=== PATIENT | female | born 1980 | race Caucasian/White ===

== ENCOUNTER 2019-02-21 16:33 | Observation (INO) ==
[2019-02-21 17:19] LABS: Microscopic, Urine URINE MICROSCOPIC (MICROSCOPIC)
[2019-02-21 17:28] LABS: Basophils # 0.1 K/mm3 (0-0.2); Basophils % 1.2 % (0.1-2.0); Eosinophils # 0.2 K/mm3 (0.0-0.4); Eosinophils % 2.1 % (0.1-12.0); Hematocrit 44.2 % (37.0-47.0); Hemoglobin 14.4 g/dL (12.2-16.2); Lymphocytes # 1.4 K/mm3 (0.7-4.5); Lymphocytes % 20.5 % (10-50); Mean Corpuscular HGB Conc 32.7 g/dL (31.8-35.4); Mean Corpuscular Volume 85.7 fl (81-99); Mean Platelet Volume 7.8 fl (7.4-10.4); Monocytes # 0.6 K/mm3 (0.1-1.0); Monocytes % 9.4 % (1.7-9.3); Neutrophils # 4.6 K/mm3 (1.8-7.8); Neutrophils % 66.8 % (37.0-80.0); Platelet Count 282 K/mm3 (142-424); Red Blood Count 5.16 M/mm3 (4.20-5.40); Red Cell Distribution Width 14.1 % (11.5-17.5); White Blood Count 6.8 K/mm3 (4.8-10.8)
[2019-02-21 17:38] LABS: Appearance,Urine CLEAR (Clear); Bilirubin,Urine Negative (Negative); Blood, Urine Negative (Negative); Color,Urine YELLOW (Yellow); Glucose,Urine (UA) Negative (Negative); Ketones,Urine Negative (Negative); Leukocyte Esterase,Urine Negative (Negative); Protein,Urine Negative (Negative); Urobilinogen,Urine 0.2 EU/dl (0.2)
[2019-02-21 17:46] LABS: Bacteria,Urine 1+ /lpf
[2019-02-21 17:52] LABS: Albumin Level 3.8 gm/dL (3.4-5.0); Albumin/Globulin Ratio 0.9 (1.1-1.8); Bilirubin,Total 0.8 mg/dL (0.2-1.0); Calcium 8.8 mg/dL (8.5-10.1); Globulin 4.4 gm/dl (1.3-3.2); Total Protein,Serum 8.2 gm/dL (6.4-8.2)
--- NOTE | 2019-02-21 18:42 | Emergency Department Note ---
ED Disposition Clinical Impression: Hypokalemia Disposition: Admitted as Observation Condition on Discharge: Good - Critical Care Critical Care Time: No Attestation: On 02/21/19, the high probability of a clinically significant, sudden or life threatening deterioration of the following system(s) required my full and direct attention, intervention and personal management. The time I documented below is in addition to time spent performing reported procedures but includes the following listed in this critical care notation. Medical Decision Making - Alexander Inquiry Pt receiving controlled substance: No Vital Signs: 02/21/19 17:05 02/21/19 17:26 Temperature 98.3 F Temperature Source Oral Pulse Rate [Right Radial] 101 H 99 H Respiratory Rate 18 18 Blood Pressure [Right Arm] 135/88 104/45 L Blood Pressure Mean [Right Arm] 103 64 Blood Pressure Source [Right Arm] Automatic Cuff Automatic Cuff Blood Pressure Position [Right Arm] Sitting Supine 02 Sat by Pulse Oximetry 95 98 Oxygen Delivery Method Room Air Room Air - Lab Data Lab Results 02/21/19 16:45: Urine Color Yellow, Urine Appearance Clear, Urine pH 6.0, Ur Specific [place] 1.010, Urine Protein Negative, Urine Glucose (UA) Negative, Urine Ketones Negative, Urine Blood Negative, Urine Nitrate Negative, Urine Bilirubin Negative, Urine Urobilinogen 0.2, Ur Leukocyte Esterase Negative, Ur Squamous Epith Cells 3-5, Urine Bacteria 1+ 02/21/19 16:45: WBC 6.8, RBC 5.16, Hgb 14.4, Hct 44.2, MCV 85.7, MCH 28.0, MCHC 32.7, RDW 14.1, Plt Count 282, MPV 7.8, Neut % (Auto) 66.8, Lymph % (Auto) 20.5, [place] % (Auto) 9.4 H, Eos % (Auto) 2.1, Baso % (Auto) 1.2, Neut # (Auto) 4.6, Lymph # (Auto) 1.4, [place] # (Auto) 0.6, Eos # (Auto) 0.2, Baso # (Auto) 0.1 02/21/19 16:45: Sodium 139, Potassium 2.0 L*, Chloride 97 L, Carbon Dioxide 32, Anion Gap 12.0, BUN 15, Creatinine 1.00, Estimated Creat Clear 76, Estimated GFR 62, Est GFR ( Amer) 75, Glucose 79, Calcium 8.8, Total Bilirubin 0.8, AST 90 H, ALT 54, Alkaline Phosphatase 161 H, Total Protein 8.2, Albumin 3.8, Globulin 4.4 H, Albumin/Globulin Ratio 0.9 L 02/21/19 16:58: Magnesium 1.2 L, TSH 2.26 Result diagrams: 02/21/19 16:45 02/21/19 16:45 Orders (Tests/Meds): ED MEDICATIONS Generic Name Dose Route Start Last Admin Trade Name Freq PRN Reason Stop Dose Admin Furosemide 40 mg 02/22/19 09:00 Lasix 40mg Tablet PO 03/24/19 08:59 DAILY PARRIS Potassium Chloride/Water 100 mls @ 50 mls/hr 02/21/19 19:20 02/21/19 19:51 Potassium Chloride 20meq/100ml Ivpb IV 02/21/19 21:19 50 mls/hr ONCE ONE Administration Levothyroxine Sodium 25 mcg 02/22/19 09:00 Synthroid 25mcg (0.025mg) Tablet PO 03/24/19 08:59 DAILY PARRIS Nitrofurantoin Macrocrystals 100 mg 02/21/19 21:00 Macrodantin 100mg Capsule PO 03/07/19 20:59 QID PARRIS Non-Formulary Medication 20 mg 02/22/19 09:00 Omeprazole [Omeprazole 20mg Capsule] PO 03/24/19 08:59 DAILY PARRIS Potassium Chloride 40 meq 02/21/19 21:00 Klor-Con 20meq Tablet PO 03/23/19 20:59 TID PARRIS Spironolactone 25 mg 02/21/19 21:00 Aldactone 25mg Tablet PO 03/23/19 20:59 BID PARRIS Discontinued Medications Generic Name Dose Route Start Last Admin Trade Name Freq PRN Reason Stop Dose Admin Sodium Chloride 500 mls @ 999 mls/hr 02/21/19 19:30 02/21/19 19:56 Sod Chlor 0.9% 1000ml Bag IV 02/21/19 20:00 Not Given .Q31M PARRIS Magnesium Sulfate 2 gm/ Sodium 104 mls @ 100 mls/hr 02/21/19 19:25 Chloride IV 02/21/19 20:27 ONCE ONE Potassium Chloride 60 meq 02/21/19 18:56 02/21/19 19:51 Klor-Con 20meq Tablet PO 02/21/19 18:57 60 meq ONCE ONE Administration Potassium Chloride/Water 20 meq 02/21/19 18:56 Potassium Chloride 20meq/100ml Ivpb IV 02/21/19 18:57 ONCE ONE Sodium Chloride 250 ml 02/21/19 19:55 02/21/19 19:56 Sod Chlor 0.9% 250ml Bag IV 02/21/19 19:56 250 ml ONCE ONE Administration - ECG Data Tracing #1 EKG interpreted by Toni Bowers MD: Rhythm: sinus Rate: [place]: normal Ectopy: none Conduction: normal ST Segment Changes: Nonspecific T Wave Changes: none Q Waves: none No evidence of acute ischemia or injury Voltage criteria for LVH - Physician Consults Physician Consulted: Roberto Time: 19:52 Reason -: Admission Comment/Response: Potassium 40 mEq orally 3 times a day. Spironolactone 25 mg twice a day. equipment monitor phototypesetting. Accurate daily weights. Medical Decision Narrative: patient states she needs to stay on her lasix daily General Adult HPI - General Chief complaint: Recheck/Abnormal Lab/Rx Stated complaint: pot levels are very low UTI and micro blood in uri Time Seen by Provider: 02/21/19 18:41 Mode of Arrival: Ambulatory Limitations: No Limitations Description of Symptoms (Recalled from ER Triage Doc. by RN): PT STATES THAT SHE WAS NOTIFIED FROM HER PHYSICIAN THAT HER LABS FROM YESTERDAY RESULTED A LOW POTASSIUM AND WAS INSTRUCTED TO COME TO THE ED. - History of Present Illness HPI narrative: Patient complains of a "critical low potassium" and a "severe urinary tract infection". She says she is beginning to have muscle cramps in her legs. She says that she has been having problems with a low potassium for 2 to 3 months. She initially was started on potassium 20 mEq 3 times a day and for the past couple of weeks has increased to 40 mEq twice a day. She also eats foods that are rich in potassium. Despite this, her potassium continues to be low. Yesterday it was checked and it was 2.5. She was called today by her doctor and told to come to the emergency room and to get intravenous potassium. It was 2.9 prior to that when she last had it checked. She is on Lasix on a daily basis because of lymphedema secondary to surgery for uterine cancer. She says she began having bladder spasms and dysuria couple of days ago. Diagnosed with microhematuria and urinary tract infection yesterday and started on Macrobid. She has had a couple of doses. No vomiting. No fever. - Related Data Home Medications Medication Instructions Recorded Confirmed Levothyroxine Sodium [Synthroid 25 mcg PO DAILY 09/03/17 02/21/19 25mcg (0.025mg) tablet] Omeprazole [Omeprazole 20mg 20 mg PO DAILY 09/03/17 02/21/19 Capsule] furosemide 40 mg tablet 40 mg PO DAILY 07/13/18 02/21/19 Allergies Allergy/AdvReac Type Severity Reaction Status Date / Time hydromorphone [From DILAUDID] Allergy Unknown "MAKES Verified 09/03/17 15:51 CRAZY" N/V Sulfa (Sulfonamide Allergy Unknown I-RASH Verified 09/03/17 15:51 Antibiotics) [SULFA (SULFONAMIDE ANTIBIOTICS)] [facility] History - Hepatitis A Screen Drug use history?: No High risk sexual behaviors?: No History of sexually transmitted infection?: No Currently employed?: No Childcare worker?: No Do you have indoor plumbing?: Yes Do you have electricity?: Yes Attestation statement:: This patient has been screened for Hepatitis A risk factors. I have reviewed the patient's past medical history: Yes Medical History: Reports:: Cancer (UTERINE) Denies:: Diabetes Mellitus Type 1, Diabetes Mellitus Type 2, MRSA Laterality Cases: Bilateral: Myringotomy (Ear Tubes), Tonsillectomy Amputation: No Fractures: No - Social History Smoking Status: Never smoker Alcohol Intake: never Substance Use Type: denies use Occupational Status: employed ROS Obtained: Yes All systems reviewed & no additional complaints - Constitutional Constitutional: Denies fever(s) - Cardiovascular Cardiovascular: Denies chest pain - Respiratory Respiratory: No dyspnea - Gastrointestinal Gastrointestingal: Reports: abdominal pain (bladder cramps). Denies: vomiting - Genitourinary Female Genitourinary: Reports as per HPI - Musculoskeletal Musculoskeletal: Reports muscle cramps Physical Exam - General General appearance: alert, in no apparent distress - Head Head exam: atraumatic, normocephalic - Eye Eye exam: Present: normal appearance, EOMI - ENT ENT exam: Present: mucous membranes moist - Neck Neck exam: Present: normal inspection, trachea midline - Chest Chest inspection: Present: normal inspection, symmetric chest wall rise - Respiratory Respiratory exam: Present: normal lung sounds bilaterally. Absent: respiratory distress - Cardiovascular Cardiovascular exam: Present: regular rate, normal rhythm, normal heart sounds - Abdominal Exam Abdominal exam: Present: soft, normal bowel sounds. Absent: distention, tenderness - Extremities Exam Extremities exam: Present: normal inspection, full ROM. Absent: tenderness - Neurological Exam Neurological exam: Present: alert, oriented X3, CN II-XII intact. Absent: motor sensory deficit - Psychiatric Psychiatric exam: Present: normal affect, normal mood - Skin Skin exam: Present: warm, dry
[2019-02-21 19:17] LABS: Thyroid Stimulating Hormone 2.26 uIU/ml (0.358-3.740)
[2019-02-22 07:08] LABS: Anion Gap 10.1 mEq/L (5-15); Calcium 8.6 mg/dL (8.5-10.1)
--- NOTE | 2019-02-22 07:56 | Pharmacy Consult Notes ---
[facility] Pharmacy VTE Monitoring - Patient Demographics Admission date: 02/21/19 Report Date: 02/22/19 Time: 07:56 Allergies/Adverse Reactions: Patient Allergies hydromorphone [From DILAUDID] Allergy (Unknown, Verified 09/03/17 15:51) "MAKES CRAZY" N/V Sulfa (Sulfonamide Antibiotics) [SULFA (SULFONAMIDE ANTIBIOTICS)] Allergy (Unknown, Verified 09/03/17 15:51) I-RASH Height: 1.61 m Weight: 66.48 kg Patient Problems: Current Active Problems Hypokalemia (Acute) - VTE Risk Labs: VTE Related Lab Results Hgb 14.4 g/dL (12.2-16.2) 02/21/19 16:45 Hct 44.2 % (37.0-47.0) 02/21/19 16:45 Plt Count 282 K/mm3 (142-424) 02/21/19 16:45 BUN 14 mg/dL (7-18) 02/22/19 06:34 Creatinine 0.83 mg/dL (0.55-1.02) 02/22/19 06:34 Estimated Creat Clear 97 mL/min (50-200) 02/22/19 06:34 Was VTE Risk Assessment Performed: Yes VTE Score: 1 VTE Risk Level: Low Risk Clinical Trial Participant: No - Prophylaxis VTE Prophylaxis Ordered?: Yes Types of VTE Prophylaxis: TEDS Knee High
--- NOTE | 2019-02-22 09:06 | History & Physical Report ---
*Admission Date: 02/21/19 *Chief complaint: low potassium *History of present illness: Ms. العراقي is a 38-year-old female with a history of uterine cancer and resulting lymphedema in the legs from chemo and radiation. She states over the past few months she has been very sluggish and had no energy. She had some blood work done at her primary care physician and her potassium was low. She was therefore started on potassium supplementation. Of note she does take Lasix 20 mg daily for her lymphedema. She states her potassium got as low as 2.9 at her primary care physician's office and her dose of potassium was increased to 20 milliequivalents 3 times a day. She had her potassium rechecked on Tuesday and it was 2.5. Her primary care office told her to report to the emergency room. In the ER, her potassium was 2. She was admitted due to her critical potassium for potassium replacement. Of note, in her medical history, she also had her gallbladder removed as well as her bile duct. She states there was damage to her liver and she may need a liver transplant at some point in her life. She has also been recently treated for a urinary tract infection but is unsure with what medication. [facility] History I have reviewed the patient's past medical history: Yes Medical History: Reports:: Cancer (UTERINE), Heart Murmur, Urinary Tract Infection Denies:: Diabetes Mellitus Type 1, Diabetes Mellitus Type 2, MRSA *Have you ever received a pneumonia vaccine?: No *Have you received a flu vaccine this season?: No Other Medical History: Reports: Chemotherapy, Hypothyroidism, Radiation Therapy, Other (lymphedema legs, liver damage from cholecystectomy) Laterality Cases: Bilateral: Myringotomy (Ear Tubes), Tonsillectomy Other Surgeries: Yes: Cholecystectomy, Hysterectomy-TotalComment Only: Other (BILIARY TUBES) Amputation: No Fractures: No - *Social History Educational Level: Attended College Smoking Status: Never smoker Alcohol Intake: never Substance Use Type: denies use *Occupational Status:: employed Housing: house Household Members: none, other *Travel in the last 8 weeks: None Family Hx:: Cancer, Coronary Artery Disease Review of Systems - Constitutional Reports body ache(s), Reports fever(s), Reports weakness - Eyes Denies blurry vision, Denies double vision - ENT Reports nasal congestion, Denies sore throat - *Cardiovascular Denies chest pain, Denies shortness of breath, Denies rapid, pounding, or irregular heartbeat - *Respiratory Denies cough, Denies shortness of breath - *Gastrointestinal Reports abdominal pain (diffuse), Reports loose stools, Reports nausea, Denies vomiting - *Genitourinary Reports other (Hematuria), Denies difficulty urinating, Denies painful urination - *Musculoskeletal Reports body aches, Denies joint pain - *Neurologic Reports weakness, Denies headache(s), Denies dizziness Meds Home Medications Medication Instructions Recorded Confirmed Type Levothyroxine Sodium [Synthroid 25 mcg PO DAILY 09/03/17 02/21/19 History 25mcg (0.025mg) tablet] Omeprazole [Omeprazole 20mg 20 mg PO DAILY 09/03/17 02/21/19 History Capsule] furosemide 40 mg tablet 40 mg PO DAILY 07/13/18 02/21/19 History L.acidoph,Paracasei, B.lactis 1 each PO DAILY 02/21/19 02/21/19 History [Probiotic] Potassium Chloride 20 meq PO TID 02/21/19 02/21/19 History Allergies Allergy/AdvReac Type Severity Reaction Status Date / Time hydromorphone [From DILAUDID] Allergy Unknown "MAKES Verified 09/03/17 15:51 CRAZY" N/V Sulfa (Sulfonamide Allergy Unknown I-RASH Verified 09/03/17 15:51 Antibiotics) [SULFA (SULFONAMIDE ANTIBIOTICS)] Exam Vital signs and Labs for Last 24 Hours: Temp Pulse Resp BP Pulse Ox 98.1 F 90 16 111/67 97 02/22/19 08:00 02/22/19 08:00 02/22/19 08:00 02/22/19 08:00 02/22/19 08:00 Laboratory Results - last 24 hr 02/21/19 16:45: Urine Color Yellow, Urine Appearance Clear, Urine pH 6.0, Ur Specific [place] 1.010, Urine Protein Negative, Urine Glucose (UA) Negative, Urine Ketones Negative, Urine Blood Negative, Urine Nitrate Negative, Urine Bilirubin Negative, Urine Urobilinogen 0.2, Ur Leukocyte Esterase Negative, Ur Squamous Epith Cells 3-5, Urine Bacteria 1+ 02/21/19 16:45: WBC 6.8, RBC 5.16, Hgb 14.4, Hct 44.2, MCV 85.7, MCH 28.0, MCHC 32.7, RDW 14.1, Plt Count 282, MPV 7.8, Neut % (Auto) 66.8, Lymph % (Auto) 20.5, [place] % (Auto) 9.4 H, Eos % (Auto) 2.1, Baso % (Auto) 1.2, Neut # (Auto) 4.6, Lymph # (Auto) 1.4, [place] # (Auto) 0.6, Eos # (Auto) 0.2, Baso # (Auto) 0.1 02/21/19 16:45: Sodium 139, Potassium 2.0 L*, Chloride 97 L, Carbon Dioxide 32, Anion Gap 12.0, BUN 15, Creatinine 1.00, Estimated Creat Clear 76, Estimated GFR 62, Est GFR ( Amer) 75, Glucose 79, Calcium 8.8, Total Bilirubin 0.8, AST 90 H, ALT 54, Alkaline Phosphatase 161 H, Total Protein 8.2, Albumin 3.8, Globulin 4.4 H, Albumin/Globulin Ratio 0.9 L 02/21/19 16:58: Magnesium 1.2 L, TSH 2.26 02/22/19 06:34: Sodium 140, Potassium 3.1 L D, Chloride 105, Carbon Dioxide 28, Anion Gap 10.1, BUN 14, Creatinine 0.83, Estimated Creat Clear 97, Estimated GFR 77, Est GFR ( Amer) 94 D, Glucose 95 D, Calcium 8.6 02/22/19 06:34: Magnesium 2.1 D I & O for Last 24 hours: Intake & Output 02/19/19 02/20/19 02/21/19 02/22/19 11:59 11:59 11:59 11:59 Weight 146 lb 9 oz - Constitutional no acute distress - *Routine HEENT Exam Head: Present: normocephalic Eye: Present: EOMI, PERRL ENT: Present: mucous membranes dry - *Routine Neck Exam Present: supple. Absent: lymphadenopathy - *Routine Respiratory Exam Present: CTA bilaterally - *Routine Cardiovascular Exam Present: RRR - *Routine Abdominal Exam Present: soft, normoactive bowel sounds, tenderness (diffuse) - *Routine Extremities Exam Absent: cyanosis, clubbing, edema - *Routine Skin Exam Present: warm. Absent: rash - *Routine Neurological Exam Present: alert, oriented X3 Assessment and Plan (1) Hypokalemia Current visit: Yes Status: Acute Category: Medical Code(s): E87.6 - Hypokalemia (2) History of uterine cancer Current visit: Yes Status: Chronic Category: Medical Code(s): Z85.42 - Personal history of malignant neoplasm of other parts of uterus (3) Acquired lymphedema of lower extremity Current visit: Yes Status: Chronic Category: Medical Code(s): I89.0 - Lymphedema, not elsewhere classified - Assessment and plan all Dx Assessment and Plan for all problems:: Patient's potassium is improving. Will continue supplementation. She will likely need to be discharged on spironolactone rather than Lasix.
[2019-02-22 14:50] LABS: Anion Gap 11.3 mEq/L (5-15); Calcium 8.6 mg/dL (8.5-10.1)
--- NOTE | 2019-02-22 16:05 | Discharge Summary ---
General - General Admission date:: 02/21/19 Discharge date: 02/22/19 HPI HPI: Ms. العراقي is a 38-year-old female with a history of uterine cancer and resulting lymphedema in the legs from chemo and radiation. She states over the past few months she has been very sluggish and had no energy. She had some blood work done at her primary care physician and her potassium was low. She was therefore started on potassium supplementation. Of note she does take Lasix 20 mg daily for her lymphedema. She states her potassium got as low as 2.9 at her primary care physician's office and her dose of potassium was increased to 20 milliequivalents 3 times a day. She had her potassium rechecked on Tuesday and it was 2.5. Her primary care office told her to report to the emergency room. In the ER, her potassium was 2. She was admitted due to her critical potassium for potassium replacement. Of note, in her medical history, she also had her gallbladder removed as well as her bile duct. She states there was damage to her liver and she may need a li ginny transplant at some point in her life. She has also been recently treated for a urinary tract infection but is unsure with what medication. Hospital Course Hospital Course: The patient was given IV potassium and started on oral potassium as well as Spironolactone. Her Lasix was held. Her potassium did improve to 3.3. It was felt she was stable for discharge on 40 mEq of potassium twice daily as well as 25 mg of spironolactone twice daily. She will need a follow-up BMP tomorrow and will need to follow-up with Dr. Hsu next week. Objective Vital signs: Temp Pulse Resp BP Pulse Ox 98.0 F 104 H 18 112/80 100 02/22/19 12:00 02/22/19 12:00 02/22/19 12:00 02/22/19 12:00 02/22/19 12:00 Narrative: - Constitutional no acute distress - *Routine HEENT Exam Head: Present: normocephalic Eye: Present: EOMI, PERRL ENT: Present: mucous membranes dry - *Routine Neck Exam Present: supple. Absent: lymphadenopathy - *Routine Respiratory Exam Present: CTA bilaterally - *Routine Cardiovascular Exam Present: RRR - *Routine Abdominal Exam Present: soft, normoactive bowel sounds, tenderness (diffuse) - *Routine Extremities Exam Absent: cyanosis, clubbing, edema - *Routine Skin Exam Present: warm. Absent: rash - *Routine Neurological Exam Present: alert, oriented X3 Results Labs on day of discharge: Labs from last 24 hours 02/22/19 02/22/19 02/22/19 14:31 06:34 06:34 WBC RBC Hgb Hct MCV MCH MCHC RDW Plt Count MPV Neut % (Auto) Lymph % (Auto) [place] % (Auto) Eos % (Auto) Baso % (Auto) Neut # (Auto) Lymph # (Auto) [place] # (Auto) Eos # (Auto) Baso # (Auto) Sodium 139 140 Potassium 3.3 L 3.1 L D Chloride 103 105 Carbon Dioxide 28 28 Anion Gap 11.3 10.1 BUN 16 14 Creatinine 0.83 0.83 Estimated Creat Clear 97 97 Estimated GFR 77 77 Est GFR ( Amer) 94 94 D Glucose 80 95 D Calcium 8.6 8.6 Magnesium 2.1 D Total Bilirubin AST ALT Alkaline Phosphatase Total Protein Albumin Globulin Albumin/Globulin Ratio TSH Urine Color Urine Appearance Urine pH Ur Specific [place] Urine Protein Urine Glucose (UA) Urine Ketones Urine Blood Urine Nitrate Urine Bilirubin Urine Urobilinogen Ur Leukocyte Esterase Ur Squamous Epith Cells Urine Bacteria 02/21/19 02/21/19 02/21/19 16:58 16:45 16:45 WBC 6.8 RBC 5.16 Hgb 14.4 Hct 44.2 MCV 85.7 MCH 28.0 MCHC 32.7 RDW 14.1 Plt Count 282 MPV 7.8 Neut % (Auto) 66.8 Lymph % (Auto) 20.5 [place] % (Auto) 9.4 H Eos % (Auto) 2.1 Baso % (Auto) 1.2 Neut # (Auto) 4.6 Lymph # (Auto) 1.4 [place] # (Auto) 0.6 Eos # (Auto) 0.2 Baso # (Auto) 0.1 Sodium 139 Potassium 2.0 L* Chloride 97 L Carbon Dioxide 32 Anion Gap 12.0 BUN 15 Creatinine 1.00 Estimated Creat Clear 76 Estimated GFR 62 Est GFR ( Amer) 75 Glucose 79 Calcium 8.8 Magnesium 1.2 L Total Bilirubin 0.8 AST 90 H ALT 54 Alkaline Phosphatase 161 H Total Protein 8.2 Albumin 3.8 Globulin 4.4 H Albumin/Globulin Ratio 0.9 L TSH 2.26 Urine Color Urine Appearance Urine pH Ur Specific [place] Urine Protein Urine Glucose (UA) Urine Ketones Urine Blood Urine Nitrate Urine Bilirubin Urine Urobilinogen Ur Leukocyte Esterase Ur Squamous Epith Cells Urine Bacteria 02/21/19 16:45 WBC RBC Hgb Hct MCV MCH MCHC RDW Plt Count MPV Neut % (Auto) Lymph % (Auto) [place] % (Auto) Eos % (Auto) Baso % (Auto) Neut # (Auto) Lymph # (Auto) [place] # (Auto) Eos # (Auto) Baso # (Auto) Sodium Potassium Chloride Carbon Dioxide Anion Gap BUN Creatinine Estimated Creat Clear Estimated GFR Est GFR ( Amer) Glucose Calcium Magnesium Total Bilirubin AST ALT Alkaline Phosphatase Total Protein Albumin Globulin Albumin/Globulin Ratio TSH Urine Color Yellow Urine Appearance Clear Urine pH 6.0 Ur Specific [place] 1.010 Urine Protein Negative Urine Glucose (UA) Negative Urine Ketones Negative Urine Blood Negative Urine Nitrate Negative Urine Bilirubin Negative Urine Urobilinogen 0.2 Ur Leukocyte Esterase Negative Ur Squamous Epith Cells 3-5 Urine Bacteria 1+ DS: Diagnosis - Discharge Diagnosis (1) Hypokalemia Status: Acute (2) History of uterine cancer Status: Chronic (3) Acquired lymphedema of lower extremity Status: Chronic Discharge Plan - Patient Discharge Instructions ACTIVITY: Continue current activity DIET: continue same diet Patient Instructions: Potassium, DI for Hypokalemia, High-Potassium Diet, Hypokalemia - Follow up Plan Follow up with: Rosario Hsu MD [Primary Care Provider] - 02/26/19 Disposition: Home, Self-Fdc Medications: Home Medications Medication Instructions Recorded Confirmed Type Levothyroxine Sodium [Synthroid 25 mcg PO DAILY 09/03/17 02/21/19 History 25mcg (0.025mg) tablet] Omeprazole [Omeprazole 20mg 20 mg PO DAILY 09/03/17 02/21/19 History Capsule] L.acidoph,Paracasei, B.lactis 1 each PO DAILY 02/21/19 02/21/19 History [Probiotic] Potassium Chloride [Micro-K 10mEq 40 meq PO BID 30 Days #240 cap 02/22/19 Rx cap] Spironolactone [Spironolactone 25 mg PO BID 30 Days #60 tab 02/22/19 Rx 25mg Tablet] Prescriptions/Medication Reconciliation: New Potassium Chloride [Micro-K 10mEq cap] 40 meq PO BID 30 Days #240 cap Spironolactone [Spironolactone 25mg Tablet] 25 mg PO BID 30 Days #60 tab Continued Omeprazole [Omeprazole 20mg Capsule] 20 mg PO DAILY L.acidoph,Paracasei, B.lactis [Probiotic] 1 each PO DAILY Levothyroxine Sodium [Synthroid 25mcg (0.025mg) tablet] 25 mcg PO DAILY Discontinued furosemide 40 mg tablet 40 mg PO DAILY Potassium Chloride 20 meq PO TID Other Amb Orders: Basic Metabolic Panel Time Frame: 02/23/19, Facility: [facility], Location: Laboratory - Problem Reconciliation Problems Reviewed?: Yes
--- NOTE | 2019-02-23 12:14 | Electrocardiograph Report ---
APPROVED REPORT Exam: Resting ECG HR:84 bpm ECG Measurements Heart Rate [address] 136 P 55 QRSd 86 QRS 6 QT 394 T33 QTc 465 <Conclusion> Normal sinus rhythm Possible Left atrial enlargement Left ventricular hypertrophy ST abnormality, possible digitalis effect Abnormal ECG Electronically signed by : Ivan Chappell, 02/23/2019 12:13:52
== END 2019-02-22 16:06 | disposition home or self-care (01) ==
LOC: ER 16:33 → 2ND 16:33
PROVIDERS: ADMIT Family Medicine; ATTEND Family Medicine
CPT/HCPCS: 36415; 80048; 80053; 81001; 83735; 84443; 85025; 93005; 96365; 99284; G0378

== ENCOUNTER → 2019-02-23 11:50 | Outpatient (CLI) | payer BC, SELFPAY ==
[2019-02-23 13:17] LABS: Anion Gap 15.1 mEq/L (5-15); Blood Urea Nitrogen 19 mg/dL (7-18); Carbon Dioxide 26 mmol/L (21.0-32.0); Chloride 105 mmol/L (98-107); Creatinine,Serum 0.84 mg/dL (0.55-1.02); Estimated Glomerular Filt Rate 76 ml/min (>60); GFR (African American) 92 ML/MIN (>60); Glucose 80 mg/dL (74-106); Potassium 4.1 mmoL/L (3.5-5.1); Sodium 142 mmol/L (136-145)
[2019-02-23 13:26] LABS: Calcium 9.6 mg/dL (8.5-10.1)
== END ==
PROVIDERS: Visit Provider Physician Assistant
DX: E87.6 Hypokalemia (principal)
CPT/HCPCS: 36415; 80048

== ENCOUNTER 2019-02-28 18:55 | Observation (INO) ==
[2019-02-28 20:01] LABS: Basophils # 0.1 K/mm3 (0-0.2); Basophils % 0.6 % (0.1-2.0); Eosinophils # 0.2 K/mm3 (0.0-0.4); Hematocrit 43.3 % (37.0-47.0); Hemoglobin 14.2 g/dL (12.2-16.2); Lymphocytes # 2.2 K/mm3 (0.7-4.5); Lymphocytes % 27.4 % (10-50); Mean Corpuscular HGB Conc 32.9 g/dL (31.8-35.4); Mean Corpuscular Volume 87.4 fl (81-99); Mean Platelet Volume 7.7 fl (7.4-10.4); Monocytes # 0.6 K/mm3 (0.1-1.0); Monocytes % 6.8 % (1.7-9.3); Neutrophils # 5.1 K/mm3 (1.8-7.8); Neutrophils % 63.1 % (37.0-80.0); Platelet Count 341 K/mm3 (142-424); Red Blood Count 4.95 M/mm3 (4.20-5.40); Red Cell Distribution Width 14.5 % (11.5-17.5); White Blood Count 8.1 K/mm3 (4.8-10.8)
[2019-02-28 20:33] LABS: Anion Gap 15.4 mEq/L (5-15); Bilirubin,Total 0.6 mg/dL (0.2-1.0); Calcium 7.9 mg/dL (8.5-10.1); Globulin 4.2 gm/dl (1.3-3.2); Total Protein,Serum 8.2 gm/dL (6.4-8.2)
--- NOTE | 2019-02-28 20:40 | Emergency Department Note ---
ED Disposition Clinical Impression: Hypokalemia, Acquired lymphedema of lower extremity Disposition: Admitted as Observation Condition on Discharge: Good Referrals: Rosario Hsu MD [Primary Care Provider] - - Critical Care Critical Care Time: No Attestation: On 02/28/19, the high probability of a clinically significant, sudden or life threatening deterioration of the following system(s) required my full and direct attention, intervention and personal management. The time I documented below is in addition to time spent performing reported procedures but includes the following listed in this critical care notation. Medical Decision Making - Medical Records Medical records reviewed: Yes: I reviewed the patient's medical records. - Alexander Inquiry Pt receiving controlled substance: No Vital Signs: 02/28/19 18:58 02/28/19 19:30 02/28/19 21:00 Temperature 98.0 F Temperature Source Oral Pulse Rate [Left Radial] 99 H 90 94 H Respiratory Rate 16 16 16 Blood Pressure [Right Arm] 121/77 117/69 123/81 Blood Pressure Mean [Right Arm] 91 85 95 Blood Pressure Source [Right Arm] Automatic Cuff Automatic Cuff Automatic Cuff 02 Sat by Pulse Oximetry 98 98 98 Oxygen Delivery Method Room Air Room Air Room Air 02/28/19 21:30 Temperature Temperature Source Pulse Rate [Left Radial] 82 Respiratory Rate 16 Blood Pressure [Right Arm] 112/73 Blood Pressure Mean [Right Arm] 86 Blood Pressure Source [Right Arm] Automatic Cuff 02 Sat by Pulse Oximetry 98 Oxygen Delivery Method Room Air - Lab Data Lab results reviewed: Yes: I reviewed the patient's lab results. Lab Results 02/28/19 19:15: WBC 8.1, RBC 4.95, Hgb 14.2, Hct 43.3, MCV 87.4, MCH 28.7, MCHC 32.9, RDW 14.5, Plt Count 341, MPV 7.7, Neut % (Auto) 63.1, Lymph % (Auto) 27.4, [place] % (Auto) 6.8, Eos % (Auto) 2.0, Baso % (Auto) 0.6, Neut # (Auto) 5.1, Lymph # (Auto) 2.2, [place] # (Auto) 0.6, Eos # (Auto) 0.2, Baso # (Auto) 0.1 02/28/19 19:15: Sodium 141, Potassium 2.4 L*, Chloride 101, Carbon Dioxide 27, Anion Gap 15.4 H, BUN 20 H, Creatinine 1.08 H, Estimated Creat Clear 69, Estimated GFR 57 L, Est GFR ( Amer) 69, Glucose 90, Calcium 7.9 L, Total Bilirubin 0.6, AST 54 H, ALT 62, Alkaline Phosphatase 149 H, Total Protein 8.2, Albumin 4.0, Globulin 4.2 H, Albumin/Globulin Ratio 1.0 L 02/28/19 19:15: Magnesium 1.4, TSH 2.76, Thyroxine (T4) 11.1 02/28/19 23:45: Potassium 2.4 L* Result diagrams: 02/28/19 19:15 02/28/19 23:45 Orders (Tests/Meds): ED MEDICATIONS Generic Name Dose Route Start Last Admin Trade Name Freq PRN Reason Stop Dose Admin Sodium Chloride 1,000 mls @ 999 mls/hr 02/28/19 21:00 02/28/19 20:47 Sod Chlor 0.9% 1000ml Bag IV 02/28/19 22:00 999 mls/hr .[id number] PARRIS Administration Discontinued Medications Generic Name Dose Route Start Last Admin Trade Name Freq PRN Reason Stop Dose Admin Potassium Chloride/Water 100 mls @ 50 mls/hr 02/28/19 20:38 02/28/19 20:47 Potassium Chloride 20meq/100ml Ivpb IV 02/28/19 22:37 50 mls/hr ONCE ONE Administration Potassium Chloride 40 meq 02/28/19 22:48 02/28/19 23:07 Klor-Con 20meq Tablet PO 02/28/19 22:49 40 meq ONCE ONE Administration Recheck HPI - General Chief Complaint: Recheck/Abnormal Lab/Rx Stated Complaint: Low levels in potassium Time Seen by Provider: 02/28/19 20:35 Mode of Arrival: Ambulatory Limitations: No Limitations Description of Symptoms (Recalled from ER Triage Doc. by RN): pt stated she had labs drawn on tuesday and they told her that her potassium was 3.0. pt came to ER becasue she stated she "felt like her potassium has dropped even more". pt was dischared from hospital after being admitted with low potassium. - History of Present Illness HPI narrative: pt with low k over the last few weeks with assoc weakness and mm spasm - was recently admitted for same - MD complaint: abnormal lab Initial visit (ago): day(s) Returns today for: called because of abnormal lab/test Symptoms since prior visit: no new symptoms Context: called for abnormal lab result Associated symptoms: none - Related Data Home Medications Medication Instructions Recorded Confirmed Levothyroxine Sodium [Synthroid 25 mcg PO DAILY 09/03/17 02/28/19 25mcg (0.025mg) tablet] Omeprazole [Omeprazole 20mg 20 mg PO DAILY 09/03/17 02/28/19 Capsule] L.acidoph,Paracasei, B.lactis 1 each PO DAILY 02/21/19 02/28/19 [Probiotic] Linaclotide [Linzess] 290 mcg PO DAILY 02/28/19 02/28/19 Potassium Chloride [Micro-K 10mEq 40 meq PO BID 02/28/19 02/28/19 cap] Spironolactone [Spironolactone 25 mg PO BID 02/28/19 02/28/19 25mg Tablet] Allergies Allergy/AdvReac Type Severity Reaction Status Date / Time hydromorphone [From DILAUDID] Allergy Unknown "MAKES Verified 09/03/17 15:51 CRAZY" N/V Sulfa (Sulfonamide Allergy Unknown I-RASH Verified 09/03/17 15:51 Antibiotics) [SULFA (SULFONAMIDE ANTIBIOTICS)] [facility] History - Hepatitis A Screen Drug use history?: No High risk sexual behaviors?: No History of sexually transmitted infection?: No Currently employed?: No Childcare worker?: No Do you have indoor plumbing?: Yes Do you have electricity?: Yes Attestation statement:: This patient has been screened for Hepatitis A risk factors. I have reviewed the patient's past medical history: Yes Medical History: Reports:: Cancer (UTERINE), Heart Murmur, Urinary Tract Infection Denies:: Diabetes Mellitus Type 1, Diabetes Mellitus Type 2, MRSA Other Medical History: Reports: Chemotherapy, Hypothyroidism, Radiation Therapy, Other (lymphedema legs, liver damage from cholecystectomy) Laterality Cases: Bilateral: Myringotomy (Ear Tubes), Tonsillectomy Other Surgeries: Yes: Cholecystectomy, Hysterectomy-TotalComment Only: Other (BILIARY TUBES) Amputation: No Fractures: No - Social History Smoking Status: Never smoker Alcohol Intake: never Substance Use Type: denies use Occupational Status: employed Housing: house Household Members: none, other Family Hx:: Cancer, Coronary Artery Disease ROS Obtained: Yes All systems reviewed & no additional complaints - Constitutional Constitutional: Denies fever(s), Reports weakness - Eyes Eyes: Denies change in vision - ENT Ears, Nose, Mouth, and Throat: Denies sore throat - Cardiovascular Cardiovascular: Denies chest pain - Respiratory Respiratory: No cough - Gastrointestinal Gastrointestingal: Denies: abdominal pain - Genitourinary Female Genitourinary: Denies hematuria - Musculoskeletal Musculoskeletal: Denies joint pain - Integumentary/Breasts Skin/Breast: Denies rash - Neurologic Neurologic: Reports focal weakness, Denies seizure-like activity Physical Exam - General General appearance: alert - Head Head exam: normocephalic - Eye Eye exam: Present: PERRL, EOMI. Absent: nystagmus - ENT ENT exam: Present: mucous membranes dry - Neck Neck exam: Present: trachea midline - Respiratory Respiratory exam: Absent: respiratory distress - Cardiovascular Cardiovascular exam: Present: regular rate - Abdominal Exam Abdominal exam: Present: soft - Extremities Exam Extremities exam: Present: full ROM - Neurological Exam Neurological exam: Present: oriented X3, CN II-XII intact - Psychiatric Psychiatric exam: Present: normal affect - Skin Skin exam: Absent: rash
[2019-02-28 21:48] LABS: Thyroid Stimulating Hormone 2.76 uIU/ml (0.358-3.740)
[2019-03-01 06:27] LABS: Anion Gap 11.3 mEq/L (5-15); Calcium 8.3 mg/dL (8.5-10.1)
--- NOTE | 2019-03-01 07:46 | Pharmacy Consult Notes ---
[facility] Pharmacy VTE Monitoring - Patient Demographics Admission date: 02/28/19 Report Date: 03/01/19 Time: 07:46 Allergies/Adverse Reactions: Patient Allergies hydromorphone [From DILAUDID] Allergy (Unknown, Verified 09/03/17 15:51) "MAKES CRAZY" N/V Sulfa (Sulfonamide Antibiotics) [SULFA (SULFONAMIDE ANTIBIOTICS)] Allergy (Unknown, Verified 09/03/17 15:51) I-RASH Height: 1.6 m Weight: 63.644 kg Patient Problems: Current Active Problems Hypokalemia (Acute) Acquired lymphedema of lower extremity (Chronic) - VTE Risk Labs: VTE Related Lab Results Hgb 14.2 g/dL (12.2-16.2) 02/28/19 19:15 Hct 43.3 % (37.0-47.0) 02/28/19 19:15 Plt Count 341 K/mm3 (142-424) 02/28/19 19:15 BUN 20 mg/dL (7-18) H 03/01/19 05:28 Creatinine 0.78 mg/dL (0.55-1.02) D 03/01/19 05:28 Estimated Creat Clear 99 mL/min (50-200) 03/01/19 05:28 VTE Score: 4 VTE Risk Level: Low Risk - Prophylaxis VTE Prophylaxis Ordered?: Yes Types of VTE Prophylaxis: TEDS Knee High Location of Applied Device: Bilateral Lower Extremeties - VTE Diagnosis Confirmed Treatment or plan recommended: Continue Current Treatment
[2019-03-01 08:09] VITALS: BP 91/50
--- NOTE | 2019-03-01 09:09 | H&P/Discharge Summary ---
General - General Admission date:: 02/28/19 Discharge date: 03/01/19 *Admission Date: 02/28/19 *Chief complaint: Weakness and muscle spasms *History of present illness: 38-year-old female patient reports she had labs drawn on tuesday and they told her that her potassium was 3.0. pt came to ER becasue she stated she "felt like her potassium has dropped even more". pt was dischared from hospital after being admitted with low potassium. She has had low k over the last few weeks with assoc weakness and spasm - was recently admitted for same. Potassium was 2.4 in the ER. She has received 40 potassium p.o. and 3 rounds of K IV, this morning her potassium is 3.3. She reports she is feeling better we discussed discharge and he initiated is agreeable to being discharged this morning [facility] History Medical History: Reports:: Cancer (UTERINE), Heart Murmur, Urinary Tract Infection Denies:: Diabetes Mellitus Type 1, Diabetes Mellitus Type 2, MRSA *Have you ever received a pneumonia vaccine?: No *Have you received a flu vaccine this season?: No Other Medical History: Reports: Chemotherapy (LAST RECEIVED 2014), Hypothyroidism, Radiation Therapy, Other (lymphedema legs, liver damage from cholecystectomy) Laterality Cases: Bilateral: Myringotomy (Ear Tubes), Tonsillectomy Other Surgeries: Yes: Cholecystectomy, Hysterectomy-TotalComment Only: Other (BILIARY TUBES) Amputation: No Fractures: No - *Social History Educational Level: Attended College Smoking Status: Never smoker Alcohol Intake: never Substance Use Type: denies use *Occupational Status:: employed Housing: house Household Members: none, other *Travel in the last 8 weeks: None Family Hx:: Cancer, Coronary Artery Disease, Diabetes, Hypertension, Alcoholism Review of Systems - Review of Systems Review of systems:: pertinent systems reviewed and negative unless documented below - Constitutional Reports fatigue, Reports weakness - Eyes Denies blurry vision, Denies change in vision - ENT Denies nasal congestion, Denies nasal discharge - *Cardiovascular Denies chest pain - *Respiratory Denies chest congestion, Denies shortness of breath - *Gastrointestinal Denies abdominal pain, Denies incontinent of stools - *Musculoskeletal Reports muscle cramps, Reports muscle weakness - Integumentary/Breasts Denies yellowing of the skin, Denies non-healing lesions, Denies wounds - *Neurologic Reports localized weakness, Reports weakness, Denies seizure-like activity - Psychiatric Denies thoughts of hurting/killing others, Denies thoughts of hurting/killing yourself - Endocrine Denies rapid, pounding, or irregular heartbeat - Hematologic/Lymphatic Denies easy bleeding, Denies easy bruising - Allergic/Immunologic Denies lip swelling, Denies throat swelling Exam Vital signs and Labs for Last 24 Hours: Temp Pulse Resp BP Pulse Ox 98.2 F 79 17 91/50 L 98 03/01/19 08:00 03/01/19 08:00 03/01/19 08:00 03/01/19 08:00 03/01/19 08:00 Laboratory Results - last 24 hr 02/28/19 19:15: WBC 8.1, RBC 4.95, Hgb 14.2, Hct 43.3, MCV 87.4, MCH 28.7, MCHC 32.9, RDW 14.5, Plt Count 341, MPV 7.7, Neut % (Auto) 63.1, Lymph % (Auto) 27.4, [place] % (Auto) 6.8, Eos % (Auto) 2.0, Baso % (Auto) 0.6, Neut # (Auto) 5.1, Lymph # (Auto) 2.2, [place] # (Auto) 0.6, Eos # (Auto) 0.2, Baso # (Auto) 0.1 02/28/19 19:15: Sodium 141, Potassium 2.4 L*, Chloride 101, Carbon Dioxide 27, Anion Gap 15.4 H, BUN 20 H, Creatinine 1.08 H, Estimated Creat Clear 69, Estimated GFR 57 L, Est GFR ( Amer) 69, Glucose 90, Calcium 7.9 L, Total Bilirubin 0.6, AST 54 H, ALT 62, Alkaline Phosphatase 149 H, Total Protein 8.2, Albumin 4.0, Globulin 4.2 H, Albumin/Globulin Ratio 1.0 L 02/28/19 19:15: Magnesium 1.4, TSH 2.76, Thyroxine (T4) 11.1 02/28/19 23:45: Potassium 2.4 L* 03/01/19 05:28: Sodium 141, Potassium 3.3 L D, Chloride 106, Carbon Dioxide 27, Anion Gap 11.3, BUN 20 H, Creatinine 0.78 D, Estimated Creat Clear 99, Estimated GFR 83, Est GFR ( Amer) 101 D, Glucose 105, Calcium 8.3 L, Magnesium 1.4 I & O for Last 24 hours: Intake & Output 02/26/19 02/27/19 02/28/19 03/01/19 23:59 23:59 23:59 23:59 Intake Total 1420 / 1420 Balance 1420 / 1420 Weight 135 lb 140 lb 4.99 oz - Constitutional no acute distress - *Routine HEENT Exam Head: Present: normocephalic. Absent: scalp tenderness Eye: Present: EOMI, PERRL, normal accommodation. Absent: periorbital swelling, periorbital tenderness ENT: Present: mucous membranes moist - *Routine Neck Exam Present: supple, full ROM. Absent: tenderness, tracheal deviation - *Routine Respiratory Exam Present: CTA bilaterally. Absent: accessory muscle use - *Routine Cardiovascular Exam Present: RRR. Absent: irregular rhythm - *Routine Abdominal Exam Present: soft, normoactive bowel sounds. Absent: tenderness, firm - *Routine Extremities Exam Present: full ROM, pulses intact. Absent: cyanosis - Routine Back/Spine/Pelvis Exam Back/Spine: Present: full ROM. Absent: CVA tenderness - *Routine Skin Exam Present: intact, warm - *Routine Neurological Exam Present: alert, oriented X3, CN II-XII intact - Routine Psychiatric Exam Present: normal affect, normal thought process. Absent: suicidal ideation, homicidal ideation Hospital Course Hospital Course: 38-year-old female patient reports she had labs drawn on tuesday and they told her that her potassium was 3.0. pt came to ER sy[place]via[place] she stated she "felt like her potassium has dropped even more". pt was dischared from hospital after being admitted with low potassium. She has had low k over the last few weeks with assoc weakness and spasm - was recently admitted for same. Potassium was 2.4 in the ER. She has received 40 potassium p.o. and 3 rounds of K IV, and IVF, this morning her potassium is 3.3. She reports she is feeling better we discussed discharge and he initiated is agreeable to being discharged this morning. Results Labs on day of discharge: Labs from last 24 hours 03/01/19 02/28/19 02/28/19 05:28 23:45 19:15 WBC RBC Hgb Hct MCV MCH MCHC RDW Plt Count MPV Neut % (Auto) Lymph % (Auto) [place] % (Auto) Eos % (Auto) Baso % (Auto) Neut # (Auto) Lymph # (Auto) [place] # (Auto) Eos # (Auto) Baso # (Auto) Sodium 141 Potassium 3.3 L D 2.4 L* Chloride 106 Carbon Dioxide 27 Anion Gap 11.3 BUN 20 H Creatinine 0.78 D Estimated Creat Clear 99 Estimated GFR 83 Est GFR ( Amer) 101 D Glucose 105 Calcium 8.3 L Magnesium 1.4 1.4 Total Bilirubin AST ALT Alkaline Phosphatase Total Protein Albumin Globulin Albumin/Globulin Ratio TSH 2.76 Thyroxine (T4) 11.1 02/28/19 02/28/19 19:15 19:15 WBC 8.1 RBC 4.95 Hgb 14.2 Hct 43.3 MCV 87.4 MCH 28.7 MCHC 32.9 RDW 14.5 Plt Count 341 MPV 7.7 Neut % (Auto) 63.1 Lymph % (Auto) 27.4 [place] % (Auto) 6.8 Eos % (Auto) 2.0 Baso % (Auto) 0.6 Neut # (Auto) 5.1 Lymph # (Auto) 2.2 [place] # (Auto) 0.6 Eos # (Auto) 0.2 Baso # (Auto) 0.1 Sodium 141 Potassium 2.4 L* Chloride 101 Carbon Dioxide 27 Anion Gap 15.4 H BUN 20 H Creatinine 1.08 H Estimated Creat Clear 69 Estimated GFR 57 L Est GFR ( Amer) 69 Glucose 90 Calcium 7.9 L Magnesium Total Bilirubin 0.6 AST 54 H ALT 62 Alkaline Phosphatase 149 H Total Protein 8.2 Albumin 4.0 Globulin 4.2 H Albumin/Globulin Ratio 1.0 L TSH Thyroxine (T4) - Additional Comments Rounded with Dr. Escoto, all orders per Dr. Escoto 1. We will discharge home with follow-up in office tomorrow and lab draw tomorrow 2. Will stop PPI, and Carafate 1 g 3 times daily 3. We will reduce potassium supplementation by one half to KCL 20meq BID DS: Diagnosis - Discharge Diagnosis (1) Hypokalemia Status: Acute Discharge Plan - Patient Discharge Instructions ACTIVITY: Continue current activity DIET: continue same diet Patient Instructions: Lymphedema, DI for Hypokalemia, DI for Lymphedema, Hypokalemia - Follow up Plan Follow up with: Андрей Escoto MD [Emergency Provider] - (Labs in AM at [facility] and Dr. Escoto 03/02/2019) Disposition: Home, Self-Residential Medications: Home Medications Medication Instructions Recorded Confirmed Type Levothyroxine Sodium [Synthroid 25 mcg PO DAILY 09/03/17 02/28/19 History 25mcg (0.025mg) tablet] Omeprazole [Omeprazole 20mg 20 mg PO DAILY 09/03/17 02/28/19 History Capsule] L.acidoph,Paracasei, B.lactis 1 each PO DAILY 02/21/19 02/28/19 History [Probiotic] Linaclotide [Linzess] 290 mcg PO DAILY 02/28/19 02/28/19 History Potassium Chloride [Micro-K 10mEq 40 meq PO BID 02/28/19 02/28/19 History cap] Spironolactone [Spironolactone 25 mg PO TID 02/28/19 03/01/19 History 25mg Tablet] Sucralfate [Carafate 1gm Tab] 1 gm PO TID 30 Days #90 tab 03/01/19 Rx Prescriptions/Medication Reconciliation: New Sucralfate [Carafate 1gm Tab] 1 gm PO TID 30 Days #90 tab Continued L.acidoph,Paracasei, B.lactis [Probiotic] 1 each PO DAILY Linaclotide [Linzess] 290 mcg PO DAILY Levothyroxine Sodium [Synthroid 25mcg (0.025mg) tablet] 25 mcg PO DAILY Spironolactone [Spironolactone 25mg Tablet] 25 mg PO TID Changed Potassium Chloride [Micro-K 10mEq cap] 20 meq PO TID #90 Discontinued Omeprazole [Omeprazole 20mg Capsule] 20 mg PO DAILY - Problem Reconciliation Problems Reviewed?: Yes
== END 2019-03-01 11:15 | disposition home or self-care (01) ==
LOC: 2ND 18:55 → ER 18:55 → 2ND 03-01 01:22
PROVIDERS: ADMIT Emergency Medicine; ATTEND Emergency Medicine
CPT/HCPCS: 36415; 80048; 80053; 83735; 84132; 84436; 84443; 85025; 96365; 96367; 99284; G0378

== ENCOUNTER → 2019-03-02 07:22 | Outpatient (CLI) | payer BC, SELFPAY ==
[2019-03-02 08:11] LABS: Anion Gap 14.8 mEq/L (5-15); Blood Urea Nitrogen 21 mg/dL (7-18); Calcium 9.1 mg/dL (8.5-10.1); Carbon Dioxide 22 mmol/L (21.0-32.0); Chloride 108 mmol/L (98-107); Creatinine,Serum 0.86 mg/dL (0.55-1.02); Estimated Glomerular Filt Rate 74 ml/min (>60); GFR (African American) 90 ML/MIN (>60); Glucose 93 mg/dL (74-106); Potassium 3.8 mmoL/L (3.5-5.1); Sodium 141 mmol/L (136-145)
== END ==
PROVIDERS: Visit Provider Nurse Practitioner Family
DX: E87.6 Hypokalemia (principal)
CPT/HCPCS: 36415; 80048

== ENCOUNTER → 2019-03-05 11:54 | Outpatient (CLI) | payer BC, SELFPAY ==
[2019-03-05 14:26] LABS: Anion Gap 18.3 mEq/L (5-15); Blood Urea Nitrogen 18 mg/dL (7-18); Calcium 9.2 mg/dL (8.5-10.1); Carbon Dioxide 25 mmol/L (21.0-32.0); Chloride 101 mmol/L (98-107); Creatinine,Serum 0.99 mg/dL (0.55-1.02); Estimated Glomerular Filt Rate 63 ml/min (>60); GFR (African American) 76 ML/MIN (>60); Glucose 84 mg/dL (74-106); Magnesium 1.3 mg/dL (1.4-2.2); Potassium 3.3 mmoL/L (3.5-5.1); Sodium 141 mmol/L (136-145)
== END ==
PROVIDERS: Visit Provider Emergency Medicine
DX: E87.6 Hypokalemia (principal); R53.1 Weakness
CPT/HCPCS: 36415; 80048; 83735

== ENCOUNTER → 2020-06-19 18:56 | Outpatient (CLI) | payer BC, SELFPAY ==
[2020-06-21 10:59] LABS: Covid-19 Nasal PCR Sendout P&C NEGATIVE
== END ==
PROVIDERS: PCP Family Medicine; Visit Provider Nurse Practitioner Family
DX: Z20.822 Contact with and (suspected) exposure to COVID-19 (principal)
CPT/HCPCS: U0004

== ENCOUNTER 2020-07-11 16:37 | Emergency (ER) | payer BC, SELFPAY ==
[2020-07-11 16:57] VITALS: BP 120/78; PULSE 68; RESP 18; TEMP 36.9; O2SAT 98; BMI 19.8
--- NOTE | 2020-07-11 17:02 | HMH.EDUTC ---
[facility] [place] Disposition Clinical Impression: URI (upper respiratory infection) Qualifiers: URI type: unspecified URI Qualified Code(s): J06.9 - Acute upper respiratory infection, unspecified Disposition: Home, Self-Care Condition on Discharge: Good Instructions: Sore Throat, DI for COVID-19 (Suspected or Confirmed ), Coronavirus Disease 2019, Preventing the Spread of Coronavirus Discharge Instructions Additional Instructions: *Monitor Temp, Over the counter Motrin or Tylenol as directed/as needed Tylenol every 4 hours and Motrin every 6 hours (as long as your family doctor has told you that you can take it) for fever or pain. and straight to ER if unable to lower temp less than 101.0 after medication given *Warm salt water gargles may help to soothe the throat *Throat Lozenges *Warm fluids like tea with honey may help to soothe the throat *Sleep elevated *Humidifier/Vaporizer Your throat swab was sent for culture. Those results are typically sent to your primary care. Be sure to follow up in 2-3 days with your family doctor/primary care physician if no improvement so they can review those result and treat if necessary. If you don?t have a primary care doctor, I recommend you get one but in the mean time, you will have to return to a walk in clinic Follow up IMMEDIATELY for new or worsening symptoms or no Noticeable improvement over the next 48-72 hours. 911 for difficulty breathing or swallowing You were tested for today for COVID19 your test result should be back in the next 24-48 hours, you may call to the [facility] to see if your test results are back in the next 48 hours [phone] [facility] hours are 9am-9pm You was given a handout with instructions for Self Quarantine and Self isolation for while you wait on test results and what to do if they are positive If you are positive the Health Dept will be contacting you also Referrals: Rosario Hsu MD [Primary Care Provider] - As needed Forms: Work/School Release Time of Disposition: 17:42 Medical Decision Making - Alexander Inquiry Pt receiving controlled substance: No Alexander was queried for this patient: No Vital Signs: 07/11/20 16:57 Temperature 98.4 F Temperature Source Oral Pulse Rate [Right] 68 Respiratory Rate 18 Blood Pressure [Right Arm] 120/78 Blood Pressure Mean [Right Arm] 92 Blood Pressure Source [Right Arm] Automatic Cuff Blood Pressure Position [Right Arm] Sitting 02 Sat by Pulse Oximetry 98 Oxygen Delivery Method Room Air - Lab Data Lab results reviewed: Yes: I reviewed the patient's lab results. Lab Results 07/11/20 16:59: Strep Scn Rapid Clinic Negative 07/11/20 17:02: Influenza Type A Ag Negative, Influenza Type B Ag Negative Orders (Tests/Meds): ED MEDICATIONS Discontinued Medications Generic Name Dose Route Start Last Admin Trade Name Chava PRN Reason Stop Dose Admin Ceftriaxone Sodium 1 gm 07/11/20 17:27 07/11/20 17:35 Ceftriaxone 1gm Vial IM 07/11/20 17:28 1 gm ONCE ONE Administration Protocol Lidocaine HCl 0 ml 07/11/20 17:27 07/11/20 17:36 Lidocaine 1% 5ml Pf Vial IM 07/11/20 17:28 2 ml ONCE ONE Administration Methylprednisolone Sodium Succinate 125 mg 07/11/20 17:19 07/11/20 17:23 Methylprednisolone Sod Succ 125mg Vial IM 07/11/20 17:20 125 mg ONCE ONE Administration ORDERS Category Date Time Status Covid-19 Nasal PCR ([facility]) Routine Lab 07/11/20 17:51 Received Strep Screen Confirmation Stat Micro 07/11/20 16:59 Received Medical Decision Narrative: Patient states that she has had SoluMedrol before without reaction or complications [facility] [place] HPI - General Stated complaint: KNIGHT,chest congested, earache Time Seen by Provider: 07/11/20 17:02 Mode of Arrival: Ambulatory Source of Information: Patient Limitations: No Limitations Description of Symptoms (Recalled from Triage Doc. by RN): pt is sneezing, coughig, pressure in their head and ears, runny nose, and chest congestion for six
[2020-07-11 17:23] LABS: UTC Influenza A Antigen Negative (Negative); UTC Influenza B Antigen Negative (Negative)
[2020-07-11 17:24] LABS: UTC Strep Screen (Rapid) Negative (Negative)
[2020-07-11 18:33] VITALS: BP 119/70; PULSE 65; RESP 18; TEMP 36.6
--- NOTE | 2020-07-11 20:55 | PC.NURSE ---
ATTEMPTED TO CALL PT, NO ANSWER
--- NOTE | 2020-07-11 21:00 | PC.NURSE ---
PT NOTIFIED OF POSITIVE COVID TEST
== END 2020-07-11 18:15 | disposition home or self-care (01) ==
PROVIDERS: Emergency Provider Nurse Practitioner; PCP Family Medicine
DX: U07.1 COVID-19 (principal); R01.1 Cardiac murmur, unspecified; Z79.899 Other long term (current) drug therapy
CPT/HCPCS: 87804; 87880; 96372; 99202; G0463; U0003

== ENCOUNTER 2020-08-20 17:54 | Emergency (ER) | payer OTHER, SELFPAY ==
[2020-08-20 18:13] VITALS: BP 118/75; PULSE 110; RESP 14; TEMP 36.6; O2SAT 97; BMI 19.5
--- NOTE | 2020-08-20 18:30 | XR_ITS ---
PROCEDURE: XR HAND LT MIN 3V CLINICAL INDICATION: pain COMPARISON: No exams were available for comparison FINDINGS: No fracture or dislocation. No lytic or blastic change. There is normal mineralization. The joint spaces are well-preserved. No significant degenerative/arthritic changes. No erosive changes evident. Other findings:None. IMPRESSION: No acute findings. Dictated by: Russell Emmanuel MD 08/21/2020 05:53 Russell Emmanuel MD in [place] 08/21/2020 05:53
--- NOTE | 2020-08-20 18:30 | XR_ITS ---
PROCEDURE: XR WRIST LT MIN 3V CLINICAL INDICATION: pain COMPARISON: No exams were available for comparison FINDINGS: No fracture or dislocation. No lytic or blastic change. There is normal mineralization. The joint spaces are well-preserved. No significant degenerative/arthritic changes. No erosive changes evident. Other findings:None. IMPRESSION: No acute findings. Dictated by: Russell Emmanuel MD 08/21/2020 05:53 Russell Emmanuel MD in [facility] 08/21/2020 05:53
--- NOTE | 2020-08-20 18:56 | HMH.EDUTC ---
[facility] Disposition Clinical Impression: Hand pain, left Disposition: Home, Self-Care Condition on Discharge: Good Instructions: Tendonitis (Alternative Therapy), How To Perform RICE (Rest, Ice, Compress, Elevate), Ibuprofen Additional Instructions: *RICE, Rest the extremity, Ice 15-20 minutes 3-4 times daily, Compress- wear the keyshawn wrap as discussed as much as possible to help reduce swelling and pain, Elevate the extremity when at rest *Keyshawn wrap/velcro wrist splint is for support and help control swelling, use it except in the shower. Be sure that is not to tight but not to loose either *Elevate when resting *Ibuprofen every 6-8 hours as needed for pain an inflammation. If need something more can take Tylenol in between doses of Ibuprofen to help Immediately follow up with your family doctor for new or worsening of symptoms, or no noticeable improvement over the next 3-5 days Follow up with Family Doctor if no improvement or any worsening of symptoms Return if needed Straight to ER if any life threatening symptoms Referrals: Rosario Hsu MD [Primary Care Provider] - As needed Forms: Work/School Release Time of Disposition: 19:09 Medical Decision Making - Alexander Inquiry Pt receiving controlled substance: No Alexander was queried for this patient: No Vital Signs: 08/20/20 18:13 Temperature 98 F Temperature Source Oral Pulse Rate [Right] 110 H Respiratory Rate 14 Blood Pressure [Right Arm] 118/75 Blood Pressure Mean [Right Arm] 89 Blood Pressure Source [Right Arm] Automatic Cuff Blood Pressure Position [Right Arm] Sitting 02 Sat by Pulse Oximetry 97 Oxygen Delivery Method Room Air Orders (Tests/Meds): ORDERS Category Date Time Status XR hand LT min 3V Stat Exams 08/20/20 18:30 Taken XR wrist LT min 3V Stat Exams 08/20/20 18:30 Taken - Radiology Data #1 Image(s): Wrist Image Reviewed: Yes I reviewed the patient's radiology image Preliminary Findings: No Fracture Seen #2 Image(s): Hand Image Reviewed: Yes I reviewed the patient's radiology image Preliminary Findings: No Fracture Seen [facility] HPI - General Stated complaint: pain in L wrist and thumb Time Seen by Provider: 08/20/20 18:56 Mode of Arrival: Ambulatory Source of Information: Patient Limitations: No Limitations Description of Symptoms (Recalled from Triage Doc. by RN): pt states, I have tendonitis in my left thumb and wrist. 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 - Related Data Home Medications Medication Instructions Recorded Confirmed Linaclotide [Linzess] 290 mcg PO DAILY 02/28/19 06/19/20 amiloride 5 mg tablet 5 mg PO tab 06/19/20 06/19/20 atomoxetine 40 mg capsule mg PO 06/19/20 06/19/20 cyclosporine 0.05 % eye drops in a drp OPHTHALMIC 06/19/20 06/19/20 dropperette topiramate 50 mg tablet 50 mg PO tab 06/19/20 06/19/20 Previous Rx's Medication Instructions Recorded Potassium Chloride [Micro-K 10mEq 20 meq PO TID #90 03/01/19 cap] Fluticasone Propionate [Flonase 1 spr NS DAILY 14 Days #1 bottle 03/11/19 50mcg nasal spray 16gm] Ondansetron [Zofran 4mg ODT] 4 mg PO Q8HP PRN #20 tab.rapdis 05/21/19 Allergies Allergy/AdvReac Type Severity Reaction Status Date / Time magnesium Allergy Mild vomitting Verified 06/19/20 18:18 hydromorphone [From DILAUDID] Allergy Unknown MAKES
[2020-08-20 19:12] VITALS: BP 114/74; PULSE 105; RESP 14; TEMP 36.6
== END 2020-08-20 19:18 | disposition home or self-care (01) ==
PROVIDERS: Emergency Provider Nurse Practitioner; PCP Family Medicine
DX: M79.642 Pain in left hand (principal); R01.1 Cardiac murmur, unspecified; E03.9 Hypothyroidism, unspecified; Z90.49 Acquired absence of other specified parts of digestive tract; Z90.710 Acquired absence of both cervix and uterus; Z79.899 Other long term (current) drug therapy
CPT/HCPCS: 29125; 73110; 73130; 99202; G0463

== ENCOUNTER 2020-09-20 16:09 | Emergency (ER) | payer OTHER, SELFPAY ==
[2020-09-20 16:09] VITALS: BP 126/80; PULSE 118; RESP 16; TEMP 36.8; O2SAT 97
--- NOTE | 2020-09-20 16:33 | HMH.EDUTC ---
[facility] [place] Clinical Impression: Acute bronchitis Qualifiers: Bronchitis organism: unspecified organism Qualified Code(s): J20.9 - Acute bronchitis, unspecified Disposition: Home, Self-Care Condition on Discharge: Good Instructions: DI for Acute Bronchitis Additional Instructions: Drink plenty of fluids. Take tylenol or ibuprofen for pain or fever. Take the medications as directed. Follow up with your regular doctor. GO TO THE ER FOR ANY WORSENING SYMPTOMS Prescriptions: Guaifen/Dextromethorphan/PE [Tussin Cf Cough-Cold Syrup] 10 ml PO Q6HP PRN #240 liquid PRN Reason: Cough Transmission Status: Received by [facility] Ondansetron [Zofran 4mg ODT] 4 mg PO Q8HP PRN #20 tab.rapdis PRN Reason: Nausea Transmission Status: Received by [facility] Referrals: Rosario Hsu MD [Primary Care Provider] - Forms: Work/School Release Time of Disposition: 17:21 Medical Decision Making - Medical Records Medical records reviewed: No: I reviewed the patient's medical records. - Alexander Inquiry Pt receiving controlled substance: No Vital Signs: 09/20/20 16:09 09/20/20 17:16 Temperature 98.2 F 98.2 F Temperature Source Oral Oral Pulse Rate 118 H Pulse Rate [Right] 118 H Respiratory Rate 16 16 Blood Pressure 126/80 Blood Pressure [Right Arm] 126/80 Blood Pressure Mean [Right Arm] 95 02 Sat by Pulse Oximetry 97 Oxygen Delivery Method Room Air Orders (Tests/Meds): ED MEDICATIONS Discontinued Medications Generic Name Dose Route Start Last Admin Trade Name Freq PRN Reason Stop Dose Admin Ceftriaxone Sodium 1 gm 09/20/20 17:08 09/20/20 17:12 Ceftriaxone 1gm Vial IM 09/20/20 17:09 1 gm ONCE ONE Administration Protocol Lidocaine HCl 0 ml 09/20/20 17:08 09/20/20 17:12 Lidocaine 1% 5ml Pf Vial IM 09/20/20 17:09 5 ml ONCE ONE Administration Methylprednisolone Sodium Succinate 125 mg 09/20/20 17:08 09/20/20 17:13 Methylprednisolone Sod Succ 125mg Vial IM 09/20/20 17:09 125 mg ONCE ONE Administration Medical Decision Narrative: She refuses all oral antibiotics and oral steroids. She states that she swells with both of those. She is aware that 1 shot of rocephin and steroids is not enough to get someone completely better. [facility] [place] HPI - General Stated complaint: cough,chest congestion Time Seen by Provider: 09/20/20 16:34 Description of Symptoms (Recalled from Triage Doc. by RN): pt c/o cough, congestion, runny nose HEENT Symptoms (Recalled from RN notes): Yes Resp Symptoms (Recalled from RN notes): Yes Skin Symptoms (Recalled from RN notes): No MS Symptoms (Recalled from RN notes): No Functional Status (Recalled from RN notes): wnl - History of Present Illness Provider Complaint: She reports that she has had chest congestion, chest tightness, sinus congestion and generally feeling bad for the past 4 days. She had covid around 1 month ago. She states that she got better from the covid. Now she states that she feels like she has bronchitis. - Related Data Home Medications Medication Instructions Recorded Confirmed Linaclotide [Linzess] 290 mcg PO DAILY 02/28/19 06/19/20 amiloride 5 mg tablet 5 mg PO tab 06/19/20 06/19/20 atomoxetine 40 mg capsule mg PO 06/19/20 06/19/20 cyclosporine 0.05 % eye drops in a drp OPHTHALMIC 06/19/20 06/19/20 dropperette topiramate 50 mg tablet 50 mg PO tab 06/19/20 06/19/20 Previous Rx's Medication Instructions Recorded Potassium Chloride [Micro-K 10mEq 20 meq PO TID #90 03/01/19 cap] Fluticasone Propionate [Flonase 1 spr NS DAILY 14 Days #1 bottle 03/11/19 50mcg nasal spray 16gm] Ondansetron [Zofran 4mg ODT] 4 mg PO Q8HP PRN #20 tab.rapdis 05/21/19 Guaifen/Dextromethorphan/PE 10 ml PO Q6HP PRN #240 liquid 09/20/20 [Tussin Cf Cough-Cold Syrup] Ondansetron [Zofran 4mg ODT] 4 mg PO Q8HP PRN #20 tab.rapdis 09/20/20 Allergies Allerg
--- NOTE | 2020-09-20 16:38 | XR_ITS ---
PROCEDURE: XR CHEST 2V CLINICAL HISTORY: cough, chest congestion COMPARISON: CR CXR2V XR chest 2V from 01/25/2018 FINDINGS: The cardiomediastinal silhouette and pulmonary vascularity are within normal limits. There is minimal blunting of the right CP angle. No lobar consolidation or collapse is evident. No acute bony abnormalities. There is a mild pectus deformity IMPRESSION: Minimal blunting of the right CP angle. The posterior costophrenic sulci are not blunted on the lateral view. This is of questionable clinical significance. Dictated by: Russell Emmanuel MD 09/20/2020 19:16 Russell Emmanuel MD in OV 09/20/2020 19:16
[2020-09-20 17:16] VITALS: BP 126/80; PULSE 118; RESP 16; TEMP 36.8; O2SAT 97
== END 2020-09-20 17:28 | disposition home or self-care (01) ==
PROVIDERS: Emergency Provider Nurse Practitioner Family; PCP Family Medicine
DX: J20.9 Acute bronchitis, unspecified (principal); E03.9 Hypothyroidism, unspecified; R01.1 Cardiac murmur, unspecified; Z88.2 Allergy status to sulfonamides
CPT/HCPCS: 71046; 96372; 99202; G0463

== ENCOUNTER → 2020-12-04 11:48 | Outpatient (CLI) | payer OTHER, SELFPAY ==
[2020-12-04 12:20] LABS: Basophils # 0.1 K/mm3 (0-0.2); Basophils % 0.9 % (0.1-2.0); Eosinophils # 0.2 K/mm3 (0.0-0.4); Eosinophils % 2.6 % (0.1-12.0); Hematocrit 42.1 % (37.0-47.0); Hemoglobin 14.6 g/dL (12.2-16.2); Lymphocytes # 1.3 K/mm3 (0.7-4.5); Lymphocytes % 18.4 % (10-50); Mean Corpuscular HGB Conc 34.5 g/dL (31.8-35.4); Mean Corpuscular Hemoglobin 30.8 pg (27.0-31.2); Mean Corpuscular Volume 89.2 fl (81-99); Mean Platelet Volume 8.3 fl (7.4-10.4); Monocytes # 0.4 K/mm3 (0.1-1.0); Monocytes % 5.7 % (1.7-9.3); Neutrophils # 5.2 K/mm3 (1.8-7.8); Neutrophils % 72.5 % (37.0-80.0); Platelet Count 241 K/mm3 (142-424); Red Blood Count 4.72 M/mm3 (4.20-5.40); Red Cell Distribution Width 13.4 % (11.5-17.5); White Blood Count 7.2 K/mm3 (4.8-10.8)
[2020-12-04 13:04] LABS: Chloride 109 mmol/L (98-107); Potassium 4.6 mmoL/L (3.5-5.1); Sodium 142 mmol/L (136-145)
[2020-12-04 13:06] LABS: Alanine Aminotransferase 18 U/L (12-78); Albumin Level 4.4 g/dl (3.5-5.0); Albumin/Globulin Ratio 1.6 (1.1-1.8); Alkaline Phosphatase 103 U/L (38-126); Aspartate Amino Transferase 26 U/L (14-36); Bilirubin,Total 0.8 mg/dl (0.2-1.3); Blood Urea Nitrogen 20 mg/dl (7-17); Estimated Glomerular Filt Rate 70 ml/min (>60); GFR (African American) 84 ML/MIN (>60); Globulin 2.8 g/dL (1.3-3.2); Total Protein,Serum 7.2 g/dl (6.3-8.2)
[2020-12-04 13:07] LABS: Anion Gap 12.6 mEq/L (5-15); Calcium 9.3 mg/dl (8.4-10.2); Carbon Dioxide 25 mmol/L (22.0-30.0); Chol/HDL Ratio 2.1 (1-3.5); Cholesterol 150 mg/dl (140-200); Glucose 90 mg/dl (74-100); HDL Cholesterol 73 mg/dl (40-60); Triglycerides 49 mg/dl (30-150); VLDL Cholesterol 10 mg/dL (0-40)
[2020-12-04 13:18] LABS: Direct LDL Cholesterol 58.61 mg/dL (100-129)
[2020-12-04 13:26] LABS: T4 (Thyroxine) 9.9 ug/dl (5.53-11.0)
[2020-12-04 13:38] LABS: Thyroid Stimulating Hormone 2.02 uIU/mL (0.465-4.68)
[2020-12-08 07:07] LABS: H. pylori Breath Test Negative (Negative)
== END ==
PROVIDERS: Visit Provider Physician Assistant
DX: E06.3 Autoimmune thyroiditis (principal); E83.42 Hypomagnesemia; E87.6 Hypokalemia; K21.9 Gastro-esophageal reflux disease without esophagitis
CPT/HCPCS: 36415; 80053; 80061; 83013; 84436; 84443; 85025

== ENCOUNTER 2020-12-21 14:53 | Emergency (ER) | payer BC, OTHER, SELFPAY ==
[2020-12-21 15:24] VITALS: BP 122/88; PULSE 88; RESP 20; TEMP 36.7; O2SAT 98; BMI 20.2
[2020-12-21 15:32] LABS: Apearance,Urine Cloudy (Clear); Bilirubin,Urine Negative (Negative); Blood, Urine 2+ (Negative); Color,Urine Dark Yellow (Yellow); Glucose,Urine (UA) Negative (Negative); Ketones,Urine TRACE (Negative); Protein,Urine 1+ (Negative); Specific Gravity, Urine 1.025 (1.005-1.030); UTC Leukocyte Esterase,Urine 1+ (Negative); UTC Nitrate,Urine Positive (Negative); Urobilinogen,Urine 1 EU/dl (0.2)
--- NOTE | 2020-12-21 15:39 | HMH.EDUTC ---
[facility] [place] Disposition Clinical Impression: UTI (urinary tract infection) Qualifiers: Urinary tract infection type: acute cystitis Hematuria presence: without hematuria Qualified Code(s): N30.00 - Acute cystitis without hematuria Disposition: Home, Self-Care Condition on Discharge: Good Instructions: DI for Urinary Tract Infection (UTI) Additional Instructions: Culture results should be available late Tuesday/early Tuesday Prescriptions: Ciprofloxacin HCl [Cipro 500mg Tab] 500 mg PO BID 5 Days #10 tab Transmission Status: Pending to [facility] Phenazopyridine HCl [Pyridium 200mg Tablet] 200 pow PO TID #6 tab Transmission Status: Pending to [facility] Referrals: Tatyana Youngblood PA [Primary Care Provider] - Time of Disposition: 15:44 Medical Decision Making - Alexander Inquiry Pt receiving controlled substance: No - Lab Data Lab results reviewed: Yes: I reviewed the patient's lab results. Lab Results 12/21/20 15:18: Urine Color Dark yellow, Urine Appearance Cloudy, Urine pH 6.0, Ur Specific Carmen 1.025, Urine Protein 1+, Urine Glucose (UA) Negative, Urine Ketones Trace, Urine Blood 2+, Urine Nitrate Positive A, Urine Bilirubin Negative, Urine Urobilinogen 1, Ur Leukocyte Esterase 1+ A Orders (Tests/Meds): ORDERS Category Date Time Status Urine Culture Stat Micro 12/21/20 15:31 Ordered [facility] [place] HPI - General Stated complaint: painful when urinates Time Seen by Provider: 12/21/20 15:39 - History of Present Illness Provider Complaint: Dysuria X 1 day. No fever. No vomiting or diarrhea. Onset (ago): day(s) (1) Location: genitals Radiation: non-radiation Quality: burning Consistency: constant Relieving factors: none Exacerbating factors: none Associated symptoms: denies other symptoms Treatments prior to arrival: none - Related Data Home Medications Medication Instructions Recorded Confirmed Linaclotide [Linzess] 290 mcg PO DAILY 02/28/19 12/03/20 amiloride 5 mg tablet 5 mg PO tab 06/19/20 12/03/20 atomoxetine 40 mg capsule mg PO 06/19/20 12/03/20 cyclosporine 0.05 % eye drops in a drp OPHTHALMIC 06/19/20 12/03/20 dropperette topiramate 50 mg tablet 50 mg PO tab 06/19/20 12/03/20 levothyroxine 25 mcg tablet 25 mcg PO DAILY 12/03/20 12/03/20 Previous Rx's Medication Instructions Recorded Potassium Chloride [Micro-K 10mEq 20 meq PO TID #90 03/01/19 cap] Fluticasone Propionate [Flonase 1 spr NS DAILY 14 Days #1 bottle 03/11/19 50mcg nasal spray 16gm] dextroamphetamine-amphetamine ER 10 mg PO DAILY #30 cap 12/03/20 10 mg 24hr capsule,extend release metoclopramide HCl 5 mg tablet 5 mg PO QACHS #120 tab 12/08/20 clotrimazole 1 % topical cream 1 applic TOPICAL TID #30 g 12/19/20 Ciprofloxacin HCl [Cipro 500mg 500 mg PO BID 5 Days #10 tab 12/21/20 Tab] Phenazopyridine HCl [Pyridium 200 pow PO TID #6 tab 12/21/20 200mg Tablet] Allergies Allergy/AdvReac Type Severity Reaction Status Date / Time magnesium Allergy Mild vomitting Verified 12/03/20 11:11 hydromorphone [From DILAUDID] Allergy Unknown MAKES Verified 12/03/20 11:11 CRAZY N/V Sulfa (Sulfonamide Allergy Unknown I-RASH Verified 12/03/20 11:11 Antibiotics) [SULFA (SULFONAMIDE ANTIBIOTICS)] [facility] History - Hepatitis A Screen Attestation statement:: This patient has been screened for Hepatitis A risk factors. I have reviewed the patient's past medical history: Yes Medical History: Reports:: Cancer, Gall Bladder Disease, Heart Murmur, Urinary Tract Infection Denies:: Diabetes Mellitus Type 1, Diabetes Mellitus Type 2, MRSA Other Medical History: Reports: Chemotherapy, Hypothyroidism, Radiation Therapy, Other Laterality Cases: Bilateral: Myringotomy (Ear Tubes), Tonsillectomy Other Surgeries: Yes: Cholecystectomy, Hysterectomy-TotalComment Only: Other (BILIARY TUBES) Amputation: No Fractures: No - Social History Smoking S
[2020-12-21 15:56] VITALS: BP 122/88; PULSE 80; RESP 20; TEMP 36.7; O2SAT 98
== END 2020-12-21 15:57 | disposition home or self-care (01) ==
PROVIDERS: Emergency Provider Physician Assistant; PCP Physician Assistant
DX: N30.00 Acute cystitis without hematuria (principal); E03.9 Hypothyroidism, unspecified; Z88.2 Allergy status to sulfonamides
CPT/HCPCS: 81003; 87086; 87088; 87186; 99202; G0463

== ENCOUNTER → 2020-12-22 13:26 | Outpatient (CLI) | payer OTHER, SELFPAY ==
[2020-12-22 15:11] LABS: Coronavirus 19 IgG Antibody Negative (Negative); Coronavirus 19 IgM Antibody Negative (Negative)
== END ==
PROVIDERS: Visit Provider Physician Assistant
DX: Z86.16 Personal history of COVID-19 (principal)
CPT/HCPCS: 86328

== ENCOUNTER → 2021-01-13 13:56 | Outpatient (CLI) | payer BC, OTHER, SELFPAY ==
[2021-01-13 14:34] LABS: Amphetamine/Metha Screen,Urine Negative ng/ml (<1000)
[2021-01-13 14:35] LABS: Barbiturates Screen,Urine Negative ng/ml (<200); Benzodiazepines Screen,Urine Negative ng/ml (<200)
[2021-01-13 14:36] LABS: Cannabinoid Screen,Urine Negative ng/ml (<50)
[2021-01-13 14:37] LABS: Cocaine Screen,Urine Negative ng/ml (<300); Methadone Screen,Urine Negative ng/ml (<300)
[2021-01-13 14:38] LABS: Opiate Screen,Urine Negative ng/ml (<300)
[2021-01-13 14:39] LABS: Phencyclidine Screen,Urine Negative ng/ml (<25)
== END ==
PROVIDERS: Visit Provider Nurse Practitioner Family
DX: F90.0 Attention-deficit hyperactivity disorder, predominantly inattentive type (principal); Z79.899 Other long term (current) drug therapy
CPT/HCPCS: 80305

== ENCOUNTER 2021-03-13 13:59 | Emergency (ER) | payer BC, OTHER, SELFPAY ==
[2021-03-13 14:30] VITALS: BP 128/88; PULSE 109; RESP 19; TEMP 37; O2SAT 98; BMI 16.9
--- NOTE | 2021-03-13 14:43 | HMH.EDUTC ---
[facility] [place] Disposition Clinical Impression: Migraine Qualifiers: Migraine type: unspecified Status migrainosus presence: without status migrainosus Intractability: not intractable Qualified Code(s): G43.909 - Migraine, unspecified, not intractable, without status migrainosus Disposition: Home, Self-Care Condition on Discharge: Good Instructions: Migraine -- Adult, DI for Migraine Additional Instructions: Go home lay down and try to sleep off remaining of migraine headache Return if needed Straight to ER if any life threatening symptoms Follow up with Family Doctor if no improvement or any worsening of symptoms Referrals: Tatyana Youngblood PA [Primary Care Provider] - As needed Forms: Work/School Release Medical Decision Making - Alexander Inquiry Pt receiving controlled substance: No Alexander was queried for this patient: No Vital Signs: 03/13/21 14:30 Temperature 98.6 F Temperature Source Oral Pulse Rate [Right Brachial] 109 H Respiratory Rate 19 Blood Pressure [Right Arm] 128/88 Blood Pressure Mean [Right Arm] 101 Blood Pressure Source [Right Arm] Automatic Cuff Blood Pressure Position [Right Arm] Sitting 02 Sat by Pulse Oximetry 98 Oxygen Delivery Method Room Air Orders (Tests/Meds): ED MEDICATIONS Discontinued Medications Generic Name Dose Route Start Last Admin Trade Name Freq PRN Reason Stop Dose Admin Ubrogepant 50 mg 03/13/21 14:49 03/13/21 14:57 Ubrogepant 50mg Tablet PO 03/13/21 14:50 50 mg ONCE ONE Administration Medical Decision Narrative: Patient states that she had taken ibuprofen containing products prior to arrival discussed with pharmacy and will give Ubrelvy 50mg for headache Patient states that medication has already worked and migraine much improved [facility] [place] HPI - General Stated complaint: migraine 3 days, vomiting, hx strokes Time Seen by Provider: 03/13/21 14:43 Mode of Arrival: Ambulatory Source of Information: Patient Limitations: No Limitations Description of Symptoms (Recalled from Triage Doc. by RN): PATIENT C/O RIGHT EAR PAIN AND MIGRAINE X 3 DAYS HEENT Symptoms (Recalled from RN notes): Yes Resp Symptoms (Recalled from RN notes): No Skin Symptoms (Recalled from RN notes): No MS Symptoms (Recalled from RN notes): No Functional Status (Recalled from RN notes): WNL - History of Present Illness Provider Complaint: Patient states that she has been having pain in her right ear and migraine for about 3 days States that she has a history of migraine headaches and this is like others she has had in the past States that also she has been having pain in her right ear - Related Data Home Medications Medication Instructions Recorded Confirmed Linaclotide [Linzess] 290 mcg PO DAILY 02/28/19 03/12/21 amiloride 5 mg tablet 5 mg PO tab 06/19/20 03/12/21 atomoxetine 40 mg capsule mg PO 06/19/20 03/12/21 cyclosporine 0.05 % eye drops in a drp OPHTHALMIC 06/19/20 03/12/21 dropperette topiramate 50 mg tablet 50 mg PO tab 06/19/20 03/12/21 levothyroxine 25 mcg tablet 25 mcg PO DAILY 12/03/20 03/12/21 Previous Rx's Medication Instructions Recorded Potassium Chloride [Micro-K 10mEq 20 meq PO TID #90 03/01/19 cap] Fluticasone Propionate [Flonase 1 spr NS DAILY 14 Days #1 bottle 03/11/19 50mcg nasal spray 16gm] clotrimazole 1 % topical cream 1 applic TOPICAL TID #30 g 12/19/20 metoclopramide HCl 5 mg tablet See Rx Instructions .ROUTE 01/16/21 .COMPLEX #120 tab dextroamphetamine-amphetamine ER 10 mg PO DAILY #30 cap 03/12/21 10 mg 24hr capsule,extend release Allergies Allergy/AdvReac Type Severity Reaction Status Date / Time magnesium Allergy Mild vomitting Verified 03/12/21 14:33 hydromorphone [From DILAUDID] Allergy Unknown MAKES Verified 03/12/21 14:33 SHERIDAN N/V Sulfa (Sulfonamide Allergy Unknown I-RASH Verified 03/12/21 14:33 Antibiotics) [SULFA (SULFONAMIDE ANTIBIOTICS)] - Worker's Comp Is this a Worker's Co
[2021-03-13 15:14] VITALS: BP 128/88; PULSE 109; RESP 19; TEMP 37; O2SAT 98
== END 2021-03-13 15:19 | disposition home or self-care (01) ==
PROVIDERS: Emergency Provider Nurse Practitioner; PCP Physician Assistant
DX: G43.909 Migraine, unspecified, not intractable, without status migrainosus (principal); R11.10 Vomiting, unspecified; Z86.73 Personal history of transient ischemic attack (TIA), and cerebral infarction without residual deficits
CPT/HCPCS: 99202; G0463

== ENCOUNTER 2021-05-31 14:47 | Emergency (ER) | payer BC, SELFPAY ==
--- NOTE | 2021-05-31 16:47 | HMH.EDUTC ---
[facility] [place] Disposition Clinical Impression: Viral syndrome Disposition: Home, Self-Care Condition on Discharge: Good Instructions: Preventing the Spread of Coronavirus Discharge Instructions, DI for COVID-19 (Suspected or Confirmed ) Additional Instructions: Drink plenty of fluids. Take tylenol or ibuprofen for pain or fever. Take the medications as directed. Follow up with your regular doctor. GO TO THE ER FOR ANY WORSENING SYMPTOMS Quarantine until you know the results of your covid-19 test. If it is positive, the health department should call you and give you further instructions about your length of Quarantine and other things. Notify your school or workplace of your results and follow their instructions regarding return to work/school. The cough medication (promethazine dm) will make you drowsy, so don't drive or operate heavy machinery after taking it. Prescriptions: Promethazine/Dextromethorphan [Promethazine-Dm Syrup] 5 ml PO Q6HP PRN #240 ml PRN Reason: Cough Transmission Status: Pending to [facility] Azithromycin [Z-Charli 250mg Tab*] 250 mg PO UD DOSE PK #6 tab Transmission Status: Pending to [facility] Referrals: Tatyana Youngblood PA [Primary Care Provider] - Time of Disposition: 17:55 Medical Decision Making - Medical Records Medical records reviewed: No: I reviewed the patient's medical records. - Alexander Inquiry Pt receiving controlled substance: No Vital Signs: 05/31/21 16:53 Temperature 97.7 F Temperature Source Oral Pulse Rate [Left] 94 H Respiratory Rate 14 Blood Pressure [Right Arm] 123/74 Blood Pressure Mean [Right Arm] 90 02 Sat by Pulse Oximetry 97 - Lab Data Lab results reviewed: Yes: I reviewed the patient's lab results. Lab Results 05/31/21 17:02: Strep Scn [facility] Negative 05/31/21 17:02: Influenza Type A Ag Negative, Influenza Type B Ag Negative Orders (Tests/Meds): ORDERS Category Date Time Status Covid-19 Nasal PCR ([facility]) Routine Lab 05/31/21 17:02 Ordered Strep Screen Confirmation Routine Micro 05/31/21 17:02 Received [facility] [place] HPI - General Stated complaint: allergies, congestion, sinus pressure Time Seen by Provider: 05/31/21 16:47 - History of Present Illness Provider Complaint: She states that she has been having sinus congestion, head ache, sore throat and a dry cough for the past 1 day. She has had covid-19 before and she feels like she did then. She has been fully vaccinated covid-19. - Related Data Home Medications Medication Instructions Recorded Confirmed Linaclotide [Linzess] 290 mcg PO DAILY 02/28/19 03/30/21 amiloride 5 mg tablet 5 mg PO tab 06/19/20 03/30/21 atomoxetine 40 mg capsule mg PO 06/19/20 03/30/21 cyclosporine 0.05 % eye drops in a drp OPHTHALMIC 06/19/20 03/30/21 dropperette topiramate 50 mg tablet 50 mg PO tab 06/19/20 03/30/21 levothyroxine 25 mcg tablet 25 mcg PO DAILY 12/03/20 03/30/21 Previous Rx's Medication Instructions Recorded Potassium Chloride [Micro-K 10mEq 20 meq PO TID #90 03/01/19 cap] Fluticasone Propionate [Flonase 1 spr NS DAILY 14 Days #1 bottle 03/11/19 50mcg nasal spray 16gm] clotrimazole 1 % topical cream 1 applic TOPICAL TID #30 g 12/19/20 metoclopramide HCl 5 mg tablet See Rx Instructions .ROUTE 01/16/21 .COMPLEX #120 tab dextroamphetamine-amphetamine ER 10 mg PO DAILY #30 cap 03/30/21 10 mg 24hr capsule,extend release ubrogepant 100 mg tablet 100 mg PO ONCE #8 tab 03/31/21 Azithromycin [Z-Charli 250mg Tab*] 250 mg PO UD DOSE PK #6 tab 05/31/21 Promethazine/Dextromethorphan 5 ml PO Q6HP PRN #240 ml 05/31/21 [Promethazine-Dm Syrup] Allergies Allergy/AdvReac Type Severity Reaction Status Date / Time magnesium Allergy Mild vomitting Verified 03/30/21 14:24 hydromorphone [From DILAUDID] Allergy Unknown MAKES Verified 03/30/21 14:24 CRAZY N/V Sulfa (Sulfonamide Allergy Unknown I-RASH Verified 03/30/21 14:
[2021-05-31 16:53] VITALS: BP 123/74; PULSE 94; RESP 14; TEMP 36.5; O2SAT 97; BMI 18.0
[2021-05-31 17:03] LABS: UTC Influenza A Antigen Negative (Negative)
[2021-05-31 17:04] LABS: UTC Influenza B Antigen Negative (Negative)
[2021-05-31 17:05] LABS: UTC Strep Screen (Rapid) Negative (Negative)
[2021-05-31 18:02] VITALS: BP 123/74; PULSE 94; RESP 14; TEMP 36.5
== END 2021-05-31 18:17 | disposition home or self-care (01) ==
PROVIDERS: Emergency Provider Nurse Practitioner Family; PCP Physician Assistant
DX: B34.9 Viral infection, unspecified (principal); Z20.822 Contact with and (suspected) exposure to COVID-19; R01.1 Cardiac murmur, unspecified; E03.9 Hypothyroidism, unspecified; Z88.2 Allergy status to sulfonamides
CPT/HCPCS: 87804; 87880; 96372; 99202; C9803; G0463; U0003; U0005

== ENCOUNTER 2021-07-24 18:44 | Emergency (ER) | payer BC, SELFPAY ==
--- NOTE | 2021-07-24 18:51 | XR_ITS ---
PROCEDURE INFORMATION: Exam: XR Left Ribs Exam date and time: 07/24/2021 6:51 PM Age: 41 years old Clinical indication: Other: Left rib pain TECHNIQUE: Imaging protocol: XR Left ribs. Views: 2 views. COMPARISON: CR XR CHEST 2V 09/20/2020 4:37 PM FINDINGS: Bones/joints: Normal. Soft tissues: Normal. IMPRESSION: No acute findings.
--- NOTE | 2021-07-24 18:51 | XR_ITS ---
PROCEDURE INFORMATION: Exam: XR Right Ribs with PA Chest Exam date and time: 07/24/2021 6:51 PM Age: 41 years old Clinical indication: Other: Right rib pain TECHNIQUE: Imaging protocol: XR Right ribs with PA chest. Views: 3 views COMPARISON: CR XR CHEST 2V 09/20/2020 4:37 PM FINDINGS: Lungs: Unremarkable. No consolidation. Pleural spaces: Unremarkable. No pleural effusion. No pneumothorax. Heart/Mediastinum: Unremarkable. No cardiomegaly. Bones/joints: Unremarkable. IMPRESSION: No acute findings.
[2021-07-24 20:09] VITALS: BP 121/88; PULSE 106; RESP 21; O2SAT 96; BMI 18.0
--- NOTE | 2021-07-24 20:37 | HMH.EDUTC ---
[facility] – [place] Disposition Clinical Impression: Rib pain Disposition: Home, Self-Care Condition on Discharge: Good Instructions: DI for Pleurisy Additional Instructions: Go home and rest. It would be best if you rested tomorrow too. No heavy lifting. No twisting. Follow up with your regular doctor. GO TO THE ER FOR ANY WORSENING SYMPTOMS OR CONCERN, ESPECIALLY BOWEL OR BLADDER ISSUES, SADDLE AREA NUMBNESS, FEVER, ETC Referrals: Justice Moore MD [Primary Care Provider] - Time of Disposition: 21:32 Medical Decision Making - Medical Records Medical records reviewed: No: I reviewed the patient's medical records. - Alexander Inquiry Pt receiving controlled substance: No Vital Signs: 07/24/21 20:09 07/24/21 21:33 Temperature 98 F Pulse Rate 106 H Pulse Rate [Left] 106 H Respiratory Rate 21 21 Blood Pressure 121/88 Blood Pressure [Right Arm] 121/88 Blood Pressure Mean [Right Arm] 99 02 Sat by Pulse Oximetry 96 Orders (Tests/Meds): ED MEDICATIONS Discontinued Medications Generic Name Dose Route Start Last Admin Trade Name Chava PRN Reason Stop Dose Admin Dexamethasone Sodium Phosphate 6 mg 07/24/21 21:18 Dexamethasone 4mg/Ml 1ml Vial IM 07/24/21 21:19 ONCE ONE [facility] [place] HPI - General Stated complaint: pain ribs (both) Time Seen by Provider: 07/24/21 20:37 Mode of Arrival: Ambulatory Source of Information: Patient Limitations: No Limitations Description of Symptoms (Recalled from Triage Doc. by RN): pt c/o sever pain in her ribs bilaterally with the R being the worst. ongoing x1 wk. pt denies any other symptoms. pt states she has not been sick. no injury noted. pt has many physical duties at her job. HEENT Symptoms (Recalled from RN notes): No Resp Symptoms (Recalled from RN notes): No Skin Symptoms (Recalled from RN notes): No MS Symptoms (Recalled from RN notes): Yes Functional Status (Recalled from RN notes): wnl - History of Present Illness Provider Complaint: She c/o right sided rib pain that goes around her to her back. It is worse when she moves, coughs - Related Data Home Medications Medication Instructions Recorded Confirmed Linaclotide [Linzess] 290 mcg PO DAILY 02/28/19 03/30/21 amiloride 5 mg tablet 5 mg PO tab 06/19/20 03/30/21 atomoxetine 40 mg capsule mg PO 06/19/20 03/30/21 cyclosporine 0.05 % eye drops in a drp OPHTHALMIC 06/19/20 03/30/21 dropperette topiramate 50 mg tablet 50 mg PO tab 06/19/20 03/30/21 levothyroxine 25 mcg tablet 25 mcg PO DAILY 12/03/20 03/30/21 Previous Rx's Medication Instructions Recorded Potassium Chloride [Micro-K 10mEq 20 meq PO TID #90 03/01/19 cap] Fluticasone Propionate [Flonase 1 spr NS DAILY 14 Days #1 bottle 03/11/19 50mcg nasal spray 16gm] clotrimazole 1 % topical cream 1 applic TOPICAL TID #30 g 12/19/20 metoclopramide HCl 5 mg tablet See Rx Instructions .ROUTE 01/16/21 .COMPLEX #120 tab ubrogepant 100 mg tablet 100 mg PO ONCE #8 tab 03/31/21 Azithromycin [Z-Charli 250mg Tab*] 250 mg PO UD DOSE PK #6 tab 05/31/21 Promethazine/Dextromethorphan 5 ml PO Q6HP PRN #240 ml 05/31/21 [Promethazine-Dm Syrup] dextroamphetamine-amphetamine ER 10 mg PO DAILY #30 cap 07/23/21 10 mg 24hr capsule,extend release Allergies Allergy/AdvReac Type Severity Reaction Status Date / Time magnesium Allergy Mild vomitting Verified 03/30/21 14:24 hydromorphone [From DILAUDID] Allergy Unknown MAKES Verified 03/30/21 14:24 CRAZY N/V Sulfa (Sulfonamide Allergy Unknown I-RASH Verified 03/30/21 14:24 Antibiotics) [SULFA (SULFONAMIDE ANTIBIOTICS)] - Worker's Comp Is this a Worker's Comp case?: No [facility] History - Hepatitis A Screen Drug use history?: No High risk sexual behaviors?: No History of sexually transmitted infection?: No Currently employed?: No Childcare worker?: No Do you have indoor plumbing?: Yes Do you have electricity?: Yes Attestation statement:: This patient has be
[2021-07-24 21:33] VITALS: BP 121/88; PULSE 106; RESP 21; TEMP 36.6
== END 2021-07-24 21:35 | disposition home or self-care (01) ==
PROVIDERS: Emergency Provider Nurse Practitioner Family; PCP Family Medicine
DX: R07.81 Pleurodynia (principal); E03.9 Hypothyroidism, unspecified; Z88.2 Allergy status to sulfonamides; R01.1 Cardiac murmur, unspecified
CPT/HCPCS: 71100; 71101; 99202; G0463

== ENCOUNTER 2021-08-02 15:59 | Emergency (ER) | payer BC, SELFPAY ==
[2021-08-02 16:00] VITALS: BP 121/85; PULSE 76; RESP 19; TEMP 36.6; O2SAT 96; BMI 16.7
--- NOTE | 2021-08-02 16:35 | HMH.EDUTC ---
[facility] [place] Condition on Discharge: Good Time of Disposition: 16:40 (sent to ed per pt request) <Nadeem Whittaker - Last Filed: 08/02/21 16:35> <Андрей Escoto - Last Filed: 08/03/21 00:56> Clinical Impression: Rib pain on right side Thoracic back pain Qualifiers: Chronicity: acute Back pain laterality: right Qualified Code(s): M54.6 - Pain in thoracic spine Disposition: Home, Self-Care Instructions: DI for Acute Pain -- Adult Additional Instructions: call pcp for follow up Prescriptions: predniSONE [Prednisone 20mg Tab] 20 mg PO BID #10 tab Transmission Status: Pending to [facility] Referrals: Nadeem Whittaker APRN [Primary Care Provider] - Medical Decision Making - Alexander Inquiry Pt receiving controlled substance: No <Nadeem Whittaker - Last Filed: 08/02/21 16:35> - Lab Data Lab results reviewed: Yes: I reviewed the patient's lab results. Result diagrams: 08/02/21 19:38 08/02/21 19:38 - CT Data CT Scan: Abdomen, Pelvis, Chest, T-Spine, L-Spine Time Received: 23:[address] Reviewed: Yes: I have viewed the radiologist's interpretation Preliminary Findings: Abnormal (see report ) <Андрей Escoto - Last Filed: 08/03/21 00:56> Vital Signs: 08/02/21 16:00 08/02/21 18:01 Temperature 97.9 F 98.5 F Temperature Source Oral Oral Pulse Rate [Left Brachial] 76 110 H Respiratory Rate 19 17 Blood Pressure [Left Arm] 121/85 126/93 H Blood Pressure Mean [Left Arm] 97 104 Blood Pressure Source [Left Arm] Automatic Cuff Blood Pressure Position [Left Arm] Sitting 02 Sat by Pulse Oximetry 96 99 Oxygen Delivery Method Room Air Room Air - Lab Data Lab Results 08/02/21 19:38: WBC 5.8, RBC 4.92, Hgb 14.7, Hct 45.5, MCV 92.6, MCH 29.8, MCHC 32.2, RDW 13.1, Plt Count 237, MPV 8.4, Neut % (Auto) 65.7, Lymph % (Auto) 23.5, Sequoyah % (Auto) 5.5, Eos % (Auto) 3.0, Baso % (Auto) 2.4 H, Neut # (Auto) 3.8, Lymph # (Auto) 1.4, Sequoyah # (Auto) 0.3, Eos # (Auto) 0.2, Baso # (Auto) 0.1 08/02/21 19:38: Sodium 139, Potassium 3.7, Chloride 108 H, Carbon Dioxide 21 L, Anion Gap 13.7, BUN 23 H, Creatinine 0.80, Estimated Creat Clear 74, Estimated GFR 79, Est GFR ( Amer) 96, Glucose 85, Calcium 8.9, Total Bilirubin 1.0, AST 27, ALT 23, Alkaline Phosphatase 145 H, Total Protein 7.1, Albumin 4.2, Globulin 2.9, Albumin/Globulin Ratio 1.4 08/02/21 19:38: ESR 12 08/02/21 19:38: C-Reactive Protein 4.2 H, Procalcitonin 0.041 Orders (Tests/Meds): ED MEDICATIONS Discontinued Medications Generic Name Dose Route Start Last Admin Trade Name Freq PRN Reason Stop Dose Admin Iopamidol 75 ml 08/02/21 20:26 08/02/21 20:27 Iopamidol-370 (76%);100ml Bottle IV 08/02/21 20:27 75 ml ONCE ONE Administration Sodium Chloride 10 ml 08/02/21 20:26 08/02/21 20:26 Sodium Chloride 0.9% 10ml Syr (Rad Only) IV 08/02/21 20:27 10 ml ONCE ONE Administration Medical Decision Narrative: uncertain as to etiology of rib pain - over the last few weeks - neg ct chest and nondiagnostic changes ct abd ans spine ok and inflammatory markers ok (Андрей Escoto) [facility] [place] - General Mode of Arrival: Ambulatory Source of Information: Patient Limitations: No Limitations Description of Symptoms (Recalled from Triage Doc. by RN): PATIENT C/O COUGH AND PAIN IN RIGHT RIBS HEENT Symptoms (Recalled from RN notes): No Resp Symptoms (Recalled from RN notes): Yes Skin Symptoms (Recalled from RN notes): No MS Symptoms (Recalled from RN notes): Yes Functional Status (Recalled from RN notes): WNL - History of Present Illness Provider Complaint: 41 yr old female presents for left rib pain. pt states she was hugged her really tight and since then she is having pain with coughing,breathing or movement. pt states she has seen pcp on and ct ordered but had to be pa. pt states the pain is so bad she can not wait to have ct done. pt states she has to work this week and cant wait for ct. I talked with pt ab
--- NOTE | 2021-08-02 16:52 | PC.NURSE ---
pt to be transferred to the ed. work up initiated in [facility].
--- NOTE | 2021-08-02 16:59 | PC.NURSE ---
PATIENT SENT TO ER PER Zi NGUYEN APRN. REPORTS GIVEN TO Ben ESCALERA RN
[2021-08-02 18:01] VITALS: BP 126/93; PULSE 110; RESP 17; TEMP 36.9; O2SAT 99; BMI 18.8
--- NOTE | 2021-08-02 19:26 | CT_ITS ---
PROCEDURE INFORMATION: Exam: CT Chest With Contrast; Diagnostic Exam date and time: 08/02/2021 7:26 PM Age: 41 years old Clinical indication: Pain; Right-sided; Additional info: R side and midsternal chest pain TECHNIQUE: Imaging protocol: Diagnostic computed tomography of the chest with contrast. Radiation optimization: All CT scans at this facility use at least one of these dose optimization techniques: automated exposure control; mA and/or kV adjustment per patient size (includes targeted exams where dose is matched to clinical indication); or iterative reconstruction. Contrast material: ISOVUE; Contrast volume: 75 ml; Contrast route: IV; COMPARISON: CR XR RIBS RT MIN 3V W CXR1V 07/24/2021 6:56 PM FINDINGS: Lungs: 6 mm ground-glass nodule within the right upper lobe. No lobar consolidation. Pleural spaces: No pneumothorax. No pleural effusion. Heart: No cardiomegaly. No pericardial effusion. Aorta: No aortic aneurysm. Lymph nodes: No enlarged lymph nodes. Gallbladder and bile ducts: Small volume pneumobilia. Adrenal glands: 12 mm left adrenal nodule. 2.3 cm right adrenal nodule. Bones/joints: S shaped curvature of the spine. No fracture. Soft tissues: No signigicant swelling. IMPRESSION: 6 mm ground-glass nodule within the right upper lobe. Recommend CT Chest at 6-12 months to confirm persistence of the nodule, then CT Chest at 3 years and 5 years. (Reference: Lynn) References: Lynn Paige et al. Guidelines for Management of Incidental Pulmonary Nodules Detected on CT Images: From the Fleischner Society 2017. Radiology. 2017;284(1):228-243.
--- NOTE | 2021-08-02 19:26 | CT_ITS ---
PROCEDURE INFORMATION: Exam: CT Abdomen And Pelvis With Contrast Exam date and time: 08/02/2021 7:26 PM Age: 41 years old Clinical indication: Abdominal pain; Localized; Left upper quadrant (luq); Prior surgery; Surgery date: 6+ months; Surgery type: Gb and bile duct surgery. Hysterectomy; Additional info: R upper abd pain TECHNIQUE: Imaging protocol: Computed tomography of the abdomen and pelvis with contrast. Radiation optimization: All CT scans at this facility use at least one of these dose optimization techniques: automated exposure control; mA and/or kV adjustment per patient size (includes targeted exams where dose is matched to clinical indication); or iterative reconstruction. Contrast material: ISOVUE; Contrast volume: 75 ml; Contrast route: IV; COMPARISON: CR XR RIBS LT 2V 07/24/2021 6:59 PM FINDINGS: Liver: Ill-defined linear hypodensity within the right liver measuring approximately 3.9 cm in length and 8 mm in thickness. Additional somewhat ill-defined subcapsular hypodensity measuring 13 by 16 mm within the peripheral inferior right lobe. Gallbladder and bile ducts: Small volume pneumobilia. Pancreas: Normal enhancement. No ductal dilation. Spleen: No splenomegaly. Adrenal glands: Adrenal calcifications. 12 mm left adrenal nodule. 2.3 cm right adrenal nodule. Kidneys and ureters: No hydronephrosis. Stomach and bowel: No obstruction. No mucosal thickening. Appendix: No evidence of appendicitis. Intraperitoneal space: No free air. No significant fluid collection. Vasculature: No abdominal aortic aneurysm. Lymph nodes: No enlarged lymph nodes. Urinary bladder: No acute abnormality. Reproductive: No acute abnormality. Bones/joints: No acute fracture. Soft tissues: No soft tissue swelling. IMPRESSION: 1. Several hepatic hypodensities which are indeterminate and may be benign or malignant. Correlation with history of recent trauma recommended. MRI with and without gadolinium is recommended for further evaluation. 2. Bilateral adrenal nodules which are also indeterminate and can be evaluated as above.
[2021-08-02 19:45] LABS: Basophils # 0.1 K/mm3 (0-0.2); Basophils % 2.4 % (0.1-2.0); Eosinophils # 0.2 K/mm3 (0.0-0.4); Hematocrit 45.5 % (37.0-47.0); Hemoglobin 14.7 g/dL (12.2-16.2); Lymphocytes # 1.4 K/mm3 (0.7-4.5); Lymphocytes % 23.5 % (10-50); Mean Corpuscular HGB Conc 32.2 g/dL (31.8-35.4); Mean Corpuscular Hemoglobin 29.8 pg (27.0-31.2); Mean Corpuscular Volume 92.6 fl (81-99); Mean Platelet Volume 8.4 fl (7.4-10.4); Monocytes # 0.3 K/mm3 (0.1-1.0); Monocytes % 5.5 % (1.7-9.3); Neutrophils # 3.8 K/mm3 (1.8-7.8); Neutrophils % 65.7 % (37.0-80.0); Platelet Count 237 K/mm3 (142-424); Red Blood Count 4.92 M/mm3 (4.20-5.40); Red Cell Distribution Width 13.1 % (11.5-17.5); White Blood Count 5.8 K/mm3 (4.8-10.8)
[2021-08-02 19:54] LABS: Alanine Aminotransferase 23 U/L (12-78); Albumin Level 4.2 g/dl (3.5-5.0); Albumin/Globulin Ratio 1.4 (1.1-1.8); Alkaline Phosphatase 145 U/L (38-126); Anion Gap 13.7 mEq/L (5-15); Aspartate Amino Transferase 27 U/L (14-36); Blood Urea Nitrogen 23 mg/dl (7-17); Calcium 8.9 mg/dl (8.4-10.2); Carbon Dioxide 21 mmol/L (22.0-30.0); Chloride 108 mmol/L (98-107); Creatinine Clearance Estimated 74 mL/min (50-200); Estimated Glomerular Filt Rate 79 ml/min (>60); GFR (African American) 96 ML/MIN (>60); Globulin 2.9 g/dL (1.3-3.2); Glucose 85 mg/dl (74-100); Potassium 3.7 mmoL/L (3.5-5.1); Sodium 139 mmol/L (136-145); Total Protein,Serum 7.1 g/dl (6.3-8.2)
--- NOTE | 2021-08-02 23:43 | CT_ITS ---
PROCEDURE INFORMATION: Exam: CT Thoracic Spine With Contrast Exam date and time: 08/02/2021 11:43 PM Age: 41 years old Clinical indication: Pain in thoracic spine; Without myelpathy or radiculopathy; Prior surgery; Surgery date: 6+ months; Surgery type: Gb TECHNIQUE: Imaging protocol: Computed tomography images of the thoracic spine with intravenous contrast. Radiation optimization: All CT scans at this facility use at least one of these dose optimization techniques: automated exposure control; mA and/or kV adjustment per patient size (includes targeted exams where dose is matched to clinical indication); or iterative reconstruction. Contrast material: ISOVUE; Contrast volume: 100 ml; Contrast route: IV; COMPARISON: CT ABDOMEN PELVIS W CON 08/02/2021 8:12 PM FINDINGS: Vertebrae: Mild superior endplate compression deformities of T7, T8, and T9. These appear chronic and are grossly similar to rib series of 07/24/2021 and two view chest radiograph of 09/20/2020. No acute thoracic spine fracture. No endplate demineralization/erosion. There is a mild reverse S curvature of the thoracic spine without spondylolisthesis. Discs/Spinal canal/Neural foramina: No significant spinal canal stenosis. No significant neural foraminal narrowing. Soft tissues: Unremarkable. Please see separately reported recent CT chest for extra-spinal findings. IMPRESSION: 1. No acute finding in the thoracic spine. 2. Mild chronic compression deformities of a few midthoracic vertebral bodies.
--- NOTE | 2021-08-02 23:43 | CT_ITS ---
PROCEDURE INFORMATION: Exam: CT Lumbar Spine With Contrast Exam date and time: 08/02/2021 11:43 PM Age: 41 years old Clinical indication: Low back pain; Prior surgery; Surgery date: 6+ months; Surgery type: Hysterectomy and gb TECHNIQUE: Imaging protocol: Computed tomography images of the lumbar spine with intravenous contrast. Radiation optimization: All CT scans at this facility use at least one of these dose optimization techniques: automated exposure control; mA and/or kV adjustment per patient size (includes targeted exams where dose is matched to clinical indication); or iterative reconstruction. Contrast material: ISOVUE; Contrast volume: 100 ml; Contrast route: IV; COMPARISON: CT THORACIC SPINE W CON 08/02/2021 11:57 PM FINDINGS: Vertebrae: No acute fracture. Normal alignment. No endplate demineralization/erosion. L1-L2: No significant disc protrusion. No severe spinal canal stenosis. No significant neural foraminal narrowing. L2-L3: No significant disc protrusion. No severe spinal canal stenosis. No significant neural foraminal narrowing. L3-L4: Mild disc bulging. Mild ligamentum flavum thickening. Mild bilateral neural foraminal narrowing. Spinal canal appears adequately patent. L4-L5: Disc bulge. Mild facet hypertrophy and ligamentum flavum thickening. Mild effacement of the lateral recesses. Minimal spinal canal stenosis. [id number] left and mild right neural foraminal narrowing. L5-S1: No significant disc protrusion. No severe spinal canal stenosis. No significant neural foraminal narrowing. Soft tissues: Unremarkable. Please see separately reported recent CT abdomen/pelvis for extra-spinal findings. IMPRESSION: 1. No acute finding in the lumbar spine. 2. Relatively mild degenerative changes at L3-L4 and L4-L5 as described.
[2021-08-02 23:58] LABS: C-Reactive Protein 4.2 mg/L (0-4)
[2021-08-03 00:10] LABS: Erythrocyte Sedimentation Rate 12 mm/hr (0-20)
[2021-08-03 00:12] LABS: Procalcitonin 0.041 ng/mL (0.0-2.0)
[2021-08-03 00:58] VITALS: BP 121/74; PULSE 90; RESP 16; TEMP 36.9; O2SAT 99
== END 2021-08-03 01:19 | disposition home or self-care (01) ==
LOC: UTC 16:40 → ER 16:55
PROVIDERS: Emergency Medicine; Emergency Provider Emergency Medicine; PCP Nurse Practitioner Family
DX: M54.6 Pain in thoracic spine (principal); N39.0 Urinary tract infection, site not specified; R01.1 Cardiac murmur, unspecified; K82.9 Disease of gallbladder, unspecified; E03.9 Hypothyroidism, unspecified; Z85.9 Personal history of malignant neoplasm, unspecified; Z92.21 Personal history of antineoplastic chemotherapy; Z92.3 Personal history of irradiation; Z82.49 Family history of ischemic heart disease and other diseases of the circulatory system; Z83.3 Family history of diabetes mellitus; Z80.9 Family history of malignant neoplasm, unspecified; Z81.1 Family history of alcohol abuse and dependence
CPT/HCPCS: 71260; 72129; 72132; 74177; 80053; 84145; 85025; 85651; 86140; 96374; 96375; 99285; Q9967

== ENCOUNTER → 2021-08-18 14:09 | Outpatient (CLI) | payer BC, SELFPAY ==
[2021-08-18 15:03] LABS: Basophils # 0.1 K/mm3 (0-0.2); Basophils % 0.8 % (0.1-2.0); Eosinophils # 0.1 K/mm3 (0.0-0.4); Hematocrit 48.2 % (37.0-47.0); Hemoglobin 15.9 g/dL (12.2-16.2); Lymphocytes # 1.5 K/mm3 (0.7-4.5); Lymphocytes % 24.1 % (10-50); Mean Platelet Volume 8.5 fl (7.4-10.4); Monocytes # 0.4 K/mm3 (0.1-1.0); Monocytes % 5.9 % (1.7-9.3); Neutrophils # 4.1 K/mm3 (1.8-7.8); Neutrophils % 67.2 % (37.0-80.0); Platelet Count 274 K/mm3 (142-424); Red Cell Distribution Width 13.4 % (11.5-17.5); White Blood Count 6.1 K/mm3 (4.8-10.8)
[2021-08-18 16:15] LABS: Alanine Aminotransferase 22 U/L (12-78); Albumin Level 4.4 g/dl (3.5-5.0); Albumin/Globulin Ratio 1.5 (1.1-1.8); Alkaline Phosphatase 117 U/L (38-126); Anion Gap 13.9 mEq/L (5-15); Aspartate Amino Transferase 25 U/L (14-36); Bilirubin,Total 1.1 mg/dl (0.2-1.3); Blood Urea Nitrogen 18 mg/dl (7-17); Calcium 9.6 mg/dl (8.4-10.2); Carbon Dioxide 21 mmol/L (22.0-30.0); Chloride 109 mmol/L (98-107); Chol/HDL Ratio 2.1 (1-3.5); Cholesterol 152 mg/dl (140-200); Estimated Glomerular Filt Rate 69 ml/min (>60); GFR (African American) 84 ML/MIN (>60); Globulin 2.9 g/dL (1.3-3.2); Glucose 93 mg/dl (74-100); HDL Cholesterol 71 mg/dl (40-60); Potassium 3.9 mmoL/L (3.5-5.1); Sodium 140 mmol/L (136-145); Total Protein,Serum 7.3 g/dl (6.3-8.2); Triglycerides 45 mg/dl (30-150); VLDL Cholesterol 9 mg/dL (0-40)
[2021-08-18 16:32] LABS: T4 (Thyroxine) 9.7 ug/dl (5.53-11.0)
[2021-08-18 16:41] LABS: C-Reactive Protein 0.4 mg/L (0-4); Direct LDL Cholesterol 58.19 mg/dL (100-129)
[2021-08-20 13:14] LABS: Anti-Centromere B Antibodies <0.2 AI (0.0-0.9); Anti-DNA (DS) Ab Qn <1 IU/mL (0-9); Anti-Jo-1 <0.2 AI (0.0-0.9); Anti-Smith Antibody <0.2 AI (0.0-0.9); Antichromatin Antibodies <0.2 AI (0.0-0.9); Antiscleroderma-70 Antibodies <0.2 AI (0.0-0.9); RNP Antibodies <0.2 AI (0.0-0.9); Sjogren's Anti-SS-A <0.2 AI (0.0-0.9); Sjogren's Anti-SS-B <0.2 AI (0.0-0.9)
== END ==
PROVIDERS: Nurse Practitioner Family; Visit Provider Nurse Practitioner Family
DX: E06.3 Autoimmune thyroiditis (principal); M54.6 Pain in thoracic spine; N28.9 Disorder of kidney and ureter, unspecified
CPT/HCPCS: 36415; 80053; 80061; 84436; 84443; 85025; 86140; 86225; 86235

== ENCOUNTER → 2021-08-20 07:32 | Outpatient (CLI) | payer BC, SELFPAY ==
--- NOTE | 2021-08-20 07:33 | MR_ITS ---
FINAL REPORT CLINICAL HISTORY: Abnormal Abd ct. ABNORMAL CT SCAN 08-02-21. RT UPPER QUADRANT PAIN X3WKS. HX STAGE 3 UTERINE CANCER. LAST CHEMO WAS 2013. 10ML PROHANCE GIVEN. COMPARISON: CT SCAN 08-02-21 FINDINGS: Multiplanar MR imaging of the abdomen was performed without and with contrast. Exam is obtained to evaluate an abnormality seen on the recent CT. In the periphery of the right lobe of the liver is a linear parenchymal signal abnormality that is horizontally oriented. On pre and postcontrast imaging there is contrast enhancement within the surrounding parenchyma. The linear central portion does not demonstrate enhancement. Findings are best seen on axial images 25 and 26 of series 16 and series 17. This appears to represent locally dilated peripheral ducts. More inferior to this is a focus of abnormal signal in the anterior right lobe of the liver measuring 1.7 x 1.2 cm. This is best seen on image 35 of series 16. On in and out of phase imaging there is signal drop off within the 2.5 cm right adrenal mass previously described on the recent CT. This favors an adenoma. There is decreased signal associated with both adrenal glands consistent with known bulky calcifications. IMPRESSION: Linear signal abnormality in the periphery of the right lobe of the liver favors a peripherally dilated duct. ERCP could better evaluate the biliary system to evaluate for central stricture. Abnormal signal in the inferior right lobe of the liver of uncertain significance. Recommend additional follow-up. An infused CT in 3-6 months could ensure stability. 2.5 cm right adrenal nodule. With the presence of fat this is likely an adenoma. Bulky calcification within the adrenal glands bilaterally. Reviewed, Interpreted and Dictated by William Ryan MD Transcribed by Kirill Montana Authenticated by William Ryan MD on 08/20/2021 09:18:52 AM [facility]
== END ==
PROVIDERS: PCP Nurse Practitioner Family; Visit Provider Nurse Practitioner Family
DX: R16.0 Hepatomegaly, not elsewhere classified (principal); R93.5 Abnormal findings on diagnostic imaging of other abdominal regions, including retroperitoneum
CPT/HCPCS: 74183; A9576

== ENCOUNTER → 2021-12-31 08:13 | Outpatient (CLI) | payer BC, SELFPAY ==
--- NOTE | 2021-12-31 08:16 | CT_ITS ---
FINAL REPORT CLINICAL HISTORY: 4 mth f/u COMPARISON: CT dated August 02, 2021; MRI dated August 20, 2021 FINDINGS: CT ABDOMEN WITHOUT AND WITH AND CT PELVIS WITHOUT CONTRAST Axial images through the abdomen and pelvis were performed. Pre and postcontrast images were obtained. This study was performed with techniques to keep radiation doses as low as reasonably achievable, (ALARA). Individualized dose reduction techniques using automated exposure control or adjustment of mA and/or kV according to the patient's size were employed. ABDOMEN: The lung bases are clear. The heart size is normal. There are small linear areas of low attenuation in the right hepatic lobe similar to the prior exam. There is a vague low-attenuation focus in the anterior inferior right lobe of the liver of uncertain etiology but stable from the prior exam. The spleen is normal. There are calcifications within the bilateral adrenal glands. There is a right adrenal mass of uncertain etiology measuring 26 mm, stable. The aorta is normal in caliber. There is no significant free fluid or adenopathy. There is a less than 1 cm left renal cyst. There is no nephrolithiasis. There is no hydronephrosis. PELVIS: The appendix is not identified. The urinary bladder is unremarkable. There is no significant free fluid or adenopathy. IMPRESSION: Stable small linear areas of low attenuation in the right hepatic lobe may represent focal mild biliary duct dilatation versus focal chronic portal vein thrombosis. Vague low-attenuation area in the anterior inferior right hepatic lobe could represent vascular perfusion variant. Right adrenal mass of uncertain etiology may represent a myelolipoma. Reviewed, Interpreted and Dictated by Stalin Peoples III, MD Transcribed by Kirill Montana Authenticated and [facility]
== END ==
PROVIDERS: PCP Family Medicine; Visit Provider Nurse Practitioner Family
DX: E27.8 Other specified disorders of adrenal gland (principal); R93.5 Abnormal findings on diagnostic imaging of other abdominal regions, including retroperitoneum
CPT/HCPCS: 74170; Q9967

== ENCOUNTER 2022-07-07 20:29 | Emergency (ER) | payer BC, SELFPAY ==
[2022-07-07 20:30] VITALS: BP 131/87; PULSE 89; RESP 16; TEMP 37.1; O2SAT 97; BMI 19.9
--- NOTE | 2022-07-07 20:36 | ECG_ITS ---
APPROVED REPORT Exam: Resting ECG HR:89 bpm ECG Measurements Heart Rate 89 AXES NJ 140 P 79 QRSd 89 QRS 52 QT 354 T 68 QTc 400 Conclusion SINUS RHYTHM NORMAL ECG UNCONFIRMED REPORT Electronically signed by : Kaiser Rivera MD 07/08/2022 08:01:09
--- NOTE | 2022-07-07 20:52 | HMH.EDARPALP ---
Discharge Plan Disposition Patient Disposition: Home, Self-Care Prescriptions Prescriptions: No Action amiloride 5 mg tablet 5 mg PO cyclosporine 0.05 % dropperette OPHTHALMIC atomoxetine 40 mg capsule PO fluconazole [Diflucan] 150 mg tablet 150 mg PO Q3D Qty: 2 0RF cephalexin 500 mg capsule 500 mg PO Q8H 10 Days Qty: 30 0RF dextroamphetamine-amphetamine [Adderall XR] 15 mg capsule,extended release 24hr 15 mg PO DAILY Qty: 30 0RF Rx Instructions: brand name only please [id number] [Bromfed DM] 2-30-10 mg/5 mL syrup 5 ml PO Q6H PRN (Reason: cold symptoms) Qty: 180 0RF clotrimazole 1 % cream 1 applic TOPICAL TID Qty: 30 0RF metoclopramide HCl 5 mg tablet See Rx Instructions .ROUTE .COMPLEX Qty: 120 0RF Dose Instruction: TAKE ONE TABLET BY MOUTH BEFORE MEALS AND AT BEDTIME FOR HEARTBURN Rx Instructions: TAKE ONE TABLET BY MOUTH BEFORE MEALS AND AT BEDTIME FOR HEARTBURN Ubrelvy 100 mg tablet 100 mg PO ONCE Qty: 8 10RF erythromycin 5 mg/gram (0.5 %) ointment 0.5 inch OPHTHALMIC TID Qty: 3.5 3RF levothyroxine [Synthroid] 25 mcg tablet 25 mcg PO DAILY Qty: 90 3RF famciclovir 500 mg tablet 500 mg PO Q8H 7 Days Qty: 21 0RF Paxlovid (EUA) 300 mg (150 mg x 2)-100 mg tablets,dose pack See Rx Instructions PO .COMPLEX Qty: 30 0RF Rx Instructions: take TWO 150 mg tablets of nirmatrelvir with ONE 100 mg tablet of ritonavir twice daily for 5 days PO topiramate 50 mg tablet See Rx Instructions .ROUTE .COMPLEX Qty: 90 3RF Dose Instruction: TAKE ONE TABLET BY MOUTH ONCE A DAY Rx Instructions: TAKE ONE TABLET BY MOUTH ONCE A DAY linaclotide 290 MCG capsule 290 mcg PO DAILY potassium chloride 10 MEQ capsule, extended release 20 meq PO TID Qty: 90 0RF promethazine-DM 120 ML syrup 5 ml PO Q6HP PRN (Reason: Cough) Qty: 240 0RF fluticasone propionate 120 SPR/BOT bottle 1 spr NS DAILY 14 Days Qty: 1 0RF Referrals Follow up/Referrals: Justice Moore MD [Primary Care Provider] - See instructions Clinical Impressions Clinical Impression: Gitelman disease, Arm paresthesia, left Stand Alone Forms Stand Alone Forms: Work/School Release Instructions Patient Instructions: Cardiac Arrhythmia (Alternative Therapy) Discharge ED Provider: Tigist (ED)Андрей Arrhythmia/Palpitations HPI General Chief Complaint: Arrhythmia/Palpitations Stated Complaint: left arm and hand numb, Time Seen by Provider: 07/07/22 20:52 Mode of Arrival: Ambulatory Source of Information: Patient and Medical Record Limitations: No Limitations History of Present Illness HPI narrative: pt with hx of prev cva and also has changes with k and presents with tingling lt upper ext and no other focal changes and no fever /rash or trauma - has palpitations also with sx MD complaint: palpitations Onset (ago): hour(s) Duration: intermittent Severity: moderate Context: occurred during rest Associated symptoms: paresthesias Related Data Home Medications Medication Instructions Recorded Confirmed linaclotide 290 mcg capsule 290 mcg PO DAILY IBS 02/28/19 07/02/22 amiloride 5 mg tablet 5 mg PO 06/19/20 07/02/22 atomoxetine 40 mg capsule mg PO 06/19/20 07/02/22 cyclosporine 0.05 % eye drops in a drp ophthalmic (eye) 06/19/20 07/02/22 dropperette Previous Rx's Medication Instructions Recorded potassium chloride 10 mEq 20 meq PO TID POTASSIUM SUPPLEMENT 03/01/19 capsule,extended release ##90 fluticasone propionate 50 1 spr intranasal DAILY 14 days ##1 03/11/19 mcg/actuation nasal spray,suspension clotrimazole 1 % topical cream 1 applic topical TID #30 grams 12/19/20 metoclopramide HCl 5 mg tablet See Rx Instructions .Route 01/16/21 .COMPLEX #120 tabs ubrogepant 100 mg tablet (Ubrelvy) 100 mg PO ONCE #8 tabs 03/31/21 promethazine-DM 6.25 mg-15 mg/5 mL 5 ml PO Q6HP PRN Cough #240 mL 01
--- NOTE | 2022-07-07 20:52 | PC.NURSE ---
Dr. Escoto advised to wait on scans until further notice.
[2022-07-07 21:00] VITALS: BP 123/78; PULSE 86; O2SAT 99
[2022-07-07 21:13] LABS: Basophils # 0.1 K/mm3 (0-0.2); Basophils % 1.1 % (0.1-2.0); Eosinophils # 0.1 K/mm3 (0.0-0.4); Hematocrit 41.1 % (37.0-47.0); Hemoglobin 14.9 g/dL (12.2-16.2); Lymphocytes # 1.9 K/mm3 (0.7-4.5); Lymphocytes % 30.2 % (10-50); Mean Corpuscular HGB Conc 36.2 g/dL (31.8-35.4); Mean Corpuscular Hemoglobin 32.7 pg (27.0-31.2); Mean Corpuscular Volume 90.3 fl (81-99); Monocytes # 0.4 K/mm3 (0.1-1.0); Monocytes % 5.7 % (1.7-9.3); Neutrophils # 3.8 K/mm3 (1.8-7.8); Platelet Count 228 K/mm3 (142-424); Red Blood Count 4.55 M/mm3 (4.20-5.40); White Blood Count 6.1 K/mm3 (4.8-10.8)
[2022-07-07 21:23] LABS: Chloride 110 mmol/L (98-107); Potassium 3.6 mmoL/L (3.5-5.1); Sodium 139 mmol/L (136-145)
[2022-07-07 21:25] LABS: Blood Urea Nitrogen 27 mg/dl (7-17); Creatinine Clearance Estimated 56 mL/min (50-200); Estimated Glomerular Filt Rate 55 ml/min (>60); GFR (African American) 66 ML/MIN (>60); Magnesium 1.6 mg/dl (1.6-2.3)
[2022-07-07 21:26] LABS: Alanine Aminotransferase 22 U/L (12-78); Albumin Level 4.2 g/dl (3.5-5.0); Albumin/Globulin Ratio 1.4 (1.1-1.8); Alkaline Phosphatase 90 U/L (38-126); Anion Gap 9.6 mEq/L (5-15); Aspartate Amino Transferase 28 U/L (14-36); Bilirubin,Total 0.5 mg/dl (0.2-1.3); Calcium 8.6 mg/dl (8.4-10.2); Carbon Dioxide 23 mmol/L (22.0-30.0); Glucose 94 mg/dl (74-100); Total Protein,Serum 7.2 g/dl (6.3-8.2)
--- NOTE | 2022-07-07 21:37 | PC.NURSE ---
pt refused ct scans
--- NOTE | 2022-07-07 21:37 | PC.NURSE ---
Rechecked pt condition. Pt advises that her arm and upper body are still feeling weird RN notified.
[2022-07-07 21:39] LABS: Troponin I < 0.01 ng/ml (0.00-0.034)
[2022-07-07 21:47] LABS: Free T4 (Free Thyroxine) 1.07 ng/dl (0.78-2.19)
[2022-07-07 21:57] LABS: Thyroid Stimulating Hormone 3.13 uIU/mL (0.465-4.68)
[2022-07-07 23:30] VITALS: BP 104/69; PULSE 72; O2SAT 100
--- NOTE | 2022-07-08 | CT_ITS ---
PROCEDURE INFORMATION: Exam: CTA Head With Contrast, Arteriography Exam date and time: 07/08/2022 12:12 AM Age: 42 years old Clinical indication: Patient HX: PT C/O right arm numbness that radiates to neck TECHNIQUE: Imaging protocol: Computed tomographic angiography of the head with contrast. Exam focused on the arteries. 3D rendering (Not supervised by radiologist): MIP and/or 3D reconstructed images were created by the technologist. Radiation optimization: All CT scans at this facility use at least one of these dose optimization techniques: automated exposure control; mA and/or kV adjustment per patient size (includes targeted exams where dose is matched to clinical indication); or iterative reconstruction. Contrast material: ISOVUE; Contrast volume: 100 ml; Contrast route: INTRAVENOUS (IV); Other protocol: This patient has received 7 known CTs and 0 known cardiac nuclear medicine studies in the 12 months prior to the current study. COMPARISON: CT HEAD/BRAIN WO CON 07/08/2022 12:10 AM FINDINGS: ANTERIOR CIRCULATION: Right internal carotid artery: Intracranial segment is patent with no significant stenosis. No aneurysm. Right middle cerebral artery: No occlusion or significant stenosis. No aneurysm. Right anterior cerebral artery: No occlusion or significant stenosis. No aneurysm. Left internal carotid artery: Intracranial segment is patent with no significant stenosis. No aneurysm. Left middle cerebral artery: No occlusion or significant stenosis. No aneurysm. Left anterior cerebral artery: No occlusion or significant stenosis. No aneurysm. POSTERIOR CIRCULATION: Right vertebral artery: No occlusion or significant stenosis. No aneurysm. Left vertebral artery: No occlusion or significant stenosis. No aneurysm. Basilar artery: No occlusion or significant stenosis. No aneurysm. Right posterior cerebral artery: No occlusion or significant stenosis. No aneurysm. Left posterior cerebral artery: No occlusion or significant stenosis. No aneurysm. Veins: The dural venous sinuses appear patent. Brain: No definite mass, mass effect, or midline shift. Cerebral ventricles: No ventriculomegaly. Bones/joints: Unremarkable. No acute fracture. Soft tissues: Unremarkable. Other findings: Persistent origin of the right cerebral artery. IMPRESSION: No significant intracranial abnormality identified.
--- NOTE | 2022-07-08 | CT_ITS ---
PROCEDURE INFORMATION: Exam: CT Head Without Contrast Exam date and time: 07/08/2022 12:10 AM Age: 42 years old Clinical indication: Numbness / parasthesia; Patient HX: C/O right arm numbness that radiates to neck TECHNIQUE: Imaging protocol: Computed tomography of the head without contrast. Radiation optimization: All CT scans at this facility use at least one of these dose optimization techniques: automated exposure control; mA and/or kV adjustment per patient size (includes targeted exams where dose is matched to clinical indication); or iterative reconstruction. Other protocol: This patient has received 6 known CTs and 0 known cardiac nuclear medicine studies in the 12 months prior to the current study. COMPARISON: No relevant prior studies available. FINDINGS: Brain: Mild diffuse cerebral atrophy, greater than expected given patient's age. No acute intracranial hemorrhage. No white matter disease. No acute infarct. No mass effect. No abnormal extra-axial fluid collection. Cerebral ventricles: No ventriculomegaly. Paranasal sinuses: Visualized sinuses are unremarkable. No fluid levels. Mastoid air cells: Visualized mastoid air cells are well aerated. Bones/joints: Unremarkable. No acute fracture. Soft tissues: Unremarkable. IMPRESSION: 1. No acute intracranial abnormality identified. 2. Mild diffuse cerebral atrophy, greater than expected given patient's age.
--- NOTE | 2022-07-08 | CT_ITS ---
PROCEDURE INFORMATION: Exam: CTA Neck With Contrast Exam date and time: 07/08/2022 12:12 AM Age: 42 years old Clinical indication: Patient HX: C/O right arm numbness radiating to neck TECHNIQUE: Imaging protocol: Computed tomographic angiography of the neck with contrast. 3D rendering (Not supervised by radiologist): MIP and/or 3D reconstructed images were created by the technologist. Radiation optimization: All CT scans at this facility use at least one of these dose optimization techniques: automated exposure control; mA and/or kV adjustment per patient size (includes targeted exams where dose is matched to clinical indication); or iterative reconstruction. Contrast material: ISOVUE; Contrast volume: 100 ml; Contrast route: INTRAVENOUS (IV); Other protocol: This patient has received 7 known CTs and 0 known cardiac nuclear medicine studies in the 12 months prior to the current study. COMPARISON: CT HEAD/BRAIN WO CON 07/08/2022 12:10 AM FINDINGS: Right common carotid artery: No stenosis. No dissection or occlusion. Right internal carotid artery: No stenosis of the extracranial segment. No dissection or occlusion. Right external carotid artery: No occlusion or stenosis of the origin. Left common carotid artery: No stenosis. No dissection or occlusion. Left internal carotid artery: No stenosis of the extracranial segment. No dissection or occlusion. Left external carotid artery: No occlusion or stenosis of the origin. Right vertebral artery: No stenosis. No dissection or occlusion. Left vertebral artery: No stenosis. No dissection or occlusion. Thyroid: Thyroid gland appears mildly heterogeneous, with a tiny subcentimeter nodule in the left lobe. No routine follow-up recommended. Soft tissues: Normal. No significant soft tissue swelling. Bones/joints: No acute fracture. No significant disc herniation or obvious spinal stenosis. IMPRESSION: No significant abnormality identified. COMMENTS: Consistent with the [employer]'s Incidental Findings Committee white paper (J Am Jaimee Radiol 2015): In patients aged 35 years and older with an incidental thyroid nodule equal to or greater than 1.[address], MRI or extrathyroidal US, further evaluation with dedicated thyroid US is recommended for patients with normal life expectancy and without comorbidities. For smaller nodules without suspicious features, no further evaluation or follow up is recommended. REFERENCES: NASCET CRITERIA. The degree of stenosis in the cervical segment of the internal carotid artery is based on NASCET criteria. Normal is no stenosis. Mild is less than 50% stenosis. Moderate is 50-69% stenosis. Severe is 70% to 99% stenosis. Total occlusion is no detectable patent lumen.
[2022-07-08 00:17] LABS: Troponin I < 0.01 ng/ml (0.00-0.034)
[2022-07-08 02:13] VITALS: BP 104/69; PULSE 72; RESP 18; TEMP 37.1; O2SAT 98
== END 2022-07-08 02:13 | disposition home or self-care (01) ==
PROVIDERS: Emergency Provider Emergency Medicine; PCP Family Medicine
DX: N15.8 Other specified renal tubulo-interstitial diseases (principal); R20.2 Paresthesia of skin
CPT/HCPCS: 36415; 70450; 70496; 70498; 80053; 83735; 84439; 84443; 84484; 85025; 93005; 99285; Q9967

== ENCOUNTER 2022-07-19 17:03 | Emergency (ER) | payer BC, SELFPAY ==
[2022-07-19 17:10] VITALS: BP 132/85; PULSE 80; RESP 20; TEMP 36.8; O2SAT 97; BMI 18.8
--- NOTE | 2022-07-19 17:22 | EXP.UTC ---
Discharge Plan Disposition Patient Disposition: Home, Self-Care Condition: Good Prescriptions Prescriptions: New cyclobenzaprine 10 mg tablet 10 mg PO BID PRN (Reason: Muscle Spasm) Qty: 30 0RF No Action amiloride 5 mg tablet 5 mg PO cyclosporine 0.05 % dropperette OPHTHALMIC atomoxetine 40 mg capsule PO fluconazole [Diflucan] 150 mg tablet 150 mg PO Q3D Qty: 2 0RF cephalexin 500 mg capsule 500 mg PO Q8H 10 Days Qty: 30 0RF dextroamphetamine-amphetamine [Adderall XR] 15 mg capsule,extended release 24hr 15 mg PO DAILY Qty: 30 0RF Rx Instructions: brand name only please [id number] [Bromfed DM] 2-30-10 mg/5 mL syrup 5 ml PO Q6H PRN (Reason: cold symptoms) Qty: 180 0RF clotrimazole 1 % cream 1 applic TOPICAL TID Qty: 30 0RF metoclopramide HCl 5 mg tablet See Rx Instructions .ROUTE .COMPLEX Qty: 120 0RF Dose Instruction: TAKE ONE TABLET BY MOUTH BEFORE MEALS AND AT BEDTIME FOR HEARTBURN Rx Instructions: TAKE ONE TABLET BY MOUTH BEFORE MEALS AND AT BEDTIME FOR HEARTBURN Ubrelvy 100 mg tablet 100 mg PO ONCE Qty: 8 10RF erythromycin 5 mg/gram (0.5 %) ointment 0.5 inch OPHTHALMIC TID Qty: 3.5 3RF levothyroxine [Synthroid] 25 mcg tablet 25 mcg PO DAILY Qty: 90 3RF famciclovir 500 mg tablet 500 mg PO Q8H 7 Days Qty: 21 0RF Paxlovid (EUA) 300 mg (150 mg x 2)-100 mg tablets,dose pack See Rx Instructions PO .COMPLEX Qty: 30 0RF Rx Instructions: take TWO 150 mg tablets of nirmatrelvir with ONE 100 mg tablet of ritonavir twice daily for 5 days PO topiramate 50 mg tablet See Rx Instructions .ROUTE .COMPLEX Qty: 90 3RF Dose Instruction: TAKE ONE TABLET BY MOUTH ONCE A DAY Rx Instructions: TAKE ONE TABLET BY MOUTH ONCE A DAY linaclotide 290 MCG capsule 290 mcg PO DAILY potassium chloride 10 MEQ capsule, extended release 20 meq PO TID Qty: 90 0RF promethazine-DM 120 ML syrup 5 ml PO Q6HP PRN (Reason: Cough) Qty: 240 0RF fluticasone propionate 120 SPR/BOT bottle 1 spr NS DAILY 14 Days Qty: 1 0RF Referrals Follow up/Referrals: Justice Moore MD [Primary Care Provider] - See instructions Activity Restrictions/Add. Instructions Additional Instructions/Restrictions: Go home and rest. It would be best if you rested tomorrow too. No heavy lifting. No twisting. The muscle relaxer (cyclobenzaprine--Flexeril) will make you drowsy, so don't drive or operate heavy machinery after taking it. Follow up with your regular doctor. GO TO THE ER FOR ANY WORSENING SYMPTOMS OR CONCERN, ESPECIALLY BOWEL OR BLADDER ISSUES, SADDLE AREA NUMBNESS, FEVER, ETC Clinical Impressions Clinical Impression: Torticollis Stand Alone Forms Stand Alone Forms: Work/School Release Instructions Patient Instructions: Antoine, DI for Torticollis, Cyclobenzaprine Discharge ED Provider: Florencio Lees [facility] General Stated complaint: Miagraine on tuesday, Shoulders and neck pain Time Seen by Provider: 07/19/22 17:22 History of Present Illness Provider Complaint: She states that for the past 3 days she has had worsening neck and bilateral shoulder pain. She states that the muscles in her neck and the top of her shoulders are feeling tight and having spasms. She denies any known injury. Related Data Home Medications Medication Instructions Recorded Confirmed linaclotide 290 mcg capsule 290 mcg PO DAILY IBS 02/28/19 07/02/22 amiloride 5 mg tablet 5 mg PO 06/19/20 07/02/22 atomoxetine 40 mg capsule mg PO 06/19/20 07/02/22 cyclosporine 0.05 % eye drops in a drp ophthalmic (eye) 06/19/20 07/02/22 dropperette Previous Rx's Medication Instructions Recorded potassium chloride 10 mEq 20 meq PO TID POTASSIUM SUPPLEMENT 03/01/19 capsule,extended release ##90 fluticasone propionate 50 1 spr intranasal DAILY 14 days ##1 03/11/19 mcg/actuation nasal spray,s
[2022-07-19 17:34] VITALS: BP 132/85; PULSE 80; RESP 20; TEMP 36.8; O2SAT 97
== END 2022-07-19 18:22 | disposition home or self-care (01) ==
PROVIDERS: Emergency Provider Nurse Practitioner Family; PCP Family Medicine
DX: M43.6 Torticollis (principal)
CPT/HCPCS: 96372; 99212; 99213; G0463

== ENCOUNTER → 2022-08-05 08:02 | Outpatient (CLI) | payer BC, SELFPAY ==
--- NOTE | 2022-08-05 08:03 | MR_ITS ---
FINAL REPORT CLINICAL HISTORY: follow up from previous ab. MRI. COMPARISON: 08/20/2021 FINDINGS: Multiplanar MR imaging of the abdomen was performed without and with contrast. There is a subtle area of decreased signal in the inferior right hepatic lobe measuring up to approximately 1.7 cm best seen on series 18, image 42. There are also linear and branching decreased signal areas in the right hepatic lobe which are stable and may represent focally dilated biliary ducts. No new hepatic mass or abnormal contrast enhancement identified. The gallbladder has an unremarkable appearance. There is a stable heterogeneous 2.5 cm right adrenal mass and a 1.7 cm left adrenal mass which is also stable. These do not have the appearance of typical adenoma. Metastasis is not excluded. This could also represent atypical adenoma or other adrenal neoplasm. There is a 1 cm left renal cyst noted. No abnormal fluid collection is seen. No other abnormal contrast enhancement is seen on the postcontrast images. IMPRESSION: Stable abnormalities in the right hepatic lobe of uncertain etiology most likely do not represent neoplastic involvement. Stable heterogeneous bilateral adrenal masses. Differential diagnosis includes adrenal metastasis, atypical adenoma, or other adrenal neoplasm. Reviewed, Interpreted and Dictated by Stalin Peoples III, MD Transcribed by Fariba Mitchell Authenticated and [facility]
[2022-08-05 08:50] LABS: Blood Urea Nitrogen 21 mg/dl (7-17); Estimated Glomerular Filt Rate 69 ml/min (>60); GFR (African American) 83 ML/MIN (>60)
== END ==
PROVIDERS: PCP Family Medicine; Visit Provider Family Medicine
DX: R10.9 Unspecified abdominal pain (principal); Z85.42 Personal history of malignant neoplasm of other parts of uterus
CPT/HCPCS: 36415; 74183; 82565; 84520; A9576

== ENCOUNTER → 2022-11-04 23:00 | Outpatient (CLI) | payer BC, SELFPAY | PROVIDERS: PCP Student in an Organized Health Care Education/Training Program; Visit Provider Student in an Organized Health Care Education/Training Program | DX: J02.9 Acute pharyngitis, unspecified (principal) ==

== ENCOUNTER 2022-11-23 18:26 | Emergency (ER) | payer BC, SELFPAY ==
[2022-11-23 18:27] VITALS: BP 114/84; PULSE 101; RESP 18; TEMP 36.8; O2SAT 97; BMI 18.8
--- NOTE | 2022-11-23 19:10 | EXP.UTC ---
Discharge Plan Disposition Patient Disposition: Home, Self-Care Condition: Good Prescriptions Prescriptions: New benzonatate [benzonatate] 100 mg capsule 100 mg PO TIDP PRN (Reason: Cough) Qty: 30 0RF cefdinir 250 mg/5 mL suspension for reconstitution 300 mg PO BID 10 Days Qty: 120 0RF No Action amiloride 5 mg tablet 5 mg PO atomoxetine 40 mg capsule PO metoclopramide HCl 5 mg tablet See Rx Instructions .ROUTE .COMPLEX Qty: 120 0RF Dose Instruction: TAKE ONE TABLET BY MOUTH BEFORE MEALS AND AT BEDTIME FOR HEARTBURN Rx Instructions: TAKE ONE TABLET BY MOUTH BEFORE MEALS AND AT BEDTIME FOR HEARTBURN Ubrelvy 100 mg tablet 100 mg PO ONCE Qty: 8 10RF Paxlovid 300 mg (150 mg x 2)-100 mg tablets,dose pack See Rx Instructions PO .COMPLEX Qty: 30 0RF Rx Instructions: take TWO 150 mg tablets of nirmatrelvir with ONE 100 mg tablet of ritonavir twice daily for 5 days PO topiramate 50 mg tablet See Rx Instructions .ROUTE .COMPLEX Qty: 90 3RF Dose Instruction: TAKE ONE TABLET BY MOUTH ONCE A DAY Rx Instructions: TAKE ONE TABLET BY MOUTH ONCE A DAY levothyroxine [Synthroid] 25 mcg tablet See Rx Instructions .ROUTE .COMPLEX Qty: 30 2RF Dose Instruction: TAKE ONE TABLET BY MOUTH ONCE A DAY Rx Instructions: TAKE ONE TABLET BY MOUTH ONCE A DAY dextroamphetamine-amphetamine [Adderall XR] 15 mg capsule,extended release 24hr 15 mg PO DAILY Qty: 30 0RF Rx Instructions: brand name only please linaclotide 290 MCG capsule 290 mcg PO DAILY potassium chloride 10 MEQ capsule, extended release 20 meq PO TID Qty: 90 0RF Referrals Follow up/Referrals: Justice Moore MD [Primary Care Provider] - See instructions Activity Restrictions/Add. Instructions Additional Instructions/Restrictions: Drink plenty of fluids. Take tylenol for pain or fever. Take the medications as directed. Follow up with your regular doctor. GO TO THE ER FOR ANY WORSENING SYMPTOMS Clinical Impressions Clinical Impression: Acute bronchitis, Otitis media Instructions Patient Instructions: Middle Ear Infection, DI for Acute Bronchitis Discharge ED Provider: Florencio [place] [facility] [place] General Stated complaint: SOA, cough, congestion,ear pain Mode of Arrival: Ambulatory Source of Information: Patient Limitations: No Limitations Time Seen by Provider: 11/23/22 19:10 HEENT Symptoms (Recalled from RN notes): Yes Resp Symptoms (Recalled from RN notes): Yes Skin Symptoms (Recalled from RN notes): No MS Symptoms (Recalled from RN notes): No Functional Status (Recalled from RN notes): wnl History of Present Illness Provider Complaint: Patient reports possible ear infection, upper respiratory infection or bronchitis. States she is coughing , short of breath and chest pain with breathing for 3 weeks. Related Data Home Medications Medication Instructions Recorded Confirmed linaclotide 290 mcg capsule 290 mcg PO DAILY IBS 02/28/19 11/04/22 amiloride 5 mg tablet 5 mg PO 06/19/20 11/04/22 atomoxetine 40 mg capsule mg PO 06/19/20 11/04/22 Previous Rx's Medication Instructions Recorded potassium chloride 10 mEq 20 meq PO TID POTASSIUM SUPPLEMENT 03/01/19 capsule,extended release ##90 metoclopramide HCl 5 mg tablet See Rx Instructions .Route 01/16/21 .COMPLEX #120 tabs ubrogepant 100 mg tablet (Ubrelvy) 100 mg PO ONCE #8 tabs 03/31/21 nirmatrelvir 300 mg (150 mg See Rx Instructions PO .COMPLEX 01/28/22 x2)-ritonavir 100 mg tablet,dose #30 tabs pack (Paxlovid) topiramate 50 mg tablet See Rx Instructions .Route 05/03/22 .COMPLEX #90 tabs Synthroid 25 mcg tablet See Rx Instructions .Route 09/02/22 (levothyroxine) .COMPLEX #30 tabs dextroamphetamine-amphetamine ER 15 mg PO DAILY #30 caps 11/11/22 15 mg 24hr capsule,extend release (Adderall XR) benzonatate 100 mg capsule 100 mg PO TIDP PRN Cough #30 caps 11/23/22 cefdinir 250
[2022-11-23 19:21] LABS: UTC Strep Screen (Rapid) Negative (Negative)
[2022-11-23 19:22] LABS: UTC Influenza A Antigen Negative (Negative); UTC Influenza B Antigen Negative (Negative)
[2022-11-23 19:28] VITALS: BP 114/84; PULSE 101; RESP 18; TEMP 36.8; O2SAT 97
[2022-11-23 20:20] LABS: Adenovirus,PCR Not Detected (NotDetected); Bordetella Pertussis Not Detected (NotDetected); Chlamydophila Pneumoniae, PCR Not Detected (NotDetected); Coronavirus 19, PCR Not Detected (NotDetected); Coronavirus 229E Not Detected (NotDetected); Coronavirus NL63 Not Detected (NotDetected); Coronavirus OC43 Not Detected (NotDetected); Coronovirus HKU1,PCR Not Detected (NotDetected); Human Metapneumovirus Not Detected (NotDetected); Influenza A, PCR Not Detected (NotDetected); Influenza AH1, 2009 Not Detected (NotDetected); Influenza AH1, PCR Not Detected (NotDetected); Influenza AH3,PCR Not Detected (NotDetected); Influenza B, PCR Not Detected (NotDetected); Mycoplasma Pneumoniae, PCR Not Detected (NotDetected); Parainfluenza 1, PCR Not Detected (NotDetected); Parainfluenza 2, PCR Not Detected (NotDetected); Parainfluenza 3, PCR Not Detected (NotDetected); Parainfluenza 4, PCR Not Detected (NotDetected); Respiratory Syncytial Virus Not Detected (NotDetected); Rhinovirus/Enterovirus Not Detected (NotDetected)
== END 2022-11-23 19:34 | disposition home or self-care (01) ==
PROVIDERS: Emergency Provider Nurse Practitioner Family; PCP Family Medicine
DX: J20.9 Acute bronchitis, unspecified (principal); H66.93 Otitis media, unspecified, bilateral; F41.9 Anxiety disorder, unspecified; G43.909 Migraine, unspecified, not intractable, without status migrainosus; E07.9 Disorder of thyroid, unspecified
CPT/HCPCS: 87581; 87632; 87635; 87798; 87804; 87880; 96372; 99212; 99214; C9803; G0463; J0696; U0003; U0005

== ENCOUNTER → 2023-03-24 22:31 | Outpatient (CLI) | payer BC, SELFPAY ==
[2023-03-24 20:44] LABS: Benzodiazepines Screen,Urine Negative ng/ml (<200)
[2023-03-24 20:45] LABS: Amphetamine/Metha Screen,Urine Negative ng/ml (<1000); Barbiturates Screen,Urine Negative ng/ml (<200)
[2023-03-24 20:46] LABS: Cannabinoid Screen,Urine Negative ng/ml (<50)
[2023-03-24 20:47] LABS: Cocaine Screen,Urine Negative ng/ml (<300); Methadone Screen,Urine Negative ng/ml (<300)
[2023-03-24 20:48] LABS: Opiate Screen,Urine Negative ng/ml (<300)
[2023-03-24 20:49] LABS: Phencyclidine Screen,Urine Negative ng/ml (<25)
== END ==
PROVIDERS: PCP Family Medicine; Visit Provider Family Medicine
DX: K92.0 Hematemesis (principal); Z79.899 Other long term (current) drug therapy
CPT/HCPCS: 80305

== ENCOUNTER 2023-04-17 16:26 | Emergency (ER) | payer BC, SELFPAY ==
[2023-04-17 16:30] VITALS: BP 129/77; PULSE 107; RESP 18; TEMP 36.6; O2SAT 96; BMI 18.3
--- NOTE | 2023-04-17 16:38 | EXP.UTC ---
Discharge Plan Disposition Patient Disposition: Home, Self-Care Condition: Good Prescriptions Prescriptions: New cefdinir 250 mg/5 mL suspension for reconstitution 300 mg PO BID 10 Days Qty: 120 0RF ciprofloxacin-dexamethasone 0.3-0.1 % Drops,Suspension 2 drp Ear-Right BID 7 Days Qty: 1 0RF No Action amiloride 5 mg tablet 5 mg PO DAILY atomoxetine 40 mg capsule PO dextroamphetamine-amphetamine [Adderall XR] 15 mg capsule,extended release 24hr 15 mg PO DAILY Qty: 30 0RF Rx Instructions: brand name only please metoclopramide HCl 5 mg tablet See Rx Instructions .ROUTE .COMPLEX Qty: 120 0RF Dose Instruction: TAKE ONE TABLET BY MOUTH BEFORE MEALS AND AT BEDTIME FOR HEARTBURN Rx Instructions: TAKE ONE TABLET BY MOUTH BEFORE MEALS AND AT BEDTIME FOR HEARTBURN Ubrelvy 100 mg tablet 100 mg PO ONCE Qty: 8 10RF topiramate 50 mg tablet See Rx Instructions .ROUTE .COMPLEX Qty: 90 3RF Dose Instruction: TAKE ONE TABLET BY MOUTH ONCE A DAY Rx Instructions: TAKE ONE TABLET BY MOUTH ONCE A DAY levothyroxine [Synthroid] 25 mcg tablet See Rx Instructions .ROUTE .COMPLEX Qty: 30 0RF Dose Instruction: TAKE ONE TABLET BY MOUTH ONCE A DAY Rx Instructions: TAKE ONE TABLET BY MOUTH ONCE A DAY linaclotide 290 MCG capsule 290 mcg PO DAILY potassium chloride 10 MEQ capsule, extended release 20 meq PO TID Qty: 90 0RF omeprazole 40 mg capsule,delayed release(DR/EC) 40 mg PO DAILY Referrals Follow up/Referrals: Justice Moore MD [Primary Care Provider] - See instructions Activity Restrictions/Add. Instructions Additional Instructions/Restrictions: Drink plenty of fluids. Take tylenol or ibuprofen for pain or fever. Take the medications as directed. Follow up with your regular doctor. GO TO THE ER FOR ANY WORSENING SYMPTOMS Clinical Impressions Clinical Impression: Otitis media Stand Alone Forms Stand Alone Forms: Work/School Release Instructions Patient Instructions: Middle Ear Infection, Ceftriaxone Injection, Dexamethasone Injection Discharge ED Provider: Florencio Lees [facility] General Stated complaint: ear pain, alan Time Seen by Provider: 04/17/23 16:38 History of Present Illness Provider Complaint: She states that for the past 4 days she has had worsening right ear pain and sinus congestion. Related Data Home Medications Medication Instructions Recorded Confirmed linaclotide 290 mcg capsule 290 mcg PO DAILY IBS 02/28/19 03/24/23 amiloride 5 mg tablet 5 mg PO DAILY 06/19/20 04/17/23 atomoxetine 40 mg capsule mg PO 06/19/20 03/24/23 omeprazole 40 mg capsule,delayed 40 mg PO DAILY gerd 04/17/23 04/17/23 release Previous Rx's Medication Instructions Recorded potassium chloride 10 mEq 20 meq PO TID POTASSIUM SUPPLEMENT 03/01/19 capsule,extended release ##90 metoclopramide HCl 5 mg tablet See Rx Instructions .Route 01/16/21 .COMPLEX #120 tabs ubrogepant 100 mg tablet (Ubrelvy) 100 mg PO ONCE #8 tabs 03/31/21 topiramate 50 mg tablet See Rx Instructions .Route 03/18/23 .COMPLEX #90 tabs dextroamphetamine-amphetamine ER 15 mg PO DAILY #30 caps 03/24/23 15 mg 24hr capsule,extend release (Adderall XR) Synthroid 25 mcg tablet See Rx Instructions .Route 04/15/23 (levothyroxine) .COMPLEX #30 tabs cefdinir 250 mg/5 mL oral 300 mg (6 mL) PO BID 10 days #120 04/17/23 suspension mL ciprofloxacin 0.3 %-dexamethasone 2 drp Ear-Right BID 7 days #1 ea 04/17/23 0.1 % ear drops,suspension Allergies Allergy/AdvReac Type Severity Reaction Status Date / Time magnesium Allergy Mild vomitting Verified 04/17/23 16:50 hydromorphone [From DILAUDID] Allergy Unknown MAKES Verified 04/17/23 16:50 CRAZY N/V Sulfa (Sulfonamide Allergy Unknown I-RASH Verified 04/17/23 16:50 Antibiotics) [SULFA (SULFONAMIDE ANTIBIOTICS)] acetaminophen [From Tylenol] AdvReac Intermediate
[2023-04-17 17:55] VITALS: BP 129/77; PULSE 107; RESP 18; TEMP 36.6; O2SAT 96
== END 2023-04-17 17:55 | disposition home or self-care (01) ==
PROVIDERS: Emergency Provider Nurse Practitioner Family; PCP Family Medicine
DX: H66.93 Otitis media, unspecified, bilateral (principal); R09.81 Nasal congestion; R07.0 Pain in throat; R05.9 Cough, unspecified; K21.9 Gastro-esophageal reflux disease without esophagitis; E03.9 Hypothyroidism, unspecified
CPT/HCPCS: 96372; 99212; 99214; G0463; J0696

== ENCOUNTER 2023-08-03 11:26 | Emergency (ER) | payer BC, SELFPAY ==
[2023-08-03 11:40] VITALS: BP 144/90; PULSE 92; RESP 20; TEMP 36.6; O2SAT 97; BMI 18.4
[2023-08-03 11:50] VITALS: BP 144/90; PULSE 92; RESP 20; TEMP 36.6; O2SAT 97
[2023-08-03 11:50] LABS: UTC Strep Screen (Rapid) Positive (Negative)
--- NOTE | 2023-08-03 11:51 | EXP.UTC ---
Discharge Plan Disposition Patient Disposition: Home, Self-Care Condition: Good Prescriptions Prescriptions: New cefdinir 300 mg capsule 300 mg PO BID Qty: 20 0RF No Action amiloride 5 mg tablet 5 mg PO DAILY atomoxetine 40 mg capsule PO metoclopramide HCl 5 mg tablet See Rx Instructions .ROUTE .COMPLEX Qty: 120 0RF Dose Instruction: TAKE ONE TABLET BY MOUTH BEFORE MEALS AND AT BEDTIME FOR HEARTBURN Rx Instructions: TAKE ONE TABLET BY MOUTH BEFORE MEALS AND AT BEDTIME FOR HEARTBURN Ubrelvy 100 mg tablet 100 mg PO ONCE Qty: 8 10RF topiramate 50 mg tablet See Rx Instructions .ROUTE .COMPLEX Qty: 90 3RF Dose Instruction: TAKE ONE TABLET BY MOUTH ONCE A DAY Rx Instructions: TAKE ONE TABLET BY MOUTH ONCE A DAY dextroamphetamine-amphetamine [Adderall XR] 15 mg capsule,extended release 24hr 15 mg PO DAILY Qty: 30 0RF Rx Instructions: brand name only please levothyroxine [Synthroid] 25 mcg tablet See Rx Instructions .ROUTE .COMPLEX Qty: 30 0RF Dose Instruction: TAKE ONE TABLET BY MOUTH ONCE A DAY Rx Instructions: TAKE ONE TABLET BY MOUTH ONCE A DAY linaclotide 290 MCG capsule 290 mcg PO DAILY potassium chloride 10 MEQ capsule, extended release 20 meq PO TID Qty: 90 0RF omeprazole 40 mg capsule,delayed release(DR/EC) 40 mg PO DAILY Referrals Follow up/Referrals: Justice Moore MD [Primary Care Provider] - See instructions Activity Restrictions/Add. Instructions Additional Instructions/Restrictions: *Monitor Temp, Over the counter Motrin or Tylenol as directed/as needed Tylenol every 4 hours and Motrin every 6 hours (as long as your family doctor has told you that you can take it) for fever or pain. and straight to ER if unable to lower temp less than 101.0 after medication given *Warm salt water gargles may help to soothe the throat *Throat Lozenges? *Warm fluids like tea with honey may help to soothe the throat? *Sleep elevated *Humidifier/Vaporizer *If you did not take Penicillin shot or was unable to, start taking antibiotic immediately and make sure that you take it for the FULL length of time although you should start to feel better in 24-48 hours *change toothbrush and toothpaste 24-48 hours after starting to take antibiotics so you do not reinfect yourself Monitor Temp. Tylenol and/or Ibuprofen as needed. ER if fever is no less than 101 despite alternating Tylenol and Ibuprofen * Encourage fluids, water, Gatorade, powerade, pedialyte if /toddler/or child *Cold fluids, popsicles and ice cream may feel good on his throat Follow up IMMEDIATELY for new or worsening symptoms or no Noticeable improvement over the next 48-72 hours. 911 for difficulty breathing or swallowing Clinical Impressions Clinical Impression: Strep throat Stand Alone Forms Stand Alone Forms: Work/School Release Instructions Patient Instructions: DI for Strep Throat, Strep Throat, Cefdinir Discharge ED Provider: Jesika Cifuentes [facility] General Stated complaint: congested ear pain chills Mode of Arrival: Ambulatory Source of Information: Patient Limitations: No Limitations Time Seen by Provider: 08/03/23 11:51 Description of Symptoms (Recalled from Triage Doc. by RN): PATIENT C/O CONGESTION, RUNNY NOSE, RIGHT EAR PAIN, CHILLS, BODY ACHES, AND VOMITING SINCE TUESDAY NIGHT HEENT Symptoms (Recalled from RN notes): Yes Resp Symptoms (Recalled from RN notes): No Skin Symptoms (Recalled from RN notes): No MS Symptoms (Recalled from RN notes): No Functional Status (Recalled from RN notes): WNL History of Present Illness Provider Complaint: Patient states that she hasnt felt well since Tuesday States that she has been having scratchy throat, drainage in the back of her throat pain in her ears, body aches, chills and some N/V on and off States today she wasnt feeling any better so she came in to get checked Related Data Home Medications Medication Instructions Recorded Confirmed linaclotide 290 mcg capsule 290 mcg PO DAILY IBS 02/28/19 03/24/23 amiloride 5 mg tablet 5 mg PO DAILY 06/19/20 04/17/23 atomoxetine 40 mg capsule mg PO 06/19/20 03/24/23 omeprazole 40 mg capsule,delayed 40 mg PO DAILY gerd 04/17/23 04/17/23 release Previous Rx's Medication Instructions Recorded potassium chloride 10 mEq 20 meq (2 x 10 mEq) PO TID 03/01/19 capsule,extended release POTASSIUM SUPPLEMENT ##90 metoclopramide HCl 5 mg tablet See Rx Instructions .Route 01/16/21 .COMPLEX #120 tabs ubrogepant 100 mg tablet (Ubrelvy) 100 mg PO ONCE #8 tabs 03/31/21 topiramate 50 mg tablet See Rx Instructions .Route 03/18/23 .COMPLEX #90 tabs dextroamphetamine-amphetamine ER 15 mg PO DAILY #30 caps 06/24/23 15 mg 24hr capsule,extend release (Adderall XR) Synthroid 25 mcg tablet See Rx Instructions .Route 07/18/23 (levothyroxine) .COMPLEX #30 tabs cefdinir 300 mg capsule 300 mg PO BID #20 caps 08/03/23 Allergies Allergy/AdvReac Type Severity Reaction Status Date / Time magnesium Allergy Mild vomitting Verified 04/17/23 16:50 hydromorphone [From DILAUDID] Allergy Unknown MAKES Verified 04/17/23 16:50 CRAZY N/V Sulfa (Sulfonamide Allergy Unknown I-RASH Verified 04/17/23 16:50 Antibiotics) [SULFA (SULFONAMIDE ANTIBIOTICS)] acetaminophen [From Tylenol] AdvReac Intermediate liver Verified 04/17/23 16:50 problems from bad gallbladder Worker's Comp Is this a Worker's Comp case?: No [facility] Disclaimer: The information contained in this section may have been updated after the patient was seen, as this information can be updated by other users. 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 current occupational exposures/hazards: No ROS Obtained: Yes All systems reviewed & no additional complaints except as documented and Yes Systems reviewed as appropriate & no additional complaints except as documented Constitutional Constitutional: Reports system reviewed and no additional complaints, except as documented, Reports as per HPI, Reports body ache, Reports chills and Reports headache(s) ENT Ears, Nose, Mouth, and Throat: Reports system reviewed and no additional complaints, except as documented, Reports as per HPI, Reports headache(s), Reports nasal congestion and Reports sore throat Cardiovascular Cardiovascular: Reports system reviewed and no additional complaints, except as documented and Reports as per HPI Respiratory Respiratory: Reports system reviewed and no additional complaints, except as documented and Reports as per HPI Gastrointestinal Gastrointestingal: Reports system reviewed and no additional complaints, except as documented, as per HPI, nausea and vomiting Neurologic Neurologic: Reports headache(s) Physical Exam General General appearance: alert and in no apparent distress ENT ENT exam: Present mucous membranes moist Expanded ENT Exam Nose exam: Absent sinus tenderness Throat exam: Present other (Pharyngeal erythema noted) Respiratory Respiratory exam: Present normal lung sounds bilaterally; Absent respiratory distress or wheezes Cardiovascular Cardiovascular exam: Present regular rate, normal rhythm and normal heart sounds Neurological Exam Neurological exam: Present alert, oriented X3 and normal gait Medical Decision Making Alexander Inquiry Pt receiving controlled substance: No Alexander was queried for this patient: No Vital Signs: 08/03/23 11:40 Temperature 97.9 F Temperature Source Oral Pulse Rate [Left Brachial] 92 H Respiratory Rate 20 Blood Pressure [Left Arm] 144/90 H Blood Pressure Mean [Left Arm] 108 Blood Pressure Source [Left Arm] Automatic Cuff Blood Pressure Position [Left Arm] Sitting 02 Sat by Pulse Oximetry 97 Oxygen Delivery Method Room Air Lab Data Lab results reviewed: Yes I reviewed the patient's lab results. Lab Results 08/03/23 11:46: Strep Scn [facility] Positive A
[2023-08-03 11:58] LABS: UTC Influenza A Antigen Negative (Negative); UTC Influenza B Antigen Negative (Negative)
== END 2023-08-03 12:05 | disposition home or self-care (01) ==
PROVIDERS: Emergency Provider Nurse Practitioner; PCP Family Medicine
DX: J02.0 Streptococcal pharyngitis (principal); R07.0 Pain in throat; R09.82 Postnasal drip; H92.03 Otalgia, bilateral; R11.2 Nausea with vomiting, unspecified; K21.9 Gastro-esophageal reflux disease without esophagitis; E03.9 Hypothyroidism, unspecified
CPT/HCPCS: 87804; 87880; 99212; 99214; G0463

== ENCOUNTER 2023-09-01 20:40 | Outpatient (CLI) | payer BC, SELFPAY ==
[2023-09-01 18:07] LABS: Basophils # 0.1 K/mm3 (0-0.2); Basophils % 2.2 % (0.1-2.0); Eosinophils # 0.2 K/mm3 (0.0-0.4); Eosinophils % 2.8 % (0.1-12.0); Hematocrit 47.1 % (37.0-47.0); Hemoglobin 15.5 g/dL (12.2-16.2); Lymphocytes # 1.2 K/mm3 (0.7-4.5); Lymphocytes % 23.5 % (10-50); Mean Corpuscular HGB Conc 32.9 g/dL (31.8-35.4); Mean Corpuscular Hemoglobin 30.9 pg (27.0-31.2); Mean Corpuscular Volume 93.9 fl (81-99); Mean Platelet Volume 9.1 fl (7.4-10.4); Monocytes # 0.4 K/mm3 (0.1-1.0); Monocytes % 6.8 % (1.7-9.3); Neutrophils # 3.4 K/mm3 (1.8-7.8); Neutrophils % 64.7 % (37.0-80.0); Platelet Count 217 K/mm3 (142-424); Red Blood Count 5.02 M/mm3 (4.20-5.40); Red Cell Distribution Width 13.4 % (11.5-17.5); White Blood Count 5.2 K/mm3 (4.8-10.8)
[2023-09-01 18:10] LABS: Alanine Aminotransferase 24 U/L (12-78); Albumin Level 4.4 g/dl (3.5-5.0); Albumin/Globulin Ratio 1.5 (1.1-1.8); Alkaline Phosphatase 107 U/L (38-126); Anion Gap 11.9 mEq/L (5-15); Aspartate Amino Transferase 27 U/L (14-36); Blood Urea Nitrogen 22 mg/dl (7-17); Calcium 9.8 mg/dl (8.4-10.2); Carbon Dioxide 24 mmol/L (22.0-30.0); Chloride 109 mmol/L (98-107); Chol/HDL Ratio 3.1 (1-3.5); Cholesterol 153 mg/dl (140-200); Estimated Glomerular Filt Rate 61 ml/min (>60); GFR (African American) 74 ML/MIN (>60); Glucose 98 mg/dl (74-100); HDL Cholesterol 49 mg/dl (40-60); Potassium 3.9 mmoL/L (3.5-5.1); Sodium 141 mmol/L (136-145); Total Protein,Serum 7.4 g/dl (6.3-8.2); Triglycerides 57 mg/dl (30-150); VLDL Cholesterol 11 mg/dL (0-40)
[2023-09-01 18:21] LABS: Direct LDL Cholesterol 69.08 mg/dL (100-129)
[2023-09-01 18:26] LABS: Free T4 (Free Thyroxine) 1.17 ng/dl (0.78-2.19)
[2023-09-01 18:27] LABS: 25-OH Vitamin D, Total 49.8 ng/mL (30-100)
[2023-09-01 18:32] LABS: Microalbumin/Creatinine Ratio 24.5
[2023-09-01 18:40] LABS: Thyroid Stimulating Hormone 2.45 uIU/mL (0.465-4.68)
[2023-09-01 18:46] LABS: Creatinine,Urine Random 88 mg/dL (Not Estab.)
[2023-09-01 18:59] LABS: Vitamin B12 648 pg/mL (239-931)
[2023-09-01 19:41] LABS: Hemoglobin A1C 5.3 % (4.0-6.0)
== END 2023-09-01 23:59 ==
LOC: LAB.DROPOF 20:40
PROVIDERS: PCP Nurse Practitioner; Visit Provider Nurse Practitioner
DX: E83.42 Hypomagnesemia (principal); E87.6 Hypokalemia; N28.9 Disorder of kidney and ureter, unspecified; E06.3 Autoimmune thyroiditis; Z79.899 Other long term (current) drug therapy
CPT/HCPCS: 80053; 80061; 82043; 82306; 82570; 82607; 83036; 84439; 84443; 85025

== ENCOUNTER 2023-09-08 15:37 | Emergency (ER) | payer BC, SELFPAY ==
[2023-09-08 15:55] VITALS: BP 143/82; PULSE 86; RESP 20; TEMP 36.7; O2SAT 97; BMI 18.6
--- NOTE | 2023-09-08 16:11 | EXP.UTC ---
Discharge Plan Disposition Patient Disposition: Home, Self-Care Condition: Good Prescriptions Prescriptions: New ondansetron 4 mg Tablet,Disintegrating 4 mg PO Q8H PRN (Reason: Nausea) Qty: 12 0RF No Action atomoxetine 40 mg capsule PO amiloride 5 mg tablet 5 mg PO DAILY Qty: 90 1RF omeprazole 40 mg capsule,delayed release(DR/EC) 40 mg PO DAILY Qty: 90 1RF levothyroxine [Synthroid] 25 mcg tablet See Rx Instructions .ROUTE .COMPLEX Qty: 90 0RF Dose Instruction: TAKE ONE TABLET BY MOUTH ONCE A DAY Rx Instructions: TAKE ONE TABLET BY MOUTH ONCE A DAY potassium chloride 10 mEq capsule, extended release 80 meq PO QID 30 Days Qty: 960 5RF hydroxyzine pamoate 25 mg capsule 25 - 50 mg PO TID PRN (Reason: anxiety) Qty: 90 1RF metoclopramide HCl 5 mg tablet See Rx Instructions .ROUTE .COMPLEX Qty: 120 0RF Dose Instruction: TAKE ONE TABLET BY MOUTH BEFORE MEALS AND AT BEDTIME FOR HEARTBURN Rx Instructions: TAKE ONE TABLET BY MOUTH BEFORE MEALS AND AT BEDTIME FOR HEARTBURN Ubrelvy 100 mg tablet 100 mg PO ONCE Qty: 8 10RF topiramate 50 mg tablet See Rx Instructions .ROUTE .COMPLEX Qty: 90 3RF Dose Instruction: TAKE ONE TABLET BY MOUTH ONCE A DAY Rx Instructions: TAKE ONE TABLET BY MOUTH ONCE A DAY dextroamphetamine-amphetamine [Adderall XR] 15 mg capsule,extended release 24hr 15 mg PO DAILY Qty: 30 0RF Rx Instructions: brand name only please linaclotide 290 MCG capsule 290 mcg PO DAILY Referrals Follow up/Referrals: Justice Moore MD [Primary Care Provider] - See instructions Activity Restrictions/Add. Instructions Additional Instructions/Restrictions: Drink plenty of fluids. Take the zofran as directed for nausea. Follow up with your regular doctor. GO TO THE ER FOR ANY WORSENING SYMPTOMS Clinical Impressions Clinical Impression: Gastroenteritis Stand Alone Forms Stand Alone Forms: Work/School Release Instructions Patient Instructions: Viral Gastroenteritis, DI for Viral Gastroenteritis -- Adult, Ondansetron Discharge ED Provider: Florencio Lees [facility] General Stated complaint: vomiting, nausea Mode of Arrival: Ambulatory Source of Information: Patient Limitations: No Limitations Time Seen by Provider: 09/08/23 16:11 Description of Symptoms (Recalled from Triage Doc. by RN): PATIENT STATES SHE HAS BEEN OFF OF WORK SINCE TUESDAY DUE TO HAVING FOOD POISONING AND IS NEEDING A NOTE TO RETURN TO WORK HEENT Symptoms (Recalled from RN notes): No Resp Symptoms (Recalled from RN notes): No Skin Symptoms (Recalled from RN notes): No MS Symptoms (Recalled from RN notes): No Functional Status (Recalled from RN notes): WNL History of Present Illness Provider Complaint: She states that she has had n/v/d for the past 3 days. Her symptoms began almost immediately after she ate some restaurant food that she says gave her food poisoning. She states that her symptoms are getting better since last night, but she came in because she needs a work excuse. She has not vomited since last night and she has only had 1 diarrhea stool today. She denies any abdominal pain. She refuses to collect a stool sample. She states that she is drinking well and does not feel like she needs IV fluids at this time. Related Data Home Medications Medication Instructions Recorded Confirmed linaclotide 290 mcg capsule 290 mcg PO DAILY IBS 02/28/19 09/01/23 atomoxetine 40 mg capsule mg PO 06/19/20 09/01/23 Previous Rx's Medication Instructions Recorded metoclopramide HCl 5 mg tablet See Rx Instructions .Route 01/16/21 .COMPLEX #120 tabs ubrogepant 100 mg tablet (Ubrelvy) 100 mg PO ONCE #8 tabs 03/31/21 topiramate 50 mg tablet See Rx Instructions .Route 03/18/23 .COMPLEX #90 tabs Synthroid 25 mcg tablet See Rx Instructions .Route 09/01/23 (levothyroxine) .COMPLEX #90 tabs amiloride 5 mg tablet 5 mg PO DAILY #90 tabs 09/01/23 hydroxyzine pamoate 25 mg capsule 25 - 50 mg (1 - 2 x 25 mg) PO TID 09/01/23 PRN anxiety #90 caps omeprazole 40 mg capsule,delayed 40 mg PO DAILY gerd #90 caps 09/01/23 release potassium chloride 10 mEq 80 meq (8 x 10 mEq) PO QID 30 days 09/01/23 capsule,extended release #960 caps dextroamphetamine-amphetamine ER 15 mg PO DAILY #30 caps 09/08/23 15 mg 24hr capsule,extend release (Adderall XR) ondansetron 4 mg disintegrating 4 mg PO Q8H PRN Nausea #12 tabs 09/08/23 tablet Allergies Allergy/AdvReac Type Severity Reaction Status Date / Time magnesium Allergy Mild vomitting Verified 09/01/23 10:02 hydromorphone [From DILAUDID] Allergy Unknown MAKES Verified 09/01/23 10:02 CRAZY N/V Sulfa (Sulfonamide Allergy Unknown I-RASH Verified 09/01/23 10:02 Antibiotics) [SULFA (SULFONAMIDE ANTIBIOTICS)] sertraline [From Zoloft] AdvReac Severe Verified 09/01/23 10:10 acetaminophen [From Tylenol] AdvReac Intermediate liver Verified 09/01/23 10:02 problems from bad gallbladder Worker's Comp Is this a Worker's Comp case?: No [facility] Disclaimer: The information contained in this section may have been updated after the patient was seen, as this information can be updated by other users. Medical History (Updated 09/08/23 @ 16:19 by Florencio Lees APRN) Chronic post-traumatic stress disorder (PTSD) ADHD (attention deficit hyperactivity disorder), inattentive type Generalized anxiety disorder with panic attacks Thyroid disease Liver disease Anxiety Cancer History of gastroesophageal reflux (GERD) Migraine History of stroke Surgical History History of Tai-en-Y gastric bypass History of tonsillectomy History of cholecystectomy History of hysterectomy Social History Smoking Status: Never smoker alcohol intake: current (She currently drinks rarely, maybe once or twice per month with one to two drinks at that time.) substance use type: denies use current occupational status: employed Travel in the last 8 weeks: None household members: none and other housing: house number of children: 0 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 current occupational exposures/hazards: No ROS Obtained: Yes All systems reviewed & no additional complaints except as documented Constitutional Constitutional: Denies chills, Denies fever(s) and Reports poor appetite ENT Ears, Nose, Mouth, and Throat: Denies dizziness and Denies sore throat Cardiovascular Cardiovascular: Denies dyspnea Respiratory Respiratory: Denies chest congestion, Denies cough and Denies dyspnea Gastrointestinal Gastrointestingal: Reports as per HPI, cramping, diarrhea, nausea and vomiting; Denies abdominal pain Genitourinary Female Genitourinary: Denies difficulty voiding, Denies dysuria, Denies hematuria, Denies urinary frequency, Denies urinary incontinence, Denies urinary hesitancy and Denies urinary urgency Musculoskeletal Musculoskeletal: Denies arthralgias Integumentary/Breasts Skin/Breast: Denies rash Neurologic Neurologic: Denies dizziness Physical Exam General General appearance: alert and in no apparent distress Head Head exam: atraumatic and normocephalic Eye Eye exam: Present normal appearance, PERRL and EOMI ENT ENT exam: Present normal exam, normal oropharynx, mucous membranes moist, TM's normal bilaterally and normal external ear exam Neck Neck exam: Present normal inspection, full ROM and trachea midline; Absent tenderness, meningismus or lymphadenopathy Chest Chest inspection: Present normal inspection and symmetric chest wall rise; Absent tenderness, rash or abscess Respiratory Respiratory exam: Present normal lung sounds bilaterally; Absent respiratory distress, wheezes or stridor Cardiovascular Cardiovascular exam: Present regular rate and normal rhythm; Absent irregular rhythm, systolic murmur, diastolic murmur or JVD Abdominal Exam Abdominal exam: Present soft and hyperactive bowel sounds; Absent distention, tenderness, guarding, rebound, rigidity, psoas sign, obturator sign, heel tap sign, Moody's sign, Rovsing's sign or tenderness at McBurney's Point Extremities Exam Extremities exam: Present normal inspection and full ROM; Absent tenderness Back Exam Back exam: Present normal inspection and full ROM; Absent tenderness, CVA tenderness (R) or CVA tenderness (L) Neurological Exam Neurological exam: Present alert, oriented X3 and CN II-XII intact Psychiatric Psychiatric exam: Present normal affect and normal mood Skin Skin exam: Present warm, dry, intact and normal color Lymphatic Lymphatic Findings: no adenopathy Medical Decision Making Medical Records Medical records reviewed: No I reviewed the patient's medical records. Alexander Inquiry Pt receiving controlled substance: No Vital Signs: 09/08/23 15:55 Temperature 98.0 F Temperature Source Oral Pulse Rate [Right Brachial] 86 Respiratory Rate 20 Blood Pressure [Right Arm] 143/82 H Blood Pressure Mean [Right Arm] 102 Blood Pressure Source [Right Arm] Automatic Cuff Blood Pressure Position [Right Arm] Sitting 02 Sat by Pulse Oximetry 97 Oxygen Delivery Method Room Air
[2023-09-08 16:25] VITALS: BP 143/82; PULSE 86; RESP 20; TEMP 36.7; O2SAT 97
== END 2023-09-08 16:27 | disposition home or self-care (01) ==
PROVIDERS: Emergency Provider Nurse Practitioner Family; PCP Family Medicine
DX: K52.9 Noninfective gastroenteritis and colitis, unspecified (principal); R11.2 Nausea with vomiting, unspecified; E03.9 Hypothyroidism, unspecified; K21.9 Gastro-esophageal reflux disease without esophagitis
CPT/HCPCS: 99212; 99214; G0463

== ENCOUNTER 2023-12-25 18:43 | Emergency (ER) | payer BC, SELFPAY ==
[2023-12-25 19:00] VITALS: BP 125/83; PULSE 103; RESP 18; TEMP 36.9; O2SAT 97; BMI 19.2
--- NOTE | 2023-12-25 19:02 | EXP.UTC ---
Discharge Plan Disposition Patient Disposition: Home, Self-Care Condition: Good Prescriptions Prescriptions: New cyclobenzaprine 5 mg tablet 5 mg PO TID PRN (Reason: muscle spasm) Qty: 30 0RF No Action atomoxetine 40 mg capsule PO amiloride 5 mg tablet 5 mg PO DAILY Qty: 90 1RF omeprazole 40 mg capsule,delayed release(DR/EC) 40 mg PO DAILY Qty: 90 1RF potassium chloride 10 mEq capsule, extended release 80 meq PO QID 30 Days Qty: 960 5RF hydroxyzine pamoate 25 mg capsule 25 - 50 mg PO TID PRN (Reason: anxiety) Qty: 90 1RF metoclopramide HCl 5 mg tablet See Rx Instructions .ROUTE .COMPLEX Qty: 120 0RF Dose Instruction: TAKE ONE TABLET BY MOUTH BEFORE MEALS AND AT BEDTIME FOR HEARTBURN Rx Instructions: TAKE ONE TABLET BY MOUTH BEFORE MEALS AND AT BEDTIME FOR HEARTBURN Ubrelvy 100 mg tablet 100 mg PO ONCE Qty: 8 10RF topiramate 50 mg tablet See Rx Instructions .ROUTE .COMPLEX Qty: 90 3RF Dose Instruction: TAKE ONE TABLET BY MOUTH ONCE A DAY Rx Instructions: TAKE ONE TABLET BY MOUTH ONCE A DAY dextroamphetamine-amphetamine [Adderall XR] 15 mg capsule,extended release 24hr 15 mg PO DAILY Qty: 30 0RF Rx Instructions: brand name only please levothyroxine [Synthroid] 25 mcg tablet See Rx Instructions .ROUTE .COMPLEX Qty: 90 0RF Dose Instruction: TAKE ONE TABLET BY MOUTH ONCE A DAY Rx Instructions: TAKE ONE TABLET BY MOUTH ONCE A DAY linaclotide 290 MCG capsule 290 mcg PO DAILY ondansetron 4 mg Tablet,Disintegrating 4 mg PO Q8H PRN (Reason: Nausea) Qty: 12 0RF Referrals Follow up/Referrals: Justice Moore MD [Primary Care Provider] - See instructions Activity Restrictions/Add. Instructions Additional Instructions/Restrictions: Go home and rest. It would be best if you rested tomorrow too. No heavy lifting. No twisting. Take the oral medications as directed. The muscle relaxer (cyclobenzaprine--Flexeril) will make you drowsy, so don't drive or operate heavy machinery after taking it. Follow up with your regular doctor. GO TO THE ER FOR ANY WORSENING SYMPTOMS OR CONCERN, ESPECIALLY BOWEL OR BLADDER ISSUES, SADDLE AREA NUMBNESS, FEVER, ETC Clinical Impressions Clinical Impression: Cervical radiculopathy, Neck pain Stand Alone Forms Stand Alone Forms: Work/School Release Print Language Print Language: Nepali Discharge ED Provider: Bobbi Vuong [facility] [place] General Stated complaint: right neck shoulder and arm Time Seen by Provider: 12/25/23 19:01 History of Present Illness Provider Complaint: She states that for the past 5 days she has had right sided neck pain that radiates down her right arm. Raising her right arm or twisting her neck to the right makes her pain worse. She denies any injury. She saw her chiropractor for this earlier in this week. She states that what the chiropractor did help some temporarily. Related Data Home Medications ?Medication ?Instructions ?Recorded ?Confirmed linaclotide 290 mcg capsule 290 mcg PO DAILY IBS 02/28/19 09/01/23 atomoxetine 40 mg capsule mg PO 06/19/20 09/01/23 Previous Rx's ?Medication ?Instructions ?Recorded metoclopramide HCl 5 mg tablet See Rx Instructions .Route 01/16/21 .COMPLEX #120 tabs ubrogepant 100 mg tablet (Ubrelvy) 100 mg PO ONCE #8 tabs 03/31/21 topiramate 50 mg tablet See Rx Instructions .Route 03/18/23 .COMPLEX #90 tabs amiloride 5 mg tablet 5 mg PO DAILY #90 tabs 09/01/23 hydroxyzine pamoate 25 mg capsule 25 - 50 mg (1 - 2 x 25 mg) PO TID 09/01/23 PRN anxiety #90 caps omeprazole 40 mg capsule,delayed 40 mg PO DAILY gerd #90 caps 09/01/23 release potassium chloride 10 mEq 80 meq (8 x 10 mEq) PO QID 30 days 09/01/23 capsule,extended release #960 caps dextroamphetamine-amphetamine ER 15 mg PO DAILY #30 caps 09/08/23 15 mg 24hr capsule,extend release (Adderall XR) ondansetron 4 mg disintegrating 4 mg PO Q8H PRN Nausea #12 tabs 09/08/23 tablet Synthroid 25 mcg tablet See Rx Instructions .Route 11/30/23 (levothyroxine) .COMPLEX #90 tabs cyclobenzaprine 5 mg tablet 5 mg PO TID PRN muscle spasm #30 12/25/23 tabs Allergies Allergy/AdvReac Type Severity Reaction Status Date / Time magnesium Allergy Mild vomitting Verified 12/25/23 19:05 hydromorphone [From DILAUDID] Allergy Unknown MAKES Verified 12/25/23 19:05 CRAZY N/V Sulfa (Sulfonamide Allergy Unknown I-RASH Verified 12/25/23 19:05 Antibiotics) [SULFA (SULFONAMIDE ANTIBIOTICS)] sertraline [From Zoloft] AdvReac Severe Verified 12/25/23 19:05 acetaminophen [From Tylenol] AdvReac Intermediate liver Verified 12/25/23 19:05 problems from bad gallbladder PFSH [facility] Disclaimer: The information contained in this section may have been updated after the patient was seen, as this information can be updated by other users. Medical History (Updated 12/25/23 @ 19:57 by Florencio Lees APRN) Chronic post-traumatic stress disorder (PTSD) ADHD (attention deficit hyperactivity disorder), inattentive type Generalized anxiety disorder with panic attacks Thyroid disease Liver disease Anxiety Cancer History of gastroesophageal reflux (GERD) Migraine History of stroke Surgical History History of Tai-en-Y gastric bypass History of tonsillectomy History of cholecystectomy History of hysterectomy Social History Smoking Status: Never smoker alcohol intake: current (She currently drinks rarely, maybe once or twice per month with one to two drinks at that time.) alcohol intake frequency: holidays/special occasions only substance use type: denies use current occupational status: employed Travel in the last 8 weeks: None household members: none and other housing: house number of children: 0 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 current occupational exposures/hazards: No ROS Obtained: Yes All systems reviewed & no additional complaints except as documented Constitutional Constitutional: Denies chills and Denies fever(s) Eyes Eyes: Denies eye discharge ENT Ears, Nose, Mouth, and Throat: Denies dizziness, Denies otalgia, Reports neck pain and Denies sore throat Cardiovascular Cardiovascular: Denies chest pain Respiratory Respiratory: Denies shortness of breath, Denies chest congestion, Denies cough, Denies stridor and Denies wheezing Gastrointestinal Gastrointestingal: Denies nausea or vomiting Musculoskeletal Musculoskeletal: Reports as per HPI and Reports neck pain Integumentary/Breasts Skin/Breast: Denies rash Neurologic Neurologic: Denies dizziness and Denies paresthesias Allergic/Immunologic Allergic/Immunologic: Denies wheezing Physical Exam General General appearance: alert and in no apparent distress Head Head exam: atraumatic, normocephalic and normal inspection Eye Eye exam: Present normal appearance, PERRL and EOMI ENT ENT exam: Present normal exam, normal oropharynx, mucous membranes moist, TM's normal bilaterally and normal external ear exam Neck Neck exam: Present normal inspection, full ROM and trachea midline; Absent meningismus or lymphadenopathy Chest Chest inspection: Present normal inspection and symmetric chest wall rise; Absent tenderness Respiratory Respiratory exam: Present normal lung sounds bilaterally; Absent respiratory distress Cardiovascular Cardiovascular exam: Present regular rate and normal rhythm; Absent JVD Abdominal Exam Abdominal exam: Present soft and normal bowel sounds; Absent distention, tenderness or guarding Extremities Exam Extremities exam: Present normal inspection, full ROM and normal capillary refill; Absent calf tenderness Back Exam Back exam: Present normal inspection; Absent tenderness Neurological Exam Neurological exam: Present alert, oriented X3, CN II-XII intact, normal gait and reflexes normal; Absent motor sensory deficit Expanded Neurological Exam Speech: Present fluid speech Cranial nerves: Normal: EOM function (II, III, IV, ), facial sensation (V), facial palsy (VII), gag reflex (IX), spinal accessory function (XI) and tongue deviation (XII) Cerebellar function: normal gait Motor strength - LUE: 5/5 Motor strength - RUE: 5/5 Motor strength - LLE: 5/5 Motor strength - RLE: 5/5 Sensory exam upper extremity: Normal: light touch and 2 point discrimination DTR: 2+: biceps (L), biceps (R), patellar (L), patellar (R), Achilles tendon (L) and Achilles tendon (R) Psychiatric Psychiatric exam: Present normal affect and normal mood Skin Skin exam: Present warm, dry, intact and normal color Lymphatic Lymphatic Findings: no adenopathy Medical Decision Making Medical Records Medical records reviewed: No I reviewed the patient's medical records. Alexander Inquiry Pt receiving controlled substance: No
--- NOTE | 2023-12-25 19:21 | XR_ITS ---
PROCEDURE INFORMATION: Exam: XR Cervical Spine Exam date and time: 12/25/2023 7:18 PM Age: 43 years old Clinical indication: Neck pain; Additional info: Neck pain that radiates down right arm, nki TECHNIQUE: Imaging protocol: Radiologic exam of the cervical spine. Views: 4 or 5 views. COMPARISON: CT ANGIO NECK 07/08/2022 12:12 AM FINDINGS: Bones/joints: All 7 cervical vertebrae in the 1st thoracic vertebra were visualized in frontal and lateral projections. Vertebral body heights are normal throughout. Alignment is normal. There are no findings to suggest acute fracture. Soft tissues: Prevertebral soft tissues are normal in thickness. IMPRESSION: Normal cervical spine.
[2023-12-25] MEDS: KETOROLAC 60MG/2ML VIAL 60 MG IM (19:55)
[2023-12-25 20:01] VITALS: BP 125/83; PULSE 103; RESP 18; TEMP 36.9
== END 2023-12-25 20:04 | disposition home or self-care (01) ==
PROVIDERS: Emergency Provider Emergency Medicine; PCP Family Medicine
DX: M54.12 Radiculopathy, cervical region (principal); M54.2 Cervicalgia
CPT/HCPCS: 72050; 96372; 99212; 99214; G0463; J1885

== ENCOUNTER 2024-03-23 18:40 | Outpatient (CLI) | payer BC, SELFPAY ==
[2024-03-23 18:56] LABS: Basophils # 0.1 K/mm3 (0-0.2); Basophils % 0.9 % (0.1-2.0); Eosinophils # 0.1 K/mm3 (0.0-0.4); Eosinophils % 1.8 % (0.1-12.0); Hematocrit 43.1 % (37.0-47.0); Lymphocytes # 1.3 K/mm3 (0.7-4.5); Lymphocytes % 22.6 % (10-50); Mean Corpuscular HGB Conc 34.7 g/dL (31.8-35.4); Mean Corpuscular Hemoglobin 30.2 pg (27.0-31.2); Mean Platelet Volume 8.5 fl (7.4-10.4); Monocytes # 0.4 K/mm3 (0.1-1.0); Monocytes % 6.8 % (1.7-9.3); Neutrophils % 67.9 % (37.0-80.0); Platelet Count 224 K/mm3 (142-424); Red Blood Count 4.96 M/mm3 (4.20-5.40); Red Cell Distribution Width 13.4 % (11.5-17.5)
[2024-03-23 20:01] LABS: Alanine Aminotransferase 27 U/L (12-78); Albumin Level 4.4 g/dl (3.5-5.0); Albumin/Globulin Ratio 1.7 (1.1-1.8); Alkaline Phosphatase 108 U/L (38-126); Anion Gap 12.7 mEq/L (5-15); Aspartate Amino Transferase 27 U/L (14-36); Bilirubin,Total 0.8 mg/dl (0.2-1.3); Blood Urea Nitrogen 21 mg/dl (7-17); Carbon Dioxide 22 mmol/L (22.0-30.0); Chloride 109 mmol/L (98-107); Creatinine Clearance Estimated 67 mL/min (50-200); Estimated Glomerular Filt Rate 69 ml/min (>60); GFR (African American) 83 ML/MIN (>60); Globulin 2.6 g/dL (1.3-3.2); Glucose 93 mg/dl (74-100); Potassium 3.7 mmoL/L (3.5-5.1); Sodium 140 mmol/L (136-145)
[2024-03-23 20:18] LABS: T4 (Thyroxine) 10.6 ug/dl (5.53-11.0)
[2024-03-23 20:51] LABS: Vitamin B12 910 pg/mL (239-931)
== END 2024-03-23 23:59 | disposition home or self-care (01) ==
LOC: LAB.DROPOF 18:41
PROVIDERS: PCP Family Medicine; Visit Provider Family Medicine
DX: R53.83 Other fatigue (principal); E06.3 Autoimmune thyroiditis
CPT/HCPCS: 80050; 80053; 82607; 84436; 84443; 85025

== ENCOUNTER 2024-04-04 14:12 | Emergency (ER) | payer BC, SELFPAY ==
[2024-04-04 14:37] VITALS: BP 127/82; PULSE 103; RESP 20; TEMP 36.6; O2SAT 98; BMI 19.2
[2024-04-04 14:45] LABS: Apearance,Urine Clear (Clear); Color,Urine Yellow (Yellow); Glucose,Urine (UA) Negative (Negative); PH,Urine 5.5 (5.0-8.5); Protein,Urine Negative (Negative)
[2024-04-04 14:46] LABS: Bilirubin,Urine Negative (Negative); Blood, Urine Negative (Negative); Ketones,Urine Negative (Negative); UTC Leukocyte Esterase,Urine Negative (Negative); UTC Nitrate,Urine Negative (Negative); Urobilinogen,Urine 1 EU/dl (0.2)
[2024-04-04 15:36] LABS: Basophils # 0.1 K/mm3 (0-0.2); Basophils % 1.1 % (0.1-2.0); Eosinophils # 0.2 K/mm3 (0.0-0.4); Eosinophils % 2.4 % (0.1-12.0); Hemoglobin 14.6 g/dL (12.2-16.2); Lymphocytes # 1.3 K/mm3 (0.7-4.5); Mean Corpuscular HGB Conc 35.6 g/dL (31.8-35.4); Mean Corpuscular Hemoglobin 30.5 pg (27.0-31.2); Mean Corpuscular Volume 85.6 fl (81-99); Mean Platelet Volume 7.9 fl (7.4-10.4); Monocytes # 0.4 K/mm3 (0.1-1.0); Monocytes % 5.9 % (1.7-9.3); Neutrophils # 4.2 K/mm3 (1.8-7.8); Neutrophils % 69.6 % (37.0-80.0); Platelet Count 192 K/mm3 (142-424); Red Blood Count 4.79 M/mm3 (4.20-5.40); Red Cell Distribution Width 13.6 % (11.5-17.5)
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
[2024-04-04 16:28] LABS: Alanine Aminotransferase 25 U/L (12-78); Albumin Level 3.9 g/dl (3.5-5.0); Albumin/Globulin Ratio 1.6 (1.1-1.8); Alkaline Phosphatase 82 U/L (38-126); Amylase 72 U/L (30-110); Anion Gap 12.3 mEq/L (5-15); Aspartate Amino Transferase 31 U/L (14-36); Bilirubin,Total 0.7 mg/dl (0.2-1.3); Blood Urea Nitrogen 22 mg/dl (7-17); Calcium 8.9 mg/dl (8.4-10.2); Carbon Dioxide 22 mmol/L (22.0-30.0); Chloride 112 mmol/L (98-107); Creatinine Clearance Estimated 58 mL/min (50-200); Estimated Glomerular Filt Rate 61 ml/min (>60); GFR (African American) 73 ML/MIN (>60); Globulin 2.5 g/dL (1.3-3.2); Glucose 76 mg/dl (74-100); Lipase 193 U/L (23-300); Potassium 4.3 mmoL/L (3.5-5.1); Sodium 142 mmol/L (136-145); Total Protein,Serum 6.4 g/dl (6.3-8.2)
[2024-04-04] MEDS: KETOROLAC 60MG/2ML VIAL 30 MG IM (17:04)
[2024-04-04 17:16] VITALS: BP 127/82; PULSE 103; RESP 20; TEMP 36.6
[2024-04-04 17:28] LABS: Magnesium 1.7 mg/dl (1.6-2.3)
== END 2024-04-04 17:17 | disposition home or self-care (01) ==
PROVIDERS: Emergency Provider Nurse Practitioner Family; PCP Family Medicine
DX: R10.9 Unspecified abdominal pain (principal)
CPT/HCPCS: 80053; 81003; 82150; 83690; 83735; 85025; 96372; 99213; G0381; J1885

== ENCOUNTER 2024-05-14 10:50 | Outpatient (CLI) | payer BC, SELFPAY ==
[2024-05-14 17:46] LABS: Coronavirus 19, PCR Not Detected (NotDetected); Influenza A, PCR Not Detected (NotDetected); Influenza B, PCR Not Detected (NotDetected)
== END 2024-05-14 23:59 | disposition home or self-care (01) ==
LOC: LAB.DROPOF 05-15 10:27
PROVIDERS: PCP Student in an Organized Health Care Education/Training Program; Visit Provider Student in an Organized Health Care Education/Training Program
DX: R05.9 Cough, unspecified (principal); J02.9 Acute pharyngitis, unspecified
CPT/HCPCS: 87070; 87636

== ENCOUNTER 2025-01-12 10:45 | Outpatient (CLI) | payer BC, SELFPAY ==
--- OUTSIDE RECORDS SUMMARY | 2024-12-18 14:00 | XMS_ITS | Encounter Summary ---
Author Organization [facility] Address [address] [place] [address] Care Team Providers Care Banana Grader Name Role Phone Ebony Cruz Kael CLAY Unavailable [phone] Chaparro Amaya MD Unavailable Андрей Green MD Primary Care Provider [phone] Reason for Visit * Reason Comments Earache Right ear pain Encounter Details Date Type Department Care Team (Late st Contact Info) Description 12/18/2024 2:00 PM EDT Office Visit [facility] [address] [place] [address] Renetta Royal MD [address] [place] [address] Right acute serous otitis media, recurrence not specified (Primary Dx) Social History Tobacco Use Types Packs/Day Years Used Date Smoking Tobacco: Never Passive Smoke Exposure: Never Smokeless Tobacco: Never Tobacco Cessation:Counseling Given: Not Answered Alcohol Use Standard Drinks/Week Comments Not Currently 0 (1 standard drink = 0.6 oz pur e alcohol) Humiliation, Afraid, Rape, and Kick questionnair e Answer Date Recorded Within the last year, have y ou been afraid of your partner or ex-partner? No 10/19/2024 Within the last year, have y ou been humiliated or emotionally abused in other ways by your partner or ex-partner? No Within the last year, have y ou been kicked, hit, slapped, or otherwise physically hurt by your partner or ex-partner? No 10/19/2024 Within the last year, have y ou been raped or forced to have any kind of sexual activity by your partner or ex-partner? No 10/19/2024 PHQ-2 Answer Date Recorded Patient Health Questionnaire-2 Score 0 06/07/2024 Hunger Vital Sign Answer Date Recorded Within the past 12 months, y ou worried that your food would run out before you got the money to buy more. Never true 10/20/19 25 Within the past 12 months, t he food you bought just didn't last and you didn't have money to get more. Never true 10/19/2024 PRAPARE - Transportation Answer Date Re corded In the past 12 months, has l ack of transportation kept you from medical appointments or from getting medications? No 09/28 In the past 12 months, has l ack of transportation kept you from meetings, work, or from getting things needed for daily living? No 10/19/2024 Housing Stability Vital Sign Answer Andre e Recorded In the last 12 months, was t here a time when you were not able to pay the mortgage or rent on time? No 04/06/2024 Number of Places Lived in the Last Year Not on f ile 04/06/2024 In the last 12 months, was t here a time when you did not have a steady place to sleep or slept in a senior care (including now)? No 04/06/2024 PHQ-9 Answer Date Recorded Patient Health Questionnaire-9 Score 10 06/07/2024 Housing Stability Vital Sign Answer Andre e Recorded In the last 12 months, was t here a time when you were not able to pay the mortgage or rent on time? No 10/19/2024 In the past 12 months, how m any times have you moved where you were living? 0 10/19/2024 At any time in the past 12 m [facility], were you homeless or living in a senior care (including now)? No 10/19/2024 Safety and Environment Answer Date Arjun rded Do you worry that your child may have been physi rianna abused? No 04/06/2024 Do you worry that your child may have been sexua lly abused? No 04/06/2024 Are there any guns kept in o r around your home or where your child spends time? Yes 04/06/2024 Guns Unloaded or Locked Away Yes 12/2023 Utilities Answer Date Recorded In the past 12 months has th e electric, gas, oil, or water company threatened to shut off services in your home? No 10/19/2024 PHQ-2A Answer Date Recorded Patient Health Questionnaire-2 Score 0 03/17/2023 Comments No Sex and Gender Information Value Date Recorded Sex Assigned at Female 12/09/2022 10:46 PM EDT Legal Sex Female 8:23 PM EDT Gender Identity Female 12/09/2022 10:46 PM EDT Sexual Orientation Straight 12/09/2022 10 :46 PM EDT documented as of this encounter Last Filed Vital Signs Vital Sign Reading Time Taken Comments Blood Pressure 100/70 12/18/2024 1:58 PM EDT Pulse 86 12/18/2024 1:58 PM EDT Temperature 36.8 C (98.2 F) 12/18/2024 1:58 PM EDT Respiratory Rate - - Oxygen Saturation 96% 12/18/2024 1:58 PM EDT Inhaled Oxygen Concentration - - Weight 49.5 kg (109 lb 1.6 oz) 12/18/2024 1:58 P M EDT Height 163.8 cm (5' 4.5 ) 12/18/2024 1:58 PM EDT Body Mass Index 18.44 12/18/2024 1:58 PM EDT documented in this encounter Functional Status * Calculated C-SSRS Risk Score (Lifetime/Recent) Answer Date of Assessment Author No Risk Indicated 12/18/2024 2:02 PM EDT Maryam Michel * Question Answer Date of Assessment Author 1. Wish to be (Past 1 Month) No 025 2:02 PM EDT Maryam Michel 2. Non-Specific Active Suici zulma Thoughts (Past 1 Month) No 12/18/2024 2:02 PM EDT Maryam Michel 6. Suicidal Behavior (Lifetime) No 2:02 PM EDT Maryam Michel documented as of this encounter Miscellaneous Notes * Progress Notes - Renetta Royal MD - 12/18/2024 2:00 PM EDT Subjective Patient ID: Jessica العراقي is a 44 y.o. female. Chief Complaint Patient presents with Earache Right ear pain Earache Here with a few days of right ear pain, has tube and had lai noted this AM. No fevers. Left OK. Current Medications[1] Pertinent review of systems has been performed and negative except as noted in HPI. Pertinent areas of the chart reviewed include social, family, past medical and surgical history. Objective Physical Exam Vitals and nursing note reviewed. Constitutional: General: She is not in acute distress. Appearance: Normal appearance. She is well-developed. She is not toxic-appearing. HENT: Head: Normocephalic and atraumatic. Right Ear: Ear canal normal. Left Ear: Tympanic membrane normal. Ears: Comments: Right TM cloudy and some discharge serous, from tube Nose: Nose normal. Eyes: Conjunctiva/sclera: Conjunctivae normal. Cardiovascular: Rate and Rhythm: Normal rate. Pulmonary: Effort: Pulmonary effort is normal. Skin: General: Skin is warm and dry. Neurological: Mental Status: She is alert and oriented to person, place, and time. Gait: Gait normal. Psychiatric: Mood and Affect: Mood normal. Behavior: Behavior normal. Thought Content: Thought content normal. Assessment/Plan Diagnoses and all orders for this visit: Right acute serous otitis media, recurrence not specified - ciprofloxacin-dexamethasone (CiproDEX) otic suspension; Administer 4 drops into affected ear(s) 2times a day for 7 days. No follow-ups on file. Note to patient: The Century Cures Act makes medical notes like these available to patients inthe interest of transparency. However, be advised this is a medical document. It is intended as peer to peer communication. It is written in medical language and may contain abbreviations or verbiagethat are unfamiliar. It may appear blunt or direct. Medical documents are intended to carry relevant information, facts as evident, and the clinical opinion of the practitioner. [1] Current Outpatient Medications: aMILoride (Midamor) 5 MG tablet, Take 1 tablet by mouth daily., Disp: 90 tablet, Rfl: 2 amphetamine-dextroamphetamine XR (Adderall XR) 20 MG 24 hr capsule, Take 1 capsule by mouth every morning. Do not crush or chew., Disp: 30 capsule, Rfl: 0 estrogens, conjugated, (Premarin) vaginal cream, Insert 0.625 mg into the vagina daily., Disp: , Rfl: fluticasone (Flonase) 50 MCG/ACT nasal spray, Administer 2 sprays into each nostril 1 (one) time each day. Shake gently. Before first use, prime pump. After use, clean tip and replace cap. (Patient taking differently: Administer 2 sprays into each nostril as needed. Shake gently. Before first use, prime pump. After use, clean tip and replace cap.), Disp: 16 g, Rfl: 1 furosemide (Lasix) 20 MG tablet, Take 1 tablet by mouth daily as needed (pitting edema)., Disp: 30 tablet, Rfl: 2 linaCLOtide (Linzess) 290 MCG capsule, Take 1 capsule (290 mcg) by mouth 1 (one) time each day before breakfast. (Patient taking differently: Take 1 capsule by mouth as needed.), Disp: , Rfl: magnesium oxide (Mag-Ox) 400 MG tablet, Take 1 tablet by mouth 2 times a day., Disp: 60 tablet, Rfl: 2 omeprazole (PriLOSEC) [address] capsule, Take 1 capsule by mouth 2 (two) times a day. Do not crush or chew., Disp: 180 capsule, Rfl: 3 ondansetron (Zofran) 8 MG tablet, Take 1 tablet by mouth every 8 hours as needed for nausea or vomiting., Disp: 20 tablet, Rfl: 2 potassium chloride ER (Micro-K) 10 MEQ ER capsule, Take 2 capsules by mouth 3 times a day. Do not crush or chew., Disp: 180 capsule, Rfl: 11 Synthroid 25 MCG tablet, Take 1 tablet by mouth daily before breakfast., Disp: 90 tablet, Rfl: 2 topiramate 50 MG tablet, Take 1 tablet by mouth daily., Disp: 90 tablet, Rfl: 2 valACYclovir (Valtrex) 500 MG tablet, Take 1 tablet by mouth as needed., Disp: , Rfl: ciprofloxacin-dexamethasone (CiproDEX) otic suspension, Administer 4 drops into affected ear(s) 2 times a day for 7 days., Disp: 7.5 mL, Rfl: 0 documented in this encounter Plan of Treatment Upcoming Encounters Date Type Department Care Team (Late st Contact Info) Description 03/29/2025 3:40 PM EDT Office Visit [facility] [address] [place] [address] Андрей Green MD [address] [place] [address] documented as of this encounter Visit Diagnoses Diagnosis Right acute serous otitis media, recurrence not specified- Primary documented in this encounter Additional Health Concerns Assessment Noted Time PHQ-9 Depression Total Score: 10 025 8:39 AM EST A fall risk assessment has been complete d for the patient 04/30/2024 4:33 PM EST A Body Mass Index follow-up plan has been documented for the patient 12/18/2024 2:22 PM EDT documented as of this encounter Care Teams Banana Grader Relationship Specialty Start Date End Date Андрей Green MD [address] [place] [address] PCP - General Family Medicine 04/06/24 Ebony Cruz APRN [address] [place] [address] Referring Physician Gastroenterology 12/04/21 Chaparro Amaya MD [address] [place] [address] Transplant Physician Transplant Surgery 12/10/21 documented as of this encounter
--- OUTSIDE RECORDS SUMMARY | 2024-12-27 12:40 | XMS_ITS | Encounter Summary ---
Author Organization [facility] Address [address] [place] [address] Care Team Providers Care Shift Commander Name Role Phone Ebony Cruz OBED Unavailable [phone] Chaparro Amaya MD Unavailable Андрей Green MD Primary Care Provider [phone] Reason for Visit * Reason Comments Follow-up Follow up, ear infec tion. Pt still can not hear out of her right ear and is still having pain Encounter Details Date Type Department Care Team (Late st Contact Info) Description 12/27/2024 12:40 PM EDT Office Visit [facility] [address] [place] [address] Андрей Green MD [address] [place] [address] Recurrent acute suppurative otitis media of right ear without spontaneous rupture of tympanic membrane (Primary Dx); Vomiting, unspecified vomiting type, unspecified whether nausea present; Fatigue, unspecified type; Protein malnutrition (CMS/HCC) Social History Tobacco Use Types Packs/Day Years Used Date Smoking Tobacco: Never Passive Smoke Exposure: Never Smokeless Tobacco: Never Alcohol Use Standard Drinks/Week Comments Not Currently [...] Date Recorded Patient Health Questionnaire-2 Score 0 12/27/2024 Hunger Vital Sign Answer Date Recorded Within [...] place to sleep or slept in a [place] (including now)? No 04/06/2024 PHQ-9 Answer Date Recorded Patient Health Questionnaire-9 Score 0 12/27/2024 Housing Stability Vital Sign Answer Andre e Recorded In the last 12 months, was t here a time when you were not able to pay the mortgage or rent on time? No 10/19/2024 In the past 12 months, how m any times have you moved where you were living? 0 10/19/2024 At any time in the past [address] [facility], were you homeless or living in a [place] facility (including now)? No 10/19/2024 AUDIT-C Answer Date Recorded Q1: How often do you have a drink containing alc ohol? Monthly or less 12/27/2024 Q2: How many drinks containi ng alcohol do you have on a typical day when you are drinking? 1 or 2 12/27/2024 Q3: How often do you have si x or more drinks on one occasion? Never 12/27/2024 Safety and Environment Answer Date Arjun rded [...] Recorded In the past 12 months has [employer], gas, oil, or water company threatened to [...] Sign Reading Time Taken Comments Blood Pressure 116/70 12/27/2024 12:44 PM EDT Pulse 97 12/27/2024 12:44 PM EDT Temperature 36.4 C (97.6 F) 12/27/2024 12:44 PM EDT Respiratory Rate 16 12/27/2024 12:44 PM EDT Oxygen Saturation 97% 12/27/2024 12:44 PM EDT Inhaled Oxygen Concentration - - Weight 51.2 kg (112 lb 14 oz) 12/27/2024 12:44 P M EDT Height 163.8 cm (5' 4.5 ) 12/27/2024 12:44 PM ED T Body Mass Index 19.08 12/27/2024 12:44 PM EDT documented in this encounter Functional Status * AUDIT-C Score Answer Date of Assessment Author 1 12/27/2024 12:51 PM Julián Felix * Question Answer Date of Assessment Author Q1: How often do you have a drink containing alcohol? Monthly or less 12/27/2024 12:51 PM Julián Felix Q2: How many drinks containing alcohol do you have on a typical day when you are drinking? 1 or 2 12/27/2024 12:51 PM Julián Felix Q3: How often do you have six or more drinks on one occasion? Never 12/27/2024 12:51 PM Julián Felix * Over the past 2 weeks, how often have you been bothered by any of the following problems? Question Answer Date of Assessment Author Little interest or pleasure in doing things Not at all 12/27/2024 12:51 PM Julián Felix Feeling down, depressed, or hopeless Not at all 12/27/2024 12:51 PM Julián Felix Patient Health Questionnaire -2 Score 0 12/27/2024 12:51 PM Julián Felix * Question Answer Date of Assessment Author Trouble falling or staying asleep, or sleeping too much Not at all 12/27/2024 12:51 PM Julián Felix Feeling tired or having dereck le energy Not at all 12/27/2024 12:51 PM Julián Felix Poor appetite or overeating Not at all 12/27/2024 12 :51 PM Julián Felix Feeling bad about yourself - or that you are a failure or have let yourself or your family down Not at all 12/27/2024 12:51 PM Julián Lazcano Trouble concentrating on thi ngs, such as reading the newspaper or watching television Not at all 12/27/2024 12:51 PM Julián Felix Moving or speaking so slowly that other people could have noticed? Or the opposite - being so fidgety or restless that you have been moving around a lot more than usual. Not at all 12/27/2024 12:51 PM Julián Felix Thoughts that you would be better off or hurting yourself in some way Not at all 12/27/2024 12:51 PM EDT Julián Fabian Patient Health Questionnaire -9 Score 0 12/27/2024 12:51 PM EDT Julián Fabian * Calculated C-SSRS Risk Score (Lifetime/Recent) Answer Date of Assessment Author No Risk Indicated 12/27/2024 12:52 PM EDT Julián Fabian * If you checked off any problems on this questionnaire so far, Question Answer Date of Assessment Author How difficult have these problems made it for you to do your work, take care of things at home, or get along with other people? Not difficult at all 12/27/2024 12:51 PM EDT Julián Fabian * Question Answer Date of Assessment Author 1. Wish to be (Past 1 Month) No 025 12:52 PM JAQUELINET Julián Fabian 2. Non-Specific Active Suici zulma Thoughts (Past 1 Month) No 12/27/2024 12:52 PM EDT Char Fabian P 6. Suicidal Behavior (Lifetime) No 12:52 PM EDT Julián Fabian documented as of this encounter Miscellaneous Notes * Progress Notes - Андрей Green MD - 12/27/2024 12:40 PM EDT Subjective Patient ID: Jessica العراقي is a 44 y.o. female. Chief Complaint Patient presents with Follow-up Follow up, ear infection. Pt still can not hear out of her right ear and is still having pain HPI Here for ADHD follow up. Doing well with ADHD medication. Was here 12/18 for right ear serous otitis media. Still having trouble hearing out of her hear. Still having similarly stomach trouble is gaining weight despite the increase in Adderall. She has pain with abdomen leading to vomiting. Throws up daily. Causes malnutrition. The following portions of the chart were reviewed this encounter and updated as appropriate: Tobacco Allergies Meds Problems Med Hx Surg Hx Fam Hx Review of Systems Constitutional: Negative for fatigue and fever. Respiratory: Negative for cough and shortness of breath. Cardiovascular: Negative for chest pain. Gastrointestinal: Positive for abdominal pain. Neurological: Negative for headaches. Objective Physical Exam Constitutional: Appearance: Normal appearance. She is not ill-appearing. HENT: Head: Normocephalic and atraumatic. Cardiovascular: Rate and Rhythm: Normal rate and regular rhythm. Heart sounds: Normal heart sounds. No murmur heard. Pulmonary: Effort: Pulmonary effort is normal. No respiratory distress. Breath sounds: Normal breath sounds. No wheezing or rhonchi. Neurological: General: No focal deficit present. Mental Status: She is alert. Mental status is at baseline. Psychiatric: Mood and Affect: Mood normal. Behavior: Behavior normal. Assessment/Plan Assessment & Plan Recurrent acute suppurative otitis media of right ear without spontaneous rupture of tympanic membrane Vomiting, unspecified vomiting type, unspecified whether nausea present Fatigue, unspecified type Protein malnutrition (CMS/HCC) Note to patient: The Century Cures Act [...] and the clinical opinion of the practitioner. documented in this encounter Plan of Treatment Upcoming Encounters Date Type Department Care Team (Late st Contact Info) Description 03/29/2025 3:40 PM EDT Office Visit [facility] [address] [place] [address] Андрей Green MD [address], [place] [address] documented as of this encounter Procedures Procedure Name Priority Date/Time Associated Diagnosis Comments PREALBUMIN, PLASMA Routine 12/27/2024 1: 39 PM EDT Vomiting, unspecified vomiting type, unspecified whether nausea present Fatigue, unspecified type Protein malnutrition (CMS/HCC) COMPREHENSIVE METABOLIC PANEL, PLASMA Routine 12/27/2024 1:39 PM EDT Vomiting, unspecified vomiting type, unspecified whether nausea present Fatigue, unspecified type Protein malnutrition (CMS/HCC) documented in this encounter Results * (ABNORMAL) Comprehensive Metabolic Panel, Plasma (12/27/2024 1:39 PM EDT) Glucose, Plasma 80 74 - 99 mg/dL 12/27/2024 6:59 PM EDT [facility] BUN, Plasma 20 7 - 21 mg/dL 12/27/2024 6:59 PM EDT [facility] Creatinine, Plasma 0.79 0.60 - 1.10 mg/dL 12/27/2024 6:59 PM EDT [facility] BUN/Creatinine Ratio 25 12/27/2024 6:59 PM EDT [facility] Sodium, Plasma 139 136 - 145 mmol/L 12/27/2024 6:59 PM EDT [facility] Potassium, Plasma 4.1 3.6 - 4.9 mmol/L 12/27/2024 6:59 PM EDT [facility] Chloride, Plasma 105 97 - 107 mmol/L 12/27/2024 6:59 PM EDT [facility] CO2, Plasma 22 22 - 29 mmol/L 12/27/2024 6:59 PM EDT [facility] Anion Gap 12 6 - 16 mmol/L 12/27/2024 6:59 PM EDT [facility] Total Calcium, Plasma 9.0 8.9 - 10.2 mg/dL 12/27/2024 6:59 PM EDT [facility] Total Protein 6.7 6.3 - 7.9 g/dL 12/27/2024 6:59 PM EDT [facility] Albumin, Plasma 3.9 3.5 - 5.2 g/dL 12/27/2024 6:59 PM EDT [facility] AST, Plasma 21 10 - 35 U/L 12/27/2024 6:59 PM EDT [facility] ALT, Plasma 27 10 - 35 U/L 12/27/2024 6:59 PM EDT [facility] Alkaline Phosphatase, Plasma 110(H) 35 - 104 U/L 12/27/2024 6:59 PM EDT [facility] Total Bilirubin, Plasma 0.4 0.2 - 1.1 mg/dL 12/27/2024 6:59 PM EDT [facility] eGFRcr 95.3 mL/min/1.7 3m*2 12/27/2024 6:59 PM EDT [facility] Comment:Reported eGFRcr in m L/min/1.73m2 is based the CKD-EPI 2020 equation that does not use a race coefficient. Blood Venous blood specimen / Unknown Venipuncture / Unknown 12/27/2024 1:39 PM EDT 12/27/2024 1:39 PM EDT Андрей Green MD LAB BLOOD ORDERABLES Final Res ult Performing Organization Address [facility] [place]/[facility] Co de Phone Number [facility] [address] [place] [address] * (ABNORMAL) Prealbumin, Plasma (12/27/2024 1:39 PM EDT) Prealbumin, Plasma 19.5(L) 20.0 - 41.0 mg/dL 12/27/2024 6:59 PM EDT [facility] Blood Venous blood specimen / Unknown Venipuncture / Unknown 12/27/2024 1:39 PM EDT 12/27/2024 1:39 PM EDT us Андрей Green MD LAB BLOOD ORDERABLES Final Res ult Performing Organization Address City/[facility]/ZIP Co de Phone Number [facility] [address] [place] [address] documented in this encounter Visit Diagnoses Diagnosis Recurrent acute suppurative otitis media of right ear without spontaneous rupture of tympanic membrane- Primary Vomiting, unspecified vomiting type, unspecified whether nausea present Fatigue, unspecified type Protein malnutrition (CMS/HCC) [place]or documented in this encounter Additional Health Concerns Assessment Noted Time PHQ-9 Depression Total Score: 0 12/28/19 25 12:51 PM EDT A fall risk assessment has been complete d for the patient 04/30/2024 4:33 PM EST A Body Mass Index follow-up plan has been documented for the patient 12/27/2024 2:40 PM EDT documented as of this encounter Care Teams Shift Commander Relationship Specialty Start Date End Date Андрей Green MD [address] [place] [address] PCP - General Family Medicine 04/06/24 Ebony Cruz, HOG PUSHER [address] [place] [address] Referring Physician Gastroenterology 12/04/21 Chaparro Amaya MD [address] [facility] [address] [place] [address] Transplant Physician Transplant Surgery 12/10/21 documented as of this encounter
[2025-01-12 20:10] LABS: Coronavirus 19, PCR Not Detected (NotDetected); Influenza A, PCR Not Detected (NotDetected); Influenza B, PCR Not Detected (NotDetected)
--- OUTSIDE RECORDS SUMMARY | 2025-01-14 10:09 | XMS_ITS | Encounter Summary ---
Author Organization [facility] yste Address [address] [place] [address] Care Team Providers Care Engineer Gas Pumping Station Name Role Phone Андрей Green MD Primary Care Provider [phone] Encounter Details Date Type Department Care Team (Late st Contact Info) Description 05/31/2013 Conversion Encounter [facility] HISTORICAL CONV [address] [facility] [place] [address] Interface, See Report Social History Tobacco Use Types Packs/Day Years Used Date Smoking Tobacco: Never Assessed Comments Unknown Sex and Gender Information Value Date Recorded Sex Assigned at Not on file Legal Sex Female 1:01 PM EDT Gender Identity Not on file Sexual Orientation Not on file documented as of this encounter Progress Notes * Interface, See Report - 06/07/2013 12:00 AM EST CABLE WORKER HELPER[facility] [address] [place] [id number] Patient: PARAMJIT PARISH MR #: [id number] : 1980 Date of Visit: 06/07/2013 Referring Physician: LES BELLE Dictated By: Radha Espinal MD Diagnosis: ENDOMETRIAL CANCER Allergies: SULFA, DILAUDID, BAND-AIDS, CERTAIN ADHESIVES History of present illness: POST RADIATION F/U-RESTART CHEMO; EXTERNAL RADIATION COMPLETED 05/22/13. PT. COMPLETES LAST BRACHYTHERAPY TODAY. SHE HAS DIARRHEA ABOUT 3x's DAILY. TAKES IMMODIUM FOR THIS. OTHERWISE SHE SAYS SHE FEELS WELL. Past medical history: Medical: ENDOMETRIAL CANCER, H.MURMUR, HYPOTHYROID, GERD, MIGRAINES Surgical: XLP, ELIEZER, BSO, LND, BIOPSY OF BLADDER / PERITONEUM, OPT. DEBULKING Health maintenance: Mammogram: Colonoscopy: Pap smear: Tumor Marker: CT Scan: BMD: Ultrasound: Review of systems: Constitutional: No change in weight, no excessive fatigue Psychiatric: No history of anxiety, depression, bipolar disorder, or insomnia Respiratory: No shortness of breath, cough, asthma, wheezing Cardiovascular: +H. MURMUR. No angina, orthopnea, edema, hypertension, hyperlipidemia Gastrointestinal: +GERD. No constipation or diarrhea, no reflux, nausea, or vomiting Genitourinary: No dysuria, hematuria, urgency, or frequency Neurologic: +MILD NEUROPATHY IN RT. FINGER. No weakness, syncope, seizures, or headaches Gynecologic: +ENDOMETRIAL CANCER. No abnormal bleeding, vaginal discharge, pelvic pain, of h/o abnml pap smears LMP: G: P: Vag Deliveries: C-sec: Misc: Additional notes: +HYPOTHYROID Medications: Medication Reconciliation for the patient has been reviewed in the EMR. Physical exam: Constitutional: Weight 140 Height BP 122/74 Pulse Temp Neurological/Psychiatric: HEENT: Neck: Respiratory: Cardiovascular: Breasts: Gastrointestinal: Lymphatic: Extremities: Gynecologic: External Genitalia: Vagina: Cervix: Uterus: Ovaries: Parametria: Smooth. Rectovaginal: Hemoccult: Procedure note: Assessment: 33 yo with h/o Stage III endometrial cancer for consideration of #4/6 carbo/taxol aftercompletion of RT (tele/brachy)- last brachy tx today Doing well with PS = 0 Loose BM with RT x3/day on Immodium - Rx for Lomotil Seeing Cancer Dietitian - losing ~23/week Plan: See above. Will resume GCSF with chemo. Electronically Signed By: Radha Espinal MD Date: 06/07/2013 Time: 1:59 PM cc: documented in this encounter Consult Notes * Interface, See Report - 05/31/2013 3:43 PM EST COMPLETION/CLOSURE NOTE RE. PATIENT: MARC PARISHLalit Lawrence MED. 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 BRIEF HISTORY: Ms. Parish is a delightful 33-year-old female who underwent surgery for advanced endometrial cancer. She is undergoing sandwich therapy of three cycles of carbo/Taxol chemotherapy, radiation, and then three more cycles of carbo/Taxol. The patient originally saw Dr. Espinal and underwent exploratory laparotomy, total abdominal hysterectomy, and bilateral salpingo-oophorectomy, as well as lymph node dissection. She had a 1 x 1.2 x 1 cm tumor that was exophytic into the endometrial cavity with no demonstrable myometrial invasion. The cul-de-sac was positive for moderately differentiated endometrioid adenocarcinoma and endometriosis. There was no lymphvascular space invasion. The right and left ovaries and tubes were negative, as were the lymph nodes. A biopsy from posterior portion of the bladder had an implant that was positive. This was [id number] stage III grade 2 adenocarcinoma. She received radiotherapy in our department as follows: TREATMENT COURSE: 04/16/2013 through 05/25/2013: The pelvis received 50.4 Gy in 28 fractions with 6 MV photons utilizing IMRT treatment planning. On 06/04/2013 and 06/07/2013 she then underwent vaginal apex brachytherapy of 6 Gy to the surface. TOLERANCE: Ms. Parish tolerated her treatments very well. She continued to work throughout therapy. Her parents accompanied her on most visits. As she went along she had no GI or complaints. She worked full-time. She met frequently with our Oncology Dietitian and had decreased appetite. She requested Zofran for nausea from the on-call physician. She had no emesis and was able to hold down medications. She continued to do well and followed with the talk show host. She walked into a wall and bruised her hip. She had no visible signs and laughed about it with her parents. She called one Tuesday morning at 1:00 a.m. complaining of fever of 101. She was going to take ibuprofen and return the call if she did not improved, but she did improve. She thought it was viral and returned on that Tuesday for therapy. She had a sick niece and that is where she felt she got the infection. Her weight continued to decline a little bit, but we found our scales needed recalibrated. She continued using Imodium and did have some bladder spasms but declined medication. She had one sore area on the perineum and wanted to try Silvadene and lidocaine mix though she had an allergy to sulfa. She underwent the brachytherapy with no difficulty and during this time was also examined by Dr. Espinal who agreed all of her tissues looked good and she was tolerating treatment well. COMPLETION/CLOSURE NOTE RE. PATIENT: PARAMJIT PARISH MED. REC.#: [id number] : 1980 COMPLETION DATE: 06/07/2013 DISPOSITION: An appointment was made for Ms. Parish to return to our department in approximately two weeks for follow-up. We also discussed with her the use of a dilator or intercourse to keep the vaginal tissues open and prevent the tissue from scarring down. We also obtained multiple samples of vaginal lubricants to review with her. Thank you very much for allowing me to participate in the care of this delightful young lady. Sincerely, Alessandra Nunez M.D.* [facility] [place] Voice Rec ID: #[id number] Original Voice Rec ID: #[id number] Document ID: #[id number] Rev. #0 cc: [facility] Research Charge Aide/Survivorship* Radha Espinal M.D.* Les Belle M.D.* Dr. Candido Ramos DO NOT TEXT EDIT THIS LINE :ELECTRIC ORGAN ASSEMBLER:[id number]: Authenticated by ALESSANDRA NUNEZ M.D. On 06/20/2013 09:07:39 AM documented in this encounter Plan of Treatment Upcoming Encounters Date Type Department Care Team (Late st Contact Info) Description 01/30/2025 9:30 AM EDT Office Visit [facility] GYNECOLOGIC ONCOLOGY [address] [facility] [address] [place] [address] Iraida Jackson, MANAGER STARS [address] [facility] [address] [place] [address] 02/12/2025 9:30 AM EDT Office Visit [facility] NEUROLOGY [address] [facility] [address] [place] [address] Tawanna Nassar, OBED [address] [facility] [address] [place], [place] [id number] documented as of this encounter Visit Diagnoses Not on filedocumented in this encounter Care Teams Engineer Gas Pumping [employer] Relationship Specialty Start Date End Date Андрей Green MD [address] [place] [address] PCP - General Family Medicine 06/25/24 documented as of this encounter
--- OUTSIDE RECORDS SUMMARY | 2025-01-14 10:09 | XMS_ITS | Encounter Summary ---
Author Organization [facility] Address [address] [place] [address] Care Team Providers Care Die Press Operator Name Role Phone Ebony Cruz OBED Unavailable [phone] Chaparro Amaya MD Unavailable Андрей Green MD Primary Care Provider [phone] Encounter Details Date Type Department Care Team (Late st Contact Info) Description 11/21/2024 Refill [facility] [address] [place] [address] Андрей Green MD [address] [place] [address] Social History Tobacco Use Types Packs/Day Years [...] place to sleep or slept in a fpc (including now)? No 04/06/2024 PHQ-9 Answer Date [...] any time in the past 12 m [facility], were you homeless or living in a fpc (including now)? No 10/19/2024 Safety and Environment [...] PM EDT documented as of this encounter Plan of Treatment Upcoming Encounters Date Type Department Care Team (Late st Contact Info) Description 03/29/2025 3:40 PM EDT Office Visit [facility] [address] [place] [address] Андрей Green MD [address] [place] [address] documented as of this encounter Visit Diagnoses Not on filedocumented in this encounter Additional Health Concerns Assessment Noted Time PHQ-9 Depression Total Score: 10 025 8:39 AM EST A fall risk assessment has been complete d for the patient 04/30/2024 4:33 PM EST A Body Mass Index follow-up plan has been documented for the patient 10/19/2024 1:25 PM EDT documented as of this encounter Care Teams Die Press Operator Relationship Specialty Start Date End Date Андрей Green MD [address] [place] [address] PCP - General Family Medicine 04/06/24 Ebony Cruz APRN [address] [facility] [address] [place] [address] Referring Physician Gastroenterology 12/04/21 Chaparro Amaya MD [address] [facility] [address] [place] [address] Transplant Physician Transplant Surgery 12/10/21 documented as of this encounter
--- OUTSIDE RECORDS SUMMARY | 2025-01-14 10:09 | XMS_ITS | Encounter Summary ---
Author Organization [facility] Address [address] [place] [address] Care Team Providers Care Professor Of Business Name Role Phone Ebony Cruz Kael CLAY Unavailable [phone] Chaparro Amaya MD Unavailable Андрей Green MD Primary Care Provider [phone] Encounter Details Date Type Department Care Team (Latest Contact Info) Description 12/18/2024 Travel Social History Tobacco Use Types Packs/Day Years [...] place to sleep or slept in a skilled nursing (including now)? No 04/06/2024 PHQ-9 Answer Date [...] any time in the past 12 m onths, were you homeless or living in a skilled nursing (including now)? No 10/19/2024 Safety and Environment [...] PM EDT documented as of this encounter Functional Status * Calculated C-SSRS Risk Score (Lifetime/Recent) Answer Date of Assessment Author No Risk Indicated 12/18/2024 2:02 PM EDT Maryam Michel * Question Answer Date of Assessment Author 1. Wish to be (Past 1 Month) No 025 2:02 PM EDT Maryam Michel 2. Non-Specific Active Suici zulma Thoughts (Past 1 Month) No 12/18/2024 2:02 PM EDT Maryam Mihcel 6. Suicidal Behavior (Lifetime) No 5 2:02 PM EDT Maryam Michel documented as of this encounter Plan of Treatment Upcoming Encounters Date Type Department Care Team (Late st Contact Info) Description 03/29/2025 3:40 PM EDT Office Visit [facility] [address] [place] [address] Андрей Green MD [address] [place] [address] documented as of this encounter [...] documented as of this encounter Care Teams Professor Of Business Relationship Specialty Start Date End Date Андрей Green MD [address] [place] [address] PCP - General Family Medicine 04/06/24 Ebony Cruz APRN [address] [place] [address] Referring Physician Gastroenterology 12/04/21 Chaparro Amaya MD [address] [place] [address] Transplant Physician Transplant Surgery 12/10/21 documented as of this encounter
--- OUTSIDE RECORDS SUMMARY | 2025-01-14 10:09 | XMS_ITS | Encounter Summary ---
Author Organization [facility] Address [address] [place] [address] Care Team Providers Care Tying Machine Operator Lumber Name Role Phone Ebony Cruz OBED Unavailable [phone] Chaparro Amaya MD Unavailable Андрей Green MD Primary Care Provider [phone] Reason for Visit * Reason Onset Date Comments HCN Clinical Concern/Question 12/26/2024 Encounter Details Date Type Department Care Team (Late st Contact Info) Description 12/26/2024 Telephone [facility] Medicine [address] [place] [address] Андрей Green MD [address] [place] [address] [facility]CN Clinical Concern/Question Social History Tobacco Use Types Packs/Day Years [...] any time in the past 12 m [facility], were you homeless or living in a skilled nursing (including now)? No 10/19/2024 AUDIT-C Answer Date [...] In the past 12 months has th [employer], gas, oil, or water company threatened to [...] as of this encounter Functional Status * AUDIT-C Score Answer Date of Assessment Author 1 12/27/2024 12:51 PM JAQUELINET Julián Fabian * Question Answer Date of Assessment Author Q1: How often do you have a drink containing alcohol? Monthly or less 12/27/2024 12:51 PM Julián Felix Q2: How many drinks containing alcohol do you have on a typical day when you are drinking? 1 or 2 12/27/2024 12:51 PM Juláin Felix Q3: How often do you have [...] way Not at all 12/27/2024 12:51 PM Julián Felix Patient Health Questionnaire -9 Score 0 12/27/2024 12:51 PM Julián Felix * Calculated C-SSRS Risk Score (Lifetime/Recent) Answer Date of Assessment Author No Risk Indicated 12/27/2024 12:52 PM Julián Felix * If you checked off any problems on this questionnaire so far, Question Answer Date of Assessment Author How difficult have these problems made it for you to do your work, take care of things at home, or get along with other people? Not difficult at all 12/27/2024 12:51 PM Julián Felix * Question Answer Date of Assessment Author 1. Wish to be (Past 1 Month) No 12:52 PM Julián Felix 2. Non-Specific Active Suici zulma Thoughts (Past 1 Month) No 12/27/2024 12:52 PM EDT Char Fabian P 6. Suicidal Behavior (Lifetime) No 5 12:52 PM EDT Julián Fabian documented as of this encounter Miscellaneous Notes * Telephone Encounter - Soumya Marino - 12/26/2024 3:34 PM EDT Clinical Concern/Question Reason for Call: patient refused to speak with medication/refill line-- patient calling because sheis in need of a refill of the 20mg adderall. She has been out of this medication for about 1 week. She is needing this sent to [facility] in [place]. Please call patient with questions or update. Thanks! Best contact number: [phone] (home) Optimal time of day to reach caller: ANYTIME Additional comments/information from caller: None Note: Please do not reply to this message. Follow-up communication and further actions as a result of this message need to be communicated with the patient directly, if the patient is not active onMyChart. If the patient is active on MyChart, they will receive notification of the communication/outcome via [employer] documented in this encounter Plan of Treatment Upcoming Encounters Date Type Department Care Team (Late st Contact Info) Description 03/29/2025 3:40 PM EDT Office Visit [facility] [address] [place] [address] Андрей Green MD [address] [place] [address] documented as of this encounter [...] documented as of this encounter Care Teams Tying Machine Operator Lumber Relationship Specialty Start Date End Date Андрей Green MD [address] [place] [id number] PCP - General Family Medicine 04/06/24 Ebony Cruz APRN [address] [facility] [address] [place], [place] [address] Referring Physician Gastroenterology 12/04/21 Chaparro Amaya MD [address] [facility] [address] [place] [address] Transplant Physician Transplant Surgery 12/10/21 documented as of this encounter
--- OUTSIDE RECORDS SUMMARY | 2025-01-14 10:09 | XMS_ITS | Encounter Summary ---
Author Organization [facility] Address [address] [place] [address] Care Team Providers Care Blasting Cap Assembler Name Role Phone Ebony Cruz OBED Unavailable [phone] Chaparro Amaya MD Unavailable Андрей Green MD Primary Care Provider [phone] Reason for Visit * Reason Onset Date Comments HCN Clinical Concern/Question 11/16/2024 re fills Encounter Details Date Type Department Care Team (Late st Contact Info) Description 11/16/2024 Telephone [facility] Medicine [address] [place] [address] Андрей Green MD [address] [place] [address] HCN Clinical Concern/Question (refills) Social History Tobacco Use Types Packs/Day Years [...] place to sleep or slept in a half-way (including now)? No 04/06/2024 PHQ-9 Answer Date [...] any time in the past 12 m [facility], were you homeless or living in a half-way (including now)? No 10/19/2024 Safety and Environment [...] PM EDT documented as of this encounter Miscellaneous Notes * Telephone Encounter - Richard Jay - 11/16/2024 1:16 PM EDT Patient Phone Message Reason for Call:Calling for adderral and migraine med refills. Says she was told to speak with the Nurse for these since needing today Already hung up on refill team when she was transferred to them Best contact number and optimal time of day to reach caller:[phone] Note: Please do not reply to this message. Follow-up communication and further actions as a result of this message need to be communicated with the patient directly, if the patient is not active onMyChart. If the patient is active on MyChart, they will receive notification of the communication/outcome via [employer]. documented in this encounter Plan of Treatment Upcoming Encounters Date Type Department Care Team (Late st Contact Info) Description 03/29/2025 3:40 PM EDT Office Visit [facility] [place] [address] Андрей Green [place] [address] documented as of this encounter Visit [...] documented as of this encounter Care Teams Blasting Cap Assembler Relationship Specialty Start Date End Date Андрей Green MD [address] [place] [address] PCP - General Family Medicine 04/06/24 Ebony Cruz APRN [address] [facility] [address] [place] [address] Referring Physician Gastroenterology 12/04/21 Chaparro Amaya MD [address] [facility] [address] [place] [address] Transplant Physician Transplant Surgery 12/10/21 documented as of this encounter
--- OUTSIDE RECORDS SUMMARY | 2025-01-14 10:09 | XMS_ITS | Encounter Summary ---
Author Organization [facility] yste Address [address] [place] [address] Care Team Providers Care Contact Center Analyst Name Role Phone Андрей Green MD Primary Care Provider [phone] Encounter Details Date Type Department Care Team (Late st Contact Info) Description 03/27/2013 Conversion Encounter [facility] HISTORICAL CONV [address] [place] [address] Interface, See Report Social History Tobacco Use Types Packs/Day Years Used Date Smoking Tobacco: Never Assessed Comments Unknown Sex and Gender Information Value Date Recorded Sex Assigned at Not on file Legal Sex Female 1:01 PM EDT Gender Identity Not on file Sexual Orientation Not on file documented as of this encounter Progress Notes * Interface, See Report - 03/27/2013 12:00 AM EDT HEAD INSPECTOR-Oncology Services [address] [place] [address] Patient: PARAMJIT SHARP MR #: [id number] : 1980 Date of Visit: 03/27 Referring Physician: LES GOMEZ Dictated By: Magaly Espinal MD Diagnosis: ENDOMETRIAL CANCER Allergies: SULFA, DILAUDID, BAND-AIDS, CERTAIN ADHESIVES History of present illness: ENDOMETRIAL CANCER. PT. HERE FOR CONSIDERATION OF CYCLE #3/6 CARBO / TAXOL DUE TODAY, PENDING LABS. NEULASTA ON DAY #2. SHE HAS F/U APPT WITH DR. NUNEZ 06/02/12. NEUROPATHY IS IMPROVING WITH NEURONTIN IN FEET AND UNCHANGED IN FINGERS, NORMAL BM'S / VOIDS AND STABLE WEIGHT. Past medical history: Medical: ENDOMETRIAL CANCER, MURMUR, HYPOTHYROID, GERD, MIGRAINES Surgical: XLP, ELIEZER, BSO, [...] No dysuria, hematuria, urgency, or frequency Neurologic: +NEUROPATHY . No weakness, syncope, seizures, or headaches Gynecologic: +ENDOMETRIAL CANCER. No abnormal bleeding, vaginal discharge, pelvic pain, of h/o abnml pap smears LMP: G: P: Vag Deliveries: C-sec: Misc: Additional notes: +HYPOTHYROID Medications: Medication Reconciliation for the patient has been reviewed in the EMR. Physical exam: Constitutional: Weight 148 Height BP 116/72 Pulse Temp Neurological/Psychiatric: HEENT: ; alopecia Neck: Respiratory: Cardiovascular: Breasts: Gastrointestinal: Lymphatic: Extremities: Gynecologic: External Genitalia: Vagina: ; somewhat teathered on exam Cervix: palpably free from mass Uterus: Ovaries: Parametria: Smooth. Rectovaginal: Hemoccult: Procedure note: Assessment: 32 yo for consideration of #3/6 carbo /taxol for Stage III endometrial cancer. -tolerating well, some neuropathy and tolerating neurontin Plan: Proceed with chemo. To see Dr. Nunez for RT 04/02/13. completion of radiaiton - will then proceed with rest of chemo Electronically Signed By: Magaly Espinal MD cc: * Interface, See Report - 03/06/2013 12:00 AM EDT HEAD INSPECTOR-Oncology Services [address] [place], [place] [id number] Patient: PARAMJIT SHARP MR #: : 1980 Date of Visit: 03/06/2013 Attending Physician: Magaly Espinal Dictated By: MAGALY ESPINAL Referring Physician: LES GOMEZ Diagnosis: ENDOMETRIAL CANCER Allergies: SULFA, DILAUDID, BAND-AIDS, CERTAIN ADHESIVES History of present illness: CHEMO ENCOUNTER. PT. HERE FOR CONSIDERATION OF CARBO / TAXOL #2 DUE TODAY, PENDING LABS. NEULASTA ON DAY 2. GOOD APPETITE, NORMAL BOWEL / BLADDER FX, PER PT. MILD NEUROPATHY RT. FINGER-DOES NOT AFFECT ADL'S. Past medical history: Medical: ENDOMETRIAL CANCER, MURMUR, HYPOTHYROID, GERD, MIGRAINES Surgical: XLP, ELIEZER, BSO, [...] hyperlipidemia Gastrointestinal: +GERD. No constipation or diarrhea, nausea, or vomiting Genitourinary: No dysuria, hematuria, urgency, or frequency Neurologic: +MILD NEUROPATHY IN RT. FINGER. No weakness, syncope, seizures, or headaches Gynecologic: +ENDOMETRIAL CA. No abnormal bleeding, vaginal discharge, pelvic pain, of h/o abnml pap smears LMP: G: P: Vag Deliveries: C-sec: Misc: Additional notes: +HYPOTHYROID Medications: Medication Reconciliation for the patient has been reviewed in the EMR. Physical exam: Constitutional: Weight 147 Height BP 110/68 Pulse Temp Neurological/Psychiatric: HEENT: ; worsening alopecia Neck: Respiratory: Cardiovascular: Breasts: Gastrointestinal: Lymphatic: Extremities: Gynecologic: External Genitalia: Vagina: Cervix: Uterus: Ovaries: Parametria: Smooth. Rectovaginal: Hemoccult: Procedure note: Assessment: 32 yo with stage III endometrial cancer for consideration of #2 carbo/taxol Significant neurtropenia (ANC = 0) and temp 100.3 requiring hospital stay with cycle #1. PS = 0, working. Plan: Will dose modify carbo by 10% due to the above. Neulast day 2. Chemotherapy today. Approved by: Magaly Espinal 03/06/2013, 10:23 AM cc: documented in this encounter Plan of Treatment Upcoming Encounters Date Type Department Care Team (Late st Contact Info) Description 01/30/2025 9:30 AM EDT Office Visit [facility] GYNECOLOGIC ONCOLOGY [address] [facility] [address] [place] [address] Iraida Jackson, ER REGISTRAR [address] [facility] [address] [place], [place] [id number] 02/12/2025 9:30 AM EDT Office Visit [facility] NEUROLOGY [address] [facility] [address] [place] [address] Tawanna Nassar, ER REGISTRAR [address] [facility] [address] [place], [place] [id number] documented as of this encounter Visit Diagnoses Not on filedocumented in this encounter Care Teams Contact Center Analyst Relationship Specialty Start Date End Date Андрей Green MD [address] [place] [address] PCP - General Family Medicine 06/25/24 documented as of this encounter
--- OUTSIDE RECORDS SUMMARY | 2025-01-14 10:09 | XMS_ITS | Encounter Summary ---
Author Organization [facility] Address [address] [place] [address] Care Team Providers Care Automotive Technician Instructor Name Role Phone Ebony Cruz OBED Unavailable [phone] Chaparro Amaya MD Unavailable Андрей Green MD Primary Care Provider [phone] Encounter Details Date Type Department Care Team (Late st Contact Info) Description 11/16/2024 Orders Only [facility] Medicine [address] [place] [address] Андрей Green MD [address] [place] [address] Social History Tobacco Use Types [...] place to sleep or slept in a usp (including now)? No 04/06/2024 PHQ-9 Answer Date [...] any time in the past 12 m [facility], were you homeless or living in a usp (including now)? No 10/19/2024 Safety and Environment [...] Description 03/29/2025 3:40 PM EDT Office Visit [facility] [address] [place] [address] Андрей Green MD [address] [place] [address] documented as of this encounter [...] documented as of this encounter Care Teams Automotive Technician Instructor Relationship Specialty Start Date End Date Андрей Green MD [address] [place] [address] PCP - General Family Medicine 04/06/24 Ebony Cruz APRN [address] [facility] [address] [place] [address] Referring Physician Gastroenterology 12/04/21 Chaparro Amaya MD [address] [facility] [address] [place] [address] Transplant Physician Transplant Surgery 12/10/21 documented as of this encounter
--- OUTSIDE RECORDS SUMMARY | 2025-01-14 10:10 | XMS_ITS | Encounter Summary ---
Author Organization [facility] Address [address] [place] [address] Care Team Providers Care Window Glass Installer Name Role Phone Ebony Cruz OBED Unavailable [phone] Chaparro Amaya MD Unavailable Андрей Green MD Primary Care Provider [phone] Encounter Details Date Type Department Care Team (Late st Contact Info) Description 12/27/2024 Orders Only [facility] [address] [place] [address] Андрей Green MD [address] [place] [address] Social History Tobacco Use Types [...] place to sleep or slept in a custodial (including now)? No 04/06/2024 PHQ-9 Answer Date [...] time in the past 12 m [facility], were you homeless or living in a custodial (including now)? No 10/19/2024 AUDIT-C Answer Date [...] Recorded In the past 12 months has [employer], [employer], oil, or water [employer] threatened to shut off services in your [...] Questionnaire -2 Score 0 12/27/2024 12:51 PM EDT Fabian, Jamilyn P * Question Answer Date of Assessment Author Trouble falling or staying asleep, or sleeping too much Not at all 12/27/2024 12:51 PM Julián Felix Feeling tired or having dereck le energy Not at all 12/27/2024 12:51 PM Julián Felix Poor appetite or overeating Not at all 12/27/2024 12 :51 PM JAQUELINET Julián Fabian Feeling bad about yourself - or that you are a failure or have let yourself or your family down Not at all 12/27/2024 12:51 PM JAQUELINET Julián Crocker Trouble concentrating on thi ngs, such as [...] (Past 1 Month) No 025 12:52 PM Julián Felix 2. Non-Specific Active Suici zulma Thoughts (Past 1 Month) No 12/27/2024 12:52 PM Char Felix 6. Suicidal Behavior (Lifetime) No 07/31/202 5 12:52 PM EDT Julián Fabian documented as of this encounter Plan of Treatment Upcoming Encounters Date Type Department Care Team (Late st Contact Info) Description 03/29/2025 3:40 PM EDT Office Visit [facility] [address] [place] [address] Андрей Green MD [address] [place] [address] documented as of this encounter Visit [...] documented as of this encounter Care Teams Window Glass Installer Relationship Specialty Start Date End Date Андрей Green MD [address] [place] [address] PCP - General Family Medicine 04/06/24 Ebony Cruz APRN [address] [place] [address] [address] [place] [address] Referring Physician Gastroenterology 12/04/21 Chaparro Amaya MD [address] [facility] [address] [place] [address] Transplant Physician Transplant Surgery 12/10/21 documented as of this encounter
--- OUTSIDE RECORDS SUMMARY | 2025-01-14 10:10 | XMS_ITS | Encounter Summary ---
Author Organization [facility] Address [address] [place] [address] Care Team Providers Care Crystal Lapper Name Role Phone Ebony Cruz OBED Unavailable [phone] Chaparro Amaya MD Unavailable Андрей Green MD Primary Care Provider [phone] Reason for Visit * Reason Onset Date Comments HCN Clinical Concern/Question 01/08/2025 Encounter Details Date Type Department Care Team (Late st Contact Info) Description 01/08/2025 Telephone [facility] Medicine [address] [place] [address] Андрей Green MD [address] [place] [address] HCN Clinical Concern/Question Social History [...] place to sleep or slept in a detention (including now)? No 04/06/2024 PHQ-9 Answer Date [...] any time in the past 12 m [facility], were you homeless or living in a detention (including now)? No 10/19/2024 AUDIT-C Answer Date [...] Recorded In the past 12 months has [employer], gas, oil, or water [employer] threatened to shut off services in your [...] encounter Miscellaneous Notes * Telephone Encounter - Kylee Mcfarlane - 01/09/2025 8:28 AM EDT Called and informed pt of information from Dr. Green about new RX. Informed pt if she has problems with this new one please let us know. Pt voiced understanding. * Telephone Encounter - Kylee Mcfarlane - 01/08/2025 3:39 PM EDT Called left vm. * Telephone Encounter - Андрей Hernández - 01/08/2025 1:52 PM EDT Clinical Concern/Question Reason for Call: Requesting a nurse call back today about possible side effects from a medication, please contact pt for more information. Best contact number: [phone] (home) Optimal time of day to reach caller: ANYTIME Additional comments/information from caller: None Note: Please do not reply to this message. Follow-up communication and further actions as a result of this message need to be communicated with the patient directly, if the patient is not active onMyChart. If the patient is active on MyChart, they will receive notification of the communication/outcome via MyChart. documented in this encounter Plan of Treatment Upcoming Encounters Date Type Department Care Team (Late st Contact Info) Description 03/29/2025 3:40 PM EDT Office Visit [facility] [address] [place] [address] Андрей Green MD [address] [place] [address] documented as of this encounter Visit Diagnoses Diagnosis Recurrent acute suppurative otitis media of right ear without spontaneous rupture of tympanic membrane- Primary documented in this encounter Additional Health Concerns Assessment Noted Time PHQ-9 Depression Total Score: 0 12/28/19 25 12:51 PM EDT A fall risk assessment has been complete d for the patient 04/30/2024 4:33 PM EST A Body Mass Index follow-up plan has been documented for the patient 12/27/2024 2:40 PM EDT documented as of this encounter Care Teams Crystal Lapper Relationship Specialty Start Date End Date Андрей Green MD [address] [place] [address] PCP - General Family Medicine 04/06/24 Ebony Cruz APRN [address] [place] [address] Referring Physician Gastroenterology 12/04/21 Chaparro Amaya MD [address] [place] [address] Transplant Physician Transplant Surgery 12/10/21 documented as of this encounter
--- OUTSIDE RECORDS SUMMARY | 2025-01-14 10:10 | XMS_ITS | Encounter Summary ---
Author Organization [facility] yste Address [address] [place] [address] Care Team Providers Care Automotive Glass Installer Name Role Phone Андрей Green MD Primary Care Provider [phone] Encounter Details Date Type Department Care Team (Late st Contact Info) Description 12/18/2012 Conversion Encounter [facility] HISTORICAL CONV [address] [facility] [place] [address] Interface, See Report Social History Tobacco Use Types Packs/Day Years Used Date Smoking Tobacco: Never Assessed Comments Unknown Sex and Gender Information Value Date Recorded Sex Assigned at Not on file Legal Sex Female 1:01 PM EDT Gender Identity Not on file Sexual Orientation Not on file documented as of this encounter Consult Notes * Interface, See Report - 12/18/2012 12:00 AM EDT STEWARDESS SUPERVISOR-Oncology Services [address] [place], [place] [id number] Patient: PARAMJIT SHARP MR #: : [id number] Date of Visit: 12/18/2012 Attending Physician: Magaly Espinal Dictated By: MAGALY ESPINAL Referring Physician: LES BELLE Diagnosis: ABNORMAL CERVICAL BIOPSY, ABNORMAL UTERINE BLEEDING Allergies: SULFA; DILAUDID , BAND-AIDS / CERTAIN ADHESIVES History of present illness: Pt is a 32 yo G0 with 5 months of AUB and irregular menses. She began noting heavy bleeding following intercourse 2 months ago. She presented to Dr. Emmy gonzalez who performed a PAP and at time of exam noted a cervical polyp which she then removed. Pathology revealed polyp ofmod differentiated endometriod adenocarcinoma favor endometrial primary with this PAP showing JEET-favor malig. Most recent PAP 3 neela hs ago was normal. Otherwise, feeling well. Reports intentional weight loss of 20#. Denies abdominal pain, bloating, N/V, early satiety, hematochezia or hematuria. Past family and/or social history: Family history: Mother - Hyst for AUB. +Diabetes, +HTN . 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 ENDOMETRIAL CA, HEART MURMUR, HYPOTHYROID, ACID REFLUX Surgical: ANGEL-EN-Y REVISION FOLLOWING CCY 2/2 COMMON BILE DUCT INJURY, LAP SELWYN , URETHRAL DILATION, EAR TUBES x3 Health maintenance: Mammogram: Colonoscopy: 2008 Pap smear: 12/05/12 Tumor Marker: CT Scan: BMD: Ultrasound: Review of systems: Constitutional: +20# INTENTIONAL WEIGHT LOSS OVER 7 MNTHS. N o excessive fatigue. Psychiatric: No history of anxiety, depression, bipolar disorder, or insomnia. Eyes: Vision unchanged Ears, Nose, Mouth, Throat: Hearing normal, no swallowing difficulties, no sore throat Endocrine: +HYPOTHYROID. No history of diabetes, heat/cold intolerance Lymphatic: No enlarged lymph nodes Respiratory: No shortness of breath, cough, asthma, wheezing Cardiovascular: +HEART MURMUR. No angina, orthopnea, edema, hypertension, hyperlipidemia Gastrointestinal: +REFLUX. No constipation or diarrhea, no nausea, or vomiting Genitourinary: No dysuria, hematuria, urgency, or frequency Neurologic: +MIGRAINES. No numbness, weakness, syncope, seizures Musculoskeletal: No muscle weakness, or joint pain Integumentary: No new skin lesions Gynecologic: +ENDO CA; +AUB; +H/O ABNML PAP. No vaginal discharge, LMP: 12/05/12 P: 0 Vag Deliveries: 0 C-sec: 0 Misc: 0 Hematologic: NEGATIVE Medications: Medication Reconciliation for the patient has been reviewed in the EMR. Physical exam: Constitutional: Weight 151 Height 64 BP 146/82 Pulse Temp Neurological/Psychiatric: HEENT: Neck: Respiratory: Cardiovascular: Breasts: Gastrointestinal: Lymphatic: Extremities: Skin: Gynecologic: External Genitalia: Vagina: Cervix: Uterus: Ovaries: Parametria: Smooth. Rectovaginal: Hemoccult: Procedure note: TVUS: revealed normal size uterus (8cm) with thickened endometrium in HERBERT. Normal bilateral ovaries. 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 Plan for possible CKC to further evaluate source of malignancy. Suspect endocervical origin given age, habitus and lack of family history. Approved by: Magaly Espinal 12/20/2012, 4:32 PM cc: Les Belle documented in this encounter Plan of Treatment Upcoming Encounters Date Type Department Care Team (Late st Contact Info) Description 01/30/2025 9:30 AM EDT Office Visit [facility] GYNECOLOGIC ONCOLOGY [address] [facility] [address] [place] [address] Iraida Jackson, RETAIL GIFT CARD MERCHANDISING [address] [facility] [address] [place], [place] [address] 02/12/2025 9:30 AM EDT Office Visit [facility] NEUROLOGY [address] [facility] [address] [place] [address] Tawanna Nassar, RETAIL GIFT CARD MERCHANDISING [address] [facility] [address] [place] [address] documented as of this encounter Visit Diagnoses Not on filedocumented in this encounter Care Teams Automotive Glass Installer Relationship Specialty Start Date End Date Андрей Green MD [address] [place] [address] PCP - General Family Medicine 06/25/24 documented as of this encounter
--- OUTSIDE RECORDS SUMMARY | 2025-01-14 10:10 | XMS_ITS | Encounter Summary ---
Author Organization [facility] Address [address] [place] [address] Care Team Providers Care Grain Trimmer Name Role Phone Shadi, Rosario Lalit GALEANO Primary Care Provider [phone] Ebony Cruz APRN Unavailable [phone] Chaparro Amaya MD Unavailable Андрей Green MD Primary Care Provider [phone] Encounter Details Date Type Department Care Team (Late st Contact Info) Description 03/29/2023 Lab Requisition [facility] [address] [place] [address] Carl Mendoza MD [address] [place] [address] Personal history of peptic ulcer disease Social History Tobacco Use Types Packs/Day Years Used Date Smoking Tobacco: Never Passive Smoke Exposure: Never Smokeless Tobacco: Never Alcohol Use Standard Drinks/Week Comments Not Currently 0 (1 standard drink = 0.6 oz pur e alcohol) PHQ-2 Answer Date Recorded Patient Health Questionnaire-2 Score 0 03/17/2023 PHQ-2A Answer Date Recorded Patient Health Questionnaire-2 Score 0 03/17/2023 Comments Unknown Sex and Gender Information Value [...] Description 03/29/2025 3:40 PM EDT Office Visit [facility] [address] [place] [address] Андрей Green MD [address] [place] [address] documented as of this encounter Procedures Procedure Name Priority Date/Time Associated Diagnosis Comments SURGICAL PATHOLOGY EXAM Routine 03/29/2023 Personal history of peptic ulcer disease documented in this encounter Results * Surgical Pathology Exam (03/29/2023) Case Report Surgical Pathology Case: [id number] Authorizing Provider: Carl Mendoza MD Collected: 03/29/2023 Ordering Location: [facility] Lab Received: 03/29/2023 1429 Pathologist: Aaron Lares DO Specimen: Gastric, gastric polyps biopsy 03/30/2023 5:12 PM EDT [facility] Final Diagnosis STOMACH, POLYPS, BIOPSY: - FUNDIC GLAND POLYPS (2). 03/30/2023 5:12 PM EDT [facility] at 1712 EDT Clinical Information Personal history of peptic ulcer disease Hematemesis History of gastric ulcers Suspected upper gastrointestinal bleeding EGD findings: - Multiple 2 to 7 mm sessile polyps with no bleeding and no stigmata of recent bleeding were found in the gastric fundus and in the gastric body. 03/30/2023 5:12 PM EDT [facility] Gross Description A. GASTRIC POLYPS BIOPSY The specimen is received in formalin labeled gastric polyp biopsy . Consists of two fragments of pink-kirby mucosa, measuring 0.3 x 0.2 x 0.1 cm in greatest dimesion. The specimen is submitted entirely in cassette A1. 03/30/2023 5:12 PM EDT [facility] Note: A resident was involved in the service. I attest I examined the relevant preparations for the specimens and confirmed the diagnosis or interpretation. 03/30/2023 5:12 PM EDT [facility] Tissue Stomach structure / Unknown 03/29/2023 03/29/2023 2:29 PM EDT us Carl Mendoza MD LAB PATHOLOGY ORDERABLES Final R esult [facility] [address] [place] [address] documented in this encounter Visit Diagnoses Diagnosis Personal history of peptic ulcer disease documented in this encounter Additional Health Concerns Infection Onset Date Last Indicated Resolved Time Gastrointestinal Rule-Out 05/16/2024 05/16/2024 6:55 PM EST C. difficile Rule-Out 05/16/2024 05/16/20242023 6:55 PM EST Assessment Noted Time A fall risk assessment has been complete d for the patient 03/17/2023 8:20 AM EDT documented as of this encounter Care Teams Grain Trimmer Relationship Specialty Start Date End Date Rosario Hsu DO PCP - General 12/04/21 04/05/24 Андрей Green MD [address] [place] [address] PCP - General Family Medicine 04/06/24 Ebony Cruz APRN [address] [place] [address] 202 [place] [address] Referring Physician Gastroenterology 12/04/21 Chaparro Amaya MD [address] [place] [address] Transplant Physician Transplant Surgery 12/10/21 documented as of this encounter
--- OUTSIDE RECORDS SUMMARY | 2025-01-14 10:10 | XMS_ITS | Encounter Summary ---
Author Organization [facility] Address [address] [place] [address] Care Team Providers Care Personal Injury Paralegal Name Role Phone Rosario Hsu DO Primary Care Provider [phone] Ebony Cruz APRN Unavailable [phone] Chaparro Amaya MD Unavailable Андрей Green MD Primary Care Provider [phone] Encounter Details Date Type Department Care Team (Late st Contact Info) Description 03/29/2023 Outside Procedure [address] [address] Provider, External Social History Tobacco Use Types Packs/Day Years [...] EDT Office Visit [facility] [address] [place] [address] Андрей Green MD [address] [place] [address] documented as of this encounter Procedures Procedure Name Priority Date/Time Associated Diagnosis Comments EGD 03/29/2023 12:52 PM EDT documented in this encounter Results * EGD (03/29/2023 12:52 PM EDT) Anatomical Region Laterality Modality Endoscopy 03/29/2023 12:2 9 PM EDT Impressions 03/29/2023 12:52 PM EDT Please see media tab for the result. Information added by interface. Narrative Procedure Note Carl Mendoza MD - 03/29/2023 IMPRESSION: Please see media tab for the result. Information added by interface. us External Provider GI PROCEDURE ORDERABLES Final Result documented in this encounter Visit Diagnoses Not on filedocumented in this encounter Additional Health Concerns Infection Onset Date Last Indicated Resolved Time Gastrointestinal Rule-Out 05/16/2024 05/16/2024 6:55 PM EST C. difficile Rule-Out 05/16/2024 05/16/20242023 6:55 PM EST Assessment Noted Time A fall risk assessment has been complete d for the patient 03/17/2023 8:20 AM EDT documented as of this encounter Care Teams Personal Injury Paralegal Relationship Specialty Start Date End Date Rosario Hsu DO PCP - General 12/04/21 04/05/24 Андрей Green MD [address] [place] [address] PCP - General Family Medicine 04/06/24 Ebony Cruz APRN [address] [place] [address] Referring Physician Gastroenterology 12/04/21 Chaparro Amaya MD [address] [place] [address] Transplant Physician Transplant Surgery 12/10/21 documented as of this encounter
--- OUTSIDE RECORDS SUMMARY | 2025-01-14 10:10 | XMS_ITS | Encounter Summary ---
Author Organization [facility] Address [address] [place] [address] Care Team Providers Care Meat Apprentice Name Role Phone Ebony Cruz OBED Unavailable Chaparro Amaya MD Unavailable Андрей Green MD Primary Care Provider [phone] Encounter Details Date Type Department Care Team (Late st Contact Info) Description 10/19/2024 Results Follow-Up [facility] [address] [place] [address] Андрей Green MD [address] [place] [address] Social History Tobacco Use Types [...] any time in the [facility] 12 m [facility] were you homeless or living in a detention (including now)? No 10/19/2024 Safety and Environment [...] Description 03/29/2025 3:40 PM EDT Office Visit [facility] [address] [place] [address] Андрей Green MD [address] [place] [address] documented as of this encounter [...] documented as of this encounter Care Teams Meat Apprentice Relationship Specialty Start Date End Date Андрей Green MD [address] [place] [address] PCP - General Family Medicine 04/06/24 Ebony Cruz APRN [address] [facility] [address] [place], [place] [address] Referring Physician Gastroenterology 12/04/21 Chaparro Amaya MD [address] [place] [address] Transplant Physician Transplant Surgery 12/10/21 documented as of this encounter
--- OUTSIDE RECORDS SUMMARY | 2025-01-14 10:10 | XMS_ITS | Encounter Summary ---
Author Organization [facility] Address [address] [place] [address] Care Team Providers Care Machine Lacer Name Role Phone Андрей Green MD Primary Care Provider [phone] Encounter Details Date Type Department Care Team (Late st Contact Info) Description 01/04/2013 Conversion Encounter [facility] HISTORICAL CONV [address] [place] [address] Interface, See Report Social History Tobacco Use Types Packs/Day Years Used Date Smoking Tobacco: Never Assessed Comments Unknown Sex and Gender Information Value Date Recorded Sex Assigned at Not on file Legal Sex Female 1:01 PM EDT Gender Identity Not on file Sexual Orientation Not on file documented as of this encounter Progress Notes * Interface, See Report - 01/04/2013 12:00 AM EDT [employer]-Oncology Services [address] [place] [address] Patient: PARAMJIT SHARP MR #: : [id number] Date of Visit: 01/04/2013 Attending Physician: Magaly Espinal Dictated By: MAGALY ESPINAL Referring Physician: LES GOMEZ Diagnosis: ENDOMETRIAL CANCER Allergies: SULFA; DILAUDID, BAND-AIDS / CERTAIN ADHESIVES History of present illness: POSTOP- talk only Past medical history: Medical: ENDOMETRIAL CANCER; HEART MURMUR, HYPOTHYROID, ACID REFLUX , MIGRAINES Surgical: ANGEL-EN-Y REVISION FOLLOWING [facility] 2/2 COMMON BILE DUCT INJURY, LAP SELWYN, URETHRAL DILATION, EAR TUBES x3 Health maintenance: Mammogram: N/A Colonoscopy: 2008 Pap smear: 12/05/12 Tumor Marker: CT Scan: N/A BMD: N/A Ultrasound: 12/18/12 Review of systems: Constitutional: No change in weight, no excessive fatigue Psychiatric: No history of anxiety, depression, bipolar disorder, or insomnia Respiratory: No shortness of breath, cough, asthma, wheezing Cardiovascular: +MURMUR. No angina, orthopnea, edema, hypertension, hyperlipidemia Gastrointestinal: +ACID REFLUX. No constipation or diarrhea, nausea, or vomiting Genitourinary: No dysuria, hematuria, urgency, or frequency Neurologic: +MIGRAINES. No numbness, weakness, syncope, seizures Gynecologic: +ENDO CA. No abnormal bleeding, vaginal discharge, pelvic pain, of h/o abnml pap smears LMP: P: 0 Vag Deliveries: 0 C-sec: 0 Misc: 0 Additional notes: +HYPOTHYROID Medications: Medication Reconciliation for the patient has been reviewed in the EMR. Physical exam: Constitutional: Weight 151 Height BP 114/78 Pulse Temp Neurological/Psychiatric: HEENT: Neck: Respiratory: Cardiovascular: Breasts: Gastrointestinal: Lymphatic: Extremities: Gynecologic: External Genitalia: Vagina: Cervix: Uterus: Ovaries: Parametria: . 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 Due to extensive prior abdominal surgery, s he was consented for ELIEZER, BSO, LND. Risks/benefits discussed. Possiblity of adjuvant treatment discussed. Patient had questions about egg harvest but decided against referral to [facility]. All questions answered. Approved by: Magaly Espinal 01/04/2013, 3:47 PM cc: documented in this encounter Plan of Treatment Upcoming Encounters Date Type Department Care Team (Late st Contact Info) Description 01/30/2025 9:30 AM EDT Office Visit [facility] GYNECOLOGIC ONCOLOGY [address] [facility] [address] [place] [address] Iraida Jackson, INSPECTOR SET UP AND LAY OUT [address] [facility] [address] [place] [address] 02/12/2025 9:30 AM EDT Office Visit [facility] NEUROLOG[facility] [address] [facility] [address] [place] [address] Tawanna Nassar, INSPECTOR SET UP AND LAY OUT [address] [facility] [address] [place] [address] documented as of this encounter Visit Diagnoses Not on filedocumented in this encounter Care Teams Machine Lacer Relationship Specialty Start Date End Date Андрей Green MD [address] [place] [address] PCP - General Family Medicine 06/25/24 documented as of this encounter
--- OUTSIDE RECORDS SUMMARY | 2025-01-14 10:10 | XMS_ITS | Patient Health Record ---
Author Organization [facility] Address [address] [place] [address] Care Team Providers Care Ornamenter Hand Name Role Phone Shruti Duke [phone] Allergies Allergen (clinical drug ingredient) Drug/Non Drug Allergy documented on EMR Reaction Allergy Type Onset Date Status sulfamethoxazole / trimethoprim SULFAMETHOXAZOLE-T RIMETHOPRIM Unspecified Drug Allergy 12/06/2018 Active hydromorphone DILAUDID (uncoded) Unspecified Allergy 12/06 Active Reason For Referral No Information Social History Social History Additional Details Category Social Info Options Details Miscellaneous: Caffeine: CAFFEINE USE: 1 Problems Problem Type SNOMED Code ICD Code Onset Dates Problem Status W/U Status Risk Notes Problem Urinary tract infectious disease (59528854) *Urinary tract infection, site not specified (Code also, Infectious agent B95-B97 or signs & symptoms) (N39.0) 02/21/20 19 Active confirmed Urinary tract infection, site not specified Problem Emotional lability (17949025) Alteration in feeling patterns as evidenced by anxiety (R45.86) 12/07/19 19 Active confirmed Cyclic mood swings Problem Laboratory test result abnormal (403232863) Abnormal alkaline phosphatase test (R74.8) 02/21/20 19 Active confirmed Elevated liver enzymes level Plan Of Treatment No Information Medical (General) History Medical History History ICD Code Acid Reflux Anxiety Hypothyroidism IBS-C Gastroparesis Lymphedema Uterine Cancer (dx 2012) Breast pain ABORTIONS: 0 TOPAMAX 50 MG ORAL TABLET, ORAL PHENTERMINE HCL 37.5 MG ORAL TABLET, ORA L SYNTHROID TABLET FUROSEMIDE TABLET OMEPRAZOLE TABLET DELAYED RELEASE NITROFURANTOIN MACROCRYSTAL 100 MG ORAL CAPSULE, ORAL Surgical History Surgery Date(Month/Year) Hyst+BSO ([place]; 2013), Tonsillectomy -2013, Cholecystectomy-2006
--- OUTSIDE RECORDS SUMMARY | 2025-01-14 10:10 | XMS_ITS | Encounter Summary ---
Author Organization [facility] Address [address] [place] [address] Care Team Providers Care Architecture Technician Name Role Phone Shadi Rosario Lalit GALEANO Primary Care Provider [phone] Ebony Cruz APRN Unavailable [phone] Gena Olguin RN Unavailable [phone] Kary Willis Unavailable [phone] Andrea Valle MD Unavailable [phone] Chaparro Amaya MD Unavailable Андрей Green MD Primary Care Provider [phone] Encounter Details Date Type Department Care Team (Late st Contact Info) Description 03/25/2020 Orders Only External Location [address] [place] [address] Provider, External Social History Tobacco Use Types [...] Description 03/29/2025 3:40 PM EDT Office Visit [facility] [address] [place] [address] Андрей Green MD [address] [place] [address] documented as of this encounter Procedures Procedure Name Priority Date/Time Associated Diagnosis Comments CT MSK OUTSIDE IMAGES 03/25/2020 10:12 AM EDT documented in this encounter Results * CT MSK OUTSIDE IMAGES (03/25/2020 10:12 AM EDT) Anatomical Region Laterality Modality Computed Tomogra phy 03/25/2020 10:1 2 AM EDT External Provider IMG CT PROCEDURES Final Result documented in this encounter Visit Diagnoses Not on filedocumented in this encounter Additional Health Concerns Infection Onset Date Last Indicated Resolved Time Gastrointestinal Rule-Out 05/16/2024 05/16/2024 6:55 PM EST C. difficile Rule-Out 05/16/2024 05/16/20242023 6:55 PM EST documented as of this encounter Care Teams Architecture Technician Relationship Specialty Start Date End Date Rosario Hsu DO PCP - General 12/04/21 04/05/24 Андрей Green MD [address] [place] [address] PCP - General Family Medicine 04/06/24 Ebony Cruz APRN [address] [facility] 202 [place] [address] Referring Physician Gastroenterology 12/04/21 Gena Olguin, RN [facility] [address] [place] [address] Registered Nurse Transplant Surgery 12/07/21 02/20/23 [place] [address] Registered Nurse Transplant Surgery 12/07/21 02/20/23 Andrea Valle MD [address] [place] [address] Surgeon Transplant Surgery 12/07/21 12/09/21 Chaparro Amaya MD [address] [place] [address] Transplant Physician Transplant Surgery 12/10/21 documented as of this encounter
--- OUTSIDE RECORDS SUMMARY | 2025-01-14 10:10 | XMS_ITS | Encounter Summary ---
Author Organization [facility] Address [address] [place] [address] Care Team Providers Care Bow Tacker Name Role Phone Ebony Cruz OBED Unavailable [phone] Chaparro Amaya MD Unavailable Андрей Green MD Primary Care Provider [phone] Encounter Details Date Type Department Care Team (Late st Contact Info) Description 12/31/2024 Results Follow-Up [facility] [address] [place] [address] Андрей Green MD [address] [place] [address] Social History Tobacco Use Types [...] place to sleep or slept in a long term (including now)? No 04/06/2024 PHQ-9 Answer Date [...] any time in the past 12 m [facility], were you homeless or living in a long term (including now)? No 10/19/2024 AUDIT-C Answer Date [...] Recorded In the past 12 months has [employer], gas, oil, or water [employer] threatened to shut off services in your [...] as of this encounter Miscellaneous Notes * Result Encounter Note - Андрей Green MD - 12/31/2024 9:40 AM EDT Prealbumin is slightly on the lower end but very close to normal. Normal fasting sugar, kidney function, electrolytes and liver function tests. Will recheck on levels at next visit. documented in this encounter Plan of Treatment Upcoming Encounters Date Type Department Care Team (Late st Contact Info) Description 03/29/2025 3:40 PM EDT Office Visit [facility] [place] [address] Андрей Green [place] [address] documented as of this encounter Visit [...] documented as of this encounter Care Teams Bow Tacker Relationship Specialty Start Date End Date Андрей Green MD [address] [place] [address] PCP - General Family Medicine 04/06/24 Ebony Cruz APRN [address] [facility] [address] [place] [address] Referring Physician Gastroenterology 12/04/21 Chaparro Amaya MD [address] [facility] [address] [place] [address] Transplant Physician Transplant Surgery 12/10/21 documented as of this encounter
--- OUTSIDE RECORDS SUMMARY | 2025-01-14 10:10 | XMS_ITS | Encounter Summary ---
Author Organization [facility] Address [address] [place] [address] Care Team Providers Care Senior Informatica Developer Name Role Phone Shadi Rosario Lalit GALEANO Primary Care Provider [phone] Ebony Cruz APRN Unavailable [phone] Gena Olguin RN Unavailable [phone] Kary Willis Unavailable [phone] Andrea Valle MD Unavailable [phone] Chaparro Amaya MD Unavailable Андрей Green MD Primary Care Provider [phone] Encounter Details Date Type Department Care Team (Late st Contact Info) Description 03/25/2020 Orders Only External Location [address] [place] [address] Provider, External Social History Tobacco Use Types [...] Description 03/29/2025 3:40 PM EDT Office Visit [facility] [address] [place] [address] Андрей Green MD [address] [place] [address] documented as of this encounter [...] documented as of this encounter Care Teams Senior Informatica Developer Relationship Specialty Start Date End Date Rosario sHu DO PCP - General 12/04/21 04/05/24 Андрей Green MD [address] [place] [address] PCP - General Family Medicine 04/06/24 Ebony Cruz APRN 1780 [facility] 202 [place] [address] Referring Physician Gastroenterology 12/04/21 Gena Olguin, RN [facility] [address] [place] [address] Registered Nurse Transplant Surgery 12/07/21 02/20/23 [place] [address] Registered Nurse Transplant Surgery 12/07/21 02/20/23 Andrea Valle MD [address] [place] [address] Surgeon Transplant Surgery 12/07/21 12/09/21 Chaparro Amaya MD [address] [place] [address] Transplant Physician Transplant Surgery 12/10/21 documented as of this encounter
--- OUTSIDE RECORDS SUMMARY | 2025-01-14 10:10 | XMS_ITS | Encounter Summary ---
Author Organization [facility] Address [address] [place] [address] Care Team Providers Care Scudding Inspector Name Role Phone Ebony Cruz Kael CLAY Unavailable [phone] Chaparro Amaya MD Unavailable Андрей Green MD Primary Care Provider [phone] Encounter Details Date Type Department Care Team (Latest Contact Info) Description 12/27/2024 Travel Social History Tobacco Use Types Packs/Day [...] place to sleep or slept in a alf (including now)? No 04/06/2024 PHQ-9 Answer Date [...] any time in the past 12 m [facility], were you homeless or living in a alf (including now)? No 10/19/2024 AUDIT-C Answer Date [...] Not at all 12/27/2024 12 :51 PM EDT Julián Fabian Feeling bad about yourself - or that you are a failure or have let yourself or your family down Not at all 12/27/2024 12:51 PM EDT Julián Crocker Trouble concentrating on thi ngs, such as reading the newspaper or watching television Not at all 12/27/2024 12:51 PM EDT Julián Fabian Moving or speaking so slowly that other [...] (Past 1 Month) No 025 12:52 PM EDJulián Cai 2. Non-Specific Active Suici zulma Thoughts (Past 1 Month) No 12/27/2024 12:52 PM EDT Char Fabian 6. Suicidal Behavior (Lifetime) No 12:52 PM Julián Felix documented as of this encounter Plan of Treatment Upcoming Encounters Date Type Department Care Team (Late st Contact Info) Description 03/29/2025 3:40 PM EDT Office Visit [facility] [address] [place] [address] Аднрей Green MD [address] [place] [address] documented as of this encounter [...] documented as of this encounter Care Teams Scudding Inspector Relationship Specialty Start Date End Date Андрей Green MD [address] [place] [address] PCP - General Family Medicine 04/06/24 Ebony Cruz APRN [address] [place] [address] Referring Physician Gastroenterology 12/04/21 Chaparro Amaya MD [address] [facility] [address] [place] [address] Transplant Physician Transplant Surgery 12/10/21 documented as of this encounter
--- OUTSIDE RECORDS SUMMARY | 2025-01-14 10:10 | XMS_ITS | Encounter Summary ---
Author Organization [facility] Address [address] [place] [address] Care Team Providers Care Contract Clerk Automobile Name Role Phone Андрей Green MD Primary Care Provider [phone] Encounter Details Date Type Department Care Team (Late st Contact Info) Description 01/30/2013 Conversion Encounter [facility] HISTORICAL CONV [address] [place] [address] Interface, See Report Social History Tobacco Use Types Packs/Day Years Used Date Smoking Tobacco: Never Assessed Comments Unknown Sex and Gender Information Value Date Recorded Sex Assigned at Not on file Legal Sex Female 1:01 PM EDT Gender Identity Not on file Sexual Orientation Not on file documented as of this encounter Progress Notes * Interface, See Report - 01/30/2013 12:00 AM EDT [employer]-Oncology Services [address] [place] [address] Patient: PARAMJIT SHARP MR #: : [id number] Date of Visit: 01/30/2013 Attending Physician: Magaly Espinal Dictated By: MAGALY ESPINAL Referring Physician: LES BELLE Diagnosis: ENDOMETRIAL CANCER Allergies: SULFA, DILAUDID, BAND-AIDS, CERTAIN ADHESIVES History of present illness: POSTOP; XLP, ELIEZER, BSO, LND, BX OF BLADDER/PERITONEUM, OPTIMAL DEBULKINGON 01-10-13 . PT. C/O OCC BLADDER SPASMS BUT IS OTHERWISE DOING WELL. NORMAL BOWEL FX. 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 Rash improved and almost resolved with hydrocortisone and benadryl. Past medical history: Medical: ENDOMETRIAL CANCER, MURMUR, [...] shortness of breath, cough, asthma, wheezing Cardiovascular: + MURMUR. No angina, orthopnea, edema, hypertension, hyperlipidemia. Gastrointestinal: + GERD. No constipation or diarrhea, nausea, or vomiting Genitourinary: No dysuria, hematuria, urgency, or frequency Neurologic: + MIGRAINES. No numbness, weakness, syncope, seizures, or headaches Gynecologic: + ENDOMETRIAL CANCER. No abnormal bleeding, vaginal discharge, pelvic pain, of h/o abnml pap smears LMP: G: P: Vag Deliveries: C-sec: Misc: Additional notes: + HYPOTHYROID Medications: Medication Reconciliation for the patient has been reviewed in the EMR. Physical exam: Constitutional: Weight 148 Height BP 116/72 Pulse Temp Neurological/Psychiatric: HEENT: Neck: Respiratory: Cardiovascular: Breasts: Gastrointestinal: Incision c/d/i - surrounding area of resolving rash Lymphatic: Extremities: Gynecologic: External Genitalia: Vagina: pink, small verrucoid type lesion right fornix Cervix: Uterus: Ovaries: Parametria: Smooth. Rectovaginal: Hemoccult: Procedure note: Assessment: 32 year old with Stage III endometrial cancer Healing well s/p surgery including excision of pelvic disease 01/10/13 Plan: Pathology reviewed. It was recommended patient undergo sandwitch chemo-radiation with carboplatin/taxol x3 cycles q 21 dyas and WPR +/- vaginal brachy followed by 3 additional cycles of carbo taxol. Risks were reviewed. Rationale was reviewed. Patient would like vascular PAC after discussion of options. This will be scheduled. Approved by: Magaly Espinal 01/31/2013, 10:11 AM cc: Les Belle documented in this encounter Plan of Treatment Upcoming Encounters Date Type Department Care Team (Late st Contact Info) Description 01/30/2025 9:30 AM EDT Office Visit [facility] GYNECOLOGIC ONCOLOGY [address] [facility] [address] [place], [place] [id number] Iraida Jackson, RESIDENTIAL CARPET INSTALLER [address] [facility] [address] [place], [place] [id number] 02/12/2025 9:30 AM EDT Office Visit [facility] NEUR[facility] [address] [facility] [address] [place] [address] Tawanna Nassar, RESIDENTIAL CARPET INSTALLER [address] [facility] [address] [place], [place] [id number] documented as of this encounter Visit Diagnoses Not on filedocumented in this encounter Care Teams Contract Clerk Automobile Relationship Specialty Start Date End Date Андрей Green MD [address] [place] [address] PCP - General Family Medicine 06/25/24 documented as of this encounter
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
--- OUTSIDE RECORDS SUMMARY | 2025-01-14 10:10 | XMS_ITS | Encounter Summary ---
Author Organization [facility] Address [address] [place] [address] Care Team Providers Care Disintegrator Feeder Name Role Phone Ebony Cruz OBED Unavailable [phone] Chaparro Amaya MD Unavailable Андрей Green MD Primary Care Provider [phone] Reason for Visit * Reason Comments Med Refill Encounter Details Date Type Department Care Team (Late st Contact Info) Description 12/26/2024 Refill [facility] [address] [place] [address] Андрей Green MD [address] [place] [address] Social History Tobacco Use Types [...] place to sleep or slept in a mcc (including now)? No 04/06/2024 PHQ-9 Answer Date [...] time in the past 12 m [facility] [place], were you homeless or living in a mcc (including now)? No 10/19/2024 AUDIT-C Answer Date [...] the past 12 months has th e ar[employer], gas, oil, or water [employer] threatened to shut off services in your [...] encounter Miscellaneous Notes * Telephone Encounter - Jennifer Nassar PharmD - 12/27/2024 9:55 AM EDT 1 medication(s) has been denied per protocol due to: Duplicate request prescription sent today documented in this encounter Plan of Treatment Upcoming Encounters Date Type Department Care Team (Late st Contact Info) Description 03/29/2025 3:40 PM EDT Office Visit [facility] [address] [place] [address] Андрей Green MD [address] [place] [address] documented as of this encounter [...] documented as of this encounter Care Teams Disintegrator Feeder Relationship Specialty Start Date End Date Андрей Green MD [address] [place] [address] PCP - General Family Medicine 04/06/24 Ebony Cruz APRN [address] [place] [address] [address] [place] [address] Referring Physician Gastroenterology 12/04/21 Chaparro Amaya MD [address] [facility] [address] [place] [address] Transplant Physician Transplant Surgery 12/10/21 documented as of this encounter
--- OUTSIDE RECORDS SUMMARY | 2025-01-14 10:10 | XMS_ITS | Clinical Summary ---
Author Organization [facility] Address [address] [place] [address] Care Team Providers Care Director Payer Name Role Phone Ebony Cruz Kael CLAY Unavailable [phone] Chaparro Amaya MD Unavailable Андрей Green MD Primary Care Provider [phone] Allergies Active Allergy Reactions Criticality Noted Date Comments Acetaminophen Other - please document in the comment field High 11/04/2022 Hydromorphone Other - please document in the comment field,Itching High 04/01/2016 IV Other reaction(s): MAKES CRAZY N/V Magnesium Nausea Low 11/04/2022 Magnesium-Containing Compounds Other - please document in the comment field Low 07/26/2019 IV Cant take 'the regular magnesium' but the 'slow rapid release' Sertraline Other - please document in the comment field High 03/23/2024 Sulfa Drugs Hives High 10/31/2015 Other reaction(s): I-RASH Wound Dressing Adhesive Rash Low 04/02/2016 Medications * This document contains information received from the source organization and may not represent a complete record from that organization. fluticasone (Flonase) 50 MCG/ACT nasal spray Administer 2 sprays into each nostril 1 (one) time each day. Shake gently. Before first use, prime pump. After use, clean tip and replace cap. 16 g 1 02/05/20 23 Active Additional Information Patient taking differently:2 spray Each NostrilAs needed, Shake gently. Before first use, prime pump. After use, clean tip and replace cap., Reported on 12/18/2024 linaCLOtide (Linzess) 290 MCG capsule Take 1 capsule (290 mcg) by mouth 1 (one) time each day before breakfast. Active furosemide (Lasix) 20 MG tablet Take 1 tablet by mouth daily as needed (pitting edema). 30 tablet 2 09/07/19 25 Active omeprazole (PriLOSEC) [address] capsule Take 1 capsule by mouth 2 (two) times a day. Do not crush or chew. 180 capsule 3 09/21/19 25 Active Synthroid 25 MCG tablet Take 1 tablet by mouth daily before breakfast. 90 tablet 2 10/18/19 25 Active estrogens, conjugated, (Premarin) vaginal cream Insert 0.625 mg into the vagina daily. 10/12/19 25 Active valACYclovir (Valtrex) 500 MG tablet Take 1 tablet by mouth as needed. Active aMILoride (Midamor) 5 MG tablet Take 1 tablet by mouth daily. 90 tablet 2 10/20/19 25 Active ondansetron (Zofran) 8 MG tablet Take 1 tablet by mouth every 8 hours as needed for nausea or vomiting. 20 tablet 2 10/20/19 25 Active magnesium oxide (Mag-Ox) 400 MG tablet Take 1 tablet by mouth 2 times a day. 60 tablet 2 10/20/19 25 Active topiramate 50 MG tablet Take 1 tablet by mouth daily. 90 tablet 2 11/17/19 25 Active potassium chloride ER (Micro-K) 10 MEQ ER capsule Take 2 capsules by mouth 3 times a day. Do not crush or chew. 180 capsule 11 11/22/19 25 Active amphetamine-dex troamphetamine XR (Adderall XR) 20 MG 24 hr capsule Take 1 capsule by mouth every morning. Do not crush or chew. 30 capsule 12/28/19 25 025 Active amoxicillin-cla vulanate (Augmentin) 875-125 MG tabletIndicatio ns:Recurrent acute suppurative otitis media of right ear without spontaneous rupture of tympanic membrane Take 1 tablet by mouth 2 times a day for 10 days. 20 tablet 01/09/20 25 025 Active amphetamine-dex troamphetamine XR (Adderall XR) 20 MG 24 hr capsule Take 1 capsule by mouth every morning. Do not crush or chew. 30 capsule 11/17/19 25 025 Discontinu ed(Reorder ) ciprofloxacin-d examethasone (CiproDEX) otic suspensionIndic ations:Right acute serous otitis media, recurrence not specified Administer 4 drops into affected ear(s) 2 times a day for 7 days. 7.5 mL 12/19/19 25 025 doxycycline (Vibramycin) 100 MG capsuleIndicati ons:Recurrent acute suppurative otitis media of right ear without spontaneous rupture of tympanic membrane Take 1 capsule by mouth 2 times a day for 10 days. Take with at least 8 ounces (large glass) of water, do not lie down for 30 minutes after 20 capsule 12/28/19 25 025 Discontinu ed(Therapy completed) Active Problems Problem Noted Date Diagnosed Date Cervical radiculopathy 04/06/2024 Chronic post-traumatic stress disorder (PTSD) Overview (04/06/2024): Jessica reported having a traumatic childhood because [...] anxiety disorder with panic attacks 04/06/2024 Overview (04/06/2024): Jessica reported having Anxiety and panic attacks as a young child. She claims her mother and grandmother have anxiety, also. 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 Chronic migraine with aura w ithout status migrainosus, not intractable 03/17/2023 03/17/2023 Migraine 03/17/2023 03/17/2023 Rib pain 03/17/2023 03/17/2023 Thoracic back pain 03/17/2023 03/17/2023 Torticollis 03/17/2023 03/17/2023 UTI (urinary tract infection) 03/17/2023 Bilateral adrenal adenomas 12/23/202203/17 Overview (03/17/2023): Last Assessment & Plan: She has had stable bilateral adrenal nodules/ [...] ris k human papillomavirus of vagina 09/23/2022 03/17/2023 VAIN I (vaginal intraepithelial neoplasia grade I) 09/07/2022 03/17/2023 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 03/17/2023 Hypokalemia 04/09/2019 03/17/2023 Hemorrhoid 02/10/2017 03/17/2023 Painful cutaneous scar 06/15/2016 Abnormal LFTs 01/02/2016 03/17/2023 Abnormal serum level of alkaline phosphatase 09/201503/17/2023 Anxiety 01/02/2016 03/17/2023 Atopic rhinitis 01/02/2016 03/17/2023 Gastroesophageal reflux disease without esophagi tis 01/02/2016 03/17/2023 Hypothyroidism 01/02/2016 03/17/2023 Insomnia 01/02/2016 03/17/2023 Lymphedema, not elsewhere classified 01/02/2016 03/17/2023 LGSIL Pap smear of vagina 05/30/20122022 Resolved Problems Problem Noted Date Diagnosed Date Resolved Date Strep throat 04/06/2024 04/06/2024 Acute bronchitis 03/17/2023 03/17/2023 04/06/2024 BOM (bilateral otitis media) 03/17/2023 03/17/2023 04/06/2024 Pharyngitis 03/17/2023 03/17/2023 04/06/2024 Sinusitis 03/17/2023 03/17/2023 04/06/2024 URI (upper respiratory infection) 03/17/2023 023 04/06/2024 Viral syndrome 03/17/2023 03/17/2023 04/06/2024 Endometrial cancer 06/18/2016 03/17/2023 Encounters Date Type Department Care Team Description 01/08/2025 Telephone [facility] [address] [place] [address] Андрей Green MD HCN Clinical Concern/Question 12/31/2024 Results Follow-Up [facility] [address] [place] [address] Андрей Green MD 12/27/2024 12:40 PM EDT Office Visit [facility] [address] [place] [address] Андрей Green MD Recurrent acute suppurative otitis media of right ear without spontaneous rupture of tympanic membrane (Primary Dx); Vomiting, unspecified vomiting type, unspecified whether nausea present; Fatigue, unspecified type; Protein malnutrition (CMS/HCC) 12/27/2024 Travel 12/27/2024 Orders Only [facility] [address] [place] [address] Андрей Green MD 12/26/2024 Refill [facility] [address] [place] [address] Андрей Green MD 12/26/2024 Telephone [facility] [address] [place] [address] Андрей Green MD HCN Clinical Concern/Question 12/18/2024 2:00 PM EDT Office Visit [facility] [address] [place] [address] Renetta Royal MD Right acute serous otitis media, recurrence not specified (Primary Dx) 12/18/2024 Travel 11/21/2024 Refill [facility] [address] [place] [address] Андрей Green MD 11/16/2024 Orders Only [facility] [address] [place] [address] Андрей Green MD 11/16/2024 Telephone [facility] [address] [place] [address] Андрей Green MD HCN Clinical Concern/Question (refills) 10/19/2024 8:40 AM EDT Office Visit [facility] [address] [place] [address] Андрей Green MD Common bile duct dilation (Primary Dx); Fatigue, unspecified type; Protein malnutrition (CMS/HCC); Nausea 10/19/2024 Results Follow-Up [facility] [address] [place] [address] Андрей Green MD 10/19/2024 Travel 10/16/2024 Refill [facility] [address] [place] [address] Андрей Green MD 10/16/2024 Refill [facility] [address] [place] [address] Андрей Green MD 10/16/2024 Orders Only [facility] [address] [place], [place] [address] Андрей Green MD Gastroparesis (Primary Dx); Common bile duct dilation; Gastroesophageal reflux disease, unspecified whether esophagitis present 10/16/2024 Telephone [facility] [address] [place] [address] Андрей Geren MD from Last 3 Months Immunizations Immunization Administration Dates Next Due Hep A, Adult 11/14/2015 Hep A, ped/adol, 2 dose 03/20/2015 Hep B, Adolescent or Pediatric 6,06/03/2015,03/20/2015,1996,12/28/1996 Hep B, Adolescent/High Risk 07/19/1997 Influenza, injectable, quadr ivalent, preservative free 03/11/2023 Influenza, seasonal, injecta ble, preservative free 03/23/2024 [employer] COVID-19 Vac cine (Purple Cap) 12+ 02/13/2021,01/23/2021 TD (adult), 2 Lf tetanus tox oid, preservative free, adsorbed 01/09/2004 Tdap 12/13/2022 Family History Medical History Relation Name Comments No Known Problems Brother No Known Problems Father Cancer Maternal Grandfather Diabetes Maternal Grandfather Hypertension Maternal Grandmother Hearing loss Maternal Great-Grandfather Heart disease Maternal Great-Grandfather Migraines Mother No Known Problems Paternal Grandfather No Known Problems Paternal Grandmother Relation Name Status Comments Brother Alive Father Maternal Grandfather Maternal Grandmother Alive Maternal Great-Grandfather Alive Mother Alive Paternal Grandfather Paternal Grandmother Social History Tobacco Use Types Packs/Day Years [...] place to sleep or slept in a halfway (including now)? No 04/06/2024 PHQ-9 Answer Date [...] any time in the past 12 m [facility], were you homeless or living in a halfway (including now)? No 10/19/2024 AUDIT-C Answer Date [...] Recorded In the past 12 months has [employer], gas, oil, or water [employer] threatened to shut off services in your home? No 10/19/2024 PHQ-2A Answer Date Recorded Patient Health Questionnaire-2 Score 0 03/17/2023 Comments No Sex and Gender Information Value Date Recorded Sex Assigned at Female 12/09/2022 10:46 PM EDT Legal Sex Female 8:23 PM EDT Gender Identity Female 12/09/2022 10:46 PM EDT Sexual Orientation Straight 12/09/2022 10 :46 PM EDT Last Filed Vital Signs Vital Sign Reading [...] Mass Index 19.08 12/27/2024 12:44 PM EDT Plan of Treatment Upcoming Encounters Date Type Department Care Team (Late st Contact Info) Description 03/29/2025 3:40 PM EDT Office Visit [facility] [address] [place] [address] Андрей Green MD [address] [address] Health Maintenance Due Date Last Done Comments [facility]-Varicella Vaccines (1 of 2 - 13+ 2-dose series) 1994 HPV Vaccines (1 - 3-dose SCDM series) 2008 HTM-WPYPN-01 Vaccine (3 - Pfizer risk series) 03/13/2021 02/13/2021, 01/23/2021 [facility]-Infant/Child/Adol SDOH Screenings 10/04/2024 04/06/2024 [facility]-Influenza Vaccine (#1) 2025 03/23/2024, [facility]- SDOH Screenings 04/21/2025 [facility]-Adult SDOH Screenings 04/21/2025 10/19/2024 [facility]-Depression Screening 12/27/2025 12/27/2024, 11/29 [facility]-Zoster Vaccines (1 of 2) 2031 [facility]-DTaP,Tdap,and Td Vaccines (2 - Td or Tdap) 12/13/2032 12/13/2022, 01/09/2004 [facility]-Hepatitis A Vaccines Aged Out 11/14/2015, 02/28 No longer eligible based on patient's age to complete this topic [facility]-Hepatitis B Vaccines Completed 016, 06/03/2015, 03/20/2015, Additional history exists [facility]-Hepatitis C Screening Completed 02/21/2023 [facility]-HIV Screening Completed 04/06/2024, 02/21/2023 [facility]-Cervical Cancer Screening Discontinued [facility]-Pap Smear Discontinued 08/08/2024, 02/09/2024 [facility]-HIB Vaccines Aged Out No longer e ligible based on patient's age to complete this topic [facility]-HPV/Cotest Discontinued [facility]-IPV Vaccines Aged Out No longer e ligible based on patient's age to complete this topic [facility]-Pneumococcal Vaccine: Pediatrics (0 to 5 Years) and At-Risk Patients (6 to 49 Years) Aged Out No longer eligible based on patient's age to complete this topic [facility]-Rotavirus Vaccines Aged Out No lo nger eligible based on patient's age to complete this topic Procedures Procedure Name Priority Date/Time Associated Diagnosis Comments COMPREHENSIVE METABOLIC PANEL, PLASMA Routine 12/27/2024 1:39 PM EDT Vomiting, unspecified vomiting type, unspecified whether nausea present Fatigue, unspecified type Protein malnutrition (CMS/HCC) PREALBUMIN, PLASMA Routine 12/27/2024 1: 39 PM EDT Vomiting, unspecified vomiting type, unspecified whether nausea present Fatigue, unspecified type Protein malnutrition (CMS/HCC) LEONARDO-MCGOVERN VIRUS ANTIBODY TO VIRAL CAPSID ANTIGEN, IGM(SO Routine 10/19/2024 10:01 AM EDT Fatigue, unspecified type LEONARDO-MCGOVERN VIRUS ANTIBODY TO VIRAL CAPSID ANTIGEN, IGG (SO Routine 10/19/2024 10:01 AM EDT Fatigue, unspecified type COMPREHENSIVE METABOLIC PANEL, PLASMA Routine 10/19/2024 10:01 AM EDT Common bile duct dilation HIV 1/2 ANTIBODY/ANTIGEN SCREEN WITH REFLEX TO HIV I/II DIFFERENTIATION Routine 04/06/2024 4:51 PM EST Possible exposure to STD HEPATITIS C ANTIBODY - ED W/REFLEX TO HCV QUANT PCR STAT 02/21/2023 4:41 PM EDT from Last 3 Months or Most Recently Relevant to Health Maintenance Results * (ABNORMAL) Prealbumin, Plasma (12/27/2024 1:39 PM EDT) Prealbumin, Plasma 19.5(L) 20.0 - 41.0 mg/dL 12/27/2024 6:59 PM EDT [facility] Blood Venous blood specimen / Unknown Venipuncture / Unknown 12/27/2024 1:39 PM EDT 12/27/2024 1:39 PM EDT us Андрей Green MD LAB BLOOD ORDERABLES Final Res ult [facility] [address] [place] [address] * (ABNORMAL) Comprehensive Metabolic Panel, Plasma (12/27/2024 1:39 PM EDT) Only the most recent of2 resultswithin the time period is included. Glucose, Plasma 80 74 - 99 mg/dL 12/27/2024 6:59 PM EDT [facility] BUN, Plasma 20 7 - 21 mg/dL 12/27/2024 6:59 PM EDT [facility] Creatinine, Plasma 0.79 0.60 - 1.10 mg/dL 12/27/2024 6:59 PM EDT [facility] BUN/Creatinine Ratio 25 12/27/2024 6:59 PM EDT [facility] Sodium, Plasma 139 136 - 145 mmol/L 12/27/2024 6:59 PM EDT [facility] Potassium, Plasma 4.1 3.6 - 4.9 mmol/L 12/27/2024 6:59 PM EDT [facility] Chloride, Plasma 105 97 - 107 mmol/L 12/27/2024 6:59 PM EDT [facility] CO2, Plasma 22 22 - 29 mmol/L 12/27/2024 6:59 PM EDT [facility] Anion Gap 12 6 - 16 mmol/L 12/27/2024 6:59 PM EDT [facility] Total Calcium, Plasma 9.0 8.9 - 10.2 mg/dL 12/27/2024 6:59 PM EDT [facility] Total Protein 6.7 6.3 - 7.9 g/dL 12/27/2024 6:59 PM EDT [facility] Albumin, Plasma 3.9 3.5 - 5.2 g/dL 12/27/2024 6:59 PM EDT [facility] AST, Plasma 21 10 - 35 U/L 12/27/2024 6:59 PM EDT [facility] ALT, Plasma 27 10 - 35 U/L 12/27/2024 6:59 PM EDT [facility] Alkaline Phosphatase, Plasma 110(H) 35 - 104 U/L 12/27/2024 6:59 PM EDT [facility] Total Bilirubin, Plasma 0.4 0.2 - 1.1 mg/dL 12/27/2024 6:59 PM EDT [facility] eGFRcr 95.3 mL/min/1.7 3m*2 12/27/2024 6:59 PM EDT [facility] Comment:Reported eGFRcr in m L/min/1.73m2 is based the CKD-EPI 2020 equation that does not use a race coefficient. Blood Venous blood specimen / Unknown Venipuncture / Unknown 12/27/2024 1:39 PM EDT 12/27/2024 1:39 PM EDT us Андрей Green MD LAB BLOOD ORDERABLES Final Res ult [facility] [address] [place] [address] * Leonardo Mcgovern IgM Ab (10/19/2024 10:01 AM EDT) EBV ANTIBODY TO VIRAL CAPSID ANTIGEN IGM <10.0 0.0 - 43.9 U/mL 10/21/2024 2:54 AM EDT [facility]spin[facility] NEFTAL[facility] FRANCIS) Blood Venous blood specimen / Unknown Venipuncture / Unknown 10/19/2024 10:01 AM EDT 10/19/2024 10:02 AM EDT Narrative [employer] [employer]) - 10/21/2024 2:54 AM EDT INTERPRETIVE INFORMATION: Leonardo-Mcgovren Virus Antibody to Viral Capsid Antigen, IgM 35.9 U/mL or less.......Not Detected 36.0-43.9 U/mL..........Indeterminate - Repeat testing in 10-14 days may be helpful. 44.0 U/mL or greater....Detected Performed By: [facility] [address] [place] [address] Burr Machine Operator: Zaheer Gann MD, PhD CLIA Number: [id number] Андрей Green MD LAB BLOOD ORDERABLES Final Res ult Performing Organization Address [facility] Co de Phone Number [facility] ([facility] [address] [place] [address] * (ABNORMAL) Leonardo Mcgovern IgG Ab (10/19/2024 10:01 AM EDT) [facility] EBV ANTIBODY TO VIRAL CAPSID ANTIGEN IGG 454.0(H) 0.0 - 21.9 U/mL 10/21/2024 2:54 AM EDT [facility] ([facility]) Blood Venous blood specimen / Unknown Venipuncture / Unknown 10/19/2024 10:01 AM EDT 10/19/2024 10:02 AM EDT Narrative [facility] - 10/21/2024 2:54 AM EDT INTERPRETIVE INFORMATION: Leonardo-Mcgovern Virus Antibody to Viral Capsid Antigen, IgG 17.9 U/mL or less.......Not Detected 18.0-21.9 U/mL..........Indeterminate - Repeat testing in 10-14 days may be helpful. 22.0 U/mL or greater....Detected Performed By: [facility] [address] [place] [address] [employer]r Machine Operator: Zaheer Gann MD, PhD CLIA Number: [id number] Андрей Green MD LAB BLOOD ORDERABLES Final Res ult Performing Organization Address City/[facility]/ZIP Co de Phone Number [facility] ([facility]) [address] [place] [address] * HIV 1 & 2 Antibody/Antigen Screen (04/06/2024 4:51 PM EST) [facility] HIV 1 & 2 Antibody/Antigen Screen Non Reactive Non Reactive 04/06/2024 7:27 PM EST [facility] Comment:Screening for HIV 1 & 2 antibodies, and P24 antigen is NONREACTIVE. No confirmatory testing is required. Blood Venous blood specimen / Unknown Venipuncture / Unknown 04/06/2024 4:51 PM EST 04/06/2024 4:59 PM EST us Андрей Green MD LAB BLOOD ORDERABLES Final Res ult [facility] [address] [place] [address] * Hepatitis C Antibody - ED (02/21/2023 4:41 PM EDT) Hepatitis C Antibody Negative Negative 02/21/2023 5:47 PM EDT [facility] Blood Venous blood specimen / Unknown Venipuncture / Unknown 02/21/2023 4:41 PM EDT 02/21/2023 5:04 PM EDT us Niyah Talamantes DO LAB BLOOD ORDERABLES Final Re sult Performing Organization Address City/[facility] Co de Phone Number [facility] [address] [place] [address] from Last 3 Months or Most Recently Relevant to Health Maintenance Insurance [facility] Care Teams Director Payer Relationship Specialty Start Date End Date Андрей Green MD [address] [place] [address] PCP - General Family Medicine 04/06/24 Ebony Cruz APRN [address] [facility] [address] [place] [address] Referring Physician Gastroenterology 12/04/21 Chaparro Amaya MD [address] [facility] [address] [place] [address] Transplant Physician Transplant Surgery 12/10/21
== END 2025-01-12 23:59 | disposition home or self-care (01) ==
LOC: LAB.DROPOF 01-14 10:07
PROVIDERS: PCP Nurse Practitioner Family; Visit Provider Nurse Practitioner Family
DX: J06.9 Acute upper respiratory infection, unspecified (principal); J02.9 Acute pharyngitis, unspecified
CPT/HCPCS: 87631

== ENCOUNTER 2025-04-26 11:15 | Emergency (ER) | payer BC, SELFPAY ==
--- OUTSIDE RECORDS SUMMARY | 2025-02-28 14:20 | XMS_ITS | Encounter Summary ---
Author Organization [facility] Address [address] [place] [address] Care Team Providers Care Product Safety Coordinator Name Role Phone Ebony Cruz Kael CLAY Unavailable [phone] Chaparro Amaya MD Unavailable Андрей Green MD Primary Care Provider [phone] Reason for Referral * Imaging (Urgent) - Authorized Specialty Diagnoses / Procedures Referred By Contac t Referred To Contact Diagnoses Left lower quadrant abdominal pain Gross hematuria Left flank pain Procedures CT Renal Stone wo IV Contrast Bridgett Aguilar APRN [address] [place] [address] Phone: tel: fax: [facility] () [address] [place] [id number] Phone: tel: fax: Referral ID Status Reason Start Date Expiration Date V isits Requested Visits Authorized [id number] Authorized 02/28/2025 08/30/2026 1 1 Reason for Visit * Reason Comments UTI Ear Fullness Has tubes right Encounter Details Date Type Department Care Team (Latest Contact Info) Description 02/28/2025 3:20 PM EDT Office Visit [facility] [address] [place] [address] Bridgett Aguilar, VICE PRESIDENT TAX [address] [place] [address] Gastroesophageal reflux disease without esophagitis (Primary Dx); Anne's disease; 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, not intractable; Lymphedema, not elsewhere classified; Left lower quadrant abdominal pain; Gross hematuria; Left flank pain; Right acute serous otitis media, recurrence not specified Social History Tobacco Use Types Packs/Day Years [...] Date Recorded Patient Health Questionnaire-2 Score 0 02/28/2025 Hunger Vital Sign Answer Date Recorded Within [...] Date Recorded Patient Health Questionnaire-9 Score 0 02/28/2025 Housing Stability Vital Sign Answer Andre e [...] in a fpc (including now)? No 10/19/2024 AUDIT-C Answer Date [...] Recorded In the past 12 months has e electric, gas, oil, or water company [...] Sign Reading Time Taken Comments Blood Pressure 118/74 02/28/2025 3:27 PM EDT Pulse 86 02/28/2025 3:27 PM EDT Temperature 37.1 C (98.8 F) 02/28/2025 3:27 PM EDT Respiratory Rate 18 02/28/2025 3:27 PM EDT Oxygen Saturation 99% 02/28/2025 3:27 PM EDT Inhaled Oxygen Concentration - - Weight 49.4 kg (108 lb 14.5 oz) 02/28/2025 3:27 PM EDT Height 162.6 cm (5' 4 ) 02/28/2025 3:27 PM EDT Body Mass Index 18.69 02/28/2025 3:27 PM EDT documented in this encounter Functional Status * Over the past 2 weeks, how often have you been bothered by any of the following problems? Question Answer Date of Assessment Author Little interest or pleasure in doing things Not at all 02/28/2025 3:29 PM EDT [facility] Feeling down, depressed, or hopeless Not at all 06/2024 3:29 PM EDT [facility] Patient Health Questionnaire-2 Score 0 06/2024 3:29 PM EDT I[facility] * Question Answer Date of Assessment Author Trouble falling or staying a sleep, or sleeping too much Not at all 02/28/2025 3:29 PM EDT [facility] Feeling tired or having little energy Not at all 06/2024 3:29 PM EDT [facility] Poor appetite or overeating Not at all 02/28/2025 3: 29 PM EDT [facility] Feeling bad about yourself - or that you are a failure or have let yourself or your family down Not at all 02/28/2025 3:29 PM EDT I[facility] Trouble concentrating on thi ngs, such as reading the newspaper or watching television Not at all 02/28/2025 3:29 PM EDT [facility] Moving or speaking so slowly that other people could have noticed? Or the opposite - being so fidgety or restless that you have been moving around a lot more than usual. Not at all 02/28/2025 3:29 PM EDT [facility] Thoughts that you would be b vimal off or hurting yourself in some way Not at all 02/28/2025 3:29 PM EDT [facility] Patient Health Questionnaire-9 Score 0 06/2024 3:29 PM EDT [facility] * Calculated C-SSRS Risk Score (Lifetime/Recent) Answer Date of Assessment Author No Risk Indicated 02/28/2025 3:27 PM EDT Irasema [facility] * How difficult have these problems made it for you to do your work, take care of things at home, or get along with other people? Answer Date of Assessment Author Not difficult at all 02/28/2025 3:29 PM EDT Irasema Morrow * Question Answer Date of Assessment Author 1. Wish to be (Past 1 Month) No 025 3:27 PM EDT I[facility]ema [facility] 2. Non-Specific Active Suici zulma Thoughts (Past 1 Month) No 02/28/2025 3:27 PM EDT Irasema [facility] 6. Suicidal Behavior (Lifetime) No 3:27 PM EDT I[facility] documented as of this encounter Miscellaneous Notes * Progress Notes - Bridgett Aguilar, VICE PRESIDENT TAX - 02/28/2025 3:20 PM EDT Subjective Patient ID: Jessica العراقي is a 44 y.o. female. Chief Complaint Patient presents with UTI Ear Fullness Has tubes right HPI Jessica is a 44 y.o. who presents to the clinic today with acute c/o possible urinary tract infectionand right sided ear fullness. Urinary Symptoms include dysuria, gross hematuria, left lower quadrant pain, and left flank pain and have been present for the past week. Denies having any fevers or inability to urinate. Does have ahx of adrenal adenomas, kidney stones, and Gitelman's disease. Is s/p ELIEZER. Reports bilateral ear fullness. Has an ear tube on the right. Denies any drainage, but feels a lot of pressure on that side. Reports this feels similar to when she has had ear infections in the past. Also reports needing refills on the following medications until she can follow up with her PCP on 03/29/25: Adderall, Fluticasone, Omeprazole, Ondansetron, Synthroid, and Topiramate. Reports medications are working well to help manage chronic conditions without any noted adverse effects. Completely out of medication since yesterday. Being doing well on medication, feels that it works well, but has dropped some weight since last time she was here. Reports that she never has an appetite. The following portions of the chart were reviewed this encounter and updated as appropriate: Tobacco Allergies Meds Problems Med Hx Surg Hx Fam Hx Current Medications[1] Review of Systems A 14 point ROS reviewed and is otherwise negative except as per HPI. Objective Blood pressure 118/74, pulse 86, temperature 37.1 ??C (98.8 ??F), temperature source Oral, resp. rate 18, height 1.626 m (5' 4 ), weight 49.4 kg (108 lb 14.5 oz), SpO2 99%, not currently . Body mass index is 18.69 kg/m??. Physical Exam Vitals reviewed. Constitutional: General: She is not in acute distress. Appearance: Normal appearance. HENT: Right Ear: Ear canal normal. A middle ear effusion (serous fluid trapped behind TM) is present. A PE tube (dislodged behind TM) is present. Left Ear: Tympanic membrane and ear canal normal. Nose: No congestion or rhinorrhea. Mouth/Throat: Pharynx: No oropharyngeal exudate or posterior oropharyngeal erythema. Cardiovascular: Rate and Rhythm: Normal rate and regular rhythm. Pulmonary: Effort: Pulmonary effort is normal. Breath sounds: Normal breath sounds. No wheezing, rhonchi or rales. Abdominal: General: Bowel sounds are normal. There is no distension. Palpations: Abdomen is soft. There is no mass. Tenderness: There is abdominal tenderness (LLQ). There is left CVA tenderness. There is no right CVA tenderness or guarding. Lymphadenopathy: Cervical: No cervical adenopathy. Neurological: Mental Status: She is alert and oriented to person, place, and time. Psychiatric: Mood and Affect: Mood normal. Behavior: Behavior normal. Thought Content: Thought content normal. Judgment: Judgment normal. Assessment/Plan Diagnoses and all orders for this visit: Gastroesophageal reflux disease without esophagitis - ondansetron (Zofran) 8 MG tablet; Take 1 tablet by mouth every 8 hours as needed for nausea or vomiting. - omeprazole (PriLOSEC) [address] capsule; Take 1 capsule by mouth 2 times a day. Do not crush or chew. 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, not intractable - topiramate 50 MG tablet; Take 1 tablet by mouth daily. Lymphedema, not elsewhere classified - aMILoride (Midamor) 5 MG tablet; Take 1 tablet by mouth daily. Left lower quadrant abdominal pain - CT Renal Stone wo IV Contrast; Future Gross hematuria - CT Renal Stone wo IV Contrast; Future - POCT Urinalysis dipstick Left flank pain - CT Renal Stone wo IV Contrast; Future - POCT Urinalysis dipstick Right acute serous otitis media, recurrence not specified - fluticasone (Flonase) 50 MCG/ACT nasal spray; Administer 2 sprays into each nostril daily. Shake gently. Before first use, prime pump. After use, clean tip and replace cap. - azithromycin (Zithromax) 250 MG tablet; Take 2 tabs (500 mg) by mouth today, than 1 daily for 4 days. Chronic, stable conditions. Doing well on current medications. Will reorder prescription medications to be continued at current dosing. Advised patient that I am unable to refill her Adderall, but PCP will be back in office tomorrow. I will plan to reach out to him to see if he would like for her to come in sooner for refill or if could send in enough to help her make it until her next appointment. Dysuria/left flank pain/LLQ pain--acute condition. No abnormal findings on UA in office today. Due to reported symptoms and objective findings, will need to rule out possibility of stone. Will order STAT CT imaging to be completed. R AOM--acute condition. Upon examination of ear, ear tube found to be dislodged within middle ear. Is currently blocking serous fluid from draining within ear. Will order ABX, but advised patient that she will need to call ENT tomorrow to have appt for evaluation and possible surgical removal. Patient voiced understanding. Bridgett Aguilar APRN [1] Current Outpatient Medications: aMILoride (Midamor) 5 MG tablet, Take 1 tablet by mouth daily., Disp: 30 tablet, Rfl: 0 amphetamine-dextroamphetamine XR (Adderall XR) 20 MG 24 hr capsule, Take 1 capsule by mouth every morning. Do not crush or chew., Disp: 30 capsule, Rfl: 0 estrogens, conjugated, (Premarin) vaginal cream, Insert 0.625 mg into the vagina daily., Disp: , Rfl: fluticasone (Flonase) 50 MCG/ACT nasal spray, Administer 2 sprays into each nostril daily. Shake gently. Before first use, prime pump. After use, clean tip and replace cap., Disp: 16 g, Rfl: 0 furosemide (Lasix) 20 MG tablet, Take 1 [...] capsule, Take 1 capsule by mouth 2 times a day. Do not crush or chew., Disp: 60 capsule, Rfl: 0 ondansetron (Zofran) 8 MG tablet, Take 1 tablet by mouth every 8 hours as needed for nausea or vomiting., Disp: 20 tablet, Rfl: 0 potassium chloride ER (Micro-K) 10 MEQ ER capsule, Take 2 capsules by mouth 3 times a day. Do not crush or chew., Disp: 180 capsule, Rfl: 11 Synthroid 25 MCG tablet, Take 1 tablet by mouth daily before breakfast., Disp: 30 tablet, Rfl: 0 topiramate 50 MG tablet, Take 1 tablet by mouth daily., Disp: 30 tablet, Rfl: 0 valACYclovir (Valtrex) 500 MG tablet, Take 1 tablet by mouth as needed., Disp: , Rfl: azithromycin (Zithromax) 250 MG tablet, Take 2 tabs (500 mg) by mouth today, than 1 daily for 4 days., Disp: 6 tablet, Rfl: 0 documented in this encounter Plan of Treatment Scheduled Orders Name Type Priority Associated Diagnoses Orde r Schedule CT Renal Stone wo IV Contrast Imaging STAT Left lower quadrant abdominal pain Gross hematuria Left flank pain Expected: 02/28/2025 (Approximate), Expires: 09/01/2026 documented as of this encounter Procedures Procedure Name Priority Date/Time Associated Diagnosis Comments POCT URINALYSIS DIPSTICK Routine 02/28/2025 4:06 PM EDT Gross hematuria Left flank pain documented in this encounter Results * POCT Urinalysis dipstick (02/28/2025 4:06 PM EDT) POCT Urine Color Light Yellow POCT Urine Clarity Cloudy POCT Glucose Urine Negative Negative mg/dL POCT Bilirubin, Urine Negative Negative POCT Ketones, Urine Negative Negative mg/dL POCT Specific Lamoni, Urine 1.015 POCT Blood, Urine Negative Negative POCT pH, Urine 5.5 5.0 to 8.0 POCT Protein, Urine Negative Negative mg/dL POCT Urobilinogen, Urine 0.2 0.2, 1 E.U./dL POCT Nitrite, Urine Negative Negative POCT Leukocyte Esterase, Urine Negative Negative Test Strip Lot Number [id number] Test Strip Lot Expiration 07/2025 Urine Urine specimen obtained by clean catch procedure / Unknown 02/28/2025 4:06 PM EDT Bridgett Aguilar VICE PRESIDENT TAX POINT OF CARE TEST ENTER/ED IT ORDERABLES Final Result documented in this encounter Visit Diagnoses Diagnosis Gastroesophageal reflux disease without esophagitis- Primary Esophageal reflux Anne's disease Chronic lymphocytic thyroiditis 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, not intractable Lymphedema, not elsewhere classified Left lower quadrant abdominal pain Gross hematuria Left flank pain Abdominal pain, unspecified site Right acute serous otitis media, recurrence not specified documented in this encounter Additional Health Concerns Assessment Noted Time PHQ-9 Depression Total Score: 0 02/29/20 25 3:29 PM EDT A fall risk assessment has been complete d for the patient 04/30/2024 4:33 PM EST A Body Mass Index follow-up plan has been documented for the patient 02/28/2025 4:29 PM EDT documented as of this encounter Care Teams Product Safety Coordinator Relationship Specialty Start Date End Date Андрей Green MD [address] [place] [id number] PCP - General Family Medicine 04/06/24 Ebony Cruz APRN [address] [place] [address] Referring Physician Gastroenterology 12/04/21 Chaparro Amaya MD [address] [place] [id number] Transplant Physician Transplant Surgery 12/10/21 documented as of this encounter
--- OUTSIDE RECORDS SUMMARY | 2025-03-01 09:52 | XMS_ITS | Encounter Summary ---
Author Organization [facility] Address [address] [place] [address] Care Team Providers Care Hook Tender Name Role Phone Андрей Green MD Primary Care Provider [phone] Reason for Referral * MRI/CAT/PET Scan (Emergency) - Closed Specialty Diagnoses / Procedures Referred By Contac t Referred To Contact Radiology Diagnoses Abdominal pain, left lower quadrant Gross hematuria Left flank pain Procedures CT Abdomen Pelvis Stone Protocol [place] [address] Phone: tel: fax: Referral ID Status Reason Start Date Expiration Date Visits Re quested Visits Authorized [id number] Closed 02/28/2025 05/30/2026 1 1 Reason for Visit * MRI/CAT/PET Scan (Emergency) - Closed Specialty Diagnoses / Procedures Referred By Contac t Referred To Contact Radiology Diagnoses Abdominal pain, left lower quadrant Gross hematuria Left flank pain Procedures CT Abdomen Pelvis Stone Protocol Bridgett Aguilar APRN [address] [place] [address] Phone: tel: fax: Referral ID Status Reason Start Date Expiration Date Visits Re quested Visits Authorized [id number] Closed 02/28/2025 05/30/2026 1 1 Encounter Details Date Type Department Care Team (Latest Contact Info) Description 03/01/2025 10:52 AM EDT - 03/01/2025 11:59 PM EDT Hospital Encounter [facility] [place] [address] [place] [address] Bridgett Aguilar, RIBBON WINDER [address] [place] [address] Abdominal pain, left lower quadrant; Gross hematuria; Left flank pain Discharge Disposition: Home or Self Care Social History Tobacco Use Types Packs/Day Years [...] on file documented as of this encounter Medications at Time of Discharge aMILoride (MIDAMOR) 5 MG tablet Take 2 tablets by mouth Daily. 60 tablet 3 07/28/2020 4:36 PM EST 05/12/2020 amphetamine-dextroa mphetamine XR (ADDERALL XR) 20 MG 24 hr capsule Take 1 capsule by mouth Every Morning 11/11/2022 cycloSPORINE (RESTASIS) 0.05 % ophthalmic emulsion Administer 1 drop to both eyes 2 (two) times a day ongoing for chronic dry eye keratitis 60 each 6 04/23/2020 4:46 PM EST 11/02/2019 Estrogens Conjugated (PREMARIN) 0.625 MG/GM vaginal cream Insert into the vagina Daily. 42.5 g 1 10/11/2024 fluticasone (FLONASE) 50 MCG/ACT nasal sprayIndications:Ac landy non-recurrent pansinusitis 2 sprays into the nostril(s) as directed by provider Daily. 15.8 mL 04/13/2023 furosemide (LASIX) 20 MG tabletIndications:L ymphedema, not elsewhere classified Take 0.5 tablets by mouth Daily as needed for severe edema 15 tablet 5 07/28/2020 4:36 PM EST 07/22/2020 linaclotide (LINZESS) 290 MCG capsule capsuleIndications: Irritable bowel syndrome with constipation Take 1 capsule by mouth Every Morning Before Breakfast. 90 capsule 1 02/28/2019 2:54 PM EDT 02/26/2019 omeprazole (priLOSEC) 20 MG capsule Take 2 capsules by mouth 2 (Two) Times a Day. ondansetron ODT (ZOFRAN-ODT) [address] 1 tablet under the tongue Every 8 (Eight) Hours As Needed for nausea 20 tablet 02/09/2024 potassium chloride (K-DUR,KLOR-CON) 20 MEQ CR tabletIndications:H ypokalemia Take 1 tablet by mouth 3 (Three) Times a Day. 90 tablet 3 12/11/2020 Synthroid 25 MCG tabletIndications:A cquired hypothyroidism Take 1 tablet by mouth Daily. APPT NEEDED FOR ADDITIONAL RFS 30 tablet 07/24/2021 topiramate (TOPAMAX) 50 MG tablet Take 1 tablet by mouth daily 90 tablet 4 05/14/2020 4:15 PM EST 02/15/2020 valACYclovir (VALTREX) 500 MG tablet Take 1 tablet by mouth 2 (Two) Times a Day. 20 tablet 1 09/12/2018 4:09 PM EDT 09/12/2018 ubrogepant (Ubrelvy) 100 MG tabletIndications:C hronic migraine with aura without status migrainosus, not intractable Take 1 tablet by mouth As Needed (migraine) for up to 2 doses. 2 tablet 02/12/2025 5 documented as of this encounter Plan of Treatment Upcoming Encounters Date Type Department Care Team (Late st Contact Info) Description 05/17/2025 10:30 AM EST Office Visit [facility] [address] [place] [address] Tawanna Nassar, RIBBON WINDER [address] [place] [id number] 08/12/2025 9:30 AM EDT Office Visit [facility] [address] [place], [place] [id number] Iraida Jackson, OBED [address] [facility] [address] [place] [address] documented as of this encounter Procedures Procedure Name Priority Date/Time Associated Diagnosis Comments CT ABDOMEN PELVIS STONE PROTOCOL STAT 03/01/2025 11:01 AM EDT Abdominal pain, left lower quadrant Gross hematuria Left flank pain documented in this encounter Results * CT Abdomen Pelvis Stone Protocol (03/01/2025 11:01 AM EDT) Anatomical Region Laterality Modality Abdomen, Pelvis N/A Computed Tomogra phy 03/01/2025 11:1 6 AM EDT Impressions 03/01/2025 11:29 AM EDT Impression: 1.No acute abnormality identified within the abdomen or pelvis. 2.Right punctate nonobstructive nephrolithiasis. No hydronephrosis is seen. Distal ureters are not well visualized. No definite ureteral calculi identified. Multiple pelvic calcifications are thought to represent phleboliths. 3.Focal biliary dilation within segment VII appears similar since 10/10/2024, accounting for differences in technique. 4.Moderate colonic stool. 5.Additional findings as detailed above. Electronically Signed: Pepito Oro MD 03/01/2025 11:29 AM EDT Workstation ID: [id number] Narrative 03/01/2025 11:[address] ABDOMEN PELVIS STONE PROTOCOL Date of Exam: 03/01/2025 10:55 AM EDT Indication: R10.32. Comparison: CT of the abdomen and pelvis dated 10/10/2024 Technique: Axial CT images were obtained of the abdomen and pelvis without the administration of contrast. Reconstructed coronal and sagittal images were also obtained. Automated exposure control and iterative construction methods were used. Findings: Liver: The liver is unremarkable in morphology. Evaluation for focal liver lesions is limited without IV contrast. Focal biliary dilation within segment VII appears similar since 10/10/2024, accounting for differences in technique. Gallbladder: The gallbladder is not identified. Pancreas: Unremarkable. Spleen: Several splenic granulomas. Adrenal glands: 2 cm low-density right adrenal nodule appears similar since 10/10/2024. There are additional coarse calcifications of the bilateral adrenal glands. Genitourinary tract: 2 mm nonobstructing calculus within the right kidney. Kidneys are otherwise unremarkable. No hydronephrosis is seen. Distal ureters are not well visualized. No definite urinary tract calculi are seen. Calcifications within the bilateral pelvis are thought to represent phleboliths. Urinary bladder is unremarkable. Status post hysterectomy. Gastrointestinal tract: Limited evaluation of the hollow viscera due to lack of IV contrast administration. No findings to suggest bowel obstruction. There is moderate stool throughout the colon. Appendix: No findings to suggest acute appendicitis. Other findings: No free air or free fluid identified. No pathologically enlarged lymph nodes are seen. The abdominal aorta is unremarkable. There are surgical clips within the retroperitoneum. Bones and soft tissues: No acute or suspicious osseous or soft tissue lesion is identified. Lung bases: The visualized lung bases are clear. Procedure Note Pepito Oro MD - 03/01/2025 CT ABDOMEN PELVIS STONE PROTOCOL Date of Exam: 03/01/2025 10:55 AM EDT Indication: R10.32. Comparison: CT of the abdomen and pelvis dated 10/10/2024 Technique: Axial CT images were obtained of the abdomen and pelvis withoutthe administration of contrast. Reconstructed coronal and sagittal imageswere also obtained. Automated exposure control and iterative constructionmethods were used. Findings: Liver: The liver is unremarkable in morphology. Evaluation for focal liverlesions is limited without IV contrast. Focal biliary dilation withinsegment VII appears similar since 10/10/2024, accounting for differences intechnique. Gallbladder: The gallbladder is not identified. Pancreas: Unremarkable. Spleen: Several splenic granulomas. Adrenal glands: 2 cm low-density right adrenal nodule appears similarsince 10/10/2024. There are additional coarse calcifications of thebilateral adrenal glands. Genitourinary tract: 2 mm nonobstructing calculus within the right kidney.Kidneys are otherwise unremarkable. No hydronephrosis is seen. Distalureters are not well visualized. No definite urinary tract calculi areseen. Calcifications within the bilateral pelvis are thought to represent phleboliths. Urinary bladder isunremarkable. Status post hysterectomy. Gastrointestinal tract: Limited evaluation of the hollow viscera due tolack of IV contrast administration. No findings to suggest bowelobstruction. There is moderate stool throughout the colon. Appendix: No findings to suggest acute appendicitis. Other findings: No free air or free fluid identified. No pathologicallyenlarged lymph nodes are seen. The abdominal aorta is unremarkable. Thereare surgical clips within the retroperitoneum. Bones and soft tissues: No acute or suspicious osseous or soft tissuelesion is identified. Lung bases: The visualized lung bases are clear. IMPRESSION: Impression: 1.No acute abnormality identified within the abdomen or pelvis. 2.Right punctate nonobstructive nephrolithiasis. No hydronephrosis isseen. Distal ureters are not well visualized. No definite ureteral calculiidentified. Multiple pelvic calcifications are thought to representphleboliths. 3.Focal biliary dilation within segment VII appears similar since10/10/2024, accounting for differences in technique. 4.Moderate colonic stool. 5.Additional findings as detailed above. Electronically Signed: Pepito Oro MD 03/01/2025 11:29 AM EDT Workstation ID: [id number] Bridgett Aguilar RIBBON WINDER IMG CT ORDERABLES Fi nal Result documented in this encounter Visit Diagnoses Diagnosis Abdominal pain, left lower quadrant Gross hematuria Left flank pain Abdominal pain, unspecified site documented in this encounter Care Teams Hook Tender Relationship Specialty Start Date End Date Андрей Green MD [address] [place] [address] PCP - General Family Medicine 06/25/24 documented as of this encounter
--- OUTSIDE RECORDS SUMMARY | 2025-03-13 08:00 | XMS_ITS | Encounter Summary ---
[facility] Address [address] [place] [address] Care Team Providers Care Professor Of Apologetics Name Role Phone Андрей Green MD Primary Care Provider [phone] Reason for Visit * Diagnostic Medical (Routine) - Closed Specialty Diagnoses / Procedures Referred By Contac t Referred To Contact Diagnoses Episode of transient neurologic symptoms Procedures EEG Continuous Monitoring With Video Tawanna Nassar, SUPERVISOR CALIBRATION [address] [facility] [address] [place] [address] Phone: tel: fax: [facility] [address] [place] [address] Phone: tel: Referral ID Status Reason Start Date Expiration Date Visits Re quested Visits Authorized [id number] Closed 02/12/2025 05/14/2026 1 1 Encounter Details Date Type Department Care Team (Latest Contact Info) Description 03/13/2025 9:00 AM EDT - 03/13/2025 11:59 PM EDT Hospital Encounter [facility] NEUROLOGY DIAGNOSTICS [address] [facility] [address] [place] [address] Episode of transient neurologic symptoms Discharge Disposition: Home or Self Care Social [...] tablet 4 05/14/2020 4:15 PM EST 02/15/2020 ubrogepant (Ubrelvy) 100 MG tabletIndications:C hronic migraine with aura without status migrainosus, not intractable Take 1 tablet by mouth As Needed (For migraine. May repeat after 2 hours. Max 200 mg per 24 hours.). 10 tablet 11 03/11/2025 3:30 PM EDT 03/07/2025 valACYclovir (VALTREX) 500 MG tablet Take 1 tablet by mouth 2 (Two) Times a Day. 20 tablet 1 09/12/2018 4:09 PM EDT 09/12/2018 documented as of this encounter Plan of Treatment Upcoming Encounters Date Type Department Care Team (Late st Contact Info) Description 05/17/2025 10:30 AM EST Office Visit [facility] NEUROLOGY [address] [facility] [address] [place] [id number] Tawanna Nassar, SUPERVISOR CALIBRATION [address] [facility] [address] [place] [address] 08/12/2025 9:30 AM EDT Office Visit [facility] GYNECOLOGIC ONCOLOGY [address] [facility] [address] [place] [address] Iraida Jackson, OBED [address] [facility] [address] [place] [address] documented as of this encounter Goals Goal Patient Goal Type Associated Problems Recent Progress Patient-Stated? Author Specialty Pharmacy General Goal General On track( 025 2:38 PM EDT) No Niesha Mesa, PharmD Note: On Average, Reduce: Frequency of migraines to 4 per month. Symptom severity by 50% within 1 hour of taking acute therapy. Duration of migraines to 2 hours. Baseline Values/Notes on Enrollment Frequency: 8 MMD (can be several days in a row or more intermittent) Symptom Severity: 8 out of 10 Duration: up to 4 hours or more Date of Reassessment Notes on Progress Toward Above Goals 03/07/25 Initiate Ubrelvy. documented as of this encounter Procedures Procedure Name Priority Date/Time Associated Diagnosis Comments EEG EXTENDED MONITORING 61-119 MIN Routine 03/13/2025 12:00 PM EDT Episode of transient neurologic symptoms documented in this encounter Results * EEG EXTENDED MONITORING 61-119 MIN (03/13/2025 12:00 PM EDT) Impressions NEUROLOGY - 03/13/2025 12:33 PM EDT Normal study This report is transcribed using the [employer]ive[employer] dictation system. Narrative NEUROLOGY - 03/13/2025 12:33 PM EDT Reason for referral: 44 y.o.female with abnormal eye movements, consideration of partial seizures Technical Summary: A 19 channel digital EEG was performed using the international 10-20 placement system, including eye leads and EKG leads. Duration: 1 hour 43-minute Findings: The patient is awake. A well-regulated 11 Hz posterior rhythm is evident symmetrically over the occipital leads. Low amplitude alpha activity is seen anteriorly. Photic stimulation yields a symmetric driving response. Hyperventilation is not performed. Sleep is seen with slowing of the background, K complexes and sleep spindles. No focal features or epileptiform activity are present. Video: Available Technical quality: Good Rhythm strip: Regular, 70 bpm SUMMARY: Normal EEG in the awake and asleep states No focal features or epileptiform activity are seen Tawanna Nassar APRN NEUROLOGY ORDERABLES Final Result NEUROLOGY documented in this encounter Visit Diagnoses Diagnosis Episode of transient neurologic symptoms documented in this encounter Care Teams Professor Of Apologetics Relationship Specialty Start Date End Date Анрдей Green MD [address] [place], [place] [id number] PCP - General Family Medicine 06/25/24 documented as of this encounter
--- OUTSIDE RECORDS SUMMARY | 2025-03-13 13:14 | XMS_ITS | Encounter Summary ---
Author Organization [facility] Address [address] [place] [address] Care Team Providers Care Pipe Organ Tuner And Repairer Name Role Phone Андрей Green MD Primary Care Provider [phone] Reason for Referral * MRI/CAT/PET Scan (Routine) - Closed Specialty Diagnoses / Procedures Referred By Ayan carson Referred To Contact Radiology Diagnoses Episode of transient neurologic symptoms 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, not intractable Procedures MRI Brain Without Contrast Tawanna Nassar APRN [address] [place] [address] Phone: tel: fax: [address] [address] Phone: tel: Referral ID Status Reason Start Date Expiration Date Visits Re quested Visits Authorized [id number] Closed 02/12/2025 05/14/2026 1 1 Reason for Visit * MRI/CAT/PET Scan (Routine) - Closed Specialty Diagnoses / Procedures Referred By Ayan carson Referred To Contact Radiology Diagnoses Episode of transient neurologic symptoms 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, not intractable Procedures MRI Brain Without Contrast Tawanna Nassar APRN [address] [facility] [address] [place] [address] Phone: tel: fax: [facility] [address] [place] [address] Phone: tel: Referral ID Status Reason Start Date Expiration Date Visits Re quested Visits Authorized [id number] Closed 02/12/2025 05/14/2026 1 1 Encounter Details Date Type Department Care Team (Latest Contact Info) Description 03/13/2025 2:14 PM EDT - 03/13/2025 11:59 PM EDT Hospital Encounter [facility] [address] [place] [address] Episode of transient neurologic symptoms; 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, not intractable Discharge Disposition: Home or Self Care Social [...] Description 05/17/2025 10:30 AM EST Office Visit [facility] NEUROLOGY [address] [facility] [address] [place] [address] NassarDorotheaomari Scruggs, TURRET LATHE SET UP OPERATOR [address] [facility] [address] [place], [place] [id number] 08/12/2025 9:30 AM EDT Office Visit [facility] GYNECOLOGIC ONCOLOGY [address] [place] [address] Iraiad Jackson, TURRET LATHE SET UP OPERATOR [address] [facility] [address] [place], [place] [id number] documented as of this encounter Goals Goal Patient Goal Type Associated Problems Recent Progress Patient-Stated? Author Specialty Pharmacy General Goal General On track( 025 2:38 PM EDT) Niesha Kahn, PharmD Note: On Average, Reduce: Frequency of [...] Procedure Name Priority Date/Time Associated Diagnosis Comments MRI BRAIN WO CONTRAST Routine 03/13/2025 3:18 PM EDT Episode of transient neurologic symptoms 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, not intractable documented in this encounter Results * MRI Brain Without Contrast (03/13/2025 3:18 PM EDT) Anatomical Region Laterality Modality Head, Neck N/A Magnetic Resonan ce 03/13/2025 3:24 PM EDT Impressions 03/13/2025 3:33 PM EDT Impression: Normal noncontrast MRI of the brain. 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 Comparison: None available. Technique: Routine multiplanar/multisequence sequence images of the brain were obtained without contrast administration. Findings: No acute infarct is present on diffusion weighted sequences. Midline structures appear normal and the craniocervical junction is satisfactory. Cabrales-white differentiation is maintained and there is no evidence of intracranial hemorrhage, mass or mass effect. The ventricles are normal in size and configuration. The orbits are normal. The paranasal sinuses are clear. 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 Comparison: None available. Technique: Routine multiplanar/multisequence sequence images of the brainwere obtained without contrast administration. Findings: No acute infarct is present on diffusion weighted sequences. Midlinestructures appear normal and the craniocervical junction is satisfactory.Cabrales-white differentiation is maintained and there is no evidence ofintracranial hemorrhage, mass or mass effect. The ventricles are normal in size and configuration. The orbitsare normal. The paranasal sinuses are clear. IMPRESSION: Impression: Normal noncontrast MRI of the brain. Electronically Signed: Ronald Renner MD 03/13/2025 3:33 PM EDT Workstation ID: [id number] Tawanna Nassar APRN IMG MRI ORDERABLES Final R esult documented in this encounter Visit Diagnoses Diagnosis Episode of transient neurologic symptoms 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, not intractable documented in this encounter Care Teams Pipe Organ Tuner And Repairer Relationship Specialty Start Date End Date Андрей Green MD [facility] [place] [address] [place] [address] PCP - General Family Medicine 06/25/24 documented as of this encounter
[2025-04-26] VITALS (7 sets, daily range): BP systolic 99–125; BP diastolic 56–74; PULSE 73–106; RESP 12–20; TEMP 36.7–37.1; O2SAT 98–100; BMI 13.8
--- NOTE | 2025-04-26 11:31 | CT_ITS ---
FINAL REPORT TECHNIQUE: Axial imaging of the chest is obtained after the administration of contrast. 3-D MIP reformatted images were also obtained and reviewed per PE protocol. Exam was performed using dose reduction techniques per the ALARA principle. CLINICAL HISTORY: SOB, pleuritic chest pain chest pain started last night COMPARISON: 08/02/2021 FINDINGS: No pulmonary embolus. No aortic dissection. Heart size is normal. There is no mediastinal, hilar, or axillary lymphadenopathy. There is a 6 mm ground glass nodule in the right upper lobe on series 5, image 38. This is unchanged from 2021 and presumed benign. The lungs are otherwise clear. There is no pleural or pericardial effusion. No acute osseous abnormality. IMPRESSION: No evidence of pulmonary embolism or aortic dissection. Authenticated and ERN
--- NOTE | 2025-04-26 11:31 | CT_ITS ---
FINAL REPORT TECHNIQUE: Thin section axial images are obtained through the abdomen and pelvis after intravenous contrast. Reconstruction images were obtained from the axial data. Exam was performed using dose reduction techniques. CLINICAL HISTORY: RLQ pain, vomiting, appendicitis? rlq tenderness started yesterday COMPARISON: 12/31/2021 FINDINGS: LIVER: There is an area of hyperdensity in the right lobe of the liver which could be a perfusion anomaly. Linear hypodensities in the right lobe of the liver are more prominent than seen previously and are favored to be focal biliary dilatation. There is a 2 cm hypodense lesion along the inferior margin of the right lobe of the liver. GALLBLADDER/BILIARY SYSTEM: Changes from cholecystectomy. SPLEEN: There are multiple small hypodense lesions in the spleen. These are nonspecific and were not well-seen on the prior exam. This could be related to phase of contrast on the prior exam. These are nonspecific. PANCREAS: Unremarkable. ADRENALS: There has been no change in a right adrenal nodule with calcifications and probable areas of macroscopic fat. Left adrenal calcifications are stable. KIDNEYS/URETERS/BLADDER: No hydronephrosis, renal mass, or renal stone. Unremarkable urinary bladder. GI TRACT: There is a surgical anastomosis and small bowel loops in the left upper quadrant. There are a few fluid-filled small bowel loops in the abdomen and pelvis. This is nonspecific. No small bowel obstruction. Normal appendix. No acute colon abnormality. PELVIC ORGANS: Hysterectomy. No abnormal adnexal mass. LYMPH NODES/RETROPERITONEUM/MESENTERY: No lymphadenopathy. VASCULAR: No acute vascular abnormality. ABDOMINAL WALL: The abdominal wall is intact. FREE FLUID: No ascites. BONES: No acute osseous abnormality. IMPRESSION: 1. Normal appendix. 2. Fluid-filled small bowel loops, nonspecific without evidence of obstruction. Consider enteritis. 3. Worsening, focal biliary dilatation in the right lobe of the liver. This could be related to prior cholecystectomy. 4. Multiple very small hypodense lesions in the spleen. This is also nonspecific and could represent multiple tiny cysts. These were not visualized on the prior exam, possibly related to phase of contrast. 5. Stable bilateral adrenal abnormalities. 6. Additional liver lesion along the inferior right lobe of the liver. This was not well-seen on the prior exam, likely due to phase of contrast. Consider MRI if indicated. Authenticated and ERN
--- NOTE | 2025-04-26 11:32 | [facility].EDCP ---
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 acute pancreatitis, among others. The most morbid conditions were considered and workup was based on these. EKG was interpreted by me personally and showed sinus tachycardia. See interpretation above. Hematologic labs, urine studies, CT pulmonary [place] protocol as well as CT abdomen pelvis with IV contrast were obtained. Patient was treated with 4 mg of IV morphine and 4 mg of IV Zosyn. Laboratory workup shows no leukocytosis, no anemia. She does have a neutrophil predominance at 90.8% but total white blood cell count of 9.3. Mild hyponatremia at 132 but otherwise electrolytes within normal limits and nonactionable. Glucose normal at 116. Total bilirubin is elevated at 2.3, which is abnormal for patient. Liver enzymes otherwise within normal limits. Initial troponin less than 0.01. NT proBNP very mildly elevated 198. Lipase normal at 47. Thyroid studies within normal limits. Negative test. Urinalysis without blood or evidence of infection. CT of the chest and CT abdomen pelvis with IV contrast were interpreted by me personally. No evidence of pulmonary embolism, pneumonia or aortic dissection. No evidence of appendicitis there is likely mild enteritis. There is biliary dilatation in the right lobe of the liver which could be related to prior cholecystectomy. No other acute findings within the abdomen pelvis. See radiology report for details. Due to patient's elevated bilirubin in the setting of right sided abdominal pain and dilated biliary ducts, will obtain right upper quadrant ultrasound to rule out retained stone. At this time, patient's care was handed off to the oncoming physician, Dr. Anand, pending right upper quadrant ultrasound results. If negative, I do feel patient would likely benefit from GI follow-up but ultimate disposition to be determined the oncoming physician. Di Anand, DO I assumed care of the patient at 1500. Patient's ultrasound showed no acute pathology. Although patient did have a mildly elevated bilirubin I did not find a clear reason for this. No evidence of choledocholithiasis. At this time I felt the patient was appropriate for outpatient management with Dr. Ledesma. Patient was discharged home in stable condition return precautions were discussed
[2025-04-26 11:39] LABS: Hematocrit 41.6 % (37.0-47.0); Hemoglobin 14.1 g/dL (12.2-16.2); Immature Granulocytes % 0.5 %; Mean Corpuscular HGB Conc 33.9 g/dL (31.8-35.4); Mean Corpuscular Hemoglobin 30.2 pg (27.0-31.2); Mean Corpuscular Volume 89.1 fl (81-99); Nucleated Red Blood Cells % 0 %; Platelet Count 154 K/mm3 (142-424); Red Blood Count 4.67 M/mm3 (4.20-5.40); Red Cell Distribution Width-SD 40.4 fL; White Blood Count 9.3 K/mm3 (4.8-10.8)
[2025-04-26] MEDS: MORPHINE 4MG/ML SYRINGE 4 MG IV (11:41)
[2025-04-26] MEDS: ONDANSETRON 4MG/2ML VIAL 4 MG IV (11:41)
[2025-04-26 11:48] LABS: HCG Qualitative, Serum Negative (Negative)
[2025-04-26 11:50] LABS: Alanine Aminotransferase 31 U/L (12-78); Albumin Level 4.4 g/dl (3.5-5.0); Albumin/Globulin Ratio 1.3 (1.1-1.8); Alkaline Phosphatase 108 U/L (38-126); Anion Gap 9.9 mEq/L (5-15); Aspartate Amino Transferase 31 U/L (14-36); Bilirubin,Total 2.3 mg/dl (0.2-1.3); Blood Urea Nitrogen 17 mg/dl (7-17); Calcium 9.1 mg/dl (8.4-10.2); Carbon Dioxide 22 mmol/L (22.0-30.0); Chloride 104 mmol/L (98-107); Creatinine Clearance Estimated 47 mL/min (50-200); Creatinine,Serum 0.90 mg/dl (0.52-1.04); Estimated Glomerular Filt Rate 68 ml/min (>60); GFR (African American) 82 ML/MIN (>60); Globulin 3.3 g/dL (1.3-3.2); Glucose 116 mg/dl (74-100); Lipase 47 U/L (23-300); Potassium 3.9 mmoL/L (3.5-5.1); Sodium 132 mmol/L (136-145); Total Protein,Serum 7.7 g/dl (6.3-8.2)
--- OUTSIDE RECORDS SUMMARY | 2025-04-26 11:52 | XMS_ITS | Encounter Summary ---
Author Organization [facility] Address [address] [place] [address] Care Team Providers Care Last Picker Name Role Phone Ebony Cruz GMAT INSTRUCTOR Unavailable Chaparro Amaya MD Unavailable Андрей Green MD Primary Care Provider [phone] Reason for Visit * Reason Comments Med Refill Encounter Details Date Type Department Care Team (Late st Contact Info) Description 04/01/2025 Refill [facility] [address] [place] [address] Bridgett Aguilar, GMAT INSTRUCTOR [address] [place] [address] Anne's disease; 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, not intractable; Lymphedema, not elsewhere classified; Gastroesophageal reflux disease without esophagitis Social History Tobacco Use Types Packs/Day Years [...] place to sleep or slept in a group home (including now)? No 04/06/2024 PHQ-9 Answer Date [...] any time in the past 12 m [facility], were you homeless or living in a group home (including now)? No 10/19/2024 AUDIT-C Answer Date [...] Recorded In the past 12 months has [employer], gas, oil, or water company threatened to [...] encounter Miscellaneous Notes * Telephone Encounter - Sadaf Lou, PharmD - 04/01/2025 4:39 PM EST 4 medication(s) has been approved per protocol. Please keep upcoming appointment 04/10/25 for additional refills. Medications have been pended for refill at upcoming appointment. documented in this encounter Plan of Treatment Not on file documented as of this encounter Visit Diagnoses Diagnosis Anne's disease Chronic lymphocytic thyroiditis 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, not intractable Lymphedema, not elsewhere classified Gastroesophageal reflux disease without esophagitis Esophageal reflux documented in this encounter Additional Health Concerns Assessment Noted Time PHQ-9 Depression Total Score: 0 02/29/20 25 3:29 PM EDT A fall risk assessment has been complete d for the patient 04/30/2024 4:33 PM EST A Body Mass Index follow-up plan has been documented for the patient 02/28/2025 4:29 PM EDT documented as of this encounter Care Teams Last Picker Relationship Specialty Start Date End Date Андрей Green MD [address] [place] [address] PCP - General Family Medicine 04/06/24 Ebony Cruz APRN [address] [place] [address] Referring Physician Gastroenterology 12/04/21 Chaparro Amaya MD [address] [facility] [address] [place] [address] Transplant Physician Transplant Surgery 12/10/21 documented as of this encounter
--- OUTSIDE RECORDS SUMMARY | 2025-04-26 11:52 | XMS_ITS | Encounter Summary ---
Author Organization [facility] Address [address] [place] [address] Care Team Providers Care [employer] Teacher Name Role Phone Ebony Cruz Kael CLAY Unavailable [phone] Chaparro Amaya MD Unavailable Андрей Green MD Primary Care Provider [phone] Reason for Referral * Medications - Authorized Specialty Diagnoses / Procedures Referred By Contac t Referred To Contact [place] [address] Phone: tel: fax: Referral ID Status Reason Start Date Expiration Date V isits Requested Visits Authorized [id number] Authorized 02/05/2025 03/07/2026 1 1 Reason for Visit * Reason Onset Date Comments Med Refill 03/06/2025 Encounter Details Date Type Department Care Team (Late st Contact Info) Description 03/06/2025 Refill [facility] [address] [place] [address] Андрей Green MD [address] [place] [address] Social History Tobacco Use Types [...] place to sleep or slept in a penitentiary (including now)? No 04/06/2024 PHQ-9 Answer Date [...] any time in the past 12 m [facility], were you homeless or living in a penitentiary (including now)? No 10/19/2024 AUDIT-C Answer Date [...] Recorded In the past 12 months has [employer], gas, oil, or water [employer] threatened to shut off services in your [...] as of this encounter Plan of Treatment Not on [...] documented as of this encounter Care Teams [employer] Teacher Relationship Specialty Start Date End Date Андрей Green MD [address] [place] [address] PCP - General Family Medicine 04/06/24 Ebony Cruz APRN [address] [place] [address] Referring Physician Gastroenterology 12/04/21 Chaparro Amaya MD [address] [facility] [address] [place] [address] Transplant Physician Transplant Surgery 12/10/21 documented as of this encounter
--- OUTSIDE RECORDS SUMMARY | 2025-04-26 11:52 | XMS_ITS | Encounter Summary ---
Author Organization [facility] Address [address] [place] [address] Care Team Providers Care Medical Librarian Name Role Phone Ebony Cruz OBED Unavailable [phone] Chaparro Amaya MD Unavailable Андрей Green MD Primary Care Provider [phone] Encounter Details Date Type Department Care Team (Late st Contact Info) Description 01/25/2025 Telephone [facility] Medicine [address] [place] [address] Андрей Green MD [address] [place] [address] Social History Tobacco Use Types [...] Recorded In the past 12 months has [employer], oil, or water [employer] threatened to shut off services in your [...] * Telephone Encounter - Kylee Mcfarlane - 01/25/2025 4:48 PM EDT Called pt and she stated she has tried calling several times today to get refills on medications, but no answer, very busy at work today and took her last tablets on medications and needing refills on Adderall, Midamor, Topamate, Synthroid. Informed pt that Dr. Green is not in clinic today and with it being this late in the afternoon I could send a message to provider covering as high priority butcan't promise that refills will be able to be sent in today. It is recommended pt call a few days before running out of medication to request refills. Pt voiced understanding. * Telephone Encounter - Gopi Butterfield - 01/25/2025 4:22 PM EDT Clinical Concern/Question Reason for Call: Please call pt who is out of her medications. Wanting a call this afternoon. Best contact number: [phone] (mobile) Optimal time of day to reach caller: [...] documented as of this encounter Care Teams Medical Librarian Relationship Specialty Start Date End Date Андрей Green MD [address] [place] [address] PCP - General Family Medicine 04/06/24 Ebony Cruz APRN [address] [facility] [address] [place] [address] Referring Physician Gastroenterology 12/04/21 Chaparro Amaya MD [address] [facility] [address] [place] [address] Transplant Physician Transplant Surgery 12/10/21 documented as of this encounter
--- OUTSIDE RECORDS SUMMARY | 2025-04-26 11:52 | XMS_ITS | Clinical Summary ---
Author Organization [facility] Address [address] [place] [address] Care Team Providers Care Uncrater Name Role Phone Ebony Cruz Kael CLAY Unavailable [phone] Chaparro Amaya MD Unavailable Андрей Green MD Primary Care Provider [phone] Allergies Active Allergy Reactions Criticality Noted Date [...] represent a complete record from that organization. furosemide (Lasix) 20 MG tablet Take 1 tablet by mouth daily as needed (pitting edema). 30 tablet 2 09/07/19 25 Active estrogens, conjugated, (Premarin) vaginal cream Insert 0.625 mg into the vagina daily. 10/12/19 25 Active valACYclovir (Valtrex) 500 MG tablet Take 1 tablet by mouth as needed. Active magnesium oxide (Mag-Ox) 400 MG tablet Take 1 tablet by mouth 2 times a day. 60 tablet 2 10/20/19 25 Active potassium chloride ER (Micro-K) 10 MEQ ER capsule Take 2 capsules by mouth 3 times a day. Do not crush or chew. 180 capsule 11 11/22/19 25 Active ondansetron (Zofran) 8 MG tabletIndicati ons:Gastroesop hageal reflux disease without esophagitis Take 1 tablet by mouth every 8 hours as needed for nausea or vomiting. 20 tablet 02/29/20 25 Active fluticasone (Flonase) 50 MCG/ACT nasal sprayIndicatio ns:Right acute serous otitis media, recurrence not specified Administer 2 sprays into each nostril daily. Shake gently. Before first use, prime pump. After use, clean tip and replace cap. 16 g 02/29/20 25 Active linaCLOtide (Linzess) 290 MCG capsule Take 1 capsule by mouth daily before breakfast. 90 capsule 2 03/06/20 25 Active Synthroid 25 MCG tabletIndicati ons:Anne' s disease Take 1 tablet by mouth daily before breakfast. 30 tablet 04/01/20 25 Active topiramate 50 MG tabletIndicati ons: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, not intractable Take 1 tablet by mouth daily. 30 tablet 04/01/20 25 Active aMILoride (Midamor) 5 MG tabletIndicati ons:Lymphedema , not elsewhere classified Take 1 tablet by mouth daily. 30 tablet 04/01/20 25 Active omeprazole (PriLOSEC) [address] capsuleIndicat ions:Gastroeso phageal reflux disease without esophagitis Take 1 capsule by mouth 2 times a day. Do not crush or chew. 60 capsule 04/01/20 25 Active amphetamine-de xtroamphetamin e XR (Adderall XR) 20 MG 24 hr capsule Take 1 capsule by mouth every morning. Do not crush or chew. 30 capsule 04/02/20 25 025 Active aMILoride (Midamor) 5 MG tabletIndicati ons:Lymphedema , not elsewhere classified Take 1 tablet by mouth daily. 30 tablet 02/29/20 25 025 Discontinued topiramate 50 MG tabletIndicati ons: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, not intractable Take 1 tablet by mouth daily. 30 tablet 02/29/20 25 025 Discontinued Synthroid 25 MCG tabletIndicati ons:Anne' s disease Take 1 tablet by mouth daily before breakfast. 30 tablet 02/29/20 25 025 Discontinued omeprazole (PriLOSEC) [address] capsuleIndicat ions:Gastroeso phageal reflux disease without esophagitis Take 1 capsule by mouth 2 times a day. Do not crush or chew. 60 capsule 02/29/20 25 025 Discontinued amphetamine-de xtroamphetamin e XR (Adderall XR) 20 MG 24 hr capsule Take 1 capsule by mouth every morning. Do not crush or chew. 30 capsule 03/01/20 025 Discontinued(Re order) Active Problems Problem Noted Date Diagnosed Date [...] abnormality 03/17/2023 03/17/2023 Kidney disease 03/17/2023 03/17/2023 Attention deficit hyperactivity disorder (ADHD) 03/17/2023 03/17/2023 Hand pain, left 03/17/2023 03/17/2023 Anne's disease 03/17/2023 03/17/2023 Chronic migraine with aura w ithout status migrainosus, not intractable 03/17/2023 03/17/2023 Migraine 03/17/2023 03/17/2023 Rib pain 03/17/2023 03/17/2023 Thoracic back pain 03/17/2023 03/17/2023 Torticollis 03/17/2023 03/17/2023 Bilateral adrenal adenomas 12/23/202203/17 Overview (03/17/2023): [...] 03/17/2023 Hypokalemia 04/09/2019 03/17/2023 Hemorrhoid 02/10/2017 03/17/2023 Abnormal LFTs 01/02/2016 03/17/2023 Abnormal serum level of alkaline phosphatase 09/201503/17/2023 Anxiety 01/02/2016 03/17/2023 Atopic rhinitis 01/02/2016 03/17/2023 Gastroesophageal reflux disease without esophagi tis 01/02/2016 03/17/2023 Hypothyroidism 01/02/2016 03/17/2023 Lymphedema, not elsewhere classified 01/02/2016 03/17/2023 LGSIL Pap smear of vagina 05/30/20122022 Resolved Problems Problem Noted Date Diagnosed Date Resolved Date Strep throat 04/06/2024 04/06/2024 Acute bronchitis 03/17/2023 03/17/2023 04/06/2024 Arm paresthesia, left 03/17/2023 03/17/20232024 BOM (bilateral otitis media) 03/17/2023 03/17/2023 04/06/2024 Pharyngitis 03/17/2023 03/17/2023 04/06/2024 Sinusitis 03/17/2023 03/17/2023 04/06/2024 URI (upper respiratory infection) 03/17/2023 023 04/06/2024 UTI (urinary tract infection) 03/17/2023 03/17/2023 02/17/2025 Viral syndrome 03/17/2023 03/17/2023 04/06/2024 Endometrial cancer 06/18/2016 03/17/2023 Painful cutaneous scar 06/15/2016 03/17/202302/17 Insomnia 01/02/2016 03/17/2023 02/17/2025 Encounters Date Type Department Care Team Description 04/01/2025 Refill [facility] [address] [place] [address] Bridgett Aguilar, OBED Anne's disease; 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, not intractable; Lymphedema, not elsewhere classified; Gastroesophageal reflux disease without esophagitis 03/29/2025 Travel 03/06/2025 Refill [facility] [address] [place] [address] Андрей Green MD 03/01/2025 Telephone [facility] [address] [place] [address] Bridgett Aguilar APRN 02/28/2025 3:20 PM EDT Office Visit [facility] [address] [place] [address] Bridgett Aguilar, ADDICTION THERAPIST Gastroesophageal reflux disease without esophagitis (Primary Dx); Anne's disease; 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, not intractable; Lymphedema, not elsewhere classified; Left lower quadrant abdominal pain; Gross hematuria; Left flank pain; Right acute serous otitis media, recurrence not specified 02/28/2025 Travel 02/27/2025 Telephone [facility] [address] [place] [address] Андрей Green MD HCN - Patient Message 01/25/2025 Telephone [facility] [address] [place] [address] Андрей Green MD from Last 3 Months Immunizations Immunization Administration Dates Next Due Hep A, Adult 11/14/2015 Hep A, ped/adol, 2 dose 03/20/2015 Hep B, Adolescent or Pediatric 6,06/03/2015,03/20/2015,1996,12/28/1996 Hep B, Adolescent/High Risk 07/19/1997 Influenza, injectable, quadr ivalent, preservative free 03/11/2023 Influenza, seasonal, injecta ble, preservative free 03/23/2024 [facility] COVID-19 Vac cine (Purple Cap) 12+ 02/13/2021,01/23/2021 [...] any time in the past 12 m [facility], were you homeless or living [...] Recorded In the past 12 months has [employer], gas, oil, or water [employer] threatened to shut off services in your [...] Mass Index 18.69 02/28/2025 3:27 PM EDT Plan of Treatment Health Maintenance Due Date Last Done Comments [facility]-Infant/Child/Adol SDOH Screenings 1980 [facility]-Varicella Vaccines (1 of 2 - 13+ 2-dose series) 1994 HPV Vaccines (1 - 3-dose SCDM series) 2008 [id number] Vaccine (3 - Pfizer risk series) 03/13/2021 02/13/2021, 01/23/2021 [facility]-Influenza Vaccine (#1) 2025 03/23/2024, [facility]- SDOH Screenings 04/21/2025 [facility]-Adult SDOH Screenings 04/21/2025 10/19/2024 [facility]-Depression Screening 02/28/2026 02/28/2025, 06/2024 [facility]-Zoster Vaccines (1 of 2) 2031 [facility]-DTaP,Tdap,and [...] PM EDT Gross hematuria Left flank pain HIV 1/2 ANTIBODY/ANTIGEN SCREEN WITH REFLEX TO HIV I/II DIFFERENTIATION Routine 04/06/2024 4:51 PM EST Possible exposure to STD HEPATITIS C ANTIBODY - ED W/REFLEX TO HCV QUANT PCR STAT 02/21/2023 4:41 PM EDT from Last 3 Months or Most Recently Relevant to Health Maintenance Results * POCT Urinalysis dipstick (02/28/2025 4:06 PM EDT) POCT Urine Color Light Yellow POCT Urine Clarity Cloudy POCT Glucose Urine Negative Negative mg/dL POCT Bilirubin, Urine Negative Negative POCT Ketones, Urine Negative Negative mg/dL POCT Specific Bypro, Urine 1.015 POCT Blood, Urine Negative Negative POCT pH, Urine 5.5 5.0 to 8.0 POCT Protein, Urine Negative Negative mg/dL POCT Urobilinogen, Urine 0.2 0.2, 1 E.U./dL POCT Nitrite, Urine Negative Negative POCT Leukocyte Esterase, Urine Negative Negative Test Strip Lot Number [id number] Test Strip Lot Expiration 07/2025 Urine Urine specimen obtained by clean catch procedure / Unknown 02/28/2025 4:06 PM EDT Bridgett Aguilar ADDICTION THERAPIST POINT OF CARE TEST ENTER/ED IT ORDERABLES Final Result * HIV 1 & 2 Antibody/Antigen Screen (04/06/2024 4:51 PM EST) HIV 1 & 2 Antibody/Antigen Screen Non Reactive Non Reactive 04/06/2024 7:27 PM EST [facility] Comment:Screening for HIV 1 & 2 antibodies, and P24 antigen is NONREACTIVE. No confirmatory testing is required. Blood Venous blood specimen / Unknown Venipuncture / Unknown 04/06/2024 4:51 PM EST 04/06/2024 4:59 PM EST us Андрей Green MD LAB BLOOD ORDERABLES Final Res ult [facility] [address] [place] [address] * Hepatitis C Antibody - ED (02/21/2023 4:41 PM EDT) Hepatitis C Antibody Negative Negative 02/21/2023 5:47 PM EDT [facility] Blood Venous blood specimen / Unknown Venipuncture / Unknown 02/21/2023 4:41 PM EDT 02/21/2023 5:04 PM EDT us Niyah Talamantes DO LAB BLOOD ORDERABLES Final Re sult Performing Organization Address City/[facility] Co de Phone Number [facility] [address] [place] [address] from Last 3 Months or Most Recently Relevant to Health Maintenance Insurance GUERDA GUERDA Care Teams Uncrater Relationship Specialty Start Date End Date Андрей Green MD [address] [place] [address] PCP - General Family Medicine 04/06/24 Ebony Cruz APRN [address] [place] [address] Referring Physician Gastroenterology 12/04/21 Chaparro Amaya MD [address] [facility] [address] [place] [address] Transplant Physician Transplant Surgery 12/10/21
--- OUTSIDE RECORDS SUMMARY | 2025-04-26 11:52 | XMS_ITS | Encounter Summary ---
Author Organization [facility] Address [address] [place] [address] Care Team Providers Care Marketing Copywriter Name Role Phone Ebony Cruz Kael CLAY Unavailable [phone] Chapraro Amaya MD Unavailable Андрей Green MD Primary Care Provider [phone] Encounter Details Date Type Department Care Team (Latest Contact Info) Description 02/28/2025 Travel Social History Tobacco Use Types Packs/Day [...] place to sleep or slept in a snf (including now)? No 04/06/2024 PHQ-9 Answer Date [...] any time in the past 12 m [facility], were you homeless or living in a snf (including now)? No 10/19/2024 AUDIT-C Answer Date [...] as of this encounter Functional Status * Over the [...] Irasema Mg documented as of this encounter Plan of [...] documented as of this encounter Care Teams Marketing Copywriter Relationship Specialty Start Date End Date Андрей Green MD [address] [place] [address] PCP - General Family Medicine 04/06/24 Ebony Cruz APRN [address] [facility] [address] [place] [address] Referring Physician Gastroenterology 12/04/21 Chaparro Amaya MD [address] [place] [address] Transplant Physician Transplant Surgery 12/10/21 documented as of this encounter
--- OUTSIDE RECORDS SUMMARY | 2025-04-26 11:52 | XMS_ITS | Encounter Summary ---
Author Organization [facility] Address [address] [place] [address] Care Team Providers Care Stable Cleaner Name Role Phone Андрей Green MD Primary Care Provider [phone] Encounter Details Date Type Department Care Team (Late st Contact Info) Description 03/27/2013 Conversion Encounter [facility] HISTORICAL CONV [address] [place] [address] Interface, See Report Social History [...] See Report - 03/27/2013 12:00 AM EDT DISABILITY MANAGER-Oncology Services [address] [place], [place] [phone] Patient: PARAMJIT SHARP MR #: [id number] : 1980 Date of Visit: 03/27 Referring [...] See Report - 03/06/2013 12:00 AM EDT DISABILITY MANAGER-Oncology Services [address] [place] [address] Patient: PARAMJIT SHARP MR #: : 1980 [...] Description 05/17/2025 10:30 AM EST Office [facility] NEUROLOGY [address] [facility] [address] [place] [phone] Tawanna Nassar, SQL PROGRAMMER ANALYST [address] [facility] [address] [place], [place] [id number] 08/12/2025 9:30 AM EDT Office Visit [facility] GYNECOLOGIC ONCOLOGY [address] [facility] [address] [place], [place] [phone] Iraida Jackson, SQL PROGRAMMER ANALYST [address] [facility] [address] [place], [place] [id number] documented as of this encounter Visit Diagnoses Not on filedocumented in this encounter Care Teams Stable Cleaner Relationship Specialty Start Date End Date Андрей Green MD [address] [place] [address] PCP - General Family Medicine 06/25/24 documented as of this encounter
--- OUTSIDE RECORDS SUMMARY | 2025-04-26 11:52 | XMS_ITS | Encounter Summary ---
Author Organization [facility] Address [address] [place] [address] Care Team Providers Care Corrosion Control Technician Name Role Phone Андрей Green MD Primary Care Provider [phone] Encounter Details Date Type Department Care Team (Late st Contact Info) Description 01/30/2013 Conversion Encounter [facility] HISTORICAL CONV [address] [place] [address] Interface, See Report Social History [...] See Report - 01/30/2013 12:00 AM EDT SPINNING MACHINE TENDER-Oncology Services [address] [place], [place] [id number] Patient: PARAMJIT SHARP MR #: : 1980 Date of Visit: 01/30/2013 Attending Physician: Magaly Espinal Dictated By: MAGALY ESPINAL Referring Physician: LES BELLE Diagnosis: ENDOMETRIAL CANCER Allergies: SULFA, DILAUDID, BAND-AIDS, CERTAIN ADHESIVES History of present illness: POSTOP; XLP, ELIEZER, BSO, LND, BX OF BLADDER/PERITONEUM, OPTIMAL DEBULKINGON 8-14-13 . PT. C/O OCC BLADDER SPASMS BUT IS OTHERWISE DOING WELL. NORMAL BOWEL FX. SHE IS MACARONI MAKER BUT DENIES PAIN. Rash improved and almost [...] Description 05/17/2025 10:30 AM EST Office Visit [facility] NEUROLOGY [address] [facility] [address] [place] [phone] Tawanna Nassar, RESTAURANT LINE SERVER [address] [facility] [address] [place], [place] [id number] 08/12/2025 9:30 AM EDT Office Visit [facility] GYNECOLOGIC ONCOLOGY [address] [facility] [address] [place], [place] [phone] Iraida Jackson, RESTAURANT LINE SERVER [address] [facility] [address] [place], [place] [phone] documented as of this encounter Visit Diagnoses Not on filedocumented in this encounter Care Teams Corrosion Control Technician Relationship Specialty Start Date End Date Андрей Green MD [address] [place] [address] PCP - General Family Medicine 06/25/24 documented as of this encounter
--- OUTSIDE RECORDS SUMMARY | 2025-04-26 11:52 | XMS_ITS | Encounter Summary ---
[facility] Address [address] [place] [address] Care Team Providers Care Management Development Specialist Name Role Phone Андрей Green MD Primary Care Provider Encounter Details Date Type Department Care Team (Late st Contact Info) Description 01/04/2013 Conversion Encounter [facility] HISTORICAL CONV [address] [place] [address] Interface, See Report Social History [...] See Report - 01/04/2013 12:00 AM EDT RN CHRONIC-Oncology Services [address] [place], [place] [id number] Patient: PARAMJIT SHARP MR #: : 1980 [...] Description 05/17/2025 10:30 AM EST Office Visit [facility] NEUROLOGY [address] [facility] [address] [place] [address] Tawanna Nassar, CRANE OILER [address] [facility] [address] [place] [address] 08/12/2025 9:30 AM EDT Office Visit [facility] GYNECOLOGIC ONCOLOGY [address] [place] [address] Iraida Jackson, CRANE OILER [address] [facility] [address] [place], [place] [id number] documented as of this encounter Visit Diagnoses Not on filedocumented in this encounter Care Teams Management Development Specialist Relationship Specialty Start Date End Date Андрей Green MD [address] [place] [address] PCP - General Family Medicine 06/25/24 documented as of this encounter
--- OUTSIDE RECORDS SUMMARY | 2025-04-26 11:52 | XMS_ITS | Encounter Summary ---
Author Organization [facility] Address [address] [place] [address] Care Team Providers Care Flat Folding Machine Operator Name Role Phone Ebony Cruz Kael CLAY Unavailable [phone] Chaparro Amaya MD Unavailable Андрей Green MD Primary Care Provider [phone] Reason for Visit * Reason Onset Date Comments HCN - Patient Message 02/27/2025 Encounter Details Date Type Department Care Team (Late st Contact Info) Description 02/27/2025 Telephone [facility] [address] [place] [address] Андрей Green MD [address] [place] [address] HCN - Patient Message Social History Tobacco Use Types Packs/Day Years [...] any time in the past [address] [facility], were you homeless or living in a half-way (including now)? No 10/19/2024 AUDIT-C Answer Date [...] Recorded In the past 12 months has [employer], gas, oil, or water company threatened to [...] encounter Miscellaneous Notes * Telephone Encounter - Robin Longojosi Linton - 02/27/2025 9:20 AM EDT Same Day Appt/Overbook Request Reason for Call: pt called states she has a possible uti or bladder inf, asking to be seen by someone today if possible . Pt also states she is out of meds and needs refills. Please advise Thanks Best contact number: [phone] (mobile) Optimal time of day to reach caller: ANYTIME Additional comments/information from caller: None Note: Please do not reply to this message. Follow-up communication and further actions as a result of this message need to be communicated with the patient directly, if the patient is not active onMyChart. If the patient is active on MyChart, they will receive notification of the communication/outcome via Ximalayahart. documented in this encounter Plan of Treatment [...] documented as of this encounter Care Teams Flat Folding Machine Operator Relationship Specialty Start Date End Date Андрей Green MD [address] [place] [address] PCP - General Family Medicine 04/06/24 Ebony Cruz APRN [address] [facility] [address] [place] [address] Referring Physician Gastroenterology 12/04/21 Chaparro Amaya MD [address] [place] [address] Transplant Physician Transplant Surgery 12/10/21 documented as of this encounter
--- OUTSIDE RECORDS SUMMARY | 2025-04-26 11:52 | XMS_ITS | Continuity of Care Document ---
Author Organization [facility], [place] [facility] [address] Address [address] [facility] [address] [place] [address] Care Team Providers Care Right Of Way Manager Name Role Phone LYDIA CHAPMAN Primary Care Provider [phone] Assessment No assessment recorded. Plan of Treatment Reminders Order Date Submit Date Provider Last Modified By Organization Details Last Modified Time Details Appointments None record ed. Lab None record ed. Referral None record ed. Procedures None record ed. Surgeries None record ed. Imaging None record ed. Medication Orders None record ed. Patient TargetsNo targets recorded. Patient Instructions Encounter Date Encounter Id Patient Instructions Last Modified By Organization Details Last Modified Time 03/20/2025 [id number] 1. RMT removal performed in office today. Full risks, complications, and benefits of operative versus non-operative intervention have been thoroughly discussed. Understanding was expressed, informed consent given, and we will proceed with the discussed operative treatment plan. There were no questions for me at the end of the office visit. 2. Recommend pt use ciprodex drops BID for 1 week 3. F/u in 2-3 weeks Not available 03/20/2025 16:55:36 lifetime history of right ear problems; t tube placed in 11/20 then lost to follow up; now with right otalgia; turns out TM grew over the tube and tube now in middle ear with small perforation; able to retrieve the tube from the middle ear; ciprodex for a week then check her progress in 2-3 weeks rvanmetre Not available 03/20/2025 17:13:21 Reason for Referral None Reported. Results Created Date Observation Date Name Description Value Unit Range Abnormal Flag Note LastModifiedBy Organization Detail LastModifiedTime 03/21/2003/20/2025 audio gram No observ ation record ed. BARCODE Not Available 2024 10:43:59 Result Notes None recorded. Problems Name Problem SNOMED Code Status Onset Date Resolution Date Notes Provider Name and Address Organization Details Recorded Time Otitis media of right ear 64298012148 39076 Active 2015 From Automated Load;Prov ider: Dina Aguirre;St atus: Active Not Available [facility] 6 04:11:24 Perforati on of tympanic membrane 19093382 Active 2015 From Automated Load;Prov ider: Dina Aguirre;St atus: Active Not Available [facility] 6 04:11:24 Benign paroxysma l positiona l vertigo 848407257 Active 2015 From Automated Load;Prov ider: Dina Aguirre;St atus: Active Not Available [facility] 6 04:11:24 Chronic tonsillit is 54985396 Active 2015 Provider: Hugo Thorne;Statu s: Active Not Available [facility] 6 04:11:24 Hypertrop hy of tonsils AND adenoids 79348485 Active 2015 Provider: Hugo Thorne;Statu s: Active Not Available [facility] 6 04:11:24 Adenoid vegetatio ns 190336621 Active 2015 Provider: Huog Thorne;Statu s: Active Not Available [facility] 6 04:11:24 Eustachia n tube disorder 98991951 Active 2015 Provider: Hugo Thorne;Statu s: Active Not Available [facility] 6 04:11:24 Problem Notes None recorded. Procedures Surgical History Date Name Laterality Status Provider Name and Address Organization Details Recorded Time 03/20/20 Tympanogram [place], [address], [facility] 03/20/2025 16:13:52 03/20/20 Audiogram [place], [address], [facility] 03/20/2025 16:13:51 03/20/20 25 Binocular Microscopy completed HUGO THORNE MD [address] [place], [address], [facility] 03/20/2025 17:11:48 02/01/20 24 Tympanogram completed GOLDEN NARVAEZ, [facility] [address] [place], [address], [facility] 02/01/2024 16:48:30 02/01/20 24 Audiogram completed GOLDEN NARVAEZ, [facility] [address] [place], [address], [facility] 02/01/2024 16:48:28 11/09/19 24 Tympanostomy w/Tube, local completed George [facility] 11/09/2023 10:45:46 06/07/19 24 TYMPANOSTOMY, TUBE INSERTION (SURG) completed Clair O'Checo [facility] 12/29/2023 11:39:37 06/01/19 24 Tympanogram completed GOLDEN NARVAEZ, [facility] [address] [place], [address], [facility] 06/01/2023 14:08:37 06/01/19 24 Audiogram completed GOLDEN NARVAEZ [facility] [address] [place], [address], [facility] 06/01/2023 14:08:34 05/30/19 07 procedure on gallbladder completed Tara Blanquita [facility] 06/01/2023 15:13:50 hysterectomy completed Tara Blanquita [facility] 06/01/2023 15:14:59 Imaging Results None recorded. Procedure Notes None recorded. Medical Equipment None Reported. Allergies Allergen ID Allergen Name Allergen Category Reaction Reaction Severity Criticality Documentation Date Start Date Code Code System Note Provider Name and Address Organization Details Recorded Time 267735 Substance with sulfonami de structure and antibacte rial mechanism of action (substanc e) medicatio n Not available Not available Not available 04/22/20162012 67090 8003 SNOMED Comme nt: Creat ed By: Ta mcconnell;Cre ated Date: 2012 8:51: 45 AM; Not Available [facility] 6 10:31:16 832381 Dilaudid medicatio n Not available Not available Not available 04/22/20162012 53008 3 RxNorm Comme nt: Creat ed By: Ta mcconnell;Cre ated Date: 2012 8:52: 01 AM; Not Available [facility] 6 14:13:55 666281 magnesium medicatio n Not available Not available Not available 06/01/2023 6574 RxNorm Tara Blanquita [facility] 4 13:52:19 630297 doxycycli ne Not available Not available Not available Not available 03/20/2025 3640 RxNorm Henna Altman [facility] 5 16:27:14 085220 morphine medicatio n Not available Not available Not available 03/20/2025 7052 RxNorm Henna Altman [facility] 5 16:27:30 Medications Name Sig Start Date Stop Date Status Note LastModified by Organization Details LastModified Time promethaz ine-DM 6.25 mg-15 mg/5 mL oral syrup 03/20 completed Not Available Not Available Not Available potassium chloride ER 10 mEq capsule,e xtended release TAKE 2 CAPSULES BY MOUTH 3 TIMES A DAY. DO NOT CRUSH OR CHEW active Not Available Not Available No t Available doxycycli ne hyclate 100 mg capsule TAKE 1 CAPSULE BY MOUTH 2 TIMES A DAY FOR 10 DAYS. TAKE WITH AT LEAST EIGHT OUNCES OF WATER. DO NOT LIE DOWN FOR 30 MINUTES AFTER TAKING. 03/19 completed Not Available Not Available Not Available azithromy taylor 250 mg tablet TAKE 2 TABLETS BY MOUTH ON DAY 1, THEN TAKE 1 TABLET DAILY ON DAYS 2 THROUGH 5 03/20 completed Not Available Not Available Not Available fluconazo le 150 mg tablet 10/22 /2025 completed Not Available Not Available Not Available ondansetr on HCl 8 mg tablet TAKE 1 TABLET BY MOUTH EVERY 8 HOURS NEEDED FOR NAUSEA AND VOMITING active Not Available Not Available No t Available sucralfat e 1 gram tablet 03/20 completed Not Available Not Available Not Available omeprazol e 40 mg capsule,d elayed release TAKE 1 CAPSULE BY MOUTH 2 TIMES A DAY. DO not crush OR chew active Not Available Not Available No t Available amiloride 5 mg tablet TAKE 1 TABLET BY MOUTH ONCE A DAY active Not Available Not Available No t Available ofloxacin 0.3 % ear drops INSTILL 4-5 DROPS INTO AFFECTED EAR(S) BY OTIC ROUTE 2X DAILY FOR 5 DAYS active Not Available Not Available No t Available famotidin e 20 mg tablet active Not Available Not Available Not Available magnesium oxide 400 mg (241.3 mg magnesium ) tablet 1 TABLET BY MOUTH 2 TIMES A DAY active Not Available Not Available No t Available dextroamp hetamine- amphetami ne ER 20 mg 24hr capsule,e xtend release TAKE 1 CAPSULE BY MOUTH EVERY MORNING 03/20 completed Not Available Not Available Not Available Synthroid 25 mcg tablet TAKE 1 TABLET BY MOUTH ONCE A DAY BEFORE breakfas t active Not Available Not Available No t Available meclizine 25 mg tablet 1 tablet twice a day as needed for dizzines s/Nausea . active Not Available Not Available No t Available benzonata te 100 mg capsule 03/20 completed Not Available Not Available Not Available levothyro xine 50 mcg tablet active Medicati on Descript ion: levothyr oxine; Route:or al; refills: 0 Not Available Not Available Not Available omeprazol e 20 mg capsule,d elayed release 03/20 completed Medicati on Descript ion: omeprazo le; Route:or al; refills: 0 Not Available Not Available Not Available mupirocin 2 % topical ointment 03/20 completed Not Available Not Available Not Available furosemid e 20 mg tablet TAKE 1 TABLET BY MOUTH ONCE A DAY NEEDED FOR EDEMA active Not Available Not Available No t Available cefdinir 300 mg capsule 03/20 completed Not Available Not Available Not Available dexametha sone sodium phosphate 10 mg/mL injection solution 10mg IM injectio n once 03/20 completed Not Available Not Available Not Available fluticaso ne propionat e 50 mcg/actua tion nasal spray,mita pension USE 2 SPRAYS in each nostril ONCE A DAY active Not Available Not Available No t Available metoclopr amide 10 mg tablet active Not Available Not Available No t Available amoxicill in 875 mg-potass ium clavulana te 125 mg tablet TAKE 1 TABLET BY MOUTH 2 TIMES A DAY FOR 10 DAYS 03/19 completed Not Available Not Available Not Available tobramyci n 0.3 %-dexamet hasone 0.1 % eye drops,mita pension active Not Available Not Available Not Available hydroxyzi ne pamoate 25 mg capsule 03/20 completed Not Available Not Available Not Available dextroamp hetamine- amphetami ne ER 15 mg 24hr capsule,e xtend release TAKE 1 CAPSULE BY MOUTH EVERY MORNING 03/20 completed Not Available Not Available Not Available cyclobenz aprine 5 mg tablet 03/20 completed Not Available Not Available Not Available Premarin 0.625 mg/gram vaginal cream insert 1 APPLICAT ORFUL into THE VAGINA ONCE A DAY 03/20 completed Not Available Not Available Not Available ciproflox acin 0.3 %-dexamet hasone 0.1 % ear drops,mita pension instill 4 drops into affected ear(s) 2 TIMES A DAY FOR 7 DAYS 03/19 completed Not Available Not Available Not Available topiramat e 50 mg tablet TAKE 1 TABLET BY MOUTH ONCE A DAY active Not Available Not Available No t Available cefdinir 250 mg/5 mL oral suspensio n TAKE 6 ML BY MOUTH TWICE DAILY FOR 10 DAYS 11/15 completed Not Available Not Available Not Available Synthroid 03/20 completed Not Available Not Available Not Available Topamax 03/20 completed Not Available Not Available Not Available Adderall 20mg active Not Available Not Avai lable Not Available Linzess 290 mcg capsule TAKE 1 CAPSULE BY MOUTH EVERY MORNING BEFORE BREAKFAS T active Not Available Not Available No t Available Vitals Date Recorded Body height Body mass index (BMI) Body weight Heart rate Body temperature Systolic And Diastolic Provider Name and Address Organization Details Last Updated DateTime 162.56 cm 18.2 kg/m2 39859.7 9 g 98 /min 98 [degF] 101/78 mm[Hg] Henna Altman [facility] 5 16:29:06 Social History None recorded. Functional Status Question Answer Note LastModified by Organizat ion Details LastModified Time What is your level of alcohol consumption? Occasional [email or web address] Information not available 06/01/2023 Mental Status None recorded. Family History Relationship Description Onset Age of this Age Resolved Age Notes LastModified by Organization Details LastModified Time Maternal Grandmother Heart disease [email or web address] Not available 2023 15:10:53 Maternal Grandmother Hypertensive disorder [email or web address] Not available 2023 15:11:20 Maternal Aunt Disorder of thyroid gland [email or web address] Not available 2023 15:11:46 Medical History Condition Response Esophagus/swallowing troubles Y Migraines Y Stroke Y Thyroid Problems Y Kidney Disease Y Gynecological HistoryNo gynecological history recorded. Obstetrics History GPAL:G 0 P 0 0 0 0 Immunizations Vaccine Type Date Status Note Provider Nam e and Address Organization Details Recorded Time Hep B, adolescent or pediatric 7 completed Not Available [facility] 03/20/2025 16:14:32 Hep B, adolescent or pediatric 7 completed Not Available [facility] 03/20/2025 16:14:32 Hep B, adolescent/high risk 8 completed Not Available [facility] 03/20/2025 16:14:32 Td (adult), 2 Lf tetanus toxoid, preservative free, adsorbed 4 completed Not Available [facility] 03/20/2025 16:14:32 COVID-19, mRNA, LNP-S, PF, 30 mcg/0.3 mL dose 1 completed Not Available [facility] 03/20/2025 16:14:32 COVID-19, mRNA, LNP-S, PF, 30 mcg/0.3 mL dose 1 completed Not Available [facility] 03/20/2025 16:14:32 Tdap 3 completed Not Available [facility] 03/20/2025 16:14:32 Influenza, split virus, quadrivalent, PF 3 completed Not Available [facility] 03/20/2025 16:14:32 Influenza, split virus, trivalent, PF 4 completed Not Available [facility] 03/20/2025 16:14:32 Past Encounters Encounter ID Performer Location Encounter Start Date Encounter Closed Date Diagnosis/Indication Diagnosis SNOMED-CT Code Diagnosis ICD10 Code Diagnosis IMO Codes Diagnosis Note [id number] HUGO THORNE MD [facility] [address] [address] [place] [address] 03/20/2025 15:45:53 03/20/2025 16:58:32 Dysfunction of right eustachian tube 5032403133 338688 H69.91 11/09/23 - RMT extruded (sitting in canal) - removed in office today, TM retracted - RMT replaced in office today (T-Tube).: RMT in place and woguki97/2 07/24 - Foreign body reaction in right TM pushing the tube out Bilateral tympanosclerosis 7455447253 7451665 H74.03 Otalgia of right ear 325 7004115 H92.01 Ear pressu re sensation 630448443 H93.8X9 - RIGHT Otorrhea of right ear 10 62296696 776835 H92.11 [id number] Surgical follow-up 56382 4000 Z96.22 [id number] GOLDEN MONTERO [facility] [address] [place] [address] 03/20/2025 16:13:30 03/20/2025 16:14:42 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 3842009153 H90.71 [id number] Health Concerns Section Related Observation LastModified by Organization Detai ls LastModified Time None Recorded Concern Status LastModified by Organization Details LastModified Time None Recorded Payers Encounter Date Sequence Insurance Name Policy Number Policy Ray Covered Member ID Ray Member ID Guarantor Name 03/20/2025 2 [employer] (PPO) [id number] Ana Maria العراقي [id number] Ana Maria العراقي 03/20/2025 1 [place]: [employer] [place] [employer] [place] [employer] [id number] Ana Maria العراقي [id number] Ana Maria العراقي Notes Date Note Type Note Provider Name and Address Organization Details Recorded Time 03/20/2025 text/html ROS as noted in the HPI Ana Maria (44F) presents to the office with concerns of RMT tube position (11/09/23). She reports that she has otalgia and discomfort in her right ear. She also cannot hear very well in her ear. HUGO THORNE MD [address] [place] [address], [address], [facility] 03/20/2025 17:14:57 OBGyn Episode No OBEpisode recorded.
--- OUTSIDE RECORDS SUMMARY | 2025-04-26 11:52 | XMS_ITS | Encounter Summary ---
Author Organization [facility] Address [address] [place] [address] Care Team Providers Care Matzo Forming Machine Operator Name Role Phone Андрей Green MD Primary Care Provider [phone] Encounter Details Date Type Department Care Team (Late st Contact Info) Description 05/31/2013 Conversion Encounter [facility] HISTORICAL CONV [address] [place] [address] Interface, See Report Social History [...] See Report - 06/07/2013 12:00 AM EST JEWELRY BENCH WORK[facility]-Oncology Services [address] [place], [place] [phone] Patient: PARAMJIT PARISH MR #: [id number] : 1980 Date of Visit: 06/07/2013 Referring [...] 3:43 PM EST COMPLETION/CLOSURE NOTE RE. PATIENT: PARAMJIT PARISH [facility]. REC.#: [id number] : 1980 COMPLETION DATE: 06/07/2013 DIAGNOSIS: Stage [...] an implant that was positive. This was [id number] stage III grade 2 adenocarcinoma. She received [...] to do well and followed with the mixing picker tender. She walked into a wall and bruised [...] NOTE RE. PATIENT: PARAMJIT PARISH MED. REC.#: [id number] : 1980 COMPLETION DATE: 06/07/2013 DISPOSITION: An [...] delightful young lady. Sincerely, Alessandra Nunez M.D.* [facility] [place]/rxalw Voice Rec ID: #[id number] Original Voice Rec ID: #[id number] Document ID: #[id number] Rev. #0 cc: [facility] Research Geophysical Laboratory Director/Survivorship* Radha Espinal M.D.* Les Belle M.D.* Dr. Candido Ramos DO NOT TEXT EDIT THIS LINE :MILLER HELPER:[id number]: Authenticated by ALESSANDRA NUNEZ M.D. On 06/20/2013 09:07:39 AM documented in this encounter Plan of Treatment Upcoming Encounters Date Type Department Care Team (Late st Contact Info) Description 05/17/2025 10:30 AM EST Office Visit [facility] NEUROLOGY [address] [facility] [place] [id number] Tawanna Nassar, RUBBER MOLD MAKER [address] [facility] [address] [place] [address] 08/12/2025 9:30 AM EDT Office Visit [facility] GYNECOLOGIC ONCOLOGY [address] [place], [place] [id number] Iraida Jackson APRN [address] [facility] [address] [place], [place] [phone] documented as of this encounter Visit Diagnoses Not on filedocumented in this encounter Care Teams Matzo Forming Machine Operator Relationship Specialty Start Date End Date Андрей Green MD [address] [place] [address] PCP - General Family Medicine 06/25/24 documented as of this encounter
--- OUTSIDE RECORDS SUMMARY | 2025-04-26 11:52 | XMS_ITS | Continuity of Care Document ---
Author Organization [facility] c, [place] [facility] Address [address] [place] [address] Care Team Providers Care Director Of Cath Lab Name Role Phone LYDIA CHAPMAN Primary Care Provider Assessment No assessment recorded. Plan of Treatment Reminders Order Date Submit Date Provider Last Modified By Organization Details Last Modified Time Details Appointments None record ed. Lab None record ed. Referral None record ed. Procedures None record ed. Surgeries None record ed. Imaging None record ed. Medication Orders None record ed. Patient TargetsNo targets recorded. Patient InstructionsNo instructions recorded. Reason for Referral None Reported. Results Created Date Observation Date Name Description Value Unit Range Abnormal Flag Note LastModifiedBy Organization Detail LastModifiedTime 03/21/2003/20/2025 audio gram No observ ation record ed. BARCODE Not Available 2024 10:43:59 Result Notes None recorded. 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 membrane 09665636 Active 2015 From Automated Load;Prov ider: Dina Aguirre; atus: Active Not Available [facility] 6 04:11:24 Benign paroxysma l positiona l vertigo 442857761 Active 2015 From Automated Load;Prov ider: Dina Aguirre; atus: Active Not Available [facility] 6 04:11:24 Chronic tonsillit is 47482179 Active 2015 Provider: Hugo Thorne;Statu s: Active Not Available [facility] 6 04:11:24 Hypertrop hy of tonsils AND adenoids 83126214 Active 2015 Provider: Hugo Thorne;Statu s: Active Not Available [facility] 6 04:11:24 Adenoid vegetatio ns 066704358 Active 2015 Provider: Hugo Thorne;Statu s: Active Not Available [facility] 6 04:11:24 Eustachia n tube disorder 10232391 Active 2015 Provider: Hugo Thorne;Statu s: Active Not Available [facility] 6 04:11:24 Problem Notes None recorded. Procedures Surgical History Date Name Laterality Status Provider Name and Address Organization Details Recorded Time 03/20/20 25 Tympanogram completed GOLDEN MONTERO [address] [place], [address], [facility] 03/20/2025 16:13:52 03/20/20 25 Audiogram completed GOLDEN MONTERO [address] [place], [address], [facility] 03/20/2025 16:13:51 03/20/20 25 Binocular Microscopy completed HUGO THORNE MD [address] [place], [address], [facility] 03/20/2025 17:11:48 02/01/20 24 Tympanogram completed GOLDEN NARVAEZ, CCA-A [address] [place], [address], [facility] 02/01/2024 16:48:30 02/01/20 24 Audiogram completed GOLDEN NARVAEZ, CCA-A [address] [place], [address], [facility] 02/01/2024 16:48:28 11/09/19 24 Tympanostomy w/Tube, local completed George Jeffsummer [facility] 11/09/2023 10:45:46 06/07/19 24 TYMPANOSTOMY, TUBE INSERTION (SURG) completed Clair Vicente [facility] 12/29/2023 11:39:37 06/01/19 24 Tympanogram completed ONDINA SNYDER , AUD, CCA[facility]A [address] [place], [address], [facility] 06/01/2023 14:08:37 06/01/19 24 Audiogram completed ONDINA SNYDER AUD, CCA-A [address] [place], [address], [facility] 06/01/2023 14:08:34 05/30/19 07 procedure on gallbladder completed Tararosio Juares [facility] 06/01/2023 15:13:50 hysterectomy completed Tara Blanquita [facility] 06/01/2023 15:14:59 Imaging Results None recorded. Procedure Notes None recorded. Medical Equipment None Reported. Allergies Allergen ID Allergen Name Allergen Category Reaction Reaction Severity Criticality Documentation Date Start Date Code Code System Note Provider Name and Address Organization Details Recorded Time 056656 Substance with sulfonami de structure and antibacte rial mechanism of action (substanc e) medicatio n Not available Not available Not available 04/22/20162012 34254 8003 SNOMED Comme nt: Creat ed By: Ta reedCre ated Date: 2012 8:51: 45 AM; Not Available [facility] 6 10:31:16 846507 Dilaudid medicatio n Not available Not available Not available 04/22/20162012 77980 3 RxNorm Comme nt: Creat ed By: Ta reedCre ated Date: 2012 8:52: 01 AM; Not Available [facility] 6 14:13:55 324095 magnesium medicatio n Not available Not available Not available 06/01/2023 6574 Rx[facility] 13:52:19 670910 doxycycli ne Not available Not available Not available Not available 03/20/2025 3640 RxNorm Henna Altman [facility] 16:27:14 106449 morphine medicatio n Not available Not available Not available 03/20/2025 7052 RxNorm Henna Altman [facility] 16:27:30 Medications Name Sig Start Date Stop [...] Not Available fluconazo le 150 mg tablet 03/20 completed Not Available Not [...] Last Updated DateTime 162.56 cm 18.2 kg/m2 21985.7 9 g 98 /min 98 [degF] 101/78 mm[Hg] [facility] 16:29:06 Social History None recorded. Functional Status [...] Medical History Condition Response Esophagus/swallowing troubles Y Stroke Y Kidney Disease Y Migraines Y Thyroid Problems Y Gynecological HistoryNo gynecological history recorded. Obstetrics History GPAL:G 0 P 0 0 0 0 Immunizations Vaccine Type Date Status Note Provider Nam e and Address Organization Details Recorded Time Hep B, adolescent or pediatric 7 completed Not Available [facility] 03/20/2025 16:14:32 Hep B, adolescent or pediatric 7 completed Not Available [facility] 03/20/2025 16:14:32 Hep B, adolescent/high risk infant 8 completed Not Available [facility] 03/20/2025 16:14:32 Td (adult), 2 Lf tetanus toxoid, preservative free, adsorbed 4 completed Not Available [facility] 03/20/2025 16:14:32 COVID-19, mRNA, LNP-S, PF, 30 mcg/0.3 mL dose 1 completed Not Available [facility] 03/20/2025 16:14:32 COVID-19, mRNA, LNP-S, PF, 30 mcg/0.3 mL dose 1 completed Not Available [facility] 03/20/2025 16:14:32 Tdap 3 completed Not Available [facility] 03/20/2025 16:14:32 Influenza, split virus, quadrivalent, PF 3 completed Not Available [facility] 03/20/2025 16:14:32 Influenza, split virus, trivalent, PF 4 completed Not Available [facility] 03/20/2025 16:14:32 Past Encounters Encounter ID Performer Location Encounter Start Date Encounter Closed Date Diagnosis/Indication Diagnosis SNOMED-CT Code Diagnosis ICD10 Code Diagnosis IMO Codes Diagnosis Note [id number] HUGO THORNE MD [place] [facility] [address] [place] [address] 03/20/2025 15:45:53 03/20/2025 16:58:32 Dysfunction of right eustachian tube 8052061078 972227 H69.91 11/09/23 - RMT extruded (sitting in canal) - removed in office today, TM retracted - RMT replaced in office today (T-Tube).: RMT in place and zhwciz84/2 07/24 - Foreign body reaction in right TM pushing the tube out Bilateral tympanosclerosis 1373947450 1106950 H74.03 Otalgia of right ear 508 8647389 H92.01 Ear pressu re sensation 923150867 H93.8X9 - RIGHT Otorrhea of right ear 10 67960072 546773 H92.11 [id number] Surgical follow-up 74006 4000 Z96.22 [id number] ANGI NAVARRETE, GOLDEN [place] [facility] [address] [place] [address] 03/20/2025 16:13:30 03/20/2025 16:14:42 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 7618008685 H90.71 [id number] Health Concerns Section Related Observation LastModified by Organization Detai ls LastModified Time None Recorded Concern Status LastModified by Organization Details LastModified Time None Recorded Payers Encounter Date Sequence Insurance Name Policy Number Policy Ray Covered Member ID Ray Member ID Guarantor Name 03/20/2025 2 [employer] [id number] Ana Maria العراقي [id number] Ana Maria العراقي 03/20/2025 1 [place] [employer] 104 Ana Maria العرايق [id number] Ana Maria العراقي Notes Date Note Type Note Provider Name and Address Organization Details Recorded Time 03/20/2025 text/html ROS as noted in the HPI Ana Maria (44F) presents to the office with concerns of RMT tube position (11/09/23). She reports that she has otalgia and discomfort in her right ear. She also cannot hear very well in her ear. HUGO THORNE MD [address] [facility] [place], [address], [facility] 03/20/2025 17:14:57 OBGyn Episode No OBEpisode recorded.
--- OUTSIDE RECORDS SUMMARY | 2025-04-26 11:52 | XMS_ITS | Encounter Summary ---
[facility] Address [address] [place] [address] Care Team Providers Care Stem Teacher Name Role Phone Андрей Green MD Primary Care Provider Encounter Details Date Type Department Care Team (Late st Contact Info) Description 12/18/2012 Conversion Encounter [facility] HISTORICAL CONV [address] [place] [address] Interface, See Report Social History [...] See Report - 12/18/2012 12:00 AM EDT MEDICAL RECORD TRANSCRIBER-Oncology Services [address] [place], [place] [id number] Patient: PARAMJIT SHARP MR #: : [id number] [...] She presented to Dr. Emmy gonzalez who performeda PAP and at time of exam noted a cervical polyp which she then removed. 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 Most recent PAP 3 neela hs ago was normal. Otherwise, feeling well. Reports intentionalweight loss of 20#. Denies abdominal pain, bloating, N/V, early satiety, hematochezia or hematuria. Past family and/or social history: Family history: Mother - Hyst for AUB. +Diabetes, +HTN . 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 ENDOMETRIAL [...] Description 05/17/2025 10:30 AM EST Office Visit [facility] [address] [place] [address] Tawanna Nassar, POULTRY FIELD SERVICE TECHNICIAN [address] [place], [place] [id number] 08/12/2025 9:30 AM EDT Office Visit [facility] GYNECOLOGIC ONCOLOGY [address] [place], [place] [address] Iraida Jackson, POULTRY FIELD SERVICE TECHNICIAN [address] [place] [address] documented as of this encounter Visit Diagnoses Not on filedocumented in this encounter Care Teams Stem Teacher Relationship Specialty Start Date End Date Андрей Green MD [address] [place] [address] PCP - General Family Medicine 06/25/24 documented as of this encounter
--- OUTSIDE RECORDS SUMMARY | 2025-04-26 11:52 | XMS_ITS | Encounter Summary ---
Author Organization [facility] Address [address] [place] [address] Care Team Providers Care Underwater Roboticist Name Role Phone Ebony Cruz Kael CLAY Unavailable [phone] Chaparro Amaya MD Unavailable Андрей Green MD Primary Care Provider [phone] Encounter Details Date Type Department Care Team (Latest Contact Info) Description 03/29/2025 Travel Social History Tobacco Use Types Packs/Day [...] any time in the past 12 m [facility], were you homeless or living in a usp (including now)? No 10/19/2024 AUDIT-C Answer Date [...] documented as of this encounter Care Teams Underwater Roboticist Relationship Specialty Start Date End Date Анд[place] [address] PCP - General Family Medicine 04/06/24 Ebony Cruz APRN [address] [place] [address] [address] [place] [address] Referring Physician Gastroenterology 12/04/21 Chaparro Amaya MD [address] [place] [address] Transplant Physician Transplant Surgery 12/10/21 documented as of this encounter
--- OUTSIDE RECORDS SUMMARY | 2025-04-26 11:52 | XMS_ITS | Encounter Summary ---
Author Organization [facility] Address [address] [place] [address] Care Team Providers Care Physical Chemistry Professor Name Role Phone Ebony Cruz WELT SOLE LAYER Unavailable [phone] Chaparro Amaya MD Unavailable Андрей Green MD Primary Care Provider [phone] Encounter Details Date Type Department Care Team (Late st Contact Info) Description 03/01/2025 Telephone [facility] Medicine [address] [place] [address] Bridgett Aguilar, WELT SOLE LAYER [address] [place] [address] Social History Tobacco Use Types [...] time in the past 12 m [facility], were you homeless or living in [...] Recorded In the past 12 months has [employer], gas, oil, or water [employer] threatened to shut off services in your [...] encounter Miscellaneous Notes * Telephone Encounter - Martha Amaya - 03/01/2025 5:04 PM EDT Spoke with patient & gave information. Voiced understanding. * Telephone Encounter - Julián Fabian - 03/01/2025 4:06 PM EDT Left detailed VM for pt to let her know that we have not yet received result. Will contact once report is received and reviewed. * Telephone Encounter - Jayda Peck - 03/01/2025 3:32 PM EDT Clinical Concern/Question Reason for Call: Pt requesting a call back to discuss CT results from yesterday. Pls advise. Thank you! Best contact number: [phone] (mobile) Optimal time of day to reach caller: ANYTIME Additional comments/information from caller: None Note: Please do not reply to this message. Follow-up communication and further actions as a result of this message need to be communicated with the patient directly, if the patient is not active onMyChart. If the patient is active on MyChart, they will receive notification of the communication/outcome via [employer]. documented in this encounter Plan of Treatment [...] documented as of this encounter Care Teams Physical Chemistry Professor Relationship Specialty Start Date End Date Андрей Green MD [address] [place] [address] PCP - General Family Medicine 04/06/24 Ebony Cruz APRN [address] [facility] [address] [place] [address] Referring Physician Gastroenterology 12/04/21 Chaparro Amaya MD [address] [facility] [address] [place] [address] Transplant Physician Transplant Surgery 12/10/21 documented as of this encounter
--- OUTSIDE RECORDS SUMMARY | 2025-04-26 11:53 | XMS_ITS | Encounter Summary ---
Author Organization [facility] Address [address] [place] [address] Care Team Providers Care Avionics Systems Engineer Name Role Phone Shadi, Rosario Lalit GALEANO Primary Care Provider [phone] Ebony Cruz APRN Unavailable [phone] Chaparro Amaya MD Unavailable Андрей Green MD Primary Care Provider [phone] Encounter Details Date Type Department Care Team (Late st Contact Info) Description 03/29/2023 Lab Requisition [facility] [address] [place] [address] Carl Mendoza MD [address] [place] [address] Personal history of peptic ulcer [...] on file documented as of this encounter Procedures Procedure Name Priority Date/Time Associated Diagnosis Comments SURGICAL PATHOLOGY EXAM Routine 03/29/2023 Personal history of peptic ulcer disease documented in this encounter Results * Surgical Pathology Exam (03/29/2023) Case Report Surgical Pathology Case: [id number] Authorizing Provider: Carl Mendoza MD Collected: 03/29/2023 Ordering Location: [facility] Lab Received: 03/29/2023 1429 Pathologist: Aaron Lares DO Specimen: Gastric, gastric polyps biopsy 03/30/2023 5:12 PM EDT [facility] Final Diagnosis STOMACH, POLYPS, BIOPSY: - FUNDIC GLAND POLYPS (2). 03/30/2023 5:12 PM EDT [facility] at 1712 EDT Clinical Information Personal history of peptic ulcer disease Hematemesis History of gastric ulcers Suspected upper gastrointestinal bleeding EGD findings: - Multiple 2 to 7 mm sessile polyps with no bleeding and no stigmata of recent bleeding were found in the gastric fundus and in the gastric body. 03/30/2023 5:12 PM EDT [facility] Gross Description A. GASTRIC POLYPS BIOPSY The specimen is received in formalin labeled gastric polyp biopsy . Consists of two fragments of pink-kirby mucosa, measuring 0.3 x 0.2 x 0.1 cm in greatest dimesion. The specimen is submitted entirely in cassette A1. 03/30/2023 5:12 PM EDT [facility] Note: A resident was involved in the service. I attest I examined the relevant preparations for the specimens and confirmed the diagnosis or interpretation. 03/30/2023 5:12 PM EDT [facility] Tissue Stomach structure / Unknown 03/29/2023 03/29/2023 2:29 PM EDT us Carl Mendoza MD LAB PATHOLOGY ORDERABLES Final R esult [facility] [address] [place] [address] documented in this encounter Visit Diagnoses Diagnosis [...] documented as of this encounter Care Teams Avionics Systems Engineer Relationship Specialty Start Date End Date Rosario Hsu DO PCP - General 12/04/21 04/05/24 Андрей Green MD [address] [place] [address] PCP - General Family Medicine 04/06/24 Ebony Cruz APRN [address] [place] [address] Referring Physician Gastroenterology 12/04/21 Chaparro Amaya MD [address] [facility] [address] [place] [address] Transplant Physician Transplant Surgery 12/10/21 documented as of this encounter
--- OUTSIDE RECORDS SUMMARY | 2025-04-26 11:53 | XMS_ITS | Data Portability ---
Author Organization NOLBERTO MARV M[facility] [place] [facility] Address [address] [facility] [address] [place] [address] Care Team Providers Care Agricultural Produce Washer Name Role Phone LYDIA CHAPMAN Primary Care Provider Assessment No assessment recorded. Plan of Treatment Reminders Order Date Submit Date Provider Last Modified By Organization Details Last Modified Time Details Appointments None recorded. Lab None recorded. Referral None recorded. Procedures None recorded. Surgeries None recorded. Imaging None recorded. Medication Orders dexamethaso ne sodium phosphate 10 mg/mL injection solution 2023 024 [email or web address] Not available 16:23:55 Patient TargetsNo targets recorded. Patient Instructions Encounter Date Encounter Id Patient Instructions Last Modified By Organization Details Last Modified Time 11/16/2023 [id number] 1. I have ensure d the patient that her RMT is in place and patent, with no evidence of infection or drainage. I do believe her ear has not adapted yet to the new time and advised her to give this a little more time. 2. Maintain dry right ear precautions 3. Rx - Dexamethasone 10mg IM injection once 4. Wean off Meclizine through next week 5. F/U in [address] Torres as previously scheduled [facility] Saira Torres [email or web address] Not available 11/16/2023 09:42:57 12/21/2023 [id number] 1. [email or web address] Not available 09:18:50 long history of right ETD and had t tube replaced on 11/09/23; still struggling a bit to adjust to the tube; hearing not back to normal yet; assured her the tube looks good and will just take some more time to adapt; also today has acute laryngitis so will do decadron; follow up in six weeks to check her progress [email or web address] Not available 12/21/2023 18:50:48 03/20/2025 [id number] 1. RMT removal performed in office today. [...] 1 week 3. F/u in 2-3 weeks [email or web address] Not available 03/20/2025 16:55:36 lifetime history of [...] Abnormal Flag Note LastModifiedBy Organization Detail LastModifiedTime 02/01/2002/01/2024 audio gram No observ ation record ed. [email or web address] Not Available 2023 09:37:08 03/21/20 25 03/20/2025 audio gram No observ ation record ed. BARCODE Not Available 2024 10:43:59 Result Notes None recorded. Problems Name Problem SNOMED Code Status Onset Date Resolution Date Notes Provider Name and Address Organization Details Recorded Time Otitis media of right ear 68483451512 26713 Active 2015 From Automated Load;Prov ider: Sahil Aguirre atus: Active Not Available [facility] 6 04:11:24 Perforati on of tympanic membrane 70931639 Active 2015 From Automated Load;Prov ider: Sahil Aguirre atus: Active Not Available [facility] 6 04:11:24 Benign paroxysma l positiona l vertigo 189952097 Active 2015 From Automated Load;Prov ider: Dina Aguirre; atus: Active Not Available [facility] 6 04:11:24 Chronic tonsillit is 09105497 Active 2015 Provider: Hugo Torres;Statu s: Active Not Available [facility] 6 04:11:24 Hypertrop hy of tonsils AND adenoids 42823509 Active 2015 Provider: Hugo Torres;Statu s: Active Not Available [facility] 6 04:11:24 Adenoid vegetatio ns 009159968 Active 2015 Provider: Hugo Torres;Statu s: Active Not Available [facility] 6 04:11:24 Eustachia n tube disorder 64982293 Active 2015 Provider: Hugo Torres;Statu s: Active Not Available [facility] 6 04:11:24 Problem Notes None recorded. Procedures Surgical History Date Name Laterality Status Provider Name and Address Organization Details Recorded Time 03/20/20 25 Tympanogram completed GOLDEN MONTERO [address] [place], [address], [facility] 03/20/2025 16:13:52 03/20/20 25 Audiogram completed GOLDEN MONTERO [address] [place], [address], [facility] 03/20/2025 16:13:51 03/20/20 25 Binocular Microscopy completed HUGO TORRES MD [address] [place], [address], [facility] 03/20/2025 17:11:48 02/01/20 24 Tympanogram completed GOLDEN NARVAEZ, CCA-A [address] [place], [address], [facility] 02/01/2024 16:48:30 02/01/20 24 Audiogram completed GOLDEN NARVAEZ, CCA-A [address] [place], [address], [facility] 02/01/2024 16:48:28 11/09/19 24 Tympanostomy w/Tube, local completed George Aguilarg [facility] 11/09/2023 10:45:46 06/07/19 24 TYMPANOSTOMY, TUBE INSERTION (SURG) completed Clair Dent'Checo [facility] 12/29/2023 11:39:37 06/01/19 24 Tympanogram completed GOLDEN NARVAEZ, CCA-A [address] [place], [address], [facility] 06/01/2023 14:08:37 06/01/19 24 Audiogram completed GOLDEN NARVAEZ, CCA-A [address] [place], [address], [facility] 06/01/2023 14:08:34 05/30/19 07 procedure on gallbladder completed Tara Blanquita [facility] 06/01/2023 15:13:50 hysterectomy completed Tara Blanquita [facility] 06/01/2023 15:14:59 Imaging Results None recorded. Procedure Notes None recorded. Medical Equipment None Reported. Allergies Allergen ID Allergen Name Allergen Category Reaction Reaction Severity Criticality Documentation Date Start Date Code Code System Note Provider Name and Address Organization Details Recorded Time 396201 Substance with sulfonami de structure and antibacte rial mechanism of action (substanc e) medicatio n Not available Not available Not available 04/22/20162012 29312 8003 SNOMED Comme nt: Creat ed By: Ta reedCre ated Date: 2012 8:51: 45 AM; Not Available [facility] 6 10:31:16 096350 Dilaudid medicatio n Not available Not available Not available 04/22/20162012 21825 3 RxNorm Comme nt: Creat ed By: Ta mcconnell;Cre ated Date: 2012 8:52: 01 AM; Not Available [facility] 6 14:13:55 696762 magnesium medicatio n Not available Not available Not available 06/01/2023 6574 RxNorm Tara Blanquita [facility] 4 13:52:19 692113 doxycycli ne Not available Not available Not available Not available 03/20/2025 3640 RxNorm Henna Altman [facility] 16:27:14 493847 morphine medicatio n Not available Not available Not available 03/20/2025 7052 RxNorm Henna Altman [facility] 16:27:30 Medications Name Sig Start Date Stop [...] and Address Organization Details Last Updated DateTime 4 162.56 cm 19.9 kg/m2 08001.4 1 g 101 /min 98.1 [degF] 126/86 mm[Hg] Tara Juares [facility] 4 08:48:21 Date Recorded Body height Body mass index (BMI) Body weight Body temperature Heart rate Systolic And Diastolic Provider Name and Address Organization Details Last Updated DateTime 4 162.56 cm 19.8 kg/m2 99205.2 2 g 98.1 [degF] 105 /min 111/79 mm[Hg] Karli Conti [facility] 4 16:33:27 Date Recorded Body height Body mass index (BMI) Body weight Heart rate Body temperature Systolic And Diastolic Provider Name and Address Organization Details Last Updated DateTime 5 162.56 cm 18.2 kg/m2 89878.7 9 g 98 /min 98 [degF] 101/78 mm[Hg] Henna Altman [facility] 5 16:29:06 Social History None recorded. Functional [...] adolescent or pediatric 7 completed Not Available [facility] 03/20/2025 16:14:32 Hep B, adolescent or pediatric 7 completed Not Available [facility] 03/20/2025 16:14:32 Hep B, adolescent/high risk 8 completed [facility] 03/20/2025 16:14:32 Td (adult), 2 Lf tetanus [...] virus, trivalent, PF 4 completed Not Available [facility] 03/20/2025 16:14:32 Past Encounters Encounter ID Performer Location Encounter Start Date Encounter Closed Date Diagnosis/Indication Diagnosis SNOMED-CT Code Diagnosis ICD10 Code Diagnosis IMO Codes Diagnosis Note [id number] DAMI FOURNIER MD [facility] [address] [place] [address] 06/01/2023 13:41:13 06/01/2023 16:04:32 History of surgery 377765534 Z98.890 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 Ear pressu re sensation 760761952 H93.8X9 - Right Retraction of tympanic membrane 25477497 H73.891 Dysfunctio n of right eustachian tube 8849586498 706059 H69.91 Referred o talgia of right ear 4892596348 358648 H92.01 WITH EFFUSION AND RETRACTION AND CHRONIC ETD/ H/O TYMPANOPLA STY [id number] ONDINA L[facility]MAN [facility], AUD, [facility] [address] [place] [address] 06/01/2023 14:07:21 06/01/2023 14:41:00 Dysfunction of right eustachian tube 4281456445 719500 H69.91 Otalgia of right ear 425 9015654 H92.01 Conductive hearing loss of right ear 9203155456 H90.11 [id number] DAMI FOURNIER MD [facility] [address] [place] [address] 07/13/2023 10:23:43 07/13/2023 13:12:44 Referred otalgia of right ear 3153410679 161337 H92.01 WITH EFFUSION AND RETRACTION AND CHRONIC ETD/ H/O TYMPANOPLA STY History of surgery 64023 5003 Z98.890 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 06/07/23 RIGHT PE TUBE WITH LYSIS OF ADHESIONS FOR EFFUSION AND VERY DEEP RETRACTION 07/13/23 HEALED BEAUTIFULL Y. SYMPTOMS SHOULD SETTLE OVER TIME. RCK 6MO W AUDIO. 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 06/07/23 RIGHT PE TUBE WITH LYSIS OF ADHESIONS FOR EFFUSION AND VERY DEEP RETRACTION 07/13/23 HEALED BEAUTIFULL Y. SYMPTOMS SHOULD SETTLE OVER TIME. RCK 6MO W AUDIO. Referred o talgia of right ear 9507515056 679563 H92.01 Ear pressu re sensation 715458170 H93.8X9 - RIGHT Dysfunctio n of right eustachian tube 8038259976 266547 H69.91 11/09/23 - RMT extruded (sitting in canal) - removed in office today, TM retracted - RMT replaced in office today (T-Tube). Otalgia of right ear 365 1709999 H92.01 Retraction pocket of right tympanic membrane of ear 5975463050 227305 H73.891 Postoperative care 69814 9007 Z48.89 [id number] TRAN ALAN APRN [facility] [address] [place] [address] 11/16/2023 08:44:54 11/16/2023 09:59:33 Dysfunction of right eustachian tube 1001558869 861025 H69.91 11/09/23 - RMT extruded (sitting in canal) - removed in office today, TM retracted - RMT replaced in office today (T-Tube).- 11/16/23: RMT in place and patent Retraction pocket of right tympanic membrane of ear 4965388600 282419 H73.891 Otalgia of right ear 212 6643730 H92.01 Ear pressu re sensation 905240754 H93.8X9 - RIGHT History of surgery 93051 5003 Z98.890 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 06/07/23 RIGHT PE TUBE WITH LYSIS OF ADHESIONS FOR EFFUSION AND VERY DEEP RETRACTION 07/13/23 HEALED BEAUTIFULL Y. SYMPTOMS SHOULD SETTLE OVER TIME. RCK 6MO W AUDIO. Bilateral tympanosclerosis 4210771693 3855293 H74.03 Dizziness 265712866 R42 Impairment of balance 38 1206891 R26.89 [id number] HUGO TORRES MD [facility] [address] [place] [address] 12/21/2023 15:49:45 12/22/2023 04:32:30 Dizziness 126472198 R42 Impairment of balance 38 4605471 R26.89 Dysfunctio n of right eustachian tube 8322374218 306966 H69.91 11/09/23 - RMT extruded (sitting in canal) - removed in office today, TM retracted - RMT replaced in office today (T-Tube).- 11/16/23: RMT in place and patent Retraction pocket of right tympanic membrane of ear 9393174466 159993 H73.891 Bilateral tympanosclerosis 1033199098 0746593 H74.03 Otalgia of right ear 520 6520430 H92.01 Ear pressu re sensation 925690764 H93.8X9 - RIGHT [id number] ONDINA LYMAN ER, AUD, [facility] [address] [place] [address] 02/01/2024 16:27:06 02/02/2024 04:25:10 Dysfunction of right eustachian tube 4141124075 848814 H69.91 Conductive hearing loss of right ear 1878931697 H90.11 Otalgia of right ear 537 8301615 H92.01 [id number] HUGO TORRES MD [facility] [address] [place] [address] 03/20/2025 15:45:53 03/20/2025 16:58:32 Dysfunction of right eustachian tube 4422208413 857007 H69.91 11/09/23 - RMT extruded (sitting in canal) - removed in office today, TM retracted - RMT replaced in office today (T-Tube).: RMT in place and aqtyme93/2 07/24 - Foreign body reaction in right TM pushing the tube out Bilateral tympanosclerosis 9554804966 4761784 H74.03 Otalgia of right ear 343 0397540 H92.01 Ear pressu re sensation 196086855 H93.8X9 - RIGHT Otorrhea of right ear 10 51024168 258625 H92.11 [id number] Surgical follow-up 81360 4000 Z96.22 [id number] ANGI NAVARRETE [facility] [address] [place] [address] 03/20/2025 16:13:30 03/20/2025 16:14:42 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 7389100659 H90.71 [id number] Health Concerns Section Related Observation LastModified by Organization Detai ls LastModified Time None Recorded Concern Status LastModified by Organization Details LastModified Time None Recorded Advance Directives Directive None Recorded Payers Insurance Date Sequence Insurance Name Policy Number Policy Ray Covered Member ID Ray Member ID Guarantor Name 03/31/2025 1 [facility] [employer] [id number] Ana Maria العراقي [id number] Ana Maria العراقي 03/31/2025 2 [place] [id number] Ana Maria العراقي [id number] Ana Maria العراقي Notes Date Note Type Note Provider Name and Address Organization Details Recorded Time 11/16/2023 text/html Ana Maria Malcom returns today for follow up on her right ear. She says that she has been having constant wooziness and imbalance since her right ear tube was replaced last week. She still can't hear from the right ear and hears a constant ring. She is using Meclizine twice daily and has improved some overall. TRAN ALAN, INSULATION INSTALLER [address] [facility], [place], [address], [facility] 11/16/2023 09:43:17 12/21/2023 text/html Ana Maria presents in office today to follow up on right ear tube, performed in office 11/09/23. She did have dizziness post ear tube placement which Meclizine and Ofloxacin ear drops were utilized. The pt also consulted Ciaran Alan APRN 11/16/23 and was provided Decadron injection. HUGO TORRES MD [address] [place] [address], [phone], [facility] 12/21/2023 18:51:10 03/20/2025 text/html ROS as noted in the HPI Ana Maria (44F) presents to the office with concerns of RMT tube position (11/09/23). She reports that she has otalgia and discomfort in her right ear. She also cannot hear very well in her ear. HUGO TORRES MD [address] [place] [address], [phone], [facility] 03/20/2025 17:14:57 OBGyn Episode No OBEpisode recorded.
--- OUTSIDE RECORDS SUMMARY | 2025-04-26 11:53 | XMS_ITS | Encounter Summary ---
Author Organization [facility] yste Address [address] [place] [address] Care Team Providers Care Track Laminating Machine Tender Name Role Phone Андрей Green MD Primary Care Provider [phone] Encounter Details Date Type Department Care Team (Late Contact Info) Description 02/03/2025 Results Follow-Up [facility] GYNECOLOGIC ONCOLOGY [address] [facility] [address] [place] [address] Iraida Jackson, QUALITY ASSURANCE QA LAB ANALYST [address] [facility] [address] [place] [id number] Social History Tobacco Use Types Packs/Day Years Used Date Smoking Tobacco: Never Smokeless Tobacco: Never Alcohol Use Standard [...] on file documented as of this encounter Plan of Treatment Upcoming Encounters Date Type Department Care Team (Late Contact Info) Description 05/17/2025 10:30 AM EST Office Visit [facility] NEUROLOGY [address] [facility] [address] [place] [address] Tawanna Nassar, QUALITY ASSURANCE QA LAB ANALYST [address] [facility] [address] [place], [place] [id number] 08/12/2025 9:30 AM EDT Office Visit [facility] GYNECOLOGIC ONCOLOGY [address] [facility] [address] [place] [address] Iraida Jackson, QUALITY ASSURANCE QA LAB ANALYST [address] [facility] [address] [place] [phone] documented as of this encounter Visit Diagnoses Not on filedocumented in this encounter Care Teams Track Laminating Machine Tender Relationship Specialty Start Date End Date Андрей Green MD [address] [place] [address] PCP - General Family Medicine 06/25/24 documented as of this encounter
--- OUTSIDE RECORDS SUMMARY | 2025-04-26 11:53 | XMS_ITS ---
Author Organization [facility] Address [address] [place] [address] Care Team Providers Care Delivery Mgr Name Role Phone Андрей Green MD Primary Care Provider [phone] Chronic Migraine Status:Enrolled (Active) Start date:02/25/2025 Enrollment date:03/07/2025 Enrollment reason:New start at Current support & services provided:Clinical Assessment, Refill Coordination , Benefits Investigation, [facility] Disp[facility] Linked medications:Ubrogepant (Active) Linked problems: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, not intractable (Active) Case Team Name Relationship Phone Tawanna Nassar APRN Nurse Practitioner Continued Care and Services Coordination
--- OUTSIDE RECORDS SUMMARY | 2025-04-26 11:53 | XMS_ITS | Encounter Summary ---
Author Organization [facility] Address [address] [place] [address] Care Team Providers Care Multiple Sclerosis Nurse Name Role Phone Shadi Rosario Lalit GALEANO Primary Care Provider [phone] Ebony Cruz APRN Unavailable [phone] Gena Olguin RN Unavailable Unavailable Kary Willis Unavailable Unavailable Andrea Valle MD Unavailable [phone] Chaparro Amaya MD Unavailable Андрей Green MD Primary Care Provider [phone] Encounter Details Date Type Department Care Team (Late st Contact Info) Description 03/25/2020 Orders Only External Location [address] [place] [address] Provider, External Social History Tobacco Use Types [...] Tomogra phy 03/25/2020 10:1 2 AM EDT us External Provider IMG CT PROCEDURES Final Result documented in this encounter Visit Diagnoses Not on filedocumented in this encounter Additional Health Concerns Infection Onset Date Last Indicated Resolved Time Gastrointestinal Rule-Out 05/16/2024 05/16/2024 6:55 PM EST C. difficile Rule-Out 05/16/2024 05/16/20242023 6:55 PM EST documented as of this encounter Care Teams Multiple Sclerosis Nurse Relationship Specialty Start Date End Date Rosario Hsu DO PCP - General 12/04/21 04/05/24 Андрей Green MD [address] [place] [address] PCP - General Family Medicine 04/06/24 Ebony Cruz APRN [address] [facility] [address] [place], [place] [address] Referring Physician Gastroenterology 12/04/21 Gena Olguin, RN [facility] [address] [place] [address] Registered Nurse Transplant Surgery 12/07/21 02/20/23 Kary Willis [id number] Registered Nurse Transplant Surgery 12/07/21 02/20/23 nAdrea Valle MD [address] [place] [address] Surgeon Transplant Surgery 12/07/21 12/09/21 Chaparro Amaya MD [address] [place] [address] Transplant Physician Transplant Surgery 12/10/21 documented as of this encounter
--- OUTSIDE RECORDS SUMMARY | 2025-04-26 11:53 | XMS_ITS | Encounter Summary ---
Author Organization [facility] Address [address] [place] [address] Care Team Providers Care Water Taxi Ferry Operator Name Role Phone Rosario Hsu DO Primary Care Provider [phone] Ebony Cruz APRN Unavailable [phone] Chaparro Amaya MD Unavailable Андрей Green MD Primary Care Provider [phone] Encounter Details Date Type Department Care Team (Late st Contact Info) Description 03/29/2023 Outside Procedure [address] [address] Provider, External Social History Tobacco [...] documented as of this encounter Care Teams Water Taxi Ferry Operator Relationship Specialty Start Date End Date Rosario Hsu DO PCP - General 12/04/21 04/05/24 Андрей Green MD [address] [place] [address] PCP - General Family Medicine 04/06/24 Ebony Cruz APRN [address] [place], [place] [address] Referring Physician Gastroenterology 12/04/21 Chaparro Amaya MD [address] [facility] [address] [place] [address] Transplant Physician Transplant Surgery 12/10/21 documented as of this encounter
--- OUTSIDE RECORDS SUMMARY | 2025-04-26 11:53 | XMS_ITS | Encounter Summary ---
Author Organization [facility] yste Address [address] [place] [address] Care Team Providers Care Nurse Discharge Planner Name Role Phone Андрей Green MD Primary Care Provider [phone] Reason for Visit * Reason Onset Date Comments EEG, MRI brain results 03/13/2025 Encounter Details Date Type Department Care Team (Late st Contact Info) Description 03/13/2025 Results Follow-Up [facility] NEUROLOGY [address] [facility] [address] [place] [address] Tawanna Nassar, OBED [address] [facility] [address] [place] [address] EEG, MRI brain results Social History Tobacco Use Types Packs/Day Years [...] Description 05/17/2025 10:30 AM EST Office Visit [facility] NEUROLOGY [address] [facility] [address] [place] [address] Tawanna Nassar, CANDLE MOLDER [address] [facility] [address] [place] [address] 08/12/2025 9:30 AM EDT Office Visit [facility] GYNECOLOGIC ONCOLOGY [address] [facility] [address] [place], [place] [address] Iraida Jackson, CANDLE MOLDER [address] [facility] [address] [place], [place] [address] documented as of this encounter Goals Goal [...] Initiate Ubrelvy. documented as of this encounter Visit Diagnoses Not on filedocumented in this encounter Care Teams Nurse Discharge Planner Relationship Specialty Start Date End Date Андрей Green MD [address] [place] [address] PCP - General Family Medicine 06/25/24 documented as of this encounter
--- OUTSIDE RECORDS SUMMARY | 2025-04-26 11:53 | XMS_ITS | Encounter Summary ---
Author Organization [facility] yste Address [address] [place] [id number] Care Team Providers Care Mental Retardation Aide Name Role Phone Андрей Green MD Primary Care Provider [phone] Encounter Details Date Type Department Care Team (Latest Contact Info) Description 03/13/2025 Travel Social History Tobacco Use Types Packs/Day [...] Description 05/17/2025 10:30 AM EST Office Visit [facility] NEUROLOGY [address] [facility] [address] [place] [address] Tawanna Nassar, OBED [address] [facility] [address] [place] [address] 08/12/2025 9:30 AM EDT Office Visit [facility] GYNECOLOGIC ONCOLOGY [address] [place] [address] Iraida Jackson APRN [address] [facility] [address] [place] [address] documented as of this encounter Goals Goal [...] on filedocumented in this encounter Care Teams Mental Retardation Aide Relationship Specialty Start Date End Date Андрей Green MD [address] [place] [address] PCP - General Family Medicine 06/25/24 documented as of this encounter
--- OUTSIDE RECORDS SUMMARY | 2025-04-26 11:53 | XMS_ITS | Encounter Summary ---
Author Organization [facility] Address [address] [place] [address] Care Team Providers Care Manager Document Control Name Role Phone Shadi Rosario Lalit GALEANO Primary Care Provider [phone] Ebony Cruz APRN Unavailable [phone] Gena Olguin RN Unavailable Unavailable Kary Willis Unavailable Unavailable Andrea Valle MD Unavailable [phone] Chaparro Amaya MD Unavailable Андрей Green MD Primary Care Provider [phone] Encounter Details Date Type Department Care Team (Late st Contact Info) Description 03/25/2020 Orders Only External Location [address] [place] [address] Provider, External Social History Tobacco Use Types [...] documented as of this encounter Care Teams Manager Document Control Relationship Specialty Start Date End Date Rosario Hsu DO PCP - General 12/04/21 04/05/24 Андрей Green MD [address] [place] [address] PCP - General Family Medicine 04/06/24 Ebony Cruz APRN [address] [facility] [address] [place], [place] [id number] Referring Physician Gastroenterology 12/04/21 Gena Olguin, RN [facility] [address] [place] [address] Registered Nurse Transplant Surgery 12/07/21 02/20/23 Kary Willis [id number] Registered Nurse Transplant Surgery 12/07/21 02/20/23 Andrea Valle MD [address] [place] [address] Surgeon Transplant Surgery 12/07/21 12/09/21 Chaparro Amaya MD [address] [place] [address] Transplant Physician Transplant Surgery 12/10/21 documented as of this encounter
--- OUTSIDE RECORDS SUMMARY | 2025-04-26 11:53 | XMS_ITS | Clinical Summary ---
Author Organization [facility] Address [address] [place] [address] Care Team Providers Care Manager Financial Planning Name Role Phone Андрей Green MD Primary Care Provider [phone] Allergies Active Allergy Reactions Criticality Noted Date Comments Acetaminophen Hives,Other (See Comments) High 11/04/2022 Adhesive Tape Rash Low 04/02/2016 Hydromorphone Hcl Itching,Delirium High 04/01/2016 IV Doxycycline GI Intolerance 01/30/2025 Hydromorphone Delirium,Itching,Oth e r (See Comments) High [...] mcg OralDaily PRN, Informant: Self, Reported on 02/12/2025 cycloSPORINE (RESTASIS) 0.05 % ophthalmic emulsion Administer [...] 07/28/2020 4:36 PM EST 05/12/20 20 Active Additional Information Patient taking differently: 5 mgOral Daily, Reported on 02/12/2025 furosemide (LASIX) 20 MG tabletIndications: Lymphedema, not [...] 22 Active amphetamine-dextro amphetamine XR (ADDERALL XR) 20 MG 24 hr capsule Take 1 capsule by mouth Every Morning 11/12/19 23 Active fluticasone (FLONASE) 50 MCG/ACT [...] Daily. 42.5 g 1 10/12/19 25 Active ubrogepant (Ubrelvy) 100 MG tabletIndications: 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, not intractable Take 1 tablet by mouth As Needed (For migraine. May repeat after 2 hours. Max 200 mg per 24 hours.). 10 tablet 11 03/11/2025 3:30 PM EDT 03/07/20 25 Active Active Problems Problem Noted Date [...] Encounters Date Type Department Care Team Description 03/13/2025 2:14 PM EDT - 03/13/2025 11:59 PM EDT Hospital Encounter [facility] MRI [address] [place] [address] Episode of transient neurologic symptoms; 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, not intractable Discharge Disposition: Home or Self Care 03/13/2025 9:00 AM EDT - 03/13/2025 11:59 PM EDT Hospital Encounter [facility] NEUROLOGY DIAGNOSTICS [address] [facility] [address] [place] [address] Episode of transient neurologic symptoms Discharge Disposition: Home or Self Care 03/13/2025 Results Follow-Up [facility] NEUROLOGY [address] [facility] [address] [place] [address] Tawanna Nassar APRN 03/13/2025 Results Follow-Up [facility] NEUROLOG[facility] [address] [facility] [address] [place] [address] Tawanna Nassar APRN EEG, MRI brain results 03/13/2025 Travel 03/01/2025 10:52 AM EDT - 03/01/2025 11:59 PM EDT Hospital Encounter [facility] [place] [address] [place] [address] Bridgett Aguilar APRN Abdominal pain, left lower quadrant; Gross hematuria; Left flank pain Discharge Disposition: Home or Self Care 03/01/2025 Travel 02/15/2025 Patient rounding ([facility] only) [facility] [address] [facility] [address] [place] [address] Shruti Sarkar 02/13/2025 Telephone [facility] [address] [facility] [address] [place] [address] Niesha Mesa, PharmD 02/12/2025 9:30 AM EDT Office Visit [facility]UROLOG[facility] [address] [facility] [address] [place] [address] Tawanna Nassar, OBED 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, not intractable (Primary Dx); Episode of transient neurologic symptoms 02/12/2025 Travel 02/03/2025 Results Follow-Up [facility] G[facility]ECOLOGIC ONCOLOGY [address] [facility] [address] [place] [address] Iraida Jackson APRN 01/30/2025 10:40 AM EDT Lab [facility] ONCOLOGY LAB [address] [place] [address] History of endometrial cancer 01/30/2025 9:30 AM EDT Office Visit [facility]ECOLOGIC ONCOLOGY [address] [facility] [address] [place] [address] Iraida Jackson, HUMAN RESOURCES PROFESSIONAL History of endometrial cancer (Primary Dx); Radiation vaginitis; Abnormal Pap smear of vagina 01/30/2025 Travel from Last 3 Months Immunizations Immunization Administration Dates Next Due COVID-19 (Equipboard) Purple Cap Monovalent 01/23/2021 Fluzone >6mos 03/23/2024 Hep A, 2 Dose 03/20/2015 09/19/2015 Hep B, Adolescent or Pediatric 6,06/03/2015,03/20/2015,02/13,12/28/1996 04/20/2015 Hepatitis A 11/14/2015 Td (TDVAX) 01/09/2004 Family History Medical History Relation Name Comments No Known Problems Father Colon cancer Maternal Aunt Lung cancer Maternal Grandfather Colon polyps Maternal Grandmother Migraines Mother Ulcers Mother Breast cancer Neg Hx Endometrial [...] Sign Reading Time Taken Comments Blood Pressure 116/74 02/12/2025 9:42 AM EDT Pulse 94 02/12/2025 9:42 AM EDT Temperature 36.3 C (97.3 F) 01/30/2025 9:57 AM EDT Respiratory Rate 17 01/30/2025 9:57 AM EDT Oxygen Saturation 97% 02/12/2025 9:42 AM EDT Inhaled Oxygen Concentration - - Weight 48.5 kg (107 lb) 03/13/2025 2:29 PM EDT Height 162.6 cm (5' 4 ) 03/13/2025 2:29 PM EDT Body Mass Index 18.37 03/13/2025 2:29 PM EDT Plan of Treatment Upcoming Encounters Date Type Department Care Team (Late st Contact Info) Description 05/17/2025 10:30 AM EST Office Visit [facility] [address] [facility] [address] [place] [id number] Tawanna Nassar, HUMAN RESOURCES PROFESSIONAL [address] [facility] [address] [place] [address] 08/12/2025 9:30 AM EDT Office Visit [facility] GYNECOLOGIC ONCOLOGY [address] [facility] [address] [place] [address] Iraida Jackson, HUMAN RESOURCES PROFESSIONAL [address] [facility] [address] [place], [place] [id number] Health Maintenance Due Date Last Done Comments PT PLAN OF CARE 10/19/2015 ANNUAL PHYSICAL 10/31/2015 INFLUENZA VACCINE 12/28/2024 03/23/2024, 03/11/2023 Annual Gynecologic Pelvic and Breast Exam 08/09/2025 08/08/2024, 01/23/2021, 03/19/2020, Additional history exists MAMMOGRAM 02/20/2026 02/21/2024, 08/29, 02/28/2019, Additional history exists TDAP/TD VACCINES (3 - Td or Tdap) 12/13/2032 12/13/2022, 09/16/2016 (Patient-Reported (Performed Externally)), 01/09/2004 HEPATITIS C SCREENING Completed 02/21/2023, 015 Pneumococcal Vaccine 0-49 Aged Out No longer eligible based on patient's age to complete this topic Goals Goal Patient Goal Type Associated Problems [...] Progress Toward Above Goals 03/07/25 Initiate Ubrelvy. Procedures Procedure Name Priority Date/Time Associated Diagnosis Comments MRI BRAIN WO CONTRAST Routine 03/13/2025 3:18 PM EDT Episode of transient neurologic symptoms 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, not intractable EEG EXTENDED MONITORING 61-119 MIN Routine 03/13/2025 12:00 PM EDT Episode of transient neurologic symptoms CT ABDOMEN PELVIS STONE PROTOCOL STAT 03/01/2025 11:01 AM EDT Abdominal pain, left lower quadrant Gross hematuria Left flank pain CA 125 Routine 01/30/2025 10:46 AM EDT History of endometrial cancer MAMMO DIAGNOSTIC DIGITAL TOMOSYNTHESIS BILATERAL W CAD Routine 02/21/2024 10:09 AM EDT Breast pain, left Encounter for screening mammogram for malignant neoplasm of breast SCANNED - PAP SMEAR 01/23/2021 HEPATITIS C ANTIBODY Routine 02/10/2015 4:47 PM EDT from Last 3 Months or Most Recently Relevant to Health Maintenance Results * MRI Brain Without Contrast (03/13/2025 3:18 PM EDT) Anatomical Region Laterality Modality Head, Neck N/A Magnetic Resonan ce 03/13/2025 3:24 PM EDT Impressions 03/13/2025 3:33 PM EDT Impression: Normal noncontrast MRI of the brain. Electronically Signed: Ronald Renner MD 03/13/2025 3:33 PM EDT Workstation ID: [id number] Narrative 03/13/2025 3:33 PM EDT MRI BRAIN [...] MD 03/13/2025 3:33 PM EDT Workstation ID: [id number] Tawanna Nassar APRN [facility] MRI ORDERABLES Final R esult * EEG EXTENDED MONITORING 61-119 MIN (03/13/2025 12:00 PM EDT) Impressions NEUROLOGY - 03/13/2025 12:33 PM EDT Normal study This report is transcribed using the [employer] dictation system. Narrative NEUROLOGY - 03/13/2025 12:33 [...] Nassar APRN NEUROLOGY ORDERABLES Final Result NEUROLOGY * CT Abdomen Pelvis Stone Protocol (03/01/2025 [...] MD 03/01/2025 11:29 AM EDT Workstation ID: [id number] Narrative 03/01/2025 11:[address] ABDOMEN [...] MD 03/01/2025 11:29 AM EDT Workstation ID: [id number] Bridgett Aguilar HUMAN RESOURCES PROFESSIONAL IMG CT ORDERABLES Fi nal Result * CA 125 (01/30/2025 10:46 AM EDT) CA 125 12.6 0.0 - 38.1 U/mL 01/30/2025 2:55 PM EDT [facility] Blood Venipuncture / Unknown 01/30/2025 10:46 AM EDT 01/30/2025 10:46 AM EDT Narrative [facility] - 01/30/2025 2:55 PM EDT Results may be falsely decreased if patient taking Biotin. Testing Method: [employer] Electrochemiluminescence Immunoassay(ECLIA) Values obtained with different assay methods or kits cannot be used interchangeably. Iraida Jackson HUMAN RESOURCES PROFESSIONAL LAB BLOOD ORDERABLES F inal Result [facility]
[address] [place] [address], * Mammo Diagnostic Digital Tomosynthesis Bilateral With [...] of concern indicated by the patient. A lower brule marker is placed over a visible skin [...] Hep C Virus Ab NonReactive NonReactive B [facility] Comment: The signal to cutoff ratio [...] 4:47 PM EDT 02/10/2015 4:47 PM EDT [facility] - 02/10/2015 7:05 PM EDT Specimen Type : Blood us William Paredes MD LAB BLOOD ORDERABLES Sonja avril Result [facility] [address] [place] [address], [place] [phone] from Last 3 Months or Most Recently Relevant to Health Maintenance Insurance [employer] Member Subscriber Plan / Payer (Ef fective 2020-Present) Name:Ana Maria العراقي Relation to Subscriber:Self Name:Ana Maria العراقي Payer ID:[id number] (NAIC) Group ID:[id number] Type:Not on file Address[address] Advance Directives * CPR (Attempt to Resuscitate) [...] pulse or is breathing): Full Care Teams Manager Financial Planning Relationship Specialty Start Date End Date Андрей Green MD [address] [place] [address] PCP - General Family Medicine 06/25/24
--- OUTSIDE RECORDS SUMMARY | 2025-04-26 11:53 | XMS_ITS | Encounter Summary ---
Author Organization [facility] Address [address] [place] [address] Care Team Providers Care Icu Specialist Name Role Phone Андрей Green MD Primary Care Provider [phone] Encounter Details Date Type Department Care Team (Late st Contact Info) Description 03/13/2025 Results Follow-Up [facility] NEUR[facility] [address] [facility] [address] [place] [address] Tawanna Nassar, EQUIPMENT CLEANER [address] [facility] [address] [place] [address] Social History Tobacco Use Types Packs/Day Years [...] Description 05/17/2025 10:30 AM EST Office Visit [facility]UR[facility] [address] [facility] [address] [place] [phone] Tawanna Nassar, EQUIPMENT CLEANER [address] [facility] [address] [place], [place] [address] 08/12/2025 9:30 AM EDT Office Visit [facility] GYNECOLOGIC ONCOLOGY [address] [facility] [address] [place] [address] Iraida Jackson, EQUIPMENT CLEANER [address] [facility] [address] [place], [place] [phone] documented as of this encounter Goals Goal [...] on filedocumented in this encounter Care Teams Icu Specialist Relationship Specialty Start Date End Date Андрей Green MD [facility] [place] [address] PCP - General Family Medicine 06/25/24 documented as of this encounter
--- OUTSIDE RECORDS SUMMARY | 2025-04-26 11:53 | XMS_ITS | Encounter Summary ---
Author Organization [facility] Address [address] [place] [id number] Care Team Providers Care Gas Leak Inspector Name Role Phone Андрей Green MD Primary Care Provider [phone] Encounter Details Date Type Department Care Team (Latest Contact Info) Description 03/01/2025 Travel Social History Tobacco Use Types Packs/Day [...] Description 05/17/2025 10:30 AM EST Office Visit [facility]UR[facility] [address] [facility] [address] [place] [address] Tawanna Nassar, OBED [address] [facility] [address] [place] [address] 08/12/2025 9:30 AM EDT Office Visit [facility] GYNECOLOGIC ONCOLOGY [address] [facility] [address] [place], [place] [phone] Iraida Jackson, GUNNER'S MATE [address] [facility] [address] [place], [place] [phone] documented as of this encounter Visit Diagnoses Not on filedocumented in this encounter Care Teams Gas Leak Inspector Relationship Specialty Start Date End Date Андрей Green MD [address] [place] [address] PCP - General Family Medicine 06/25/24 documented as of this encounter
--- OUTSIDE RECORDS SUMMARY | 2025-04-26 11:53 | XMS_ITS | Patient Health Record ---
Author Organization [facility] Address [address] [place] [address] Care Team Providers Care Jewelry Internship Name Role Phone Shruti Duke [phone] Allergies Allergen (clinical drug ingredient) Drug/Non Drug [...] Risk Notes Problem Urinary tract infectious disease (23027572) *Urinary tract infection, site not specified (Code also, Infectious agent B95-B97 or signs & symptoms) (N39.0) 02/21/20 19 Active confirmed Urinary tract infection, site not specified Problem Emotional lability (17521904) Alteration in feeling patterns as evidenced by anxiety (R45.86) 12/07/19 19 Active confirmed Cyclic mood swings Problem Laboratory test result abnormal (826458778) Abnormal alkaline phosphatase test (R74.8) 02/21/20 19 [...]
[2025-04-26] MEDS: 0.9 % SODIUM CHLORIDE 50 ML VIAL IV (11:56)
[2025-04-26] MEDS: IOPAMIDOL-370 (76%);100ML BOTTLE 75 ML IV (11:56)
[2025-04-26] MEDS: SODIUM CHLORIDE 0.9% 10ML SYR (RAD ONLY) 10 ML IV (11:56)
[2025-04-26 12:00] LABS: RBC Morphology Normal; Total Cells Counted 100
[2025-04-26 12:02] LABS: NT Pro Brain Natriuretic Pep. 198 pg/mL (0-125)
[2025-04-26 12:07] LABS: Troponin I < 0.01 ng/ml (0.00-0.034)
[2025-04-26 12:21] LABS: Thyroid Stimulating Hormone 0.73 uIU/mL (0.465-4.68)
[2025-04-26 12:30] LABS: Free T4 (Free Thyroxine) 1.28 ng/dl (0.78-2.19)
[2025-04-26 12:41] LABS: Microscopic, Urine URINE MICROSCOPIC (MICROSCOPIC)
[2025-04-26 12:46] LABS: Bilirubin,Urine Negative (Negative); Color,Urine YELLOW (Yellow); Glucose,Urine (UA) Negative (Negative); Ketones,Urine Negative (Negative); Leukocyte Esterase,Urine Negative (Negative); PH,Urine 6.5 (5.0-8.5); Protein,Urine Negative (Negative); Specific Gravity, Urine <= 1.005 (1.005-1.030); Urobilinogen,Urine 4.0 EU/dl (0.2)
[2025-04-26 13:03] LABS: Hepatitis C Ab Qual. W/ RFX NEGATIVE (Negative)
--- NOTE | 2025-04-26 13:10 | US_ITS ---
FINAL REPORT TECHNIQUE: Sonographic images of the right upper quadrant were obtained. CLINICAL HISTORY: S/p CCY, elevated bili alp, choledocolithiasis COMPARISON: CT abdomen pelvis 04/26/2025 FINDINGS: PANCREAS: Unremarkable. LIVER: There is an area of increased echogenicity in the right lobe of the liver which is wedge-shaped and correlates to what may be perfusional in anomaly seen on CT scan. Portal vein is patent with normal directional flow. Liver otherwise homogeneous. GALLBLADDER: Absent. COMMON DUCT: 2 mm. Normal for age. RIGHT KIDNEY: The right kidney measures 8.6 cm. There is no hydronephrosis, mass, or stone. FREE FLUID: None. IMPRESSION: Changes from cholecystectomy. Normal common duct. Abnormal right lobe of the liver. Please see recent CT abdomen and pelvis report. No convincing choledocholithiasis on this exam Reviewed, Interpreted and Dictated by Juliana Torres MD Transcribed by Fariba Mitchell Authenticated and [facility]
[2025-04-26 13:58] LABS: Bacteria,Urine Trace /lpf; Squamous Epithelial Cell,Urine Occasional #/hpf (0-5); WBC,Urine Occasional #/hpf (0-3)
--- NOTE | 2025-04-26 14:00 | ECG_ITS ---
APPROVED REPORT Exam: Resting ECG HR:123 bpm ECG Measurements Heart Rate 123 AXES MT 154 P 77 QRSd 88 QRS 47 QT 337 T 72 QTc 410 Conclusion SINUS TACHYCARDIA ABNORMAL RHYTHM ECG UNCONFIRMED REPORT Sinus tachycardia. No ST elevation or depression. QTc of 410 Electronically signed by : TRACY SILVA, 04/26/2025 15:24:04
[2025-04-26 15:18] LABS: Troponin I < 0.01 ng/ml (0.00-0.034)
== END 2025-04-26 16:36 | disposition home or self-care (01) ==
PROVIDERS: Emergency Provider Student in an Organized Health Care Education/Training Program; PCP Family Medicine
DX: R07.89 Other chest pain (principal); R10.31 Right lower quadrant pain; E80.6 Other disorders of bilirubin metabolism; Z88.2 Allergy status to sulfonamides; Z88.8 Allergy status to other drugs, medicaments and biological substances; Z98.84 Bariatric surgery status; Z90.49 Acquired absence of other specified parts of digestive tract; Z90.710 Acquired absence of both cervix and uterus; F17.210 Nicotine dependence, cigarettes, uncomplicated; F43.10 Post-traumatic stress disorder, unspecified; F90.9 Attention-deficit hyperactivity disorder, unspecified type; F41.1 Generalized anxiety disorder; E07.9 Disorder of thyroid, unspecified; Z79.890 Hormone replacement therapy; Z79.899 Other long term (current) drug therapy; Z81.8 Family history of other mental and behavioral disorders
CPT/HCPCS: 71275; 74177; 76705; 80053; 81001; 83605; 83690; 83880; 84439; 84443; 84484; 84703; 85007; 85025; 85027; 86803; 87389; 93005; 96374; 96375; 99285; J2270; J2405; Q9967